=== PATIENT | male | born 2000 | race African-American/Black ===

== ENCOUNTER 2024-05-22 16:40 | Inpatient (IN) | payer OTHER, SELFPAY ==
[2024-05-22 16:58] VITALS: BP 135/86; PULSE 79; RESP 16; TEMP 36.4; O2SAT 99
[2024-05-22 17:07] VITALS: BMI 27.6
--- NOTE | 2024-05-22 19:01 | PC.ADMIT ---
Patient is a 24 y/o male admitted to at 1653 from [facility] ED following being transferred from [facility] ED. Patient did not sign a conditional voluntary at time of admission and is admitted under a 12b at this time. Patient made aware of section 12b status. Patient has a history of anxiety and ADHD. Patient also a history of suicidal attempts via strangulation/hanging, per crisis report, as well as self harm behavior including cutting. Patient was brought to [facility] following a suicide attempt at home. Patient reportedly attempted to strangle himself via rope and was found by his mother hanging from a ceiling fan. Furthermore, per crisis eval and mother?s report, patient had been making repeated recent attempts at hanging via the ceiling fans in the home, resulting in multiple broken fans over the last several months. Patient has also been exhibiting agoraphobic and isolative behavior in the home. Per mother?s report, for whom patient signed a JASPER, the patient has not showered in over 6 months and avoids talking to his family with whom he lives. Patient also claims that the recent suicidal attempts were due to a break-up with a girlfriend, but per mother, the patient has never had a intimate relationship. Patient was reportedly restrained in [facility] ED on 05/21/24 following a period of agitation. Upon admission to , patient was subdued, calm, cooperative, quiet and guarded. He is alert and oriented x 4. Pt only provided limited information during assessment and denied most psych symptoms, including current SI/HI/AH/VH. He claimed that the suicidal attempt was superficial and due to a break-up a month ago. ?I wasn?t really planning to do anything but my mom caught me and now here I am.? Pt denied history of trauma. Tox screen negative. NKA. Patient is not currently receiving outpatient services or on any home medications. Per patient?s mother, patient has refused all care to this point. Pt has a reported tendency to fast and then binge eat. No medical issues known or reported. Skin check performed. Pt has bruising on neck from suicidal attempt. Pt also has superficial cuts and scars to wrists bilaterally from cutting. Patient?s family remains very concerned for patient safety at home and believe he is at imminent risk for self harm and suicide. Family is hopeful that patient will agree to treatment and medication. Patient does not acknowledge the need to be admitted at this time and expressed desire for discharge at time of admission. Pt placed on 5 minute checks ULB for safety.
--- NOTE | 2024-05-22 19:07 | HO.PM.IMCN ---
History of Present Illness Data of Consult Service Date: 05/22/24 Primary Care Provider: Unknown Physician HPI Reason for consult: Admission H&P Pt is a 24-year-old male with out any known significant PMH not on home medications who is admitted to psychiatry unit for increasing depression with reported suicide attempt by hanging. Patient apparently was found by his mother who called 911. Workup including imaging of neck, cervical spine, and head negative for any acute injury. Medical consult for admission H&P. ?Patient seen and evaluated on the unit where he is noted to be guarded, quiet, and with poor eye contact. Patient is not very forthcoming with information, but answers questions appropriately and simply without any detail. Patient denies any acute medical complaints at this time. No shortness a breath or difficulty breathing. Denies chest pain/pressure or palpitations. No fever, chills, nausea, vomiting, abdominal pain.. Denies neck pain or difficulty swallowing. Vital signs stable and WNL. Review of Systems Review of Systems: Patient has no acute medical complaints at this time [facility] Social History Household Members: Family Household Members Other:: Naheed Coyle : Mother Housing: Apartment Do you presently have visiting nurse or other home services: No Patient Tobacco Use Status: Never used Tobacco Smoked in Last 30 Days: No e-Cigarette/Vaping Use: Never Used Patient Interested in Nicotine Replacement: No Patient Given Instructions on How to Stop Smoking: No Second Hand Smoke Exposure: No Use of substances other than those prescribed or required for medical reasons: No Currently Displaying Signs/Symptoms of Drug Intoxication Withdrawal: No Any prior treatment program specific to substance use: No Have you been hit, kicked, punched, or otherwise hurt by someone within the past year? If so, by whom?: No (Pt denied history of trauma) Do you feel safe in your current relationship?: No Current Relationship Is there a partner from a previous relationship who is making you feel unsafe now?: No Are you made to feel afraid or neglected: No Spiritual Healthcare Practices: NA Islam Healthcare Practices: NA Cultural Healthcare Practices: NA Advance Directives: No Advance Directives Information Provided: No Do you have a plan to hurt others: No Plan Recently lost weight without trying: No Eating poorly because of decreased appetite: No Nutrition Risks: No Nutritional Risk Poor oral hygiene: No Meds Allergies Allergy/AdvReac Type Severity Reaction Status Date / Time No Known Allergies Allergy Verified 05/22/24 17:01 Active Medications: Current Medications Acetaminophen (Acetaminophen 325 Mg Tablet) 650 mg PO Q6H PRN PRN Reason: Headache/Pain Mild Scale (1-3) Al Hydroxide/Mg Hydroxide (Magnesium Hydrox/Alum Hydrox 30 Ml Oral.Susp) 30 ml PO Q6H PRN PRN Reason: Heartburn/Nausea Hydroxyzine HCl (Hydroxyzine Hcl 25 Mg Tablet) 25 mg PO Q6H PRN PRN Reason: Anxiety Lorazepam (Lorazepam 1 Mg Tablet) 1 mg PO Q4H PRN PRN Reason: agitation Magnesium Hydroxide (Milk Of Magnesia 30 Ml Oral.Susp) 30 ml PO DAILY PRN PRN Reason: Constipation Nicotine (Nicotine 21 Mg Patch.Td24) 21 mg TRANSDERMA DAILY PRN PRN Reason: nicotine cravings Nicotine Polacrilex (Nicotine Polacrilex 2 Mg Gum) 4 mg BUCCAL Q2H PRN PRN Reason: Nicotine Cravings Olanzapine (Olanzapine 5 Mg Tablet) 5 mg PO Q4H PRN PRN Reason: agitation, aggression Trazodone HCl (Trazodone Hcl 50 Mg Tablet) 50 mg PO BEDTIME MRX1 PRN PRN Reason: Insomnia Home Medications ?Medication ?Instructions ?Recorded ?Confirmed ?Last Taken ?Type No Known Home Meds 05/22/24 05/22/24 Unknown History Physical Exam Vital Signs and Narrative: Vital Signs: Last Vital Signs Temp 97.5 F 05/22/24 16:58 Pulse 79 05/22/24 16:58 Resp 16 05/22/24 16:58 BP 135/86 05/22/24 16:58 Pulse Ox 99 05/22/24 16:58 O2 Del Method Room Air 05/22/24 16:58 BMI result Body Mass Index 27.6 General: AOx3, no acute distress Resp: CTA bilaterally CVS: S1, S2, RRR GI: +BS, NT, no distention Skin: Warm, dry Neuro: Cranial nerves II-XII grossly intact bilaterally. Motor grossly intact bilaterally Extremities: No edema. Well-healed superficial lacerations on right forearm. Psych: Flat affect, poor eye contact, answers questions appropriately, but not forthcoming with details Assessment and Plan (1) Medical clearance for psychiatric admission: Status: Acute Plan Pt is a 24-year-old male with out any known significant PMH not on home medications who is admitted to [facility] psychiatry unit for increasing depression with reported suicide attempt by hanging. Patient apparently was found by his mother who called 911. Workup including imaging of neck, cervical spine, and head negative for any acute injury. Medical consult for admission H&P. ? Mood disorder Plan as per Psychiatry Patient otherwise has no known PMH, chronic medical conditions, or acute medical complaints at this time. Will sign off. Thank you for allowing us to participate in the care of this patient. Please re-consult if any acute issue or need arises.
[2024-05-22 20:11] VITALS: BP 139/81; PULSE 80; RESP 18; TEMP 36.9; O2SAT 100
--- NOTE | 2024-05-22 21:58 | PC.NURSE ---
Pt sitting alone, motionless in sensory room with the door open. This RN spoke with pt regarding if he needed anything, to eat, drink, any somatic complaints including anxiety and depression, pt nodded his head no. Pt would not speak but would not or give a thumbs up to communicate. I informed pt that I would be here all night if he needed anything and advised that the kitchen can be accessed at any time during the night or day should he need anything t eat or drink.
[2024-05-23 08:30] LABS: Estimated Average Glucose 97 mg/dL; Hemoglobin A1C 116.5411 umol/L; Total Hemoglobin (HGBA1C) 3767.3589 umol/L
[2024-05-23 08:45] LABS: Cholesterol 198 mg/dL (<200); HDL Cholesterol 43 mg/dL (>40); LDL Cholesterol Calculated 141 mg/dL (<100); Magnesium 2.2 mg/dL (1.6-2.6); Triglycerides 70 mg/dL (<150)
--- NOTE | 2024-05-23 08:55 | HO.PSYADMNOT ---
HPI Date of Service: 05/23/24 Chief Complaint: Unspec anxiety d/o,atten-deficit/hyperactivity d/o Sources of Information: patient interviewed, chart reviewed and crisis/core team assessment reviewed HPI Subjective Notes: Quijano Warning and Section 12B Narrative: 24 yo male lives in [place] with his family. Unemployed. This is patient's first psychiatric admission. He has a reported history of ADHD in childhood. He was guarded and minimized symptoms in the interview. Patient was brought to [facility] initially on 05/21. His mom caught him as he was attempting suicide by hanging and she called 911. He was then transferred to [facility] yesterday and admitted. While at [facility] he had CTA neck which was normal. Bloodwork and UTOX were unremarkable. Patient reports this is his first time trying to kill himself. He says he had a break up a month ago and I didn't have closure. Says he was in the relationship for a few years. He saw an [employer] post of his ex and he felt it was subliminally directed at him. He had thoughts about how he struggles with his weight, worthlessness about being unemployed and a burden on his family. Says he realizes now it was a regrettable decision that he tried to hang himself and says he just wants to go home and work on stuff himself. He says he is not interested in taking medications. He has cuts on his forearms which he says he inflicted on himself but it was a while ago . Cuts look 1-2 weeks old and are superficial.He denies psychosis and minimizes/denies his mother's reports and disagrees about need to be in hospital or needing medications.He says his main issue is weight. Says he lost over 100 lbs over the year and half. Per crisis report from [facility] who called his mother, this wasn't the first time he tried hanging himself and reportedly broke 4 ceiling fans in the house. He has been depressed, isolating, not eating for prolonged periods of time, poor self care, breaking house mirrors so he doesn't see himself in them, and emailing friends and relatives asking for a gun. He reportedly posted photos of himself with a noose around his neck and on the roof of the family's house. Patient denies other symptoms of psychosis. He is guarded, has poor eye contact, is restless but calm and respectful. Past Psychiatric History: ADHD No inpatient treatment. Medical Evaluation Reviewed: Yes PMFSH Family History: Patient denied. Mother reported in the crisis report positive family history of mental illness/bipolar in the uncle Social History: Lives in [place] with his family. Grew up in [place]. HS graduate. Went to [employer]. Worked at [employer] until a year and a half ago. Substance History: Denied. UTOX negative. Trauma History: Unknown Diagnostics Vital Signs (24Hr): Vital Signs - 24 hr 05/22/24 16:58 05/22/24 20:11 Temperature 97.5 F 98.5 F Pulse Rate 79 80 Respiratory Rate 16 18 Blood Pressure 135/86 139/81 Pulse Oximetry 99 100 Oxygen Delivery Method Room Air Room Air BMI result Body Mass Index 27.6 Labs Labs: Laboratory Results - last 48 hr 05/23/24 08:01 Estimat Average Glucose 97 Hemoglobin A1c % 5.0 Magnesium 2.2 Triglycerides 70 Cholesterol 198 LDL Cholesterol, Calc 141 H HDL Cholesterol 43 Meds/Allergies Meds Home Medications ?Medication ?Instructions ?Recorded ?Confirmed ?Type No Known Home Meds 05/22/24 05/22/24 History Allergies Allergies Allergy/AdvReac Type Severity Reaction Status Date / Time No Known Allergies Allergy Verified 05/22/24 17:01 Mental Status Exam Mental Status Exam Narrative: General appearance: Unkempt, hospital garb. poor hygiene.? Eye contact: poor. Musculoskeletal: Normal muscle strength/tone, Normal gait and station, No abnormal involuntary movements like tremors, EPS or dyskinesia. Some restlessness and psychomotor agitation. Normal posture.??? Manner/behavior: superficially cooperative and guarded. Evasive and not forthcoming. Speech:? Fluent, soft, decreased verbal interaction and short answers. Language: No receptive or expressive language impairment? Mood: It's fine. Affect: blunted range, congruent to mood and without lability? Thought process/associations: Linear with no flight of ideas or loose associations.?? Thought content:?No delusions or paranoia.??? Hallucinations: No auditory, visual or other hallucinations. Denied. Appears preoccupied. Suicidality/self-destructive behavior: Denies. Says he is regretful? ? Homicidally/violence: none.? Reliability: poor.? ? Judgment: poor.? ? Insight: poor Cognition: Alert and oriented to time, place and person. Attention, concentration and fund of knowledge are normal.? Impulse control and emotional regulation: poor. Intelligence estimate: average.? Patient Appearance: Disheveled, Unkempt and Malodorous Assessment & Plan Assessment & Plan (1) Depressive disorder, atypical: Status: Acute Code(s): F32.89 - Other specified depressive episodes (2) Adjustment disorder with depressed mood: Status: Acute Code(s): F43.21 - Adjustment disorder with depressed mood Plan 24 yo male transferred from [facility] ED after a suicide attempt by hanging. He has been increasingly isolated, poor self care, stopped working. He has eating disorder symptoms and NSSI. Symptoms worsened in the setting of a break up. Rule out other mood disorder Plan: - Admit to inpatient psychiatry - Section 12, quijano warning. - Collateral information from family and providers. - Milieu treatment and group therapy. - Medications: Refuses - Social work evaluation. - Disposition planning. patient leloped int he after noon deom the unit and was brought back by Police. Patient educated on: medication risk/benefits and therapeutic strategies Reason for continued inpatient stay Substantial Risk for: harm to self, inability to function and rapid decompensation Statement Statement: I have reviewed the history and physical and performed a pertinent examination on my patient. No changes have occurred unless specified. If the History and Physical was not performed prior to admission, the Hospitalist's service will be consulted for completing the admission physical. Time Spent With Patient Time: Total time managing care of this patient today ____ minutes.
[2024-05-23 09:00] LABS: Free T4 (Free Thyroxine) 1.13 ng/dL (0.71-1.85); Thyroid Stimulating Hormone 0.39 uIU/mL (0.32-4.0)
[2024-05-23 09:13] LABS: Vitamin B12 837 pg/mL (200-900)
[2024-05-23 10:40] VITALS: BP 124/85; PULSE 92; RESP 16; TEMP 36.4; O2SAT 99
--- NOTE | 2024-05-23 16:37 | PM.EVENT ---
Event Note Date of Service: 05/23/24 Event Note: called to evaluate patient after 10 minute elopement, patient apparently was hiding in bushes. denies any injuries or taking any drugs or medications. patient alert, oriented, no obvious trauma, no acute distress. would check utox. Time Spent With Patient Time: Total time managing care of this patient today ____ minutes.
--- NOTE | 2024-05-23 16:54 | PC.NURSE ---
Addendum entered by Luis Medrano RN 05/23/24 18:03: Urine TOX screen entered per provider. As of 1803, patient remains non-compliant with collection. Original Note: At approximately 1500, patient approached this RN, as well Matti Murrell [facility], and requested to be brought out to fresh air break, where four other patients were currently on the patio. RN asked patient if he felt he was safe to go on fresh air break. At that time, patient contracted for safety and denied any SI/HI or elopement intent. Furthermore, prior to this incident, patient had not exhibited exit seeking behavior on the unit. He was also not on a fresh air break restriction. Staff then proceeded to escort patient off the unit to the fresh air break patio. Per report from Matti Murrell, Daniel Valdes, and Raman Dumont [facility]?s, who were each present for incident, patient proceeded to patio, then immediately requested to be brought back to the unit. At that time, during escort back to unit, patient ran from staff and proceeded down the stairs, through the hospital and outside through the main entrance. Security Estuardo, reportedly observed patient through the camera exiting the building and running down the street adjacent to the main entrance to the hospital heading north. Security and elopement code was also called at this time. Matti Murrell followed patient outside the hospital, as well as house nursing steam station supervisor, Berta Gomez, who also witnessed the patient eloping from the main entrance. TW also proceeded outside to assist at that time. rFanki IKDD was then contacted immediately by [facility] security. Furthermore, [place] [facility] security reportedly followed the patient in a car and kept eyes on the patient. Following a short althea, [facility] was able to intervene with the patient and bring him into custody, reportedly without physical restraint. Patient was then brought back to the unit. Skin check immediately performed on patient. Patient was wearing own clothing under his hospital johnnies, as well as shoes, which were previously checked by staff at admission. Patient was changed out of said clothing and back into hospital attire. Patient did not have any obvious signs of injury and denied pain or fall during the incident. Upon returning to the unit at approximately 1525, the patient was calm and cooperative. Staff spoke to the patient about the requirement for safety and legal status of his admission. Patient showed understanding. On-call provider was also contacted and informed of the incident. Patient was then placed on 1:1 at this time due to elopement risk and safety. Patient also placed on LENA restriction. Medical consult placed and hospitalist informed.
[2024-05-23 18:26] VITALS: BP 133/73; PULSE 84; RESP 16; TEMP 36.4; O2SAT 99
[2024-05-24 07:56] VITALS: BP 140/83; PULSE 95; RESP 16; TEMP 36.8; O2SAT 99
--- NOTE | 2024-05-24 11:24 | PC.NURSE ---
Pt calm and cooperative at this time. No exit seeking behavior on this date. Following discussion with provider, patient taken off 1:1 and placed on 5ULB.
--- NOTE | 2024-05-24 11:38 | P.PNPSI_ITS ---
Subjective Subjective Date of Service: 05/24/24 Reason For Visit: Unspec anxiety d/o,atten-deficit/hyperactivity d/o Interim History: Patient eloped from fresh air break yesterday and brought back by D/hospital security. Says he got anxious about being here. Says he feels better. Remains difficult to engage and minimizes his suicide attempt. Says he feels regretful about the attempted hanging. Says he needs to go home and focus on his eating and focus on getting back to work. Says he talked with his father and the conversation went well. Isolated. Spends time alone in group room or sensory room. He remains not interested in medications. Review of Systems Review of Systems Patient has no acute medical complaints at this time Mental Status Exam Mental Status Exam Narrative: General appearance: Unkempt, hospital garb. poor hygiene.? Eye contact: poor. Musculoskeletal: Normal muscle strength/tone, Normal gait and station, No abnormal involuntary movements like tremors, EPS or dyskinesia. Some restlessness and psychomotor agitation. Normal posture.??? Manner/behavior: superficially cooperative and guarded. Evasive and not forthcoming. Speech:? Fluent, soft, decreased verbal interaction and short answers. Language: No receptive or expressive language impairment? Mood: It's fine. Affect: blunted range, congruent to mood and without lability? Thought process/associations: Linear with no flight of ideas or loose associations.?? Thought content:?No delusions or paranoia.??? Hallucinations: No auditory, visual or other hallucinations. Denied. Appears preoccupied. Suicidality/self-destructive behavior: Denies. Says he is regretful? ? Homicidally/violence: none.? Reliability: poor.? ? Judgment: poor.? ? Insight: poor Cognition: Alert and oriented to time, place and person. Attention, concentration and fund of knowledge are normal.? Impulse control and emotional regulation: poor. Intelligence estimate: average.? Patient Appearance: Disheveled, Unkempt and Malodorous Diagnostics Vital Signs (24Hr): Vital Signs - 24 hr 05/23/24 18:26 05/24/24 07:56 Temperature 97.6 F 98.3 F Pulse Rate 84 95 Respiratory Rate 16 16 Blood Pressure 133/73 140/83 H Pulse Oximetry 99 99 Oxygen Delivery Method Room Air Room Air BMI result Body Mass Index 27.6 Labs Labs: Laboratory Results - last 48 hr 05/23/24 08:01 Estimat Average Glucose 97 Hemoglobin A1c % 5.0 Magnesium 2.2 Triglycerides 70 Cholesterol 198 LDL Cholesterol, Calc 141 H HDL Cholesterol 43 Vitamin B12 837 Folate 12.0 TSH 0.39 Free T4 1.13 Medications Medications Current Medications Acetaminophen (Acetaminophen 325 Mg Tablet) 650 mg PO Q6H PRN PRN Reason: Headache/Pain Mild Scale (1-3) Al Hydroxide/Mg Hydroxide (Magnesium Hydrox/Alum Hydrox 30 Ml Oral.Susp) 30 ml PO Q6H PRN PRN Reason: Heartburn/Nausea Hydroxyzine HCl (Hydroxyzine Hcl 25 Mg Tablet) 25 mg PO Q6H PRN PRN Reason: Anxiety Lorazepam (Lorazepam 1 Mg Tablet) 1 mg PO Q4H PRN PRN Reason: agitation Magnesium Hydroxide (Milk Of Magnesia 30 Ml Oral.Susp) 30 ml PO DAILY PRN PRN Reason: Constipation Nicotine (Nicotine 21 Mg Patch.Td24) 21 mg TRANSDERMA DAILY PRN PRN Reason: nicotine cravings Nicotine Polacrilex (Nicotine Polacrilex 2 Mg Gum) 4 mg BUCCAL Q2H PRN PRN Reason: Nicotine Cravings Olanzapine (Olanzapine 5 Mg Tablet) 5 mg PO Q4H PRN PRN Reason: agitation, aggression Trazodone HCl (Trazodone Hcl 50 Mg Tablet) 50 mg PO BEDTIME MRX1 PRN PRN Reason: Insomnia Allergies Allergies Allergy/AdvReac Type Severity Reaction Status Date / Time No Known Allergies Allergy Verified 05/22/24 17:01 Assessment & Plan Assessment & Plan (1) Depressive disorder, atypical: Status: Acute Code(s): F32.89 - Other specified depressive episodes (2) Adjustment disorder with depressed mood: Status: Acute Code(s): F43.21 - Adjustment disorder with depressed mood Plan 24 yo male transferred from [facility] ED after a suicide attempt by hanging. He has been increasingly isolated, poor self care, stopped working. He has eating disorder symptoms and NSSI. Symptoms worsened in the setting of a break up. Rule out other mood disorder Plan: - Admit to inpatient psychiatry - Section 12, rosado warning. - Collateral information from family and providers. - Milieu treatment and group therapy. - Medications: Refuses - Social work evaluation. - Disposition planning. patient eloped in the after noon from the unit and was brought back by Police. 05/24: Continue current management and treatment plan. Encourage engagement in groups and milieu. Reason for continued inpatient stay Substantial Risk for: harm to self, inability to function and rapid decompensation Time Spent With Patient Time: Total time managing care of this patient today ____ minutes.
[2024-05-25 07:40] VITALS: BP 100/64; PULSE 86; RESP 14; TEMP 36.7; O2SAT 99
--- NOTE | 2024-05-25 11:18 | P.PNPSI_ITS ---
Subjective Subjective Date of Service: 05/25/24 Reason For Visit: Unspec anxiety d/o,atten-deficit/hyperactivity d/o Interim History: Patient seen. Patient reports he had a bad experience with medications growing up which is making him wary. He recalls trials with stimulants in childhood and high school. Can't recall specific side effects other than feeling not well and maybe getting more balderas with them. He remains withdrawn and isolated. Says he is worried about his elopement yesterday will prolong the hospital stay. He looks internally preoccupied, he has had a paper bag with him whenever this parts data writer meets with him. He says at first it had his essentials and now he carries paperwork with him. (Paperbag looks empty). Restless. Poor eye contact. Soft spoken. Odd. He denies AVH but appears preoccupied. Discussed Quijano warning with him again. Continues to minimize his suicide attempt. His mom was visiting today and says he's thinking about what he has to do ot get out and says he is willing to pursue treatment on DC. He denies he tried to hang himself multiple times as mentioned in the crisis report. Isolated. Spends time alone in group room or sensory room. Patient denies kee. Further collateral would be helpful re prior treatment and response. Review of Systems Review of Systems Patient has no acute medical complaints at this time Mental Status Exam Mental Status Exam Narrative: General appearance: Unkempt, hospital garb. poor hygiene.? Eye contact: poor. Musculoskeletal: Normal muscle strength/tone, Normal gait and station, No abnormal involuntary movements like tremors, EPS or dyskinesia. Some restlessness and psychomotor agitation. stooped posture.??? Manner/behavior: superficially cooperative and guarded. Evasive and not forthcoming. Odd. Speech:? Fluent, soft, decreased verbal interaction and short answers. Language: No receptive or expressive language impairment? Mood: It's fine. Affect: blunted range, congruent to mood and without lability? Thought process/associations: Linear with no flight of ideas or loose associations.?? Thought content:?No delusions or paranoia.??? Hallucinations: No auditory, visual or other hallucinations. Denied. Appears preoccupied. Suicidality/self-destructive behavior: Denies. Says he is regretful? ? Homicidally/violence: none.? Reliability: poor.? ? Judgment: poor.? ? Insight: poor Cognition: Alert and oriented to time, place and person. Attention, concentration and fund of knowledge are normal.? Impulse control and emotional regulation: poor. Intelligence estimate: average.? Patient Appearance: Disheveled, Unkempt and Malodorous Diagnostics Vital Signs (24Hr): Vital Signs - 24 hr 05/25/24 07:40 Temperature 98.1 F Pulse Rate 86 Respiratory Rate 14 Blood Pressure 100/64 Pulse Oximetry 99 Oxygen Delivery Method Room Air BMI result Body Mass Index 27.6 Medications Medications Current Medications Acetaminophen (Acetaminophen 325 Mg Tablet) 650 mg PO Q6H PRN PRN Reason: Headache/Pain Mild Scale (1-3) Al Hydroxide/Mg Hydroxide (Magnesium Hydrox/Alum Hydrox 30 Ml Oral.Susp) 30 ml PO Q6H PRN PRN Reason: Heartburn/Nausea Hydroxyzine HCl (Hydroxyzine Hcl 25 Mg Tablet) 25 mg PO Q6H PRN PRN Reason: Anxiety Lorazepam (Lorazepam 1 Mg Tablet) 1 mg PO Q4H PRN PRN Reason: agitation Magnesium Hydroxide (Milk Of Magnesia 30 Ml Oral.Susp) 30 ml PO DAILY PRN PRN Reason: Constipation Nicotine (Nicotine 21 Mg Patch.Td24) 21 mg TRANSDERMA DAILY PRN PRN Reason: nicotine cravings Nicotine Polacrilex (Nicotine Polacrilex 2 Mg Gum) 4 mg BUCCAL Q2H PRN PRN Reason: Nicotine Cravings Olanzapine (Olanzapine 5 Mg Tablet) 5 mg PO Q4H PRN PRN Reason: agitation, aggression Trazodone HCl (Trazodone Hcl 50 Mg Tablet) 50 mg PO BEDTIME MRX1 PRN PRN Reason: Insomnia Allergies Allergies Allergy/AdvReac Type Severity Reaction Status Date / Time No Known Allergies Allergy Verified 05/22/24 17:01 Assessment & Plan Assessment & Plan (1) Depressive disorder, atypical: Status: Acute Code(s): F32.89 - Other specified depressive episodes (2) Adjustment disorder with depressed mood: Status: Acute Code(s): F43.21 - Adjustment disorder with depressed mood Plan 24 yo male transferred from [facility] ED after a suicide attempt by hanging. He has been increasingly isolated, poor self care, stopped working. He has eating disorder symptoms and NSSI. Symptoms worsened in the setting of a break up. Rule out other mood disorder Plan: - Admit to inpatient psychiatry - Section 12, quijano warning. - Collateral information from family and providers. - Milieu treatment and group therapy. - Medications: Refuses - Social work evaluation. - Disposition planning. patient eloped in the after noon from the unit and was brought back by Police. 05/24: Continue current management and treatment plan. Encourage engagement in groups and milieu. 05/25: Start Abilify 5 mg. Patient to consider. Encourage group and milieu engagement. Fasting labs in AM. Collaterals would be helpful. Reason for continued inpatient stay Substantial Risk for: harm to self, inability to function and rapid decompensation Time Spent With Patient Time: Total time managing care of this patient today ____ minutes.
[2024-05-25 20:00] VITALS: BP 111/71; PULSE 84; RESP 18; TEMP 36.9; O2SAT 99
[2024-05-26 20:15] VITALS: BP 124/76; PULSE 80; RESP 18; TEMP 36.6; O2SAT 100
--- NOTE | 2024-05-26 22:18 | HO.PSYCHPN ---
Subjective Subjective Date of Service: 05/26/24 Reason For Visit: Unspec anxiety d/o,atten-deficit/hyperactivity d/o Subjective Notes: Quijano Warning Interim History: reports h/o zoloft and lexapro, which made him i wasn't as into it as i used to be. also h/o focalin and concerta. focalin was OK, concerta wasn't good. discuss legal details, quijano warning. MD frankly discusses suspected Dx and encourages pt to take abilify. per staff, 12b up 05/28. blunted, withdrawn, guarded. wants a D/C date/ no elopement attempts. psychotic. Mental Status Exam Mental Status Exam Narrative: adequately dressed and groomed. cooperative. speech soft, sparse. decr amount. thoughts superficially linear and logical. affect constricted, hypo-intense, non-labile. mood not assessed. no SI/HI/AVH expressed. Diagnostics Vital Signs (24Hr): Vital Signs - 24 hr 05/26/24 20:15 Temperature 98 F Pulse Rate 80 Respiratory Rate 18 Blood Pressure 124/76 Pulse Oximetry 100 Oxygen Delivery Method Room Air BMI result Body Mass Index 27.6 Medications Medications Current Medications Acetaminophen (Acetaminophen 325 Mg Tablet) 650 mg PO Q6H PRN PRN Reason: Headache/Pain Mild Scale (1-3) Al Hydroxide/Mg Hydroxide (Magnesium Hydrox/Alum Hydrox 30 Ml Oral.Susp) 30 ml PO Q6H PRN PRN Reason: Heartburn/Nausea Aripiprazole (Aripiprazole 5 Mg Tablet) 5 mg PO DAILY PRN PRN Reason: pt preference - when mother visiting Hydroxyzine HCl (Hydroxyzine Hcl 25 Mg Tablet) 25 mg PO Q6H PRN PRN Reason: Anxiety Lorazepam (Lorazepam 1 Mg Tablet) 1 mg PO Q4H PRN PRN Reason: agitation Magnesium Hydroxide (Milk Of Magnesia 30 Ml Oral.Susp) 30 ml PO DAILY PRN PRN Reason: Constipation Nicotine (Nicotine 21 Mg Patch.Td24) 21 mg TRANSDERMA DAILY PRN PRN Reason: nicotine cravings Nicotine Polacrilex (Nicotine Polacrilex 2 Mg Gum) 4 mg BUCCAL Q2H PRN PRN Reason: Nicotine Cravings Olanzapine (Olanzapine 5 Mg Tablet) 5 mg PO Q4H PRN PRN Reason: agitation, aggression Trazodone HCl (Trazodone Hcl 50 Mg Tablet) 50 mg PO BEDTIME MRX1 PRN PRN Reason: Insomnia Allergies Allergies Allergy/AdvReac Type Severity Reaction Status Date / Time No Known Allergies Allergy Verified 05/22/24 17:01 Assessment & Plan Assessment & Plan (1) Depressive disorder, atypical: Status: Acute Code(s): F32.89 - Other specified depressive episodes (2) Adjustment disorder with depressed mood: Status: Acute Code(s): F43.21 - Adjustment disorder with depressed mood Plan 24 yo male transferred from [facility] ED after a suicide attempt by hanging. He has been increasingly isolated, poor self care, stopped working. He has eating disorder symptoms and NSSI. Symptoms worsened in the setting of a break up. Rule out other mood disorder Plan: - Admit to inpatient psychiatry - Section 12, quijano warning. - Collateral information from family and providers. - Milieu treatment and group therapy. - Medications: Refuses - Social work evaluation. - Disposition planning. patient eloped in the after noon from the unit and was brought back by Police. 05/24: Continue current management and treatment plan. Encourage engagement in groups and milieu. 05/25: Start Abilify 5 mg. Patient to consider. Encourage group and milieu engagement. Fasting labs in AM. Collaterals would be helpful. 05/26: encouraged to take abilify. quijano warning, legal discussion. Reason for continued inpatient stay Substantial Risk for: harm to self Time Spent With Patient Time: Total time managing care of this patient today __35__ minutes.
[2024-05-27 08:00] VITALS: BP 122/73; PULSE 82; RESP 18; TEMP 36.7; O2SAT 100
[2024-05-27] MEDS: ARIPiprazole 5 MG TABLET PO (09:05)
--- NOTE | 2024-05-27 16:43 | HO.PSYCHPN ---
Subjective Subjective Date of Service: 05/27/24 Reason For Visit: Unspec anxiety d/o,atten-deficit/hyperactivity d/o Interim History: calm, superficially cooperative. essentially provides monosyllabic answers and as little or vague information as possible. i don't know. it's hard to explain. took abilify this morning for the first time, asked to have it scheduled. per staff, 12b up tomorrow. flat, withdrawn, guarded. refused abilify yesterday, refusing meals. slept about 3-4 hours. Mental Status Exam Mental Status Exam Narrative: adequately dressed and groomed. superficially cooperative. speech soft, sparse. decr amount. incr STAR. thoughts superficially linear and logical. affect constricted, hypo-intense, non-labile. mood not assessed. no SI/HI/AVH expressed. Diagnostics Vital Signs (24Hr): Vital Signs - 24 hr 05/26/24 20:15 05/27/24 08:00 Temperature 98 F 98.1 F Pulse Rate 80 82 Respiratory Rate 18 18 Blood Pressure 124/76 122/73 Pulse Oximetry 100 100 Oxygen Delivery Method Room Air Room Air BMI result Body Mass Index 27.6 Medications Medications Current Medications Acetaminophen (Acetaminophen 325 Mg Tablet) 650 mg PO Q6H PRN PRN Reason: Headache/Pain Mild Scale (1-3) Al Hydroxide/Mg Hydroxide (Magnesium Hydrox/Alum Hydrox 30 Ml Oral.Susp) 30 ml PO Q6H PRN PRN Reason: Heartburn/Nausea Aripiprazole (Aripiprazole 5 Mg Tablet) 5 mg PO DAILY PRN PRN Reason: pt preference - when mother visiting Aripiprazole (Aripiprazole 5 Mg Tablet) 5 mg PO DAILY [facility] Last Admin: 05/27/24 09:05 Dose: 5 mg Hydroxyzine HCl (Hydroxyzine Hcl 25 Mg Tablet) 25 mg PO Q6H PRN PRN Reason: Anxiety Lorazepam (Lorazepam 1 Mg Tablet) 1 mg PO Q4H PRN PRN Reason: agitation Magnesium Hydroxide (Milk Of Magnesia 30 Ml Oral.Susp) 30 ml PO DAILY PRN PRN Reason: Constipation Nicotine (Nicotine 21 Mg Patch.Td24) 21 mg TRANSDERMA DAILY PRN PRN Reason: nicotine cravings Nicotine Polacrilex (Nicotine Polacrilex 2 Mg Gum) 4 mg BUCCAL Q2H PRN PRN Reason: Nicotine Cravings Olanzapine (Olanzapine 5 Mg Tablet) 5 mg PO Q4H PRN PRN Reason: agitation, aggression Trazodone HCl (Trazodone Hcl 50 Mg Tablet) 50 mg PO BEDTIME MRX1 PRN PRN Reason: Insomnia Allergies Allergies Allergy/AdvReac Type Severity Reaction Status Date / Time No Known Allergies Allergy Verified 05/22/24 17:01 Assessment & Plan Assessment & Plan (1) Depressive disorder, atypical: Status: Acute Code(s): F32.89 - Other specified depressive episodes (2) Adjustment disorder with depressed mood: Status: Acute Code(s): F43.21 - Adjustment disorder with depressed mood Plan 24 yo male transferred from [facility] ED after a suicide attempt by hanging. He has been increasingly isolated, poor self care, stopped working. He has eating disorder symptoms and NSSI. Symptoms worsened in the setting of a break up. Rule out other mood disorder Plan: - Admit to inpatient psychiatry - Section 12, rosado warning. - Collateral information from family and providers. - Milieu treatment and group therapy. - Medications: Refuses - Social work evaluation. - Disposition planning. patient eloped in the after noon from the unit and was brought back by Police. 05/24: Continue current management and treatment plan. Encourage engagement in groups and milieu. 05/25: Start Abilify 5 mg. Patient to consider. Encourage group and milieu engagement. Fasting labs in AM. Collaterals would be helpful. 05/26: encouraged to take abilify. rosado warning, legal discussion. 05/27: took abilify 5 mg this morning for first time. 12b up tomorrow. continue current mgmt. Reason for continued inpatient stay Substantial Risk for: harm to self and inability to function Time Spent With Patient Time: Total time managing care of this patient today __25__ minutes.
[2024-05-28 07:00] VITALS: BMI 27.6
[2024-05-28] MEDS: ARIPiprazole 5 MG TABLET PO (08:29)
[2024-05-28 09:20] VITALS: BP 124/75; PULSE 70; RESP 16; TEMP 36.9; O2SAT 100
--- NOTE | 2024-05-28 16:29 | HO.PSYCHPN ---
Subjective Subjective Date of Service: 05/28/24 Reason For Visit: Unspec anxiety d/o,atten-deficit/hyperactivity d/o Interim History: calm, cooperative. slowed responses. informed of filing for commitment. little reaction. reports he feels improved on the abilify, but remains extremely vague and unable to express in what way. slept OK. feeling better, and more into things. per staff, refusing PRNs. appears depressed. Mental Status Exam Mental Status Exam Narrative: adequately dressed and groomed. superficially cooperative. speech soft, sparse. decr amount. incr STAR. thoughts superficially linear and logical. affect constricted, hypo-intense, non-labile. mood better. no SI/HI/AVH expressed. Diagnostics Vital Signs (24Hr): Vital Signs - 24 hr 05/28/24 09:20 Temperature 98.4 F Pulse Rate 70 Respiratory Rate 16 Blood Pressure 124/75 Pulse Oximetry 100 Oxygen Delivery Method Room Air BMI result Body Mass Index 27.6 Medications Medications Current Medications Acetaminophen (Acetaminophen 325 Mg Tablet) 650 mg PO Q6H PRN PRN Reason: Headache/Pain Mild Scale (1-3) Al Hydroxide/Mg Hydroxide (Magnesium Hydrox/Alum Hydrox 30 Ml Oral.Susp) 30 ml PO Q6H PRN PRN Reason: Heartburn/Nausea Aripiprazole (Aripiprazole 5 Mg Tablet) 5 mg PO DAILY PRN PRN Reason: pt preference - when mother visiting Aripiprazole (Aripiprazole 5 Mg Tablet) 5 mg PO DAILY [facility] Last Admin: 05/28/24 08:29 Dose: 5 mg Hydroxyzine HCl (Hydroxyzine Hcl 25 Mg Tablet) 25 mg PO Q6H PRN PRN Reason: Anxiety Lorazepam (Lorazepam 1 Mg Tablet) 1 mg PO Q4H PRN PRN Reason: agitation Magnesium Hydroxide (Milk Of Magnesia 30 Ml Oral.Susp) 30 ml PO DAILY PRN PRN Reason: Constipation Nicotine (Nicotine 21 Mg Patch.Td24) 21 mg TRANSDERMA DAILY PRN PRN Reason: nicotine cravings Nicotine Polacrilex (Nicotine Polacrilex 2 Mg Gum) 4 mg BUCCAL Q2H PRN PRN Reason: Nicotine Cravings Olanzapine (Olanzapine 5 Mg Tablet) 5 mg PO Q4H PRN PRN Reason: agitation, aggression Trazodone HCl (Trazodone Hcl 50 Mg Tablet) 50 mg PO BEDTIME MRX1 PRN PRN Reason: Insomnia Allergies Allergies Allergy/AdvReac Type Severity Reaction Status Date / Time No Known Allergies Allergy Verified 05/22/24 17:01 Assessment & Plan Assessment & Plan (1) Depressive disorder, atypical: Status: Acute Code(s): F32.89 - Other specified depressive episodes (2) Adjustment disorder with depressed mood: Status: Acute Code(s): F43.21 - Adjustment disorder with depressed mood Plan 24 yo male transferred from [facility] ED after a suicide attempt by hanging. He has been increasingly isolated, poor self care, stopped working. He has eating disorder symptoms and NSSI. Symptoms worsened in the setting of a break up. Rule out other mood disorder Plan: - Admit to inpatient psychiatry - Section 12, rosado warning. - Collateral information from family and providers. - Milieu treatment and group therapy. - Medications: Refuses - Social work evaluation. - Disposition planning. patient eloped in the after noon from the unit and was brought back by Police. 05/24: Continue current management and treatment plan. Encourage engagement in groups and milieu. 05/25: Start Abilify 5 mg. Patient to consider. Encourage group and milieu engagement. Fasting labs in AM. Collaterals would be helpful. 05/26: encouraged to take abilify. rosado warning, legal discussion. 05/27: took abilify 5 mg this morning for first time. 12b up tomorrow. continue current mgmt. 05/28: took abilify again today. feeling better and more into things. filed for commitment. Reason for continued inpatient stay Substantial Risk for: harm to self and inability to function Time Spent With Patient Time: Total time managing care of this patient today __35__ minutes.
[2024-05-29] MEDS: ARIPiprazole 5 MG TABLET PO (09:31)
--- NOTE | 2024-05-29 14:22 | P.PNPSI_ITS ---
Subjective Subjective Date of Service: 05/29/24 Reason For Visit: Unspec anxiety d/o,atten-deficit/hyperactivity d/o Interim History: calm, cooperative. sparse, soft speech. poor eye contact, not forthcoming with information. agrees to increase abilify to 10 mg as of saturday. asks to be able to go on LENA, agrees to trial with security present (eloped when last on LENA). per staff, isolative. slept 8 hours. Mental Status Exam Mental Status Exam Narrative: adequately dressed and groomed. poor eye contact. superficially cooperative. speech soft, sparse. decr amount. incr STAR. thoughts superficially linear and logical. affect constricted, hypo-intense, non-labile. mood better. no SI/HI/AVH expressed. Diagnostics Vital Signs (24Hr): BMI result Body Mass Index 27.6 Medications Medications Current Medications Acetaminophen (Acetaminophen 325 Mg Tablet) 650 mg PO Q6H PRN PRN Reason: Headache/Pain Mild Scale (1-3) Al Hydroxide/Mg Hydroxide (Magnesium Hydrox/Alum Hydrox 30 Ml Oral.Susp) 30 ml PO Q6H PRN PRN Reason: Heartburn/Nausea Aripiprazole (Aripiprazole 5 Mg Tablet) 5 mg PO DAILY PRN PRN Reason: pt preference - when mother visiting Aripiprazole (Aripiprazole 5 Mg Tablet) 5 mg PO DAILY [facility] Stop: 05/31/24 09:01 Last Admin: 05/29/24 09:31 Dose: 5 mg Aripiprazole (Aripiprazole 10 Mg Tablet) 10 mg PO DAILY [facility] Hydroxyzine HCl (Hydroxyzine Hcl 25 Mg Tablet) 25 mg PO Q6H PRN PRN Reason: Anxiety Lorazepam (Lorazepam 1 Mg Tablet) 1 mg PO Q4H PRN PRN Reason: agitation Magnesium Hydroxide (Milk Of Magnesia 30 Ml Oral.Susp) 30 ml PO DAILY PRN PRN Reason: Constipation Nicotine (Nicotine 21 Mg Patch.Td24) 21 mg TRANSDERMA DAILY PRN PRN Reason: nicotine cravings Nicotine Polacrilex (Nicotine Polacrilex 2 Mg Gum) 4 mg BUCCAL Q2H PRN PRN Reason: Nicotine Cravings Olanzapine (Olanzapine 5 Mg Tablet) 5 mg PO Q4H PRN PRN Reason: agitation, aggression Trazodone HCl (Trazodone Hcl 50 Mg Tablet) 50 mg PO BEDTIME MRX1 PRN PRN Reason: Insomnia Allergies Allergies Allergy/AdvReac Type Severity Reaction Status Date / Time No Known Allergies Allergy Verified 05/22/24 17:01 Assessment & Plan Assessment & Plan (1) Depressive disorder, atypical: Status: Acute Code(s): F32.89 - Other specified depressive episodes (2) Adjustment disorder with depressed mood: Status: Acute Code(s): F43.21 - Adjustment disorder with depressed mood Plan 24 yo male transferred from [facility] ED after a suicide attempt by hanging. He has been increasingly isolated, poor self care, stopped working. He has eating disorder symptoms and NSSI. Symptoms worsened in the setting of a break up. Rule out other mood disorder Plan: - Admit to inpatient psychiatry - Section 12, rosado warning. - Collateral information from family and providers. - Milieu treatment and group therapy. - Medications: Refuses - Social work evaluation. - Disposition planning. patient eloped in the after noon from the unit and was brought back by Police. 05/24: Continue current management and treatment plan. Encourage engagement in groups and milieu. 05/25: Start Abilify 5 mg. Patient to consider. Encourage group and milieu engagement. Fasting labs in AM. Collaterals would be helpful. 05/26: encouraged to take abilify. rosado warning, legal discussion. 05/27: took abilify 5 mg this morning for first time. 12b up tomorrow. continue current mgmt. 05/28: took abilify again today. feeling better and more into things. filed for commitment. 05/29: took abilify 5 again today. willing to increase to 10 as of saturday (ordered). asking for LENA again, will allow with security present. Reason for continued inpatient stay Substantial Risk for: harm to self and inability to function Time Spent With Patient Time: Total time managing care of this patient today __25__ minutes.
--- NOTE | 2024-05-30 08:07 | HO.PSYCHPN ---
Subjective Subjective Date of Service: 05/30/24 Reason For Visit: Unspec anxiety d/o,atten-deficit/hyperactivity d/o Subjective Notes: Section 7 Interim History: calm, cooperative. sparse, soft speech. in group room. Headphones. Asking about discharge. States he feels better but unable to specify details or differences. Side effects from medications: No Attending Groups: No Review of Systems Acute medical concerns: No Review of Systems Review of Systems Patient has no acute medical complaints at this time Mental Status Exam Mental Status Exam Narrative: adequately dressed and groomed. poor eye contact. superficially cooperative. speech soft, sparse. decr amount. Asking about discharge. thoughts superficially linear and logical. affect constricted, hypo-intense, non-labile. mood better. no SI/HI/AVH expressed. Patient Appearance: Disheveled, Unkempt and Malodorous Diagnostics Vital Signs (24Hr): BMI result Body Mass Index 27.6 Medications Medications Current Medications Acetaminophen (Acetaminophen 325 Mg Tablet) 650 mg PO Q6H PRN PRN Reason: Headache/Pain Mild Scale (1-3) Al Hydroxide/Mg Hydroxide (Magnesium Hydrox/Alum Hydrox 30 Ml Oral.Susp) 30 ml PO Q6H PRN PRN Reason: Heartburn/Nausea Aripiprazole (Aripiprazole 5 Mg Tablet) 5 mg PO DAILY PRN PRN Reason: pt preference - when mother visiting Aripiprazole (Aripiprazole 5 Mg Tablet) 5 mg PO DAILY [facility] Stop: 05/31/24 09:01 Last Admin: 05/29/24 09:31 Dose: 5 mg Aripiprazole (Aripiprazole 10 Mg Tablet) 10 mg PO DAILY [facility] Hydroxyzine HCl (Hydroxyzine Hcl 25 Mg Tablet) 25 mg PO Q6H PRN PRN Reason: Anxiety Lorazepam (Lorazepam 1 Mg Tablet) 1 mg PO Q4H PRN PRN Reason: agitation Magnesium Hydroxide (Milk Of Magnesia 30 Ml Oral.Susp) 30 ml PO DAILY PRN PRN Reason: Constipation Nicotine (Nicotine 21 Mg Patch.Td24) 21 mg TRANSDERMA DAILY PRN PRN Reason: nicotine cravings Nicotine Polacrilex (Nicotine Polacrilex 2 Mg Gum) 4 mg BUCCAL Q2H PRN PRN Reason: Nicotine Cravings Olanzapine (Olanzapine 5 Mg Tablet) 5 mg PO Q4H PRN PRN Reason: agitation, aggression Trazodone HCl (Trazodone Hcl 50 Mg Tablet) 50 mg PO BEDTIME MRX1 PRN PRN Reason: Insomnia Allergies Allergies Allergy/AdvReac Type Severity Reaction Status Date / Time No Known Allergies Allergy Verified 05/22/24 17:01 Assessment & Plan Assessment & Plan (1) Depressive disorder, atypical: Status: Acute Code(s): F32.89 - Other specified depressive episodes (2) Adjustment disorder with depressed mood: Status: Acute Code(s): F43.21 - Adjustment disorder with depressed mood Plan 24 yo male transferred from [facility] ED after a suicide attempt by hanging. He has been increasingly isolated, poor self care, stopped working. He has eating disorder symptoms and NSSI. Symptoms worsened in the setting of a break up. Rule out other mood disorder Plan: - Admit to inpatient psychiatry - Section 12, rosado warning. - Collateral information from family and providers. - Milieu treatment and group therapy. - Medications: Refuses - Social work evaluation. - Disposition planning. patient eloped in the after noon from the unit and was brought back by Police. 05/24: Continue current management and treatment plan. Encourage engagement in groups and milieu. 05/25: Start Abilify 5 mg. Patient to consider. Encourage group and milieu engagement. Fasting labs in AM. Collaterals would be helpful. 05/26: encouraged to take abilify. rosado warning, legal discussion. 05/27: took abilify 5 mg this morning for first time. 12b up tomorrow. continue current mgmt. 05/28: took abilify again today. feeling better and more into things. filed for commitment. 05/29: took abilify 5 again today. willing to increase to 10 as of saturday (ordered). asking for LENA again, will allow with security present. Reason for continued inpatient stay Substantial Risk for: rapid decompensation Time Spent With Patient Time: Total time managing care of this patient today ____ minutes.
[2024-05-30 09:50] VITALS: BP 127/83; PULSE 84; RESP 18; TEMP 36.9; O2SAT 98
[2024-05-30] MEDS: ARIPiprazole 5 MG TABLET PO (09:57)
[2024-05-30 21:05] VITALS: RESP 16
[2024-05-31 08:00] VITALS: BP 115/85; PULSE 85; RESP 18; TEMP 36.4; O2SAT 98
--- NOTE | 2024-05-31 08:09 | P.PNPSI_ITS ---
Subjective Subjective Date of Service: 05/31/24 Reason For Visit: Unspec anxiety d/o,atten-deficit/hyperactivity d/o Medical Problems Affecting Mental Status: No Interim History: in sensory room. Guarded. Listening to music on headphones. Limited engagement in interview. Denied having any concerns and asking about discharge Side effects from medications: No Attending Groups: No Review of Systems Acute medical concerns: No Review of Systems Review of Systems Patient has no acute medical complaints at this time Mental Status Exam Mental Status Exam Narrative: adequately dressed and groomed. poor eye contact. superficially cooperative. speech soft, sparse. decr amount. Asking about discharge. thoughts superficially linear and logical. affect constricted, hypo-intense, non-labile. mood better. no SI/HI/AVH expressed. is internally preoccupied Diagnostics Vital Signs (24Hr): Vital Signs - 24 hr 05/30/24 09:50 05/30/24 21:05 Temperature 98.4 F Pulse Rate 84 Respiratory Rate 18 16 Blood Pressure 127/83 Pulse Oximetry 98 Oxygen Delivery Method Room Air BMI result Body Mass Index 27.6 Medications Medications Current Medications Acetaminophen (Acetaminophen 325 Mg Tablet) 650 mg PO Q6H PRN PRN Reason: Headache/Pain Mild Scale (1-3) Al Hydroxide/Mg Hydroxide (Magnesium Hydrox/Alum Hydrox 30 Ml Oral.Susp) 30 ml PO Q6H PRN PRN Reason: Heartburn/Nausea Aripiprazole (Aripiprazole 5 Mg Tablet) 5 mg PO DAILY PRN PRN Reason: pt preference - when mother visiting Aripiprazole (Aripiprazole 5 Mg Tablet) 5 mg PO DAILY [facility] Stop: 05/31/24 09:01 Last Admin: 05/30/24 09:57 Dose: 5 mg Aripiprazole (Aripiprazole 10 Mg Tablet) 10 mg PO DAILY [facility] Hydroxyzine HCl (Hydroxyzine Hcl 25 Mg Tablet) 25 mg PO Q6H PRN PRN Reason: Anxiety Lorazepam (Lorazepam 1 Mg Tablet) 1 mg PO Q4H PRN PRN Reason: agitation Magnesium Hydroxide (Milk Of Magnesia 30 Ml Oral.Susp) 30 ml PO DAILY PRN PRN Reason: Constipation Nicotine (Nicotine 21 Mg Patch.Td24) 21 mg TRANSDERMA DAILY PRN PRN Reason: nicotine cravings Nicotine Polacrilex (Nicotine Polacrilex 2 Mg Gum) 4 mg BUCCAL Q2H PRN PRN Reason: Nicotine Cravings Olanzapine (Olanzapine 5 Mg Tablet) 5 mg PO Q4H PRN PRN Reason: agitation, aggression Trazodone HCl (Trazodone Hcl 50 Mg Tablet) 50 mg PO BEDTIME MRX1 PRN PRN Reason: Insomnia Allergies Allergies Allergy/AdvReac Type Severity Reaction Status Date / Time No Known Allergies Allergy Verified 05/22/24 17:01 Assessment & Plan Assessment & Plan (1) Depressive disorder, atypical: Status: Acute Code(s): F32.89 - Other specified depressive episodes (2) Adjustment disorder with depressed mood: Status: Acute Code(s): F43.21 - Adjustment disorder with depressed mood Plan 24 yo male transferred from [facility] ED after a suicide attempt by hanging. He has been increasingly isolated, poor self care, stopped working. He has eating disorder symptoms and NSSI. Symptoms worsened in the setting of a break up. Rule out other mood disorder Plan: - Admit to inpatient psychiatry - Section 12, rosado warning. - Collateral information from family and providers. - Milieu treatment and group therapy. - Medications: Refuses - Social work evaluation. - Disposition planning. patient eloped in the after noon from the unit and was brought back by Police. 05/24: Continue current management and treatment plan. Encourage engagement in groups and milieu. 05/25: Start Abilify 5 mg. Patient to consider. Encourage group and milieu engagement. Fasting labs in AM. Collaterals would be helpful. 05/26: encouraged to take abilify. rosado warning, legal discussion. 05/27: took abilify 5 mg this morning for first time. 12b up tomorrow. continue current mgmt. 05/28: took abilify again today. feeling better and more into things. filed for commitment. 05/29: took abilify 5 again today. willing to increase to 10 as of saturday (ordered). asking for LENA again, will allow with security present. 05/31/2024: No changes Reason for continued inpatient stay Substantial Risk for: inability to function Time Spent With Patient Time: Total time managing care of this patient today ____ minutes.
[2024-05-31] MEDS: ARIPiprazole 5 MG TABLET PO (09:20)
[2024-05-31 19:56] VITALS: RESP 16
[2024-06-01 08:00] VITALS: BP 120/81; PULSE 87; RESP 14; TEMP 36.6; O2SAT 100
[2024-06-01] MEDS: ARIPiprazole 10 MG TABLET PO (09:49)
--- NOTE | 2024-06-01 15:36 | P.PNPSI_ITS ---
Subjective Subjective Date of Service: 06/01/24 Reason For Visit: Unspec anxiety d/o,atten-deficit/hyperactivity d/o Interim History: terse, difficult to engage. asking questions about hearing date, legal process. milquetoast responses. per staff, court 12th. mostly in sensory room. takes meds after breakfast. refusing VS, slept in his own room last night, which is new. had been paranoid about being put in a single, seeming to believe he was going to be trapped in there by staff. Mental Status Exam Mental Status Exam Narrative: adequately dressed and groomed. poor eye contact. superficially cooperative. speech soft, sparse. decr amount. incr STAR. thoughts superficially linear and logical. affect constricted, hypo-intense, non-labile. mood better. no SI/HI/AVH expressed. Diagnostics Vital Signs (24Hr): Vital Signs - 24 hr 05/31/24 19:56 06/01/24 08:00 Temperature 97.8 F Pulse Rate 87 Respiratory Rate 16 14 Blood Pressure 120/81 Pulse Oximetry 100 Oxygen Delivery Method Room Air BMI result Body Mass Index 27.6 Medications Medications Current Medications Acetaminophen (Acetaminophen 325 Mg Tablet) 650 mg PO Q6H PRN PRN Reason: Headache/Pain Mild Scale (1-3) Al Hydroxide/Mg Hydroxide (Magnesium Hydrox/Alum Hydrox 30 Ml Oral.Susp) 30 ml PO Q6H PRN PRN Reason: Heartburn/Nausea Aripiprazole (Aripiprazole 5 Mg Tablet) 5 mg PO DAILY PRN PRN Reason: pt preference - when mother visiting Aripiprazole (Aripiprazole 10 Mg Tablet) 10 mg PO DAILY [facility] Last Admin: 06/01/24 09:49 Dose: 10 mg Hydroxyzine HCl (Hydroxyzine Hcl 25 Mg Tablet) 25 mg PO Q6H PRN PRN Reason: Anxiety Lorazepam (Lorazepam 1 Mg Tablet) 1 mg PO Q4H PRN PRN Reason: agitation Magnesium Hydroxide (Milk Of Magnesia 30 Ml Oral.Susp) 30 ml PO DAILY PRN PRN Reason: Constipation Nicotine (Nicotine 21 Mg Patch.Td24) 21 mg TRANSDERMA DAILY PRN PRN Reason: nicotine cravings Nicotine Polacrilex (Nicotine Polacrilex 2 Mg Gum) 4 mg BUCCAL Q2H PRN PRN Reason: Nicotine Cravings Olanzapine (Olanzapine 5 Mg Tablet) 5 mg PO Q4H PRN PRN Reason: agitation, aggression Trazodone HCl (Trazodone Hcl 50 Mg Tablet) 50 mg PO BEDTIME MRX1 PRN PRN Reason: Insomnia Allergies Allergies Allergy/AdvReac Type Severity Reaction Status Date / Time No Known Allergies Allergy Verified 05/22/24 17:01 Assessment & Plan Assessment & Plan (1) Depressive disorder, atypical: Status: Acute Code(s): F32.89 - Other specified depressive episodes (2) Adjustment disorder with depressed mood: Status: Acute Code(s): F43.21 - Adjustment disorder with depressed mood Plan 24 yo male transferred from [facility] ED after a suicide attempt by hanging. He has been increasingly isolated, poor self care, stopped working. He has eating disorder symptoms and NSSI. Symptoms worsened in the setting of a break up. Rule out other mood disorder Plan: - Admit to inpatient psychiatry - Section 12, rosado warning. - Collateral information from family and providers. - Milieu treatment and group therapy. - Medications: Refuses - Social work evaluation. - Disposition planning. patient eloped in the after noon from the unit and was brought back by Police. 05/24: Continue current management and treatment plan. Encourage engagement in groups and milieu. 05/25: Start Abilify 5 mg. Patient to consider. Encourage group and milieu engagement. Fasting labs in AM. Collaterals would be helpful. 05/26: encouraged to take abilify. rosado warning, legal discussion. 05/27: took abilify 5 mg this morning for first time. 12b up tomorrow. continue current mgmt. 05/28: took abilify again today. feeling better and more into things. filed for commitment. 05/29: took abilify 5 again today. willing to increase to 10 as of saturday (ordered). asking for LENA again, will allow with security present. 05/31/2024: No changes 06/01: abilify dosing increased to 10 mg as of this morning. initially too paranoid to sleep in single room, slept there last night for first time. court . Reason for continued inpatient stay Substantial Risk for: harm to self, inability to function and rapid decompensation Time Spent With Patient Time: Total time managing care of this patient today __25__ minutes.
[2024-06-01 20:30] VITALS: RESP 16
[2024-06-02] MEDS: ARIPiprazole 10 MG TABLET PO (09:31)
--- NOTE | 2024-06-02 15:22 | HO.PSYCHPN ---
Subjective Subjective Date of Service: 06/02/24 Reason For Visit: Unspec anxiety d/o,atten-deficit/hyperactivity d/o Interim History: no change in presentation. reports feeling fine. no elaboration, clearly not comfortable in interview. doesn't sit, stands by door throughout. presses for termination. per staff, isolative, pleasant. Mental Status Exam Mental Status Exam Narrative: adequately dressed and groomed. poor eye contact. superficially cooperative. speech soft, sparse. decr amount. incr STAR. thoughts superficially linear and logical. affect constricted, hypo-intense, non-labile. mood better. no SI/HI/AVH expressed. Diagnostics Vital Signs (24Hr): Vital Signs - 24 hr 06/01/24 20:30 Respiratory Rate 16 BMI result Body Mass Index 27.6 Medications Medications Current Medications Acetaminophen (Acetaminophen 325 Mg Tablet) 650 mg PO Q6H PRN PRN Reason: Headache/Pain Mild Scale (1-3) Al Hydroxide/Mg Hydroxide (Magnesium Hydrox/Alum Hydrox 30 Ml Oral.Susp) 30 ml PO Q6H PRN PRN Reason: Heartburn/Nausea Aripiprazole (Aripiprazole 5 Mg Tablet) 5 mg PO DAILY PRN PRN Reason: pt preference - when mother visiting Aripiprazole (Aripiprazole 10 Mg Tablet) 10 mg PO DAILY [facility] Last Admin: 06/02/24 09:31 Dose: 10 mg Hydroxyzine HCl (Hydroxyzine Hcl 25 Mg Tablet) 25 mg PO Q6H PRN PRN Reason: Anxiety Lorazepam (Lorazepam 1 Mg Tablet) 1 mg PO Q4H PRN PRN Reason: agitation Magnesium Hydroxide (Milk Of Magnesia 30 Ml Oral.Susp) 30 ml PO DAILY PRN PRN Reason: Constipation Nicotine (Nicotine 21 Mg Patch.Td24) 21 mg TRANSDERMA DAILY PRN PRN Reason: nicotine cravings Nicotine Polacrilex (Nicotine Polacrilex 2 Mg Gum) 4 mg BUCCAL Q2H PRN PRN Reason: Nicotine Cravings Olanzapine (Olanzapine 5 Mg Tablet) 5 mg PO Q4H PRN PRN Reason: agitation, aggression Trazodone HCl (Trazodone Hcl 50 Mg Tablet) 50 mg PO BEDTIME MRX1 PRN PRN Reason: Insomnia Allergies Allergies Allergy/AdvReac Type Severity Reaction Status Date / Time No Known Allergies Allergy Verified 05/22/24 17:01 Assessment & Plan Assessment & Plan (1) Depressive disorder, atypical: Status: Acute Code(s): F32.89 - Other specified depressive episodes (2) Adjustment disorder with depressed mood: Status: Acute Code(s): F43.21 - Adjustment disorder with depressed mood Plan 24 yo male transferred from [facility] ED after a suicide attempt by hanging. He has been increasingly isolated, poor self care, stopped working. He has eating disorder symptoms and NSSI. Symptoms worsened in the setting of a break up. Rule out other mood disorder Plan: - Admit to inpatient psychiatry - Section 12, rosado warning. - Collateral information from family and providers. - Milieu treatment and group therapy. - Medications: Refuses - Social work evaluation. - Disposition planning. patient eloped in the after noon from the unit and was brought back by Police. 05/24: Continue current management and treatment plan. Encourage engagement in groups and milieu. 05/25: Start Abilify 5 mg. Patient to consider. Encourage group and milieu engagement. Fasting labs in AM. Collaterals would be helpful. 05/26: encouraged to take abilify. rosado warning, legal discussion. 05/27: took abilify 5 mg this morning for first time. 12b up tomorrow. continue current mgmt. 05/28: took abilify again today. feeling better and more into things. filed for commitment. 05/29: took abilify 5 again today. willing to increase to 10 as of saturday (ordered). asking for LENA again, will allow with security present. 05/31/2024: No changes 06/01: abilify dosing increased to 10 mg as of this morning. initially too paranoid to sleep in single room, slept there last night for first time. court . 06/02: no change in presentation. declines increase in abilify dosing. stands by door throughout. Reason for continued inpatient stay Substantial Risk for: harm to self, inability to function and rapid decompensation Time Spent With Patient Time: Total time managing care of this patient today __25__ minutes.
[2024-06-02 20:00] VITALS: RESP 16
[2024-06-03] MEDS: ARIPiprazole 10 MG TABLET PO (09:28)
--- NOTE | 2024-06-03 11:23 | P.PNPSI_ITS ---
Subjective Subjective Date of Service: 06/03/24 Reason For Visit: Unspec anxiety d/o,atten-deficit/hyperactivity d/o Subjective Notes: Section 7 Interim History: Pt taking medications. 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 He reports doing well, when asked to elaborate after long pause, pt states overall, ah, just a feeling. He appears internally preoccupied, thought blocking and not fully forthcoming with extend of delusional content. He denies SI/HI. Review of Systems Review of Systems Patient has no acute medical complaints at this time Mental Status Exam Mental Status Exam Narrative: adequately dressed and groomed. poor eye contact. superficially cooperative. speech soft, sparse. decr amount. incr STAR. thoughts superficially linear and logical. affect constricted, hypo-intense, non-labile. mood better. no SI/HI/AVH expressed. Patient Appearance: Disheveled, Unkempt and Malodorous Diagnostics Vital Signs (24Hr): Vital Signs - 24 hr 06/02/24 20:00 Respiratory Rate 16 BMI result Body Mass Index 27.6 Medications Medications Current Medications Acetaminophen (Acetaminophen 325 Mg Tablet) 650 mg PO Q6H PRN PRN Reason: Headache/Pain Mild Scale (1-3) Al Hydroxide/Mg Hydroxide (Magnesium Hydrox/Alum Hydrox 30 Ml Oral.Susp) 30 ml PO Q6H PRN PRN Reason: Heartburn/Nausea Aripiprazole (Aripiprazole 5 Mg Tablet) 5 mg PO DAILY PRN PRN Reason: pt preference - when mother visiting Aripiprazole (Aripiprazole 10 Mg Tablet) 10 mg PO DAILY [facility] Last Admin: 06/03/24 09:28 Dose: 10 mg Hydroxyzine HCl (Hydroxyzine Hcl 25 Mg Tablet) 25 mg PO Q6H PRN PRN Reason: Anxiety Lorazepam (Lorazepam 1 Mg Tablet) 1 mg PO Q4H PRN PRN Reason: agitation Magnesium Hydroxide (Milk Of Magnesia 30 Ml Oral.Susp) 30 ml PO DAILY PRN PRN Reason: Constipation Nicotine (Nicotine 21 Mg Patch.Td24) 21 mg TRANSDERMA DAILY PRN PRN Reason: nicotine cravings Nicotine Polacrilex (Nicotine Polacrilex 2 Mg Gum) 4 mg BUCCAL Q2H PRN PRN Reason: Nicotine Cravings Olanzapine (Olanzapine 5 Mg Tablet) 5 mg PO Q4H PRN PRN Reason: agitation, aggression Trazodone HCl (Trazodone Hcl 50 Mg Tablet) 50 mg PO BEDTIME MRX1 PRN PRN Reason: Insomnia Allergies Allergies Allergy/AdvReac Type Severity Reaction Status Date / Time No Known Allergies Allergy Verified 05/22/24 17:01 Assessment & Plan Assessment & Plan (1) Depressive disorder, atypical: Status: Acute Code(s): F32.89 - Other specified depressive episodes (2) Adjustment disorder with depressed mood: Status: Acute Code(s): F43.21 - Adjustment disorder with depressed mood Plan 24 yo male transferred from [facility] ED after a suicide attempt by hanging. He has been increasingly isolated, poor self care, stopped working. He has eating disorder symptoms and NSSI. Symptoms worsened in the setting of a break up. Rule out other mood disorder Plan: - Admit to inpatient psychiatry - Section 12, rosado warning. - Collateral information from family and providers. - Milieu treatment and group therapy. - Medications: Refuses - Social work evaluation. - Disposition planning. patient eloped in the after noon from the unit and was brought back by Police. 05/24: Continue current management and treatment plan. Encourage engagement in groups and milieu. 05/25: Start Abilify 5 mg. Patient to consider. Encourage group and milieu engagement. Fasting labs in AM. Collaterals would be helpful. 05/26: encouraged to take abilify. rosado warning, legal discussion. 05/27: took abilify 5 mg this morning for first time. 12b up tomorrow. continue current mgmt. 05/28: took abilify again today. feeling better and more into things. filed for commitment. 05/29: took abilify 5 again today. willing to increase to 10 as of saturday (ordered). asking for LENA again, will allow with security present. 05/31/2024: No changes 06/01: abilify dosing increased to 10 mg as of this morning. initially too paranoid to sleep in single room, slept there last night for first time. court . 06/02: no change in presentation. declines increase in abilify dosing. stands by door throughout. 06/03 continue tx. Reason for continued inpatient stay Substantial Risk for: inability to function Time Spent With Patient Time: Total time managing care of this patient today ____ minutes.
[2024-06-03 20:00] VITALS: RESP 16
[2024-06-04] MEDS: ARIPiprazole 10 MG TABLET PO (10:04)
--- NOTE | 2024-06-04 15:04 | HO.PSYCHPN ---
Subjective Subjective Date of Service: 06/04/24 Reason For Visit: Unspec anxiety d/o,atten-deficit/hyperactivity d/o Interim History: pt presents as prior. headphones in attendance as always. states he would prefer to leave [facility] after MD broaches 2 week continuance in the case. MD advises pt to contact his immigration attorney to discuss. reports he continues to feel improved on abilify, agreeable to increase the dose to 15 mg daily. per staff, taking meds. almost refused meds yesterday morning, however. met with cso. some self-dialoguing noted by staff. slept about 8 hours. Mental Status Exam Mental Status Exam Narrative: disheveled. headphones on head. poor eye contact. superficially cooperative. speech soft, sparse. decr amount. incr STAR. thoughts superficially linear and logical. affect constricted, hypo-intense, non-labile. mood better. no SI/HI/AVH expressed. Diagnostics Vital Signs (24Hr): Vital Signs - 24 hr 06/03/24 20:00 Respiratory Rate 16 BMI result Body Mass Index 27.6 Medications Medications Current Medications Acetaminophen (Acetaminophen 325 Mg Tablet) 650 mg PO Q6H PRN PRN Reason: Headache/Pain Mild Scale (1-3) Al Hydroxide/Mg Hydroxide (Magnesium Hydrox/Alum Hydrox 30 Ml Oral.Susp) 30 ml PO Q6H PRN PRN Reason: Heartburn/Nausea Aripiprazole (Aripiprazole 5 Mg Tablet) 5 mg PO DAILY PRN PRN Reason: pt preference - when mother visiting Aripiprazole (Aripiprazole 15 Mg Tablet) 15 mg PO DAILY JULIAN Hydroxyzine HCl (Hydroxyzine Hcl 25 Mg Tablet) 25 mg PO Q6H PRN PRN Reason: Anxiety Lorazepam (Lorazepam 1 Mg Tablet) 1 mg PO Q4H PRN PRN Reason: agitation Magnesium Hydroxide (Milk Of Magnesia 30 Ml Oral.Susp) 30 ml PO DAILY PRN PRN Reason: Constipation Nicotine (Nicotine 21 Mg Patch.Td24) 21 mg TRANSDERMA DAILY PRN PRN Reason: nicotine cravings Nicotine Polacrilex (Nicotine Polacrilex 2 Mg Gum) 4 mg BUCCAL Q2H PRN PRN Reason: Nicotine Cravings Olanzapine (Olanzapine 5 Mg Tablet) 5 mg PO Q4H PRN PRN Reason: agitation, aggression Trazodone HCl (Trazodone Hcl 50 Mg Tablet) 50 mg PO BEDTIME MRX1 PRN PRN Reason: Insomnia Allergies Allergies Allergy/AdvReac Type Severity Reaction Status Date / Time No Known Allergies Allergy Verified 05/22/24 17:01 Assessment & Plan Assessment & Plan (1) Depressive disorder, atypical: Status: Acute Code(s): F32.89 - Other specified depressive episodes (2) Adjustment disorder with depressed mood: Status: Acute Code(s): F43.21 - Adjustment disorder with depressed mood Plan 24 yo male transferred from [facility] ED after a suicide attempt by hanging. He has been increasingly isolated, poor self care, stopped working. He has eating disorder symptoms and NSSI. Symptoms worsened in the setting of a break up. Rule out other mood disorder Plan: - Admit to inpatient psychiatry - Section 12, rosado warning. - Collateral information from family and providers. - Milieu treatment and group therapy. - Medications: Refuses - Social work evaluation. - Disposition planning. patient eloped in the after noon from the unit and was brought back by Police. 05/24: Continue current management and treatment plan. Encourage engagement in groups and milieu. 05/25: Start Abilify 5 mg. Patient to consider. Encourage group and milieu engagement. Fasting labs in AM. Collaterals would be helpful. 05/26: encouraged to take abilify. rosado warning, legal discussion. 05/27: took abilify 5 mg this morning for first time. 12b up tomorrow. continue current mgmt. 05/28: took abilify again today. feeling better and more into things. filed for commitment. 05/29: took abilify 5 again today. willing to increase to 10 as of saturday (ordered). asking for LENA again, will allow with security present. 05/31/2024: No changes 06/01: abilify dosing increased to 10 mg as of this morning. initially too paranoid to sleep in single room, slept there last night for first time. court . 06/02: no change in presentation. declines increase in abilify dosing. stands by door throughout. 06/03 continue tx. 06/04: no change in presentation. agrees to increase abilify to 15 mg daily. hearing continued for 2 weeks. Reason for continued inpatient stay Substantial Risk for: harm to self and inability to function Time Spent With Patient Time: Total time managing care of this patient today __25__ minutes.
[2024-06-04 20:00] VITALS: RESP 16
[2024-06-05 08:00] VITALS: RESP 16
[2024-06-05] MEDS: ARIPiprazole 15 MG TABLET PO (09:42)
--- NOTE | 2024-06-05 14:26 | P.PNPSI_ITS ---
Subjective Subjective Date of Service: 06/05/24 Reason For Visit: Unspec anxiety d/o,atten-deficit/hyperactivity d/o Interim History: does not sit for interview, monosyllabic responses. observed talking to himself in the milieu. per staff, others have been observing pt talking to himself. taking meds. headphones on. +RIS. slept about 8 hours. Mental Status Exam Mental Status Exam Narrative: disheveled. headphones on head. poor eye contact. superficially cooperative. speech soft, sparse. decr amount. incr STAR. thoughts superficially linear and logical. affect constricted, hypo-intense, non-labile. mood unchanged. no SI/HI/AVH expressed. Diagnostics Vital Signs (24Hr): Vital Signs - 24 hr 06/04/24 20:00 06/05/24 08:00 Respiratory Rate 16 16 BMI result Body Mass Index 27.6 Medications Medications Current Medications Acetaminophen (Acetaminophen 325 Mg Tablet) 650 mg PO Q6H PRN PRN Reason: Headache/Pain Mild Scale (1-3) Al Hydroxide/Mg Hydroxide (Magnesium Hydrox/Alum Hydrox 30 Ml Oral.Susp) 30 ml PO Q6H PRN PRN Reason: Heartburn/Nausea Aripiprazole (Aripiprazole 5 Mg Tablet) 5 mg PO DAILY PRN PRN Reason: pt preference - when mother visiting Aripiprazole (Aripiprazole 15 Mg Tablet) 15 mg PO DAILY [facility] Last Admin: 06/05/24 09:42 Dose: 15 mg Hydroxyzine HCl (Hydroxyzine Hcl 25 Mg Tablet) 25 mg PO Q6H PRN PRN Reason: Anxiety Lorazepam (Lorazepam 1 Mg Tablet) 1 mg PO Q4H PRN PRN Reason: agitation Magnesium Hydroxide (Milk Of Magnesia 30 Ml Oral.Susp) 30 ml PO DAILY PRN PRN Reason: Constipation Nicotine (Nicotine 21 Mg Patch.Td24) 21 mg TRANSDERMA DAILY PRN PRN Reason: nicotine cravings Nicotine Polacrilex (Nicotine Polacrilex 2 Mg Gum) 4 mg BUCCAL Q2H PRN PRN Reason: Nicotine Cravings Olanzapine (Olanzapine 5 Mg Tablet) 5 mg PO Q4H PRN PRN Reason: agitation, aggression Trazodone HCl (Trazodone Hcl 50 Mg Tablet) 50 mg PO BEDTIME MRX1 PRN PRN Reason: Insomnia Allergies Allergies Allergy/AdvReac Type Severity Reaction Status Date / Time No Known Allergies Allergy Verified 05/22/24 17:01 Assessment & Plan Assessment & Plan (1) Depressive disorder, atypical: Status: Acute Code(s): F32.89 - Other specified depressive episodes (2) Adjustment disorder with depressed mood: Status: Acute Code(s): F43.21 - Adjustment disorder with depressed mood Plan 24 yo male transferred from [facility] ED after a suicide attempt by hanging. He has been increasingly isolated, poor self care, stopped working. He has eating disorder symptoms and NSSI. Symptoms worsened in the setting of a break up. Rule out other mood disorder Plan: - Admit to inpatient psychiatry - Section 12, rosado warning. - Collateral information from family and providers. - Milieu treatment and group therapy. - Medications: Refuses - Social work evaluation. - Disposition planning. patient eloped in the after noon from the unit and was brought back by Police. 05/24: Continue current management and treatment plan. Encourage engagement in groups and milieu. 05/25: Start Abilify 5 mg. Patient to consider. Encourage group and milieu engagement. Fasting labs in AM. Collaterals would be helpful. 05/26: encouraged to take abilify. rosado warning, legal discussion. 05/27: took abilify 5 mg this morning for first time. 12b up tomorrow. continue current mgmt. 05/28: took abilify again today. feeling better and more into things. filed for commitment. 05/29: took abilify 5 again today. willing to increase to 10 as of saturday (ordered). asking for LENA again, will allow with security present. 05/31/2024: No changes 06/01: abilify dosing increased to 10 mg as of this morning. initially too paranoid to sleep in single room, slept there last night for first time. court . 06/02: no change in presentation. declines increase in abilify dosing. stands by door throughout. 06/03 continue tx. 06/04: no change in presentation. agrees to increase abilify to 15 mg daily. hearing continued for 2 weeks. 06/05: no change. self-dialoguing. took abilify 15 today. appears with more irritable edge today. unclear if cheeking meds. order CO for 30 minutes post- medication. Reason for continued inpatient stay Substantial Risk for: harm to self and inability to function Time Spent With Patient Time: Total time managing care of this patient today __25__ minutes.
[2024-06-05 20:05] VITALS: BP 124/101; PULSE 73; RESP 16; TEMP 36.5; O2SAT 100
--- NOTE | 2024-06-06 09:52 | HO.PSYCHPN ---
Subjective Subjective Date of Service: 06/06/24 Reason For Visit: Unspec anxiety d/o,atten-deficit/hyperactivity d/o Subjective Notes: Section 7 Interim History: Pt slept most of the night. RN reported pt flushed antipsychotic. When asked about it, he denies it but is very guarded even if asked he has concerns about this medication. He denies SI/HI. pacing, internally preoccupied, not fully forthcoming with extend of delusional content. Review of Systems Review of Systems Patient has no acute medical complaints at this time Mental Status Exam Mental Status Exam Narrative: disheveled. headphones on head. poor eye contact. superficially cooperative. speech soft, sparse. decr amount. incr STAR. thoughts superficially linear and logical. affect constricted, hypo-intense, non-labile. mood unchanged. no SI/HI/AVH expressed. Patient Appearance: Disheveled, Unkempt and Malodorous Diagnostics Vital Signs (24Hr): Vital Signs - 24 hr 06/05/24 20:05 Temperature 97.7 F Pulse Rate 73 Respiratory Rate 16 Blood Pressure 124/101 H Pulse Oximetry 100 Oxygen Delivery Method Room Air BMI result Body Mass Index 27.6 Medications Medications Current Medications Acetaminophen (Acetaminophen 325 Mg Tablet) 650 mg PO Q6H PRN PRN Reason: Headache/Pain Mild Scale (1-3) Al Hydroxide/Mg Hydroxide (Magnesium Hydrox/Alum Hydrox 30 Ml Oral.Susp) 30 ml PO Q6H PRN PRN Reason: Heartburn/Nausea Aripiprazole (Aripiprazole 5 Mg Tablet) 5 mg PO DAILY PRN PRN Reason: pt preference - when mother visiting Aripiprazole (Aripiprazole 15 Mg Tablet) 15 mg PO DAILY [facility] Last Admin: 06/05/24 09:42 Dose: 15 mg Hydroxyzine HCl (Hydroxyzine Hcl 25 Mg Tablet) 25 mg PO Q6H PRN PRN Reason: Anxiety Lorazepam (Lorazepam 1 Mg Tablet) 1 mg PO Q4H PRN PRN Reason: agitation Magnesium Hydroxide (Milk Of Magnesia 30 Ml Oral.Susp) 30 ml PO DAILY PRN PRN Reason: Constipation Nicotine (Nicotine 21 Mg Patch.Td24) 21 mg TRANSDERMA DAILY PRN PRN Reason: nicotine cravings Nicotine Polacrilex (Nicotine Polacrilex 2 Mg Gum) 4 mg BUCCAL Q2H PRN PRN Reason: Nicotine Cravings Olanzapine (Olanzapine 5 Mg Tablet) 5 mg PO Q4H PRN PRN Reason: agitation, aggression Trazodone HCl (Trazodone Hcl 50 Mg Tablet) 50 mg PO BEDTIME MRX1 PRN PRN Reason: Insomnia Allergies Allergies Allergy/AdvReac Type Severity Reaction Status Date / Time No Known Allergies Allergy Verified 05/22/24 17:01 Assessment & Plan Assessment & Plan (1) Depressive disorder, atypical: Status: Acute Code(s): F32.89 - Other specified depressive episodes (2) Adjustment disorder with depressed mood: Status: Acute Code(s): F43.21 - Adjustment disorder with depressed mood Plan 24 yo male transferred from [facility] ED after a suicide attempt by hanging. He has been increasingly isolated, poor self care, stopped working. He has eating disorder symptoms and NSSI. Symptoms worsened in the setting of a break up. Rule out other mood disorder Plan: - Admit to inpatient psychiatry - Section 12, rosado warning. - Collateral information from family and providers. - Milieu treatment and group therapy. - Medications: Refuses - Social work evaluation. - Disposition planning. patient eloped in the after noon from the unit and was brought back by Police. 05/24: Continue current management and treatment plan. Encourage engagement in groups and milieu. 05/25: Start Abilify 5 mg. Patient to consider. Encourage group and milieu engagement. Fasting labs in AM. Collaterals would be helpful. 05/26: encouraged to take abilify. rosado warning, legal discussion. 05/27: took abilify 5 mg this morning for first time. 12b up tomorrow. continue current mgmt. 05/28: took abilify again today. feeling better and more into things. filed for commitment. 05/29: took abilify 5 again today. willing to increase to 10 as of saturday (ordered). asking for LENA again, will allow with security present. 05/31/2024: No changes 06/01: abilify dosing increased to 10 mg as of this morning. initially too paranoid to sleep in single room, slept there last night for first time. court . 06/02: no change in presentation. declines increase in abilify dosing. stands by door throughout. 06/03 continue tx. 06/04: no change in presentation. agrees to increase abilify to 15 mg daily. hearing continued for 2 weeks. 06/05: no change. self-dialoguing. took abilify 15 today. appears with more irritable edge today. unclear if cheeking meds. order CO for 30 minutes post-medication.. 06/06 pt went to bathroom, flush without evidence of urinating, seems like he is not taking antipsychotic. Reason for continued inpatient stay Substantial Risk for: inability to function Time Spent With Patient Time: Total time managing care of this patient today ____ minutes.
[2024-06-06] MEDS: ARIPiprazole 15 MG TABLET PO (10:10)
--- NOTE | 2024-06-06 10:13 | PC.NURSE ---
Pt refused to allow RN to watch him in the bathroom following medication administration. RN stood outside the bathroom following medication administration, No sound of urination was heard. toilet was flushed.
[2024-06-06 20:26] VITALS: RESP 16
[2024-06-07] MEDS: ARIPiprazole 15 MG TABLET PO (09:52)
--- NOTE | 2024-06-07 11:43 | HO.PSYCHPN ---
Subjective Subjective Date of Service: 06/07/24 Reason For Visit: Unspec anxiety d/o,atten-deficit/hyperactivity d/o Interim History: Pt slept most of the night. RN reported pt flushed antipsychotic. When asked about it, he denies it but is very guarded even if asked he has concerns about this medication. He denies SI/HI. pacing, internally preoccupied, not fully forthcoming with extend of delusional content. Review of Systems Review of Systems Patient has no acute medical complaints at this time Mental Status Exam Mental Status Exam Narrative: disheveled. headphones on head. poor eye contact. superficially cooperative. speech soft, sparse. decr amount. incr STAR. thoughts superficially linear and logical. affect constricted, hypo-intense, non-labile. mood unchanged. no SI/HI/AVH expressed. Patient Appearance: Disheveled, Unkempt and Malodorous Diagnostics Vital Signs (24Hr): Vital Signs - 24 hr 06/06/24 20:26 Respiratory Rate 16 BMI result Body Mass Index 27.6 Medications Medications Current Medications Acetaminophen (Acetaminophen 325 Mg Tablet) 650 mg PO Q6H PRN PRN Reason: Headache/Pain Mild Scale (1-3) Al Hydroxide/Mg Hydroxide (Magnesium Hydrox/Alum Hydrox 30 Ml Oral.Susp) 30 ml PO Q6H PRN PRN Reason: Heartburn/Nausea Aripiprazole (Aripiprazole 5 Mg Tablet) 5 mg PO DAILY PRN PRN Reason: pt preference - when mother visiting Aripiprazole (Aripiprazole 15 Mg Tablet) 15 mg PO DAILY [facility] Last Admin: 06/07/24 09:52 Dose: 15 mg Hydroxyzine HCl (Hydroxyzine Hcl 25 Mg Tablet) 25 mg PO Q6H PRN PRN Reason: Anxiety Lorazepam (Lorazepam 1 Mg Tablet) 1 mg PO Q4H PRN PRN Reason: agitation Magnesium Hydroxide (Milk Of Magnesia 30 Ml Oral.Susp) 30 ml PO DAILY PRN PRN Reason: Constipation Nicotine (Nicotine 21 Mg Patch.Td24) 21 mg TRANSDERMA DAILY PRN PRN Reason: nicotine cravings Nicotine Polacrilex (Nicotine Polacrilex 2 Mg Gum) 4 mg BUCCAL Q2H PRN PRN Reason: Nicotine Cravings Olanzapine (Olanzapine 5 Mg Tablet) 5 mg PO Q4H PRN PRN Reason: agitation, aggression Trazodone HCl (Trazodone Hcl 50 Mg Tablet) 50 mg PO BEDTIME MRX1 PRN PRN Reason: Insomnia Allergies Allergies Allergy/AdvReac Type Severity Reaction Status Date / Time No Known Allergies Allergy Verified 05/22/24 17:01 Assessment & Plan Assessment & Plan (1) Depressive disorder, atypical: Status: Acute Code(s): F32.89 - Other specified depressive episodes (2) Adjustment disorder with depressed mood: Status: Acute Code(s): F43.21 - Adjustment disorder with depressed mood Plan 24 yo male transferred from [facility] ED after a suicide attempt by hanging. He has been increasingly isolated, poor self care, stopped working. He has eating disorder symptoms and NSSI. Symptoms worsened in the setting of a break up. Rule out other mood disorder Plan: - Admit to inpatient psychiatry - Section 12, rosado warning. - Collateral information from family and providers. - Milieu treatment and group therapy. - Medications: Refuses - Social work evaluation. - Disposition planning. patient eloped in the after noon from the unit and was brought back by Police. 05/24: Continue current management and treatment plan. Encourage engagement in groups and milieu. 05/25: Start Abilify 5 mg. Patient to consider. Encourage group and milieu engagement. Fasting labs in AM. Collaterals would be helpful. 05/26: encouraged to take abilify. rosado warning, legal discussion. 05/27: took abilify 5 mg this morning for first time. 12b up tomorrow. continue current mgmt. 05/28: took abilify again today. feeling better and more into things. filed for commitment. 05/29: took abilify 5 again today. willing to increase to 10 as of saturday (ordered). asking for LENA again, will allow with security present. 05/31/2024: No changes 06/01: abilify dosing increased to 10 mg as of this morning. initially too paranoid to sleep in single room, slept there last night for first time. court . 06/02: no change in presentation. declines increase in abilify dosing. stands by door throughout. 06/03 continue tx. 06/04: no change in presentation. agrees to increase abilify to 15 mg daily. hearing continued for 2 weeks. 9/13: no change. self-dialoguing. took abilify 15 today. appears with more irritable edge today. unclear if cheeking meds. order CO for 30 minutes post-medication.. 06/06 pt went to bathroom, flushed without evidence of urinating, seems like he is not taking antipsychotic. 06/07 continue tx. Reason for continued inpatient stay Substantial Risk for: inability to function Time Spent With Patient Time: Total time managing care of this patient today ____ minutes.
[2024-06-07 20:00] VITALS: RESP 16
[2024-06-08 07:38] VITALS: BP 143/90; PULSE 70; RESP 18; TEMP 36.4; O2SAT 100
[2024-06-08] MEDS: ARIPiprazole 15 MG TABLET PO (09:08)
--- NOTE | 2024-06-08 13:45 | P.PNPSI_ITS ---
Subjective Subjective Date of Service: 06/08/24 Reason For Visit: Unspec anxiety d/o,atten-deficit/hyperactivity d/o Interim History: no change in presentation. headphones on. isolative. denies issues with eating, sleeping, toileting. per staff, constricted, isolative. taking meds. flat, withdrawn. denied SI. slept 7 hours. saturday was thought to have flushed meds. saturday was compliant with 30 minutes observation post-medication. Mental Status Exam Mental Status Exam Narrative: disheveled. headphones on head. poor eye contact. superficially cooperative. speech soft, sparse. decr amount. incr STAR. thoughts superficially linear and logical. affect constricted, hypo-intense, non-labile. mood good. no SI/HI/AVH expressed. Diagnostics Vital Signs (24Hr): Vital Signs - 24 hr 06/07/24 20:00 06/08/24 07:38 Temperature 97.6 F Pulse Rate 70 Respiratory Rate 16 18 Blood Pressure 143/90 H Pulse Oximetry 100 Oxygen Delivery Method Room Air BMI result Body Mass Index 27.6 Medications Medications Current Medications Acetaminophen (Acetaminophen 325 Mg Tablet) 650 mg PO Q6H PRN PRN Reason: Headache/Pain Mild Scale (1-3) Al Hydroxide/Mg Hydroxide (Magnesium Hydrox/Alum Hydrox 30 Ml Oral.Susp) 30 ml PO Q6H PRN PRN Reason: Heartburn/Nausea Aripiprazole (Aripiprazole 5 Mg Tablet) 5 mg PO DAILY PRN PRN Reason: pt preference - when mother visiting Aripiprazole (Aripiprazole 15 Mg Tablet) 15 mg PO DAILY [facility] Last Admin: 06/08/24 09:08 Dose: 15 mg Hydroxyzine HCl (Hydroxyzine Hcl 25 Mg Tablet) 25 mg PO Q6H PRN PRN Reason: Anxiety Lorazepam (Lorazepam 1 Mg Tablet) 1 mg PO Q4H PRN PRN Reason: agitation Magnesium Hydroxide (Milk Of Magnesia 30 Ml Oral.Susp) 30 ml PO DAILY PRN PRN Reason: Constipation Nicotine (Nicotine 21 Mg Patch.Td24) 21 mg TRANSDERMA DAILY PRN PRN Reason: nicotine cravings Nicotine Polacrilex (Nicotine Polacrilex 2 Mg Gum) 4 mg BUCCAL Q2H PRN PRN Reason: Nicotine Cravings Olanzapine (Olanzapine 5 Mg Tablet) 5 mg PO Q4H PRN PRN Reason: agitation, aggression Trazodone HCl (Trazodone Hcl 50 Mg Tablet) 50 mg PO BEDTIME MRX1 PRN PRN Reason: Insomnia Allergies Allergies Allergy/AdvReac Type Severity Reaction Status Date / Time No Known Allergies Allergy Verified 05/22/24 17:01 Assessment & Plan Assessment & Plan (1) Depressive disorder, atypical: Status: Acute Code(s): F32.89 - Other specified depressive episodes (2) Adjustment disorder with depressed mood: Status: Acute Code(s): F43.21 - Adjustment disorder with depressed mood Plan 24 yo male transferred from [facility] ED after a suicide attempt by hanging. He has been increasingly isolated, poor self care, stopped working. He has eating disorder symptoms and NSSI. Symptoms worsened in the setting of a break up. Rule out other mood disorder Plan: - Admit to inpatient psychiatry - Section 12, rosado warning. - Collateral information from family and providers. - Milieu treatment and group therapy. - Medications: Refuses - Social work evaluation. - Disposition planning. patient eloped in the after noon from the unit and was brought back by Police. 05/24: Continue current management and treatment plan. Encourage engagement in groups and milieu. 05/25: Start Abilify 5 mg. Patient to consider. Encourage group and milieu engagement. Fasting labs in AM. Collaterals would be helpful. 05/26: encouraged to take abilify. rosado warning, legal discussion. 05/27: took abilify 5 mg this morning for first time. 12b up tomorrow. continue current mgmt. 05/28: took abilify again today. feeling better and more into things. filed for commitment. 05/29: took abilify 5 again today. willing to increase to 10 as of saturday (ordered). asking for LENA again, will allow with security present. 05/31/2024: No changes 06/01: abilify dosing increased to 10 mg as of this morning. initially too paranoid to sleep in single room, slept there last night for first time. court . 06/02: no change in presentation. declines increase in abilify dosing. stands by door throughout. 06/03 continue tx. 06/04: no change in presentation. agrees to increase abilify to 15 mg daily. hearing continued for 2 weeks. 06/05: no change. self-dialoguing. took abilify 15 today. appears with more irritable edge today. unclear if cheeking meds. order CO for 30 minutes post- medication.. 06/06 pt went to bathroom, flushed without evidence of urinating, seems like he is not taking antipsychotic. 06/07 continue tx. 06/08: no substantial change in presentation. saturday (and likely all the days before) pt appeared to have flushed his medication. pt was compliant with 30- min post-medication observation period on saturday. continue current mgmt. increase abilify to 20 mg in several days. Reason for continued inpatient stay Substantial Risk for: harm to self and inability to function Time Spent With Patient Time: Total time managing care of this patient today _25___ minutes.
[2024-06-08 20:00] VITALS: RESP 14
[2024-06-09] MEDS: ARIPiprazole 15 MG TABLET PO (08:56)
--- NOTE | 2024-06-09 14:15 | HO.PSYCHPN ---
Subjective Subjective Date of Service: 06/09/24 Reason For Visit: Unspec anxiety d/o,atten-deficit/hyperactivity d/o Interim History: no change in presentation. cooperative, but stands with his back to MD, no eye contact. polite. asking to come off of post-medication 30 min CO. agreeable to increase abilify as of today. per staff, taking meds. withdrawn. isolative. denies SI. playing board games by himself. briefly attended a group yesterday. declined abilify dose increase today when given; states he will increase dose tomorrow. Mental Status Exam Mental Status Exam Narrative: disheveled. headphones on head. poor eye contact. superficially cooperative. speech soft, sparse. decr amount. incr STAR. thoughts superficially linear and logical. affect constricted, hypo-intense, non-labile. mood good. no SI/HI/AVH expressed. Diagnostics Vital Signs (24Hr): Vital Signs - 24 hr 06/08/24 20:00 Respiratory Rate 14 BMI result Body Mass Index 27.6 Medications Medications Current Medications Acetaminophen (Acetaminophen 325 Mg Tablet) 650 mg PO Q6H PRN PRN Reason: Headache/Pain Mild Scale (1-3) Al Hydroxide/Mg Hydroxide (Magnesium Hydrox/Alum Hydrox 30 Ml Oral.Susp) 30 ml PO Q6H PRN PRN Reason: Heartburn/Nausea Aripiprazole (Aripiprazole 5 Mg Tablet) 5 mg PO DAILY PRN PRN Reason: pt preference - when mother visiting Aripiprazole (Aripiprazole 20 Mg Tablet) 20 mg PO DAILY JULIAN Hydroxyzine HCl (Hydroxyzine Hcl 25 Mg Tablet) 25 mg PO Q6H PRN PRN Reason: Anxiety Lorazepam (Lorazepam 1 Mg Tablet) 1 mg PO Q4H PRN PRN Reason: agitation Magnesium Hydroxide (Milk Of Magnesia 30 Ml Oral.Susp) 30 ml PO DAILY PRN PRN Reason: Constipation Nicotine (Nicotine 21 Mg Patch.Td24) 21 mg TRANSDERMA DAILY PRN PRN Reason: nicotine cravings Nicotine Polacrilex (Nicotine Polacrilex 2 Mg Gum) 4 mg BUCCAL Q2H PRN PRN Reason: Nicotine Cravings Olanzapine (Olanzapine 5 Mg Tablet) 5 mg PO Q4H PRN PRN Reason: agitation, aggression Trazodone HCl (Trazodone Hcl 50 Mg Tablet) 50 mg PO BEDTIME MRX1 PRN PRN Reason: Insomnia Allergies Allergies Allergy/AdvReac Type Severity Reaction Status Date / Time No Known Allergies Allergy Verified 05/22/24 17:01 Assessment & Plan Assessment & Plan (1) Depressive disorder, atypical: Status: Acute Code(s): F32.89 - Other specified depressive episodes (2) Adjustment disorder with depressed mood: Status: Acute Code(s): F43.21 - Adjustment disorder with depressed mood Plan 24 yo male transferred from [facility] ED after a suicide attempt by hanging. He has been increasingly isolated, poor self care, stopped working. He has eating disorder symptoms and NSSI. Symptoms worsened in the setting of a break up. Rule out other mood disorder Plan: - Admit to inpatient psychiatry - Section 12, rosado warning. - Collateral information from family and providers. - Milieu treatment and group therapy. - Medications: Refuses - Social work evaluation. - Disposition planning. patient eloped in the after noon from the unit and was brought back by Police. 05/24: Continue current management and treatment plan. Encourage engagement in groups and milieu. 05/25: Start Abilify 5 mg. Patient to consider. Encourage group and milieu engagement. Fasting labs in AM. Collaterals would be helpful. 05/26: encouraged to take abilify. rosado warning, legal discussion. 05/27: took abilify 5 mg this morning for first time. 12b up tomorrow. continue current mgmt. 05/28: took abilify again today. feeling better and more into things. filed for commitment. 05/29: took abilify 5 again today. willing to increase to 10 as of saturday (ordered). asking for LENA again, will allow with security present. 05/31/2024: No changes 06/01: abilify dosing increased to 10 mg as of this morning. initially too paranoid to sleep in single room, slept there last night for first time. court . 06/02: no change in presentation. declines increase in abilify dosing. stands by door throughout. 06/03 continue tx. 06/04: no change in presentation. agrees to increase abilify to 15 mg daily. hearing continued for 2 weeks. 06/05: no change. self-dialoguing. took abilify 15 today. appears with more irritable edge today. unclear if cheeking meds. order CO for 30 minutes post-medication.. 06/06 pt went to bathroom, flushed without evidence of urinating, seems like he is not taking antipsychotic. 06/07 continue tx. 06/08: no substantial change in presentation. saturday (and likely all the days before) pt appeared to have flushed his medication. pt was compliant with 30-min post-medication observation period on saturday. continue current mgmt. increase abilify to 20 mg in several days. 06/09: no change in presentation. will increase abilify to 20 mg as of tomorrow. if no change in presentation in next couple of days will switch to zyprexa zydis. Reason for continued inpatient stay Substantial Risk for: harm to self and inability to function Time Spent With Patient Time: Total time managing care of this patient today __25__ minutes.
[2024-06-09 20:00] VITALS: RESP 16
[2024-06-10] MEDS: ARIPiprazole 20 MG TABLET PO (09:16)
--- NOTE | 2024-06-10 14:51 | HO.PSYCHPN ---
Subjective Subjective Date of Service: 06/10/24 Reason For Visit: Unspec anxiety d/o,atten-deficit/hyperactivity d/o Interim History: no change in presentation. on being asked if abilify is helpful, states, i can't quite put my finger on it, but it seems to be doing something. he is not sure if it is a good something or just a different something. says it is not bad, though. informed if no changes seen in next couple of days, may need to try a different medication. per staff, accepted morning 15 mg abilify only. declined subsequent 5 mg. denies SI. isolative. slept 7 hours. Mental Status Exam Mental Status Exam Narrative: disheveled. headphones on head. poor eye contact. superficially cooperative. speech soft, sparse. decr amount. incr STAR. thoughts superficially linear and logical. affect constricted, hypo-intense, non-labile. mood good. no SI/HI/AVH expressed. Diagnostics Vital Signs (24Hr): Vital Signs - 24 hr 06/09/24 20:00 Respiratory Rate 16 BMI result Body Mass Index 27.6 Medications Medications Current Medications Acetaminophen (Acetaminophen 325 Mg Tablet) 650 mg PO Q6H PRN PRN Reason: Headache/Pain Mild Scale (1-3) Al Hydroxide/Mg Hydroxide (Magnesium Hydrox/Alum Hydrox 30 Ml Oral.Susp) 30 ml PO Q6H PRN PRN Reason: Heartburn/Nausea Aripiprazole (Aripiprazole 5 Mg Tablet) 5 mg PO DAILY PRN PRN Reason: pt preference - when mother visiting Aripiprazole (Aripiprazole 20 Mg Tablet) 20 mg PO DAILY JULIAN Last Admin: 06/10/24 09:16 Dose: 20 mg Hydroxyzine HCl (Hydroxyzine Hcl 25 Mg Tablet) 25 mg PO Q6H PRN PRN Reason: Anxiety Lorazepam (Lorazepam 1 Mg Tablet) 1 mg PO Q4H PRN PRN Reason: agitation Magnesium Hydroxide (Milk Of Magnesia 30 Ml Oral.Susp) 30 ml PO DAILY PRN PRN Reason: Constipation Nicotine (Nicotine 21 Mg Patch.Td24) 21 mg TRANSDERMA DAILY PRN PRN Reason: nicotine cravings Nicotine Polacrilex (Nicotine Polacrilex 2 Mg Gum) 4 mg BUCCAL Q2H PRN PRN Reason: Nicotine Cravings Olanzapine (Olanzapine 5 Mg Tablet) 5 mg PO Q4H PRN PRN Reason: agitation, aggression Trazodone HCl (Trazodone Hcl 50 Mg Tablet) 50 mg PO BEDTIME MRX1 PRN PRN Reason: Insomnia Allergies Allergies Allergy/AdvReac Type Severity Reaction Status Date / Time No Known Allergies Allergy Verified 05/22/24 17:01 Assessment & Plan Assessment & Plan (1) Depressive disorder, atypical: Status: Acute Code(s): F32.89 - Other specified depressive episodes (2) Adjustment disorder with depressed mood: Status: Acute Code(s): F43.21 - Adjustment disorder with depressed mood Plan 24 yo male transferred from [facility] ED after a suicide attempt by hanging. He has been increasingly isolated, poor self care, stopped working. He has eating disorder symptoms and NSSI. Symptoms worsened in the setting of a break up. Rule out other mood disorder Plan: - Admit to inpatient psychiatry - Section 12, rosado warning. - Collateral information from family and providers. - Milieu treatment and group therapy. - Medications: Refuses - Social work evaluation. - Disposition planning. patient eloped in the after noon from the unit and was brought back by Police. 05/24: Continue current management and treatment plan. Encourage engagement in groups and milieu. 05/25: Start Abilify 5 mg. Patient to consider. Encourage group and milieu engagement. Fasting labs in AM. Collaterals would be helpful. 05/26: encouraged to take abilify. rosado warning, legal discussion. 05/27: took abilify 5 mg this morning for first time. 12b up tomorrow. continue current mgmt. 05/28: took abilify again today. feeling better and more into things. filed for commitment. 05/29: took abilify 5 again today. willing to increase to 10 as of saturday (ordered). asking for LENA again, will allow with security present. 05/31/2024: No changes 06/01: abilify dosing increased to 10 mg as of this morning. initially too paranoid to sleep in single room, slept there last night for first time. court . 06/02: no change in presentation. declines increase in abilify dosing. stands by door throughout. 06/03 continue tx. 06/04: no change in presentation. agrees to increase abilify to 15 mg daily. hearing continued for 2 weeks. 06/05: no change. self-dialoguing. took abilify 15 today. appears with more irritable edge today. unclear if cheeking meds. order CO for 30 minutes post-medication.. 06/06 pt went to bathroom, flushed without evidence of urinating, seems like he is not taking antipsychotic. 06/07 continue tx. 06/08: no substantial change in presentation. saturday (and likely all the days before) pt appeared to have flushed his medication. pt was compliant with 30-min post-medication observation period on saturday. continue current mgmt. increase abilify to 20 mg in several days. 06/09: no change in presentation. will increase abilify to 20 mg as of tomorrow. if no change in presentation in next couple of days will switch to zyprexa zydis. 06/10: no change. T/C zydis. increased abilify to 20 today. Reason for continued inpatient stay Substantial Risk for: harm to self and inability to function Time Spent With Patient Time: Total time managing care of this patient today __25__ minutes.
[2024-06-10 20:16] VITALS: RESP 16
[2024-06-11 07:00] VITALS: BMI 28.4
[2024-06-11 08:00] VITALS: RESP 16
[2024-06-11] MEDS: ARIPiprazole 20 MG TABLET PO (09:57)
--- NOTE | 2024-06-11 13:34 | P.PNPSI_ITS ---
Subjective Subjective Date of Service: 06/11/24 Reason For Visit: Unspec anxiety d/o,atten-deficit/hyperactivity d/o Interim History: no change in presentation. doesn't want to stop abilify, but can't describe how it's been helpful. feels dose is too high now, however, says 10 was the sweet spot, asks to go back down to 10 mg. states it is time for a change, says zyprexa will be started at bedtime, hopes pt will agree to give it a try. per staff, constricted, guarded. no dep/anx. asking for 30 min period of CO after medications to be dropped. slept about 6 hours. Mental Status Exam Mental Status Exam Narrative: disheveled. headphones on head. poor eye contact. superficially cooperative. speech soft, sparse. decr amount. incr STAR. thoughts superficially linear and logical. affect constricted, hypo-intense, non-labile. mood good. no SI/HI/AVH expressed. Diagnostics Vital Signs (24Hr): Vital Signs - 24 hr 06/10/24 20:16 06/11/24 08:00 Respiratory Rate 16 16 BMI result Body Mass Index 27.6 Medications Medications Current Medications Acetaminophen (Acetaminophen 325 Mg Tablet) 650 mg PO Q6H PRN PRN Reason: Headache/Pain Mild Scale (1-3) Al Hydroxide/Mg Hydroxide (Magnesium Hydrox/Alum Hydrox 30 Ml Oral.Susp) 30 ml PO Q6H PRN PRN Reason: Heartburn/Nausea Hydroxyzine HCl (Hydroxyzine Hcl 25 Mg Tablet) 25 mg PO Q6H PRN PRN Reason: Anxiety Lorazepam (Lorazepam 1 Mg Tablet) 1 mg PO Q4H PRN PRN Reason: agitation Magnesium Hydroxide (Milk Of Magnesia 30 Ml Oral.Susp) 30 ml PO DAILY PRN PRN Reason: Constipation Nicotine (Nicotine 21 Mg Patch.Td24) 21 mg TRANSDERMA DAILY PRN PRN Reason: nicotine cravings Nicotine Polacrilex (Nicotine Polacrilex 2 Mg Gum) 4 mg BUCCAL Q2H PRN PRN Reason: Nicotine Cravings Olanzapine (Olanzapine 5 Mg Tablet) 5 mg PO Q4H PRN PRN Reason: agitation, aggression Olanzapine (Olanzapine Odt 10 Mg Tab.Rapdis) 10 mg TRANSLINGU BEDTIME JULIAN Trazodone HCl (Trazodone Hcl 50 Mg Tablet) 50 mg PO BEDTIME MRX1 PRN PRN Reason: Insomnia Allergies Allergies Allergy/AdvReac Type Severity Reaction Status Date / Time No Known Allergies Allergy Verified 05/22/24 17:01 Assessment & Plan Assessment & Plan (1) Depressive disorder, atypical: Status: Acute Code(s): F32.89 - Other specified depressive episodes (2) Adjustment disorder with depressed mood: Status: Acute Code(s): F43.21 - Adjustment disorder with depressed mood Plan 24 yo male transferred from [facility] ED after a suicide attempt by hanging. He has been increasingly isolated, poor self care, stopped working. He has eating disorder symptoms and NSSI. Symptoms worsened in the setting of a break up. Rule out other mood disorder Plan: - Admit to inpatient psychiatry - Section 12, rosado warning. - Collateral information from family and providers. - Milieu treatment and group therapy. - Medications: Refuses - Social work evaluation. - Disposition planning. patient eloped in the after noon from the unit and was brought back by Police. 05/24: Continue current management and treatment plan. Encourage engagement in groups and milieu. 05/25: Start Abilify 5 mg. Patient to consider. Encourage group and milieu engagement. Fasting labs in AM. Collaterals would be helpful. 05/26: encouraged to take abilify. rosado warning, legal discussion. 05/27: took abilify 5 mg this morning for first time. 12b up tomorrow. continue current mgmt. 05/28: took abilify again today. feeling better and more into things. filed for commitment. 05/29: took abilify 5 again today. willing to increase to 10 as of saturday (ordered). asking for LENA again, will allow with security present. 05/31/2024: No changes 06/01: abilify dosing increased to 10 mg as of this morning. initially too paranoid to sleep in single room, slept there last night for first time. court . 06/02: no change in presentation. declines increase in abilify dosing. stands by door throughout. 06/03 continue tx. 06/04: no change in presentation. agrees to increase abilify to 15 mg daily. hearing continued for 2 weeks. 06/05: no change. self-dialoguing. took abilify 15 today. appears with more irritable edge today. unclear if cheeking meds. order CO for 30 minutes post- medication.. 06/06 pt went to bathroom, flushed without evidence of urinating, seems like he is not taking antipsychotic. 06/07 continue tx. 06/08: no substantial change in presentation. saturday (and likely all the days before) pt appeared to have flushed his medication. pt was compliant with 30- min post-medication observation period on saturday. continue current mgmt. increase abilify to 20 mg in several days. 06/09: no change in presentation. will increase abilify to 20 mg as of tomorrow. if no change in presentation in next couple of days will switch to zyprexa zydis. 06/10: no change. T/C zydis. increased abilify to 20 today. 06/11: no change. DC abilify, start zyprexa. pt does not want to make this change, but it is made nevertheless. Reason for continued inpatient stay Substantial Risk for: harm to self and inability to function Time Spent With Patient Time: Total time managing care of this patient today __25__ minutes.
[2024-06-11 20:00] VITALS: RESP 16
[2024-06-11] MEDS: OLANZapine ODT 10 MG TAB.RAPDIS TRANSLINGU (21:23)
--- NOTE | 2024-06-12 13:07 | HO.PSYCHPN ---
Subjective Subjective Date of Service: 06/12/24 Reason For Visit: Unspec anxiety d/o,atten-deficit/hyperactivity d/o Interim History: headphones pumping out static. it's hard to say how med change feels, but it feels different. per staff, isolative. headphones. asking for 30 min obs period after meds to be DCed. taking meds. slept well. Mental Status Exam Mental Status Exam Narrative: disheveled. headphones on head. poor eye contact. superficially cooperative. speech soft, sparse. decr amount. incr STAR. thoughts superficially linear and logical, but vague and evasive. affect constricted, hypo-intense, non-labile. mood good. no SI/HI/AVH expressed. Diagnostics Vital Signs (24Hr): Vital Signs - 24 hr 06/11/24 20:00 Respiratory Rate 16 BMI result Body Mass Index 28.4 Medications Medications Current Medications Acetaminophen (Acetaminophen 325 Mg Tablet) 650 mg PO Q6H PRN PRN Reason: Headache/Pain Mild Scale (1-3) Al Hydroxide/Mg Hydroxide (Magnesium Hydrox/Alum Hydrox 30 Ml Oral.Susp) 30 ml PO Q6H PRN PRN Reason: Heartburn/Nausea Hydroxyzine HCl (Hydroxyzine Hcl 25 Mg Tablet) 25 mg PO Q6H PRN PRN Reason: Anxiety Lorazepam (Lorazepam 1 Mg Tablet) 1 mg PO Q4H PRN PRN Reason: agitation Magnesium Hydroxide (Milk Of Magnesia 30 Ml Oral.Susp) 30 ml PO DAILY PRN PRN Reason: Constipation Nicotine (Nicotine 21 Mg Patch.Td24) 21 mg TRANSDERMA DAILY PRN PRN Reason: nicotine cravings Nicotine Polacrilex (Nicotine Polacrilex 2 Mg Gum) 4 mg BUCCAL Q2H PRN PRN Reason: Nicotine Cravings Olanzapine (Olanzapine 5 Mg Tablet) 5 mg PO Q4H PRN PRN Reason: agitation, aggression Olanzapine (Olanzapine Odt 10 Mg Tab.Rapdis) 10 mg TRANSLINGU BEDTIME JULIAN Last Admin: 06/11/24 21:23 Dose: 10 mg Trazodone HCl (Trazodone Hcl 50 Mg Tablet) 50 mg PO BEDTIME MRX1 PRN PRN Reason: Insomnia Allergies Allergies Allergy/AdvReac Type Severity Reaction Status Date / Time No Known Allergies Allergy Verified 05/22/24 17:01 Assessment & Plan Assessment & Plan (1) Depressive disorder, atypical: Status: Acute Code(s): F32.89 - Other specified depressive episodes (2) Adjustment disorder with depressed mood: Status: Acute Code(s): F43.21 - Adjustment disorder with depressed mood Plan 24 yo male transferred from [facility] ED after a suicide attempt by hanging. He has been increasingly isolated, poor self care, stopped working. He has eating disorder symptoms and NSSI. Symptoms worsened in the setting of a break up. Rule out other mood disorder Plan: - Admit to inpatient psychiatry - Section 12, rosado warning. - Collateral information from family and providers. - Milieu treatment and group therapy. - Medications: Refuses - Social work evaluation. - Disposition planning. patient eloped in the after noon from the unit and was brought back by Police. 05/24: Continue current management and treatment plan. Encourage engagement in groups and milieu. 05/25: Start Abilify 5 mg. Patient to consider. Encourage group and milieu engagement. Fasting labs in AM. Collaterals would be helpful. 05/26: encouraged to take abilify. rosado warning, legal discussion. 05/27: took abilify 5 mg this morning for first time. 12b up tomorrow. continue current mgmt. 05/28: took abilify again today. feeling better and more into things. filed for commitment. 05/29: took abilify 5 again today. willing to increase to 10 as of saturday (ordered). asking for LENA again, will allow with security present. 05/31/2024: No changes 06/01: abilify dosing increased to 10 mg as of this morning. initially too paranoid to sleep in single room, slept there last night for first time. court . 06/02: no change in presentation. declines increase in abilify dosing. stands by door throughout. 06/03 continue tx. 06/04: no change in presentation. agrees to increase abilify to 15 mg daily. hearing continued for 2 weeks. 06/05: no change. self-dialoguing. took abilify 15 today. appears with more irritable edge today. unclear if cheeking meds. order CO for 30 minutes post-medication.. 06/06 pt went to bathroom, flushed without evidence of urinating, seems like he is not taking antipsychotic. 06/07 continue tx. 06/08: no substantial change in presentation. saturday (and likely all the days before) pt appeared to have flushed his medication. pt was compliant with 30-min post-medication observation period on saturday. continue current mgmt. increase abilify to 20 mg in several days. 06/09: no change in presentation. will increase abilify to 20 mg as of tomorrow. if no change in presentation in next couple of days will switch to zyprexa zydis. 06/10: no change. T/C zydis. increased abilify to 20 today. 06/11: no change. DC abilify, start zyprexa. pt does not want to make this change, but it is made nevertheless. 06/12: no change in presentation. headphones playing loud static. vague, evasive answers. continue zydis 10 QHS. Reason for continued inpatient stay Substantial Risk for: harm to self and inability to function Time Spent With Patient Time: Total time managing care of this patient today __25__ minutes.
[2024-06-12 19:56] VITALS: RESP 16
[2024-06-12] MEDS: OLANZapine ODT 10 MG TAB.RAPDIS TRANSLINGU (21:38)
--- NOTE | 2024-06-13 08:54 | P.PNPSI_ITS ---
Subjective Subjective Date of Service: 06/13/24 Reason For Visit: Unspec anxiety d/o,atten-deficit/hyperactivity d/o Interim History: Patient was seen and discussed in rounds today. Records and plans were reviewed. He continues to be isolative, wearing had phone, most of the time. No groups attended. Continues to be guarded and is asking why he is being kept here. He does have a court hearing scheduled on 06/18. No changes were made today. Eating and sleeping adequately. Review of Systems Review of Systems Yes all other systems are reviewed and are negative Mental Status Exam Mental Status Exam Narrative: In today's visit he is alert, pleasant and minimally interactive. Normal speech. No eye contact. Affect is appropriate and constricted. Appears guarded. No overt delusions. No AVH/SI. Cognitively is grossly intact. Judgment is marginal. Diagnostics Vital Signs (24Hr): Vital Signs - 24 hr 06/12/24 19:56 Respiratory Rate 16 BMI result Body Mass Index 28.4 Medications Medications Current Medications Acetaminophen (Acetaminophen 325 Mg Tablet) 650 mg PO Q6H PRN PRN Reason: Headache/Pain Mild Scale (1-3) Al Hydroxide/Mg Hydroxide (Magnesium Hydrox/Alum Hydrox 30 Ml Oral.Susp) 30 ml PO Q6H PRN PRN Reason: Heartburn/Nausea Hydroxyzine HCl (Hydroxyzine Hcl 25 Mg Tablet) 25 mg PO Q6H PRN PRN Reason: Anxiety Lorazepam (Lorazepam 1 Mg Tablet) 1 mg PO Q4H PRN PRN Reason: agitation Magnesium Hydroxide (Milk Of Magnesia 30 Ml Oral.Susp) 30 ml PO DAILY PRN PRN Reason: Constipation Nicotine (Nicotine 21 Mg Patch.Td24) 21 mg TRANSDERMA DAILY PRN PRN Reason: nicotine cravings Nicotine Polacrilex (Nicotine Polacrilex 2 Mg Gum) 4 mg BUCCAL Q2H PRN PRN Reason: Nicotine Cravings Olanzapine (Olanzapine 5 Mg Tablet) 5 mg PO Q4H PRN PRN Reason: agitation, aggression Olanzapine (Olanzapine Odt 10 Mg Tab.Rapdis) 10 mg TRANSLINGU BEDTIME JULIAN Last Admin: 06/12/24 21:38 Dose: 10 mg Trazodone HCl (Trazodone Hcl 50 Mg Tablet) 50 mg PO BEDTIME MRX1 PRN PRN Reason: Insomnia Allergies Allergies Allergy/AdvReac Type Severity Reaction Status Date / Time No Known Allergies Allergy Verified 05/22/24 17:01 Assessment & Plan Assessment & Plan (1) Depressive disorder, atypical: Status: Acute Code(s): F32.89 - Other specified depressive episodes (2) Adjustment disorder with depressed mood: Status: Acute Code(s): F43.21 - Adjustment disorder with depressed mood Plan 24 yo male transferred from [facility] ED after a suicide attempt by hanging. He has been increasingly isolated, poor self care, stopped working. He has eating disorder symptoms and NSSI. Symptoms worsened in the setting of a break up. Rule out other mood disorder Plan: - Admit to inpatient psychiatry - Section 12, rosado warning. - Collateral information from family and providers. - Milieu treatment and group therapy. - Medications: Refuses - Social work evaluation. - Disposition planning. patient eloped in the after noon from the unit and was brought back by Police. 05/24: Continue current management and treatment plan. Encourage engagement in groups and milieu. 05/25: Start Abilify 5 mg. Patient to consider. Encourage group and milieu engagement. Fasting labs in AM. Collaterals would be helpful. 05/26: encouraged to take abilify. rosado warning, legal discussion. 05/27: took abilify 5 mg this morning for first time. 12b up tomorrow. continue current mgmt. 05/28: took abilify again today. feeling better and more into things. filed for commitment. 05/29: took abilify 5 again today. willing to increase to 10 as of saturday (ordered). asking for LENA again, will allow with security present. 05/31/2024: No changes 06/01: abilify dosing increased to 10 mg as of this morning. initially too paranoid to sleep in single room, slept there last night for first time. court . 06/02: no change in presentation. declines increase in abilify dosing. stands by door throughout. 06/03 continue tx. 06/04: no change in presentation. agrees to increase abilify to 15 mg daily. hearing continued for 2 weeks. 06/05: no change. self-dialoguing. took abilify 15 today. appears with more irritable edge today. unclear if cheeking meds. order CO for 30 minutes post- medication.. 06/06 pt went to bathroom, flushed without evidence of urinating, seems like he is not taking antipsychotic. 06/07 continue tx. 06/08: no substantial change in presentation. saturday (and likely all the days before) pt appeared to have flushed his medication. pt was compliant with 30- min post-medication observation period on saturday. continue current mgmt. increase abilify to 20 mg in several days. 06/09: no change in presentation. will increase abilify to 20 mg as of tomorrow. if no change in presentation in next couple of days will switch to zyprexa zydis. 06/10: no change. T/C zydis. increased abilify to 20 today. 06/11: no change. DC abilify, start zyprexa. pt does not want to make this change, but it is made nevertheless. 06/12: no change in presentation. headphones playing loud static. vague, evasive answers. continue zydis 10 QHS. 06/13: Continue current regimen and plans Reason for continued inpatient stay Substantial Risk for: med/psych decompensation Time Spent With Patient Time: Total time managing care of this patient today ____ minutes.
[2024-06-13 20:00] VITALS: RESP 16
--- NOTE | 2024-06-14 09:38 | HO.PSYCHPN ---
Subjective Subjective Date of Service: 06/14/24 Reason For Visit: Unspec anxiety d/o,atten-deficit/hyperactivity d/o Subjective Notes: Section 7 Interim History: Patient was seen and discussed in rounds today. Records and plans were reviewed. He is isolative and mostly in his room with headphones. He is guarded and has a flat affect. Eating and sleeping adequately. Court is scheduled for 06/18. No changes were made today Review of Systems Review of Systems Yes all other systems are reviewed and are negative Mental Status Exam Mental Status Exam Narrative: In today's visit he is alert, pleasant and minimally interactive. Normal speech. No eye contact. Affect is appropriate and constricted. Appears guarded. No overt delusions. No AVH/SI. Cognitively is grossly intact. Judgment is marginal. Diagnostics Vital Signs (24Hr): Vital Signs - 24 hr 06/13/24 20:00 Respiratory Rate 16 BMI result Body Mass Index 28.4 Medications Medications Current Medications Acetaminophen (Acetaminophen 325 Mg Tablet) 650 mg PO Q6H PRN PRN Reason: Headache/Pain Mild Scale (1-3) Al Hydroxide/Mg Hydroxide (Magnesium Hydrox/Alum Hydrox 30 Ml Oral.Susp) 30 ml PO Q6H PRN PRN Reason: Heartburn/Nausea Hydroxyzine HCl (Hydroxyzine Hcl 25 Mg Tablet) 25 mg PO Q6H PRN PRN Reason: Anxiety Lorazepam (Lorazepam 1 Mg Tablet) 1 mg PO Q4H PRN PRN Reason: agitation Magnesium Hydroxide (Milk Of Magnesia 30 Ml Oral.Susp) 30 ml PO DAILY PRN PRN Reason: Constipation Nicotine (Nicotine 21 Mg Patch.Td24) 21 mg TRANSDERMA DAILY PRN PRN Reason: nicotine cravings Nicotine Polacrilex (Nicotine Polacrilex 2 Mg Gum) 4 mg BUCCAL Q2H PRN PRN Reason: Nicotine Cravings Olanzapine (Olanzapine 5 Mg Tablet) 5 mg PO Q4H PRN PRN Reason: agitation, aggression Olanzapine (Olanzapine Odt 10 Mg Tab.Rapdis) 10 mg TRANSLINGU BEDTIME JULIAN Last Admin: 06/13/24 22:29 Dose: Not Given Trazodone HCl (Trazodone Hcl 50 Mg Tablet) 50 mg PO BEDTIME MRX1 PRN PRN Reason: Insomnia Allergies Allergies Allergy/AdvReac Type Severity Reaction Status Date / Time No Known Allergies Allergy Verified 05/22/24 17:01 Assessment & Plan Assessment & Plan (1) Depressive disorder, atypical: Status: Acute Code(s): F32.89 - Other specified depressive episodes (2) Adjustment disorder with depressed mood: Status: Acute Code(s): F43.21 - Adjustment disorder with depressed mood Plan 24 yo male transferred from [facility] ED after a suicide attempt by hanging. He has been increasingly isolated, poor self care, stopped working. He has eating disorder symptoms and NSSI. Symptoms worsened in the setting of a break up. Rule out other mood disorder Plan: - Admit to inpatient psychiatry - Section 12, rosado warning. - Collateral information from family and providers. - Milieu treatment and group therapy. - Medications: Refuses - Social work evaluation. - Disposition planning. patient eloped in the after noon from the unit and was brought back by Police. 05/24: Continue current management and treatment plan. Encourage engagement in groups and milieu. 05/25: Start Abilify 5 mg. Patient to consider. Encourage group and milieu engagement. Fasting labs in AM. Collaterals would be helpful. 05/26: encouraged to take abilify. rosado warning, legal discussion. 05/27: took abilify 5 mg this morning for first time. 12b up tomorrow. continue current mgmt. 05/28: took abilify again today. feeling better and more into things. filed for commitment. 05/29: took abilify 5 again today. willing to increase to 10 as of saturday (ordered). asking for LENA again, will allow with security present. 05/31/2024: No changes 06/01: abilify dosing increased to 10 mg as of this morning. initially too paranoid to sleep in single room, slept there last night for first time. court . 06/02: no change in presentation. declines increase in abilify dosing. stands by door throughout. 06/03 continue tx. 06/04: no change in presentation. agrees to increase abilify to 15 mg daily. hearing continued for 2 weeks. 06/05: no change. self-dialoguing. took abilify 15 today. appears with more irritable edge today. unclear if cheeking meds. order CO for 30 minutes post-medication.. 06/06 pt went to bathroom, flushed without evidence of urinating, seems like he is not taking antipsychotic. 06/07 continue tx. 06/08: no substantial change in presentation. saturday (and likely all the days before) pt appeared to have flushed his medication. pt was compliant with 30-min post-medication observation period on saturday. continue current mgmt. increase abilify to 20 mg in several days. 06/09: no change in presentation. will increase abilify to 20 mg as of tomorrow. if no change in presentation in next couple of days will switch to zyprexa zydis. 06/10: no change. T/C zydis. increased abilify to 20 today. 06/11: no change. DC abilify, start zyprexa. pt does not want to make this change, but it is made nevertheless. 06/12: no change in presentation. headphones playing loud static. vague, evasive answers. continue zydis 10 QHS. 06/13: Continue current regimen and plans 06/14: Continue current regimen and plans Reason for continued inpatient stay Substantial Risk for: med/psych decompensation Time Spent With Patient Time: Total time managing care of this patient today ____ minutes.
[2024-06-14 20:24] VITALS: RESP 16
[2024-06-14] MEDS: OLANZapine ODT 10 MG TAB.RAPDIS TRANSLINGU (21:42)
--- NOTE | 2024-06-15 13:27 | P.PNPSI_ITS ---
Subjective Subjective Date of Service: 06/15/24 Reason For Visit: Unspec anxiety d/o,atten-deficit/hyperactivity d/o Interim History: sat for interview for first time. headphones on head but not producing any noise for the first time. says he prefers abilify, can't say why but it agreed with him better. encouraged him to continue zyprexa trial. per staff, did skip one dose of zyprexa over the weekend. withdrawn, guarded. denies Sx. terse. refused, then accepted zyprexa last NOC. poor sleep, restless. Mental Status Exam Mental Status Exam Narrative: adequately dressed and groomed. headphones on head. poor eye contact. superficially cooperative. speech soft, sparse. decr amount. incr STAR. thoughts superficially linear and logical, but vague and evasive. affect c onstricted, hypo-intense, non-labile. mood good. no SI/HI/AVH expressed. Diagnostics Vital Signs (24Hr): Vital Signs - 24 hr 06/14/24 20:24 Respiratory Rate 16 BMI result Body Mass Index 28.4 Medications Medications Current Medications Acetaminophen (Acetaminophen 325 Mg Tablet) 650 mg PO Q6H PRN PRN Reason: Headache/Pain Mild Scale (1-3) Al Hydroxide/Mg Hydroxide (Magnesium Hydrox/Alum Hydrox 30 Ml Oral.Susp) 30 ml PO Q6H PRN PRN Reason: Heartburn/Nausea Hydroxyzine HCl (Hydroxyzine Hcl 25 Mg Tablet) 25 mg PO Q6H PRN PRN Reason: Anxiety Lorazepam (Lorazepam 1 Mg Tablet) 1 mg PO Q4H PRN PRN Reason: agitation Magnesium Hydroxide (Milk Of Magnesia 30 Ml Oral.Susp) 30 ml PO DAILY PRN PRN Reason: Constipation Nicotine (Nicotine 21 Mg Patch.Td24) 21 mg TRANSDERMA DAILY PRN PRN Reason: nicotine cravings Nicotine Polacrilex (Nicotine Polacrilex 2 Mg Gum) 4 mg BUCCAL Q2H PRN PRN Reason: Nicotine Cravings Olanzapine (Olanzapine 5 Mg Tablet) 5 mg PO Q4H PRN PRN Reason: agitation, aggression Olanzapine (Olanzapine Odt 10 Mg Tab.Rapdis) 10 mg TRANSLINGU BEDTIME JULIAN Last Admin: 06/14/24 21:42 Dose: 10 mg Trazodone HCl (Trazodone Hcl 50 Mg Tablet) 50 mg PO BEDTIME MRX1 PRN PRN Reason: Insomnia Allergies Allergies Allergy/AdvReac Type Severity Reaction Status Date / Time No Known Allergies Allergy Verified 05/22/24 17:01 Assessment & Plan Assessment & Plan (1) Depressive disorder, atypical: Status: Acute Code(s): F32.89 - Other specified depressive episodes (2) Adjustment disorder with depressed mood: Status: Acute Code(s): F43.21 - Adjustment disorder with depressed mood Plan 24 yo male transferred from [facility] ED after a suicide attempt by hanging. He has been increasingly isolated, poor self care, stopped working. He has eating disorder symptoms and NSSI. Symptoms worsened in the setting of a break up. Rule out other mood disorder Plan: - Admit to inpatient psychiatry - Section 12, rosado warning. - Collateral information from family and providers. - Milieu treatment and group therapy. - Medications: Refuses - Social work evaluation. - Disposition planning. patient eloped in the after noon from the unit and was brought back by Police. 05/24: Continue current management and treatment plan. Encourage engagement in groups and milieu. 05/25: Start Abilify 5 mg. Patient to consider. Encourage group and milieu engagement. Fasting labs in AM. Collaterals would be helpful. 05/26: encouraged to take abilify. rosaod warning, legal discussion. 05/27: took abilify 5 mg this morning for first time. 12b up tomorrow. continue current mgmt. 05/28: took abilify again today. feeling better and more into things. filed for commitment. 05/29: took abilify 5 again today. willing to increase to 10 as of saturday (ordered). asking for LENA again, will allow with security present. 05/31/2024: No changes 06/01: abilify dosing increased to 10 mg as of this morning. initially too paranoid to sleep in single room, slept there last night for first time. court . 06/02: no change in presentation. declines increase in abilify dosing. stands by door throughout. 06/03 continue tx. 06/04: no change in presentation. agrees to increase abilify to 15 mg daily. hearing continued for 2 weeks. 06/05: no change. self-dialoguing. took abilify 15 today. appears with more irritable edge today. unclear if cheeking meds. order CO for 30 minutes post- medication.. 06/06 pt went to bathroom, flushed without evidence of urinating, seems like he is not taking antipsychotic. 06/07 continue tx. 06/08: no substantial change in presentation. saturday (and likely all the days before) pt appeared to have flushed his medication. pt was compliant with 30- min post-medication observation period on saturday. continue current mgmt. increase abilify to 20 mg in several days. 06/09: no change in presentation. will increase abilify to 20 mg as of tomorrow. if no change in presentation in next couple of days will switch to zyprexa zydis. 06/10: no change. T/C zydis. increased abilify to 20 today. 06/11: no change. DC abilify, start zyprexa. pt does not want to make this change, but it is made nevertheless. 06/12: no change in presentation. headphones playing loud static. vague, evasive answers. continue zydis 10 QHS. 06/13: Continue current regimen and plans 06/14: Continue current regimen and plans 06/15: appears ambivalent re taking zyprexa, has refused once and refused and then accepted once. sits for interview for the first time today, headphones are present but not turned on for the first time. pt states he prefers abilify to zyprexa but cannot say why. pt was encouraged to continue zyprexa trial. Reason for continued inpatient stay Substantial Risk for: harm to self and inability to function Time Spent With Patient Time: Total time managing care of this patient today __25__ minutes.
[2024-06-15] MEDS: OLANZapine ODT 10 MG TAB.RAPDIS TRANSLINGU (20:32)
[2024-06-16] MEDS: Mineral Oil/Petrolatum,White 106 GM Tube 1 APPL TOPICAL ×2 (09:45→21:16)
--- NOTE | 2024-06-16 13:00 | HO.PSYCHPN ---
Subjective Subjective Date of Service: 06/16/24 Reason For Visit: Unspec anxiety d/o,atten-deficit/hyperactivity d/o Interim History: no change in presentation. denies any side effects or problems with the medication. per staff, denies anx/dep/SI/HI. isolative, withdrawn. vague. difficult to engage. slept 8 hours. took zyprexa last night. Mental Status Exam Mental Status Exam Narrative: adequately dressed and groomed. headphones on head. poor eye contact. superficially cooperative. speech soft, sparse. decr amount. incr STAR. thoughts superficially linear and logical, but vague and evasive. affect constricted, hypo-intense, non-labile. mood good. no SI/HI/AVH expressed. Diagnostics Vital Signs (24Hr): BMI result Body Mass Index 28.4 Medications Medications Current Medications Acetaminophen (Acetaminophen 325 Mg Tablet) 650 mg PO Q6H PRN PRN Reason: Headache/Pain Mild Scale (1-3) Al Hydroxide/Mg Hydroxide (Magnesium Hydrox/Alum Hydrox 30 Ml Oral.Susp) 30 ml PO Q6H PRN PRN Reason: Heartburn/Nausea Hydroxyzine HCl (Hydroxyzine Hcl 25 Mg Tablet) 25 mg PO Q6H PRN PRN Reason: Anxiety Lorazepam (Lorazepam 1 Mg Tablet) 1 mg PO Q4H PRN PRN Reason: agitation Magnesium Hydroxide (Milk Of Magnesia 30 Ml Oral.Susp) 30 ml PO DAILY PRN PRN Reason: Constipation Multi-Ingred Cream/Lotion/Oil/Oint (Mineral Oil/Petrolatum,White 106 Gm Tube) 1 appl TOPICAL BID JULIAN; Protocol Last Admin: 06/16/24 09:45 Dose: 1 appl Nicotine (Nicotine 21 Mg Patch.Td24) 21 mg TRANSDERMA DAILY PRN PRN Reason: nicotine cravings Nicotine Polacrilex (Nicotine Polacrilex 2 Mg Gum) 4 mg BUCCAL Q2H PRN PRN Reason: Nicotine Cravings Olanzapine (Olanzapine 5 Mg Tablet) 5 mg PO Q4H PRN PRN Reason: agitation, aggression Olanzapine (Olanzapine Odt 10 Mg Tab.Rapdis) 10 mg TRANSLINGU BEDTIME JULIAN Last Admin: 06/15/24 20:32 Dose: 10 mg Trazodone HCl (Trazodone Hcl 50 Mg Tablet) 50 mg PO BEDTIME MRX1 PRN PRN Reason: Insomnia Allergies Allergies Allergy/AdvReac Type Severity Reaction Status Date / Time No Known Allergies Allergy Verified 05/22/24 17:01 Assessment & Plan Assessment & Plan (1) Depressive disorder, atypical: Status: Acute Code(s): F32.89 - Other specified depressive episodes (2) Adjustment disorder with depressed mood: Status: Acute Code(s): F43.21 - Adjustment disorder with depressed mood Plan 24 yo male transferred from [facility] ED after a suicide attempt by hanging. He has been increasingly isolated, poor self care, stopped working. He has eating disorder symptoms and NSSI. Symptoms worsened in the setting of a break up. Rule out other mood disorder Plan: - Admit to inpatient psychiatry - Section 12, rosado warning. - Collateral information from family and providers. - Milieu treatment and group therapy. - Medications: Refuses - Social work evaluation. - Disposition planning. patient eloped in the after noon from the unit and was brought back by Police. 05/24: Continue current management and treatment plan. Encourage engagement in groups and milieu. 05/25: Start Abilify 5 mg. Patient to consider. Encourage group and milieu engagement. Fasting labs in AM. Collaterals would be helpful. 05/26: encouraged to take abilify. rosado warning, legal discussion. 05/27: took abilify 5 mg this morning for first time. 12b up tomorrow. continue current mgmt. 05/28: took abilify again today. feeling better and more into things. filed for commitment. 05/29: took abilify 5 again today. willing to increase to 10 as of saturday (ordered). asking for LENA again, will allow with security present. 05/31/2024: No changes 06/01: abilify dosing increased to 10 mg as of this morning. initially too paranoid to sleep in single room, slept there last night for first time. court . 06/02: no change in presentation. declines increase in abilify dosing. stands by door throughout. 06/03 continue tx. 06/04: no change in presentation. agrees to increase abilify to 15 mg daily. hearing continued for 2 weeks. 06/05: no change. self-dialoguing. took abilify 15 today. appears with more irritable edge today. unclear if cheeking meds. order CO for 30 minutes post-medication.. 06/06 pt went to bathroom, flushed without evidence of urinating, seems like he is not taking antipsychotic. 06/07 continue tx. 06/08: no substantial change in presentation. saturday (and likely all the days before) pt appeared to have flushed his medication. pt was compliant with 30-min post-medication observation period on saturday. continue current mgmt. increase abilify to 20 mg in several days. 06/09: no change in presentation. will increase abilify to 20 mg as of tomorrow. if no change in presentation in next couple of days will switch to zyprexa zydis. 06/10: no change. T/C zydis. increased abilify to 20 today. 06/11: no change. DC abilify, start zyprexa. pt does not want to make this change, but it is made nevertheless. 06/12: no change in presentation. headphones playing loud static. vague, evasive answers. continue zydis 10 QHS. 06/13: Continue current regimen and plans 06/14: Continue current regimen and plans 06/15: appears ambivalent re taking zyprexa, has refused once and refused and then accepted once. sits for interview for the first time today, headphones are present but not turned on for the first time. pt states he prefers abilify to zyprexa but cannot say why. pt was encouraged to continue zyprexa trial. 06/16: same as yesterday except headphones perhaps on low volume. took zyprexa last night. continue current mgmt. court . Reason for continued inpatient stay Substantial Risk for: harm to self and inability to function Time Spent With Patient Time: Total time managing care of this patient today __25__ minutes.
[2024-06-17 07:35] VITALS: BP 125/79; PULSE 63; TEMP 36.5; O2SAT 100
--- NOTE | 2024-06-17 14:05 | HO.PSYCHPN ---
Subjective Subjective Date of Service: 06/17/24 Reason For Visit: Unspec anxiety d/o,atten-deficit/hyperactivity d/o Interim History: no change in presentation. states he declined zyprexa because he had a stomach ache after he took it most recently. says he will take it tonight. later in day asks to speak with MD again and asks about signing in, attending [facility], and getting his guitar from home. later asks to speak with MD again and asks to verify he will meet with MD tomorrow morning prior to the hearing. per staff, isolative, guarded. refused zyprexa eves. denies psych Sx. slept all NOC. Mental Status Exam Mental Status Exam Narrative: adequately dressed and groomed. headphones on head. poor eye contact. superficially cooperative. speech soft, sparse. decr amount. incr STAR. thoughts superficially linear and logical, but vague and evasive. affect constricted, hypo-intense, non-labile. mood good. no SI/HI/AVH expressed. Diagnostics Vital Signs (24Hr): Vital Signs - 24 hr 06/17/24 07:35 Temperature 97.7 F Pulse Rate 63 Blood Pressure 125/79 Pulse Oximetry 100 Oxygen Delivery Method Room Air BMI result Body Mass Index 28.4 Medications Medications Current Medications Acetaminophen (Acetaminophen 325 Mg Tablet) 650 mg PO Q6H PRN PRN Reason: Headache/Pain Mild Scale (1-3) Al Hydroxide/Mg Hydroxide (Magnesium Hydrox/Alum Hydrox 30 Ml Oral.Susp) 30 ml PO Q6H PRN PRN Reason: Heartburn/Nausea Hydroxyzine HCl (Hydroxyzine Hcl 25 Mg Tablet) 25 mg PO Q6H PRN PRN Reason: Anxiety Lorazepam (Lorazepam 1 Mg Tablet) 1 mg PO Q4H PRN PRN Reason: agitation Magnesium Hydroxide (Milk Of Magnesia 30 Ml Oral.Susp) 30 ml PO DAILY PRN PRN Reason: Constipation Multi-Ingred Cream/Lotion/Oil/Oint (Mineral Oil/Petrolatum,White 106 Gm Tube) 1 appl TOPICAL BID [facility]; Protocol Last Admin: 06/17/24 08:38 Dose: Not Given Nicotine (Nicotine 21 Mg Patch.Td24) 21 mg TRANSDERMA DAILY PRN PRN Reason: nicotine cravings Nicotine Polacrilex (Nicotine Polacrilex 2 Mg Gum) 4 mg BUCCAL Q2H PRN PRN Reason: Nicotine Cravings Olanzapine (Olanzapine 5 Mg Tablet) 5 mg PO Q4H PRN PRN Reason: agitation, aggression Olanzapine (Olanzapine Odt 10 Mg Tab.Rapdis) 10 mg TRANSLINGU BEDTIME JULIAN Last Admin: 06/16/24 21:19 Dose: Not Given Trazodone HCl (Trazodone Hcl 50 Mg Tablet) 50 mg PO BEDTIME MRX1 PRN PRN Reason: Insomnia Allergies Allergies Allergy/AdvReac Type Severity Reaction Status Date / Time No Known Allergies Allergy Verified 05/22/24 17:01 Assessment & Plan Assessment & Plan (1) Depressive disorder, atypical: Status: Acute Code(s): F32.89 - Other specified depressive episodes (2) Adjustment disorder with depressed mood: Status: Acute Code(s): F43.21 - Adjustment disorder with depressed mood Plan 24 yo male transferred from [facility] ED after a suicide attempt by hanging. He has been increasingly isolated, poor self care, stopped working. He has eating disorder symptoms and NSSI. Symptoms worsened in the setting of a break up. Rule out other mood disorder Plan: - Admit to inpatient psychiatry - Section 12, rosado warning. - Collateral information from family and providers. - Milieu treatment and group therapy. - Medications: Refuses - Social work evaluation. - Disposition planning. patient eloped in the after noon from the unit and was brought back by Police. 05/24: Continue current management and treatment plan. Encourage engagement in groups and milieu. 05/25: Start Abilify 5 mg. Patient to consider. Encourage group and milieu engagement. Fasting labs in AM. Collaterals would be helpful. 05/26: encouraged to take abilify. rosado warning, legal discussion. 05/27: took abilify 5 mg this morning for first time. 12b up tomorrow. continue current mgmt. 05/28: took abilify again today. feeling better and more into things. filed for commitment. 05/29: took abilify 5 again today. willing to increase to 10 as of saturday (ordered). asking for LENA again, will allow with security present. 05/31/2024: No changes 06/01: abilify dosing increased to 10 mg as of this morning. initially too paranoid to sleep in single room, slept there last night for first time. court . 06/02: no change in presentation. declines increase in abilify dosing. stands by door throughout. 06/03 continue tx. 06/04: no change in presentation. agrees to increase abilify to 15 mg daily. hearing continued for 2 weeks. 06/05: no change. self-dialoguing. took abilify 15 today. appears with more irritable edge today. unclear if cheeking meds. order CO for 30 minutes post-medication.. 06/06 pt went to bathroom, flushed without evidence of urinating, seems like he is not taking antipsychotic. 06/07 continue tx. 06/08: no substantial change in presentation. saturday (and likely all the days before) pt appeared to have flushed his medication. pt was compliant with 30-min post-medication observation period on saturday. continue current mgmt. increase abilify to 20 mg in several days. 06/09: no change in presentation. will increase abilify to 20 mg as of tomorrow. if no change in presentation in next couple of days will switch to zyprexa zydis. 06/10: no change. T/C zydis. increased abilify to 20 today. 06/11: no change. DC abilify, start zyprexa. pt does not want to make this change, but it is made nevertheless. 06/12: no change in presentation. headphones playing loud static. vague, evasive answers. continue zydis 10 QHS. 06/13: Continue current regimen and plans 06/14: Continue current regimen and plans 06/15: appears ambivalent re taking zyprexa, has refused once and refused and then accepted once. sits for interview for the first time today, headphones are present but not turned on for the first time. pt states he prefers abilify to zyprexa but cannot say why. pt was encouraged to continue zyprexa trial. 06/16: same as yesterday except headphones perhaps on low volume. took zyprexa last night. continue current mgmt. court . 06/17: more visible on unit today, seeking out x2 re court tomorrow. asking about signing in, PHP, guitar. refused zyprexa last NOC. continue current mgmt. denies he has mental illness, denies depressed mood. Reason for continued inpatient stay Substantial Risk for: harm to self and inability to function Time Spent With Patient Time: Total time managing care of this patient today __35__ minutes.
[2024-06-18 07:00] VITALS: BMI 28.9
--- NOTE | 2024-06-18 13:10 | HO.PSYCHPN ---
Subjective Subjective Date of Service: 06/18/24 Reason For Visit: Unspec anxiety d/o,atten-deficit/hyperactivity d/o Interim History: a bit better able to interact, more productive of speech. asks if MD knows hearing has been continued until next week. states he has not taken medications bcse he is being observed for 30 min after taking medications. later says he is not taking medication because he had an upset stomach after having taken the medication once. MD explains reasoning for wanting to continue with zyprexa - more dependable than abilify, available in rapid dissolving formulation. same for 30 min obs - to prevent cheeking or self-induced vomiting to prevent ingestion of medication. MD offers to remove CO requirement if pt remains in milieu for 30 min after medication. pt states he will consider it. per staff, refused meds last night. denies Sx. guarded, avoidant. slept about 6 hours. Mental Status Exam Mental Status Exam Narrative: adequately dressed and groomed. headphones on head. poor eye contact. superficially cooperative. speech soft, sparse. decr amount. incr STAR. thoughts superficially linear and logical, but vague and evasive. affect constricted, hypo-intense, non-labile. mood good. no SI/HI/AVH expressed. Diagnostics Vital Signs (24Hr): BMI result Body Mass Index 28.9 Medications Medications Current Medications Acetaminophen (Acetaminophen 325 Mg Tablet) 650 mg PO Q6H PRN PRN Reason: Headache/Pain Mild Scale (1-3) Al Hydroxide/Mg Hydroxide (Magnesium Hydrox/Alum Hydrox 30 Ml Oral.Susp) 30 ml PO Q6H PRN PRN Reason: Heartburn/Nausea Hydroxyzine HCl (Hydroxyzine Hcl 25 Mg Tablet) 25 mg PO Q6H PRN PRN Reason: Anxiety Lorazepam (Lorazepam 1 Mg Tablet) 1 mg PO Q4H PRN PRN Reason: agitation Magnesium Hydroxide (Milk Of Magnesia 30 Ml Oral.Susp) 30 ml PO DAILY PRN PRN Reason: Constipation Multi-Ingred Cream/Lotion/Oil/Oint (Mineral Oil/Petrolatum,White 106 Gm Tube) 1 appl TOPICAL BID [facility]; Protocol Last Admin: 06/18/24 09:41 Dose: Not Given Nicotine (Nicotine 21 Mg Patch.Td24) 21 mg TRANSDERMA DAILY PRN PRN Reason: nicotine cravings Nicotine Polacrilex (Nicotine Polacrilex 2 Mg Gum) 4 mg BUCCAL Q2H PRN PRN Reason: Nicotine Cravings Olanzapine (Olanzapine 5 Mg Tablet) 5 mg PO Q4H PRN PRN Reason: agitation, aggression Olanzapine (Olanzapine Odt 10 Mg Tab.Rapdis) 10 mg TRANSLINGU BEDTIME JULIAN Last Admin: 06/17/24 21:11 Dose: Not Given Trazodone HCl (Trazodone Hcl 50 Mg Tablet) 50 mg PO BEDTIME MRX1 PRN PRN Reason: Insomnia Allergies Allergies Allergy/AdvReac Type Severity Reaction Status Date / Time No Known Allergies Allergy Verified 05/22/24 17:01 Assessment & Plan Assessment & Plan (1) Depressive disorder, atypical: Status: Acute Code(s): F32.89 - Other specified depressive episodes (2) Adjustment disorder with depressed mood: Status: Acute Code(s): F43.21 - Adjustment disorder with depressed mood Plan 24 yo male transferred from [facility] ED after a suicide attempt by hanging. He has been increasingly isolated, poor self care, stopped working. He has eating disorder symptoms and NSSI. Symptoms worsened in the setting of a break up. Rule out other mood disorder Plan: - Admit to inpatient psychiatry - Section 12, rosado warning. - Collateral information from family and providers. - Milieu treatment and group therapy. - Medications: Refuses - Social work evaluation. - Disposition planning. patient eloped in the after noon from the unit and was brought back by Police. 05/24: Continue current management and treatment plan. Encourage engagement in groups and milieu. 05/25: Start Abilify 5 mg. Patient to consider. Encourage group and milieu engagement. Fasting labs in AM. Collaterals would be helpful. 05/26: encouraged to take abilify. rosado warning, legal discussion. 05/27: took abilify 5 mg this morning for first time. 12b up tomorrow. continue current mgmt. 05/28: took abilify again today. feeling better and more into things. filed for commitment. 05/29: took abilify 5 again today. willing to increase to 10 as of saturday (ordered). asking for LENA again, will allow with security present. 05/31/2024: No changes 06/01: abilify dosing increased to 10 mg as of this morning. initially too paranoid to sleep in single room, slept there last night for first time. court . 06/02: no change in presentation. declines increase in abilify dosing. stands by door throughout. 06/03 continue tx. 06/04: no change in presentation. agrees to increase abilify to 15 mg daily. hearing continued for 2 weeks. 06/05: no change. self-dialoguing. took abilify 15 today. appears with more irritable edge today. unclear if cheeking meds. order CO for 30 minutes post-medication.. 06/06 pt went to bathroom, flushed without evidence of urinating, seems like he is not taking antipsychotic. 06/07 continue tx. 06/08: no substantial change in presentation. saturday (and likely all the days before) pt appeared to have flushed his medication. pt was compliant with 30-min post-medication observation period on saturday. continue current mgmt. increase abilify to 20 mg in several days. 06/09: no change in presentation. will increase abilify to 20 mg as of tomorrow. if no change in presentation in next couple of days will switch to zyprexa zydis. 06/10: no change. T/C zydis. increased abilify to 20 today. 06/11: no change. DC abilify, start zyprexa. pt does not want to make this change, but it is made nevertheless. 06/12: no change in presentation. headphones playing loud static. vague, evasive answers. continue zydis 10 QHS. 06/13: Continue current regimen and plans 06/14: Continue current regimen and plans 06/15: appears ambivalent re taking zyprexa, has refused once and refused and then accepted once. sits for interview for the first time today, headphones are present but not turned on for the first time. pt states he prefers abilify to zyprexa but cannot say why. pt was encouraged to continue zyprexa trial. 06/16: same as yesterday except headphones perhaps on low volume. took zyprexa last night. continue current mgmt. court . 06/17: more visible on unit today, seeking out x2 re court tomorrow. asking about signing in, DANELLE, je. refused zyprexa last NOC. continue current mgmt. denies he has mental illness, denies depressed mood. 06/18: refusing medication. hearing continued for 1 week for NABOR. pt reports won't take medication variably due to being on CO for 30 minutes after medication and because once after taking the medication he had an upset stomach. Reason for continued inpatient stay Substantial Risk for: harm to self Time Spent With Patient Time: Total time managing care of this patient today _45___ minutes.
[2024-06-18 20:00] VITALS: RESP 16
[2024-06-19 08:22] VITALS: RESP 18
--- NOTE | 2024-06-19 16:02 | P.PNPSI_ITS ---
Subjective Subjective Date of Service: 06/19/24 Reason For Visit: Unspec anxiety d/o,atten-deficit/hyperactivity d/o Interim History: denies problems. states he did not take meds last night because he was asleep. per staff, refusing meds. slept 8 hours. Mental Status Exam Mental Status Exam Narrative: adequately dressed and groomed. headphones on head. poor eye contact. superficially cooperative. speech soft, sparse. decr amount. incr STAR. thoughts superficially linear and logical, but vague and evasive. affect constricted, hypo-intense, non-labile. mood good. no SI/HI/AVH expressed. Diagnostics Vital Signs (24Hr): Vital Signs - 24 hr 06/18/24 20:00 06/19/24 08:22 Respiratory Rate 16 18 BMI result Body Mass Index 28.9 Medications Medications Current Medications Acetaminophen (Acetaminophen 325 Mg Tablet) 650 mg PO Q6H PRN PRN Reason: Headache/Pain Mild Scale (1-3) Al Hydroxide/Mg Hydroxide (Magnesium Hydrox/Alum Hydrox 30 Ml Oral.Susp) 30 ml PO Q6H PRN PRN Reason: Heartburn/Nausea Hydroxyzine HCl (Hydroxyzine Hcl 25 Mg Tablet) 25 mg PO Q6H PRN PRN Reason: Anxiety Lorazepam (Lorazepam 1 Mg Tablet) 1 mg PO Q4H PRN PRN Reason: agitation Magnesium Hydroxide (Milk Of Magnesia 30 Ml Oral.Susp) 30 ml PO DAILY PRN PRN Reason: Constipation Multi-Ingred Cream/Lotion/Oil/Oint (Mineral Oil/Petrolatum,White 106 Gm Tube) 1 appl TOPICAL BID JULIAN; Protocol Last Admin: 06/19/24 07:49 Dose: Not Given Nicotine (Nicotine 21 Mg Patch.Td24) 21 mg TRANSDERMA DAILY PRN PRN Reason: nicotine cravings Nicotine Polacrilex (Nicotine Polacrilex 2 Mg Gum) 4 mg BUCCAL Q2H PRN PRN Reason: Nicotine Cravings Olanzapine (Olanzapine 5 Mg Tablet) 5 mg PO Q4H PRN PRN Reason: agitation, aggression Olanzapine (Olanzapine Odt 10 Mg Tab.Rapdis) 10 mg TRANSLINGU BEDTIME JULIAN Last Admin: 06/18/24 20:08 Dose: Not Given Trazodone HCl (Trazodone Hcl 50 Mg Tablet) 50 mg PO BEDTIME MRX1 PRN PRN Reason: Insomnia Allergies Allergies Allergy/AdvReac Type Severity Reaction Status Date / Time No Known Allergies Allergy Verified 05/22/24 17:01 Assessment & Plan Assessment & Plan (1) Depressive disorder, atypical: Status: Acute Code(s): F32.89 - Other specified depressive episodes (2) Adjustment disorder with depressed mood: Status: Acute Code(s): F43.21 - Adjustment disorder with depressed mood Plan 24 yo male transferred from [facility] ED after a suicide attempt by hanging. He has been increasingly isolated, poor self care, stopped working. He has eating disorder symptoms and NSSI. Symptoms worsened in the setting of a break up. Rule out other mood disorder Plan: - Admit to inpatient psychiatry - Section 12, rosado warning. - Collateral information from family and providers. - Milieu treatment and group therapy. - Medications: Refuses - Social work evaluation. - Disposition planning. patient eloped in the after noon from the unit and was brought back by Police. 05/24: Continue current management and treatment plan. Encourage engagement in groups and milieu. 05/25: Start Abilify 5 mg. Patient to consider. Encourage group and milieu engagement. Fasting labs in AM. Collaterals would be helpful. 05/26: encouraged to take abilify. rosado warning, legal discussion. 05/27: took abilify 5 mg this morning for first time. 12b up tomorrow. continue current mgmt. 05/28: took abilify again today. feeling better and more into things. filed for commitment. 05/29: took abilify 5 again today. willing to increase to 10 as of saturday (ordered). asking for LENA again, will allow with security present. 05/31/2024: No changes 06/01: abilify dosing increased to 10 mg as of this morning. initially too paranoid to sleep in single room, slept there last night for first time. court . 06/02: no change in presentation. declines increase in abilify dosing. stands by door throughout. 06/03 continue tx. 06/04: no change in presentation. agrees to increase abilify to 15 mg daily. hearing continued for 2 weeks. 06/05: no change. self-dialoguing. took abilify 15 today. appears with more irritable edge today. unclear if cheeking meds. order CO for 30 minutes post- medication.. 06/06 pt went to bathroom, flushed without evidence of urinating, seems like he is not taking antipsychotic. 06/07 continue tx. 06/08: no substantial change in presentation. saturday (and likely all the days before) pt appeared to have flushed his medication. pt was compliant with 30- min post-medication observation period on saturday. continue current mgmt. increase abilify to 20 mg in several days. 06/09: no change in presentation. will increase abilify to 20 mg as of tomorrow. if no change in presentation in next couple of days will switch to zyprexa zydis. 06/10: no change. T/C zydis. increased abilify to 20 today. 06/11: no change. DC abilify, start zyprexa. pt does not want to make this change, but it is made nevertheless. 06/12: no change in presentation. headphones playing loud static. vague, evasive answers. continue zydis 10 QHS. 06/13: Continue current regimen and plans 06/14: Continue current regimen and plans 06/15: appears ambivalent re taking zyprexa, has refused once and refused and then accepted once. sits for interview for the first time today, headphones are present but not turned on for the first time. pt states he prefers abilify to zyprexa but cannot say why. pt was encouraged to continue zyprexa trial. 06/16: same as yesterday except headphones perhaps on low volume. took zyprexa last night. continue current mgmt. court . 06/17: more visible on unit today, seeking out x2 re court tomorrow. asking about signing in, DANELLE, je. refused zyprexa last NOC. continue current mgmt. denies he has mental illness, denies depressed mood. 06/18: refusing medication. hearing continued for 1 week for NABOR. pt reports won't take medication variably due to being on CO for 30 minutes after medication and because once after taking the medication he had an upset stomach. 06/19: did not take meds last night. no notable events or behaviors. continue current mgmt. hearing continued until next saturday. Reason for continued inpatient stay Substantial Risk for: harm to self and inability to function Time Spent With Patient Time: Total time managing care of this patient today __25__ minutes.
[2024-06-19] MEDS: OLANZapine ODT 10 MG TAB.RAPDIS TRANSLINGU (21:14)
[2024-06-19 21:25] VITALS: RESP 16
--- NOTE | 2024-06-20 10:08 | HO.PSYCHPN ---
Subjective Subjective Date of Service: 06/20/24 Reason For Visit: Unspec anxiety d/o,atten-deficit/hyperactivity d/o Subjective Notes: Section 7 Interim History: Reviewed with Dr. Gardner. Keeping to self. In room most of shift. Observed reading and listening to music. Patient reports feeling okay ; would not engage in conversation with T/W. Per nursing, patient slept 7 hours last night. Attending Groups: No Review of Systems Review of Systems Yes all other systems are reviewed and are negative Mental Status Exam Mental Status Exam Narrative: adequately dressed and groomed. headphones on head. Reading book. poor eye contact. superficially cooperative. speech soft, sparse. decr amount. affect constricted, mood okay. no SI/HI/AVH expressed. Diagnostics Vital Signs (24Hr): Vital Signs - 24 hr 06/19/24 21:25 Respiratory Rate 16 BMI result Body Mass Index 28.9 Medications Medications Current Medications Acetaminophen (Acetaminophen 325 Mg Tablet) 650 mg PO Q6H PRN PRN Reason: Headache/Pain Mild Scale (1-3) Al Hydroxide/Mg Hydroxide (Magnesium Hydrox/Alum Hydrox 30 Ml Oral.Susp) 30 ml PO Q6H PRN PRN Reason: Heartburn/Nausea Hydroxyzine HCl (Hydroxyzine Hcl 25 Mg Tablet) 25 mg PO Q6H PRN PRN Reason: Anxiety Lorazepam (Lorazepam 1 Mg Tablet) 1 mg PO Q4H PRN PRN Reason: agitation Magnesium Hydroxide (Milk Of Magnesia 30 Ml Oral.Susp) 30 ml PO DAILY PRN PRN Reason: Constipation Multi-Ingred Cream/Lotion/Oil/Oint (Mineral Oil/Petrolatum,White 106 Gm Tube) 1 appl TOPICAL BID JULIAN; Protocol Last Admin: 06/20/24 09:56 Dose: Not Given Nicotine (Nicotine 21 Mg Patch.Td24) 21 mg TRANSDERMA DAILY PRN PRN Reason: nicotine cravings Nicotine Polacrilex (Nicotine Polacrilex 2 Mg Gum) 4 mg BUCCAL Q2H PRN PRN Reason: Nicotine Cravings Olanzapine (Olanzapine 5 Mg Tablet) 5 mg PO Q4H PRN PRN Reason: agitation, aggression Olanzapine (Olanzapine Odt 10 Mg Tab.Rapdis) 10 mg TRANSLINGU BEDTIME JULIAN Last Admin: 06/19/24 21:14 Dose: 10 mg Trazodone HCl (Trazodone Hcl 50 Mg Tablet) 50 mg PO BEDTIME MRX1 PRN PRN Reason: Insomnia Allergies Allergies Allergy/AdvReac Type Severity Reaction Status Date / Time No Known Allergies Allergy Verified 05/22/24 17:01 Assessment & Plan Assessment & Plan (1) Depressive disorder, atypical: Status: Acute Code(s): F32.89 - Other specified depressive episodes (2) Adjustment disorder with depressed mood: Status: Acute Code(s): F43.21 - Adjustment disorder with depressed mood Plan 24 yo male transferred from [facility] ED after a suicide attempt by hanging. He has been increasingly isolated, poor self care, stopped working. He has eating disorder symptoms and NSSI. Symptoms worsened in the setting of a break up. Rule out other mood disorder Plan: - Admit to inpatient psychiatry - Section 12, rosado warning. - Collateral information from family and providers. - Milieu treatment and group therapy. - Medications: Refuses - Social work evaluation. - Disposition planning. patient eloped in the after noon from the unit and was brought back by Police. 05/24: Continue current management and treatment plan. Encourage engagement in groups and milieu. 05/25: Start Abilify 5 mg. Patient to consider. Encourage group and milieu engagement. Fasting labs in AM. Collaterals would be helpful. 05/26: encouraged to take abilify. rosado warning, legal discussion. 05/27: took abilify 5 mg this morning for first time. 12b up tomorrow. continue current mgmt. 05/28: took abilify again today. feeling better and more into things. filed for commitment. 05/29: took abilify 5 again today. willing to increase to 10 as of saturday (ordered). asking for LENA again, will allow with security present. 05/31/2024: No changes 06/01: abilify dosing increased to 10 mg as of this morning. initially too paranoid to sleep in single room, slept there last night for first time. court . 06/02: no change in presentation. declines increase in abilify dosing. stands by door throughout. 06/03 continue tx. 06/04: no change in presentation. agrees to increase abilify to 15 mg daily. hearing continued for 2 weeks. 06/05: no change. self-dialoguing. took abilify 15 today. appears with more irritable edge today. unclear if cheeking meds. order CO for 30 minutes post-medication.. 06/06 pt went to bathroom, flushed without evidence of urinating, seems like he is not taking antipsychotic. 06/07 continue tx. 06/08: no substantial change in presentation. saturday (and likely all the days before) pt appeared to have flushed his medication. pt was compliant with 30-min post-medication observation period on saturday. continue current mgmt. increase abilify to 20 mg in several days. 06/09: no change in presentation. will increase abilify to 20 mg as of tomorrow. if no change in presentation in next couple of days will switch to zyprexa zydis. 06/10: no change. T/C zydis. increased abilify to 20 today. 06/11: no change. DC abilify, start zyprexa. pt does not want to make this change, but it is made nevertheless. 06/12: no change in presentation. headphones playing loud static. vague, evasive answers. continue zydis 10 QHS. 06/13: Continue current regimen and plans 06/14: Continue current regimen and plans 06/15: appears ambivalent re taking zyprexa, has refused once and refused and then accepted once. sits for interview for the first time today, headphones are present but not turned on for the first time. pt states he prefers abilify to zyprexa but cannot say why. pt was encouraged to continue zyprexa trial. 06/16: same as yesterday except headphones perhaps on low volume. took zyprexa last night. continue current mgmt. court . 06/17: more visible on unit today, seeking out MD ojeda re court tomorrow. asking about signing in, je MCCLENDON. refused zyprexa last NOC. continue current mgmt. denies he has mental illness, denies depressed mood. 06/18: refusing medication. hearing continued for 1 week for NABOR. pt reports won't take medication variably due to being on CO for 30 minutes after medication and because once after taking the medication he had an upset stomach. 06/19: did not take meds last night. no notable events or behaviors. continue current mgmt. hearing continued until next saturday. 06/20: Continue current treatment plan. Patient educated on: medication risk/benefits Reason for continued inpatient stay Substantial Risk for: med/psych decompensation Time Spent With Patient Time: Total time managing care of this patient today _20___ minutes.
[2024-06-20] MEDS: OLANZapine ODT 10 MG TAB.RAPDIS TRANSLINGU (21:44)
[2024-06-20 21:45] VITALS: RESP 16
--- NOTE | 2024-06-21 08:59 | P.PNPSI_ITS ---
Subjective Subjective Date of Service: 06/21/24 Reason For Visit: Unspec anxiety d/o,atten-deficit/hyperactivity d/o Subjective Notes: Section 7 Interim History: Reviewed with Dr. Gardner. Keeping to self. In room most of shift. Observed reading and listening to music. Patient reports feeling okay and just chilling . Per nursing, refused vital signs. not attending groups. Medication Compliance: Yes Side effects from medications: No Attending Groups: No Review of Systems Review of Systems Patient has no acute medical complaints at this time Mental Status Exam Mental Status Exam Narrative: adequately dressed and groomed. headphones on head. Reading book. poor eye contact. superficially cooperative. speech soft, sparse. decr amount. affect constricted, mood okay. no SI/HI/AVH expressed. Diagnostics Vital Signs (24Hr): Vital Signs - 24 hr 06/20/24 21:45 Respiratory Rate 16 BMI result Body Mass Index 28.9 Medications Medications Current Medications Acetaminophen (Acetaminophen 325 Mg Tablet) 650 mg PO Q6H PRN PRN Reason: Headache/Pain Mild Scale (1-3) Al Hydroxide/Mg Hydroxide (Magnesium Hydrox/Alum Hydrox 30 Ml Oral.Susp) 30 ml PO Q6H PRN PRN Reason: Heartburn/Nausea Hydroxyzine HCl (Hydroxyzine Hcl 25 Mg Tablet) 25 mg PO Q6H PRN PRN Reason: Anxiety Lorazepam (Lorazepam 1 Mg Tablet) 1 mg PO Q4H PRN PRN Reason: agitation Magnesium Hydroxide (Milk Of Magnesia 30 Ml Oral.Susp) 30 ml PO DAILY PRN PRN Reason: Constipation Multi-Ingred Cream/Lotion/Oil/Oint (Mineral Oil/Petrolatum,White 106 Gm Tube) 1 appl TOPICAL BID JULIAN; Protocol Last Admin: 06/20/24 21:41 Dose: Not Given Nicotine (Nicotine 21 Mg Patch.Td24) 21 mg TRANSDERMA DAILY PRN PRN Reason: nicotine cravings Nicotine Polacrilex (Nicotine Polacrilex 2 Mg Gum) 4 mg BUCCAL Q2H PRN PRN Reason: Nicotine Cravings Olanzapine (Olanzapine 5 Mg Tablet) 5 mg PO Q4H PRN PRN Reason: agitation, aggression Olanzapine (Olanzapine Odt 10 Mg Tab.Rapdis) 10 mg TRANSLINGU BEDTIME JULIAN Last Admin: 06/20/24 21:44 Dose: 10 mg Trazodone HCl (Trazodone Hcl 50 Mg Tablet) 50 mg PO BEDTIME MRX1 PRN PRN Reason: Insomnia Allergies Allergies Allergy/AdvReac Type Severity Reaction Status Date / Time No Known Allergies Allergy Verified 05/22/24 17:01 Assessment & Plan Assessment & Plan (1) Depressive disorder, atypical: Status: Acute Code(s): F32.89 - Other specified depressive episodes (2) Adjustment disorder with depressed mood: Status: Acute Code(s): F43.21 - Adjustment disorder with depressed mood Plan 24 yo male transferred from [facility] ED after a suicide attempt by hanging. He has been increasingly isolated, poor self care, stopped working. He has eating disorder symptoms and NSSI. Symptoms worsened in the setting of a break up. Rule out other mood disorder Plan: - Admit to inpatient psychiatry - Section 12, rosado warning. - Collateral information from family and providers. - Milieu treatment and group therapy. - Medications: Refuses - Social work evaluation. - Disposition planning. patient eloped in the after noon from the unit and was brought back by Police. 05/24: Continue current management and treatment plan. Encourage engagement in groups and milieu. 05/25: Start Abilify 5 mg. Patient to consider. Encourage group and milieu engagement. Fasting labs in AM. Collaterals would be helpful. 05/26: encouraged to take abilify. rosado warning, legal discussion. 05/27: took abilify 5 mg this morning for first time. 12b up tomorrow. continue current mgmt. 05/28: took abilify again today. feeling better and more into things. filed for commitment. 05/29: took abilify 5 again today. willing to increase to 10 as of saturday (ordered). asking for LENA again, will allow with security present. 05/31/2024: No changes 06/01: abilify dosing increased to 10 mg as of this morning. initially too paranoid to sleep in single room, slept there last night for first time. court . 06/02: no change in presentation. declines increase in abilify dosing. stands by door throughout. 06/03 continue tx. 06/04: no change in presentation. agrees to increase abilify to 15 mg daily. hearing continued for 2 weeks. 06/05: no change. self-dialoguing. took abilify 15 today. appears with more irritable edge today. unclear if cheeking meds. order CO for 30 minutes post- medication.. 06/06 pt went to bathroom, flushed without evidence of urinating, seems like he is not taking antipsychotic. 06/07 continue tx. 06/08: no substantial change in presentation. saturday (and likely all the days before) pt appeared to have flushed his medication. pt was compliant with 30- min post-medication observation period on saturday. continue current mgmt. increase abilify to 20 mg in several days. 06/09: no change in presentation. will increase abilify to 20 mg as of tomorro w. if no change in presentation in next couple of days will switch to zyprexa zydis. 06/10: no change. T/C zydis. increased abilify to 20 today. 06/11: no change. DC abilify, start zyprexa. pt does not want to make this change, but it is made nevertheless. 06/12: no change in presentation. headphones playing loud static. vague, evasive answers. continue zydis 10 QHS. 06/13: Continue current regimen and plans 06/14: Continue current regimen and plans 06/15: appears ambivalent re taking zyprexa, has refused once and refused and then accepted once. sits for interview for the first time today, headphones are present but not turned on for the first time. pt states he prefers abilify to zyprexa but cannot say why. pt was encouraged to continue zyprexa trial. 06/16: same as yesterday except headphones perhaps on low volume. took zyprexa last night. continue current mgmt. court . 06/17: more visible on unit today, seeking out x2 re court tomorrow. asking about signing in, DANELLE, je. refused zyprexa last NOC. continue current mgmt. denies he has mental illness, denies depressed mood. 06/18: refusing medication. hearing continued for 1 week for NABOR. pt reports won't take medication variably due to being on CO for 30 minutes after medication and because once after taking the medication he had an upset stomach. 06/19: did not take meds last night. no notable events or behaviors. continue current mgmt. hearing continued until next saturday. 06/20: Continue current treatment plan. 06/21: Continue current treatment plan. Patient educated on: therapeutic strategies Reason for continued inpatient stay Substantial Risk for: med/psych decompensation Time Spent With Patient Time: Total time managing care of this patient today _20___ minutes.
--- NOTE | 2024-06-22 15:32 | P.PNPSI_ITS ---
Subjective Subjective Date of Service: 06/22/24 Reason For Visit: Unspec anxiety d/o,atten-deficit/hyperactivity d/o Interim History: stomach ache saturday after meds but not saturday. no stomachache last night (but didn't take meds last nigh). then says he has stomach ache daily. advised to make use of TUMs. asked to be able to use radio, which was declined. per staff, took zydis saturday and saturday, but not last night. Mental Status Exam Mental Status Exam Narrative: adequately dressed and groomed. headphones on head. Reading book. poor eye contact. superficially cooperative. speech soft, sparse. decr amount. affect constricted, mood okay. no SI/HI/AVH expressed. Diagnostics Vital Signs (24Hr): BMI result Body Mass Index 28.9 Medications Medications Current Medications Acetaminophen (Acetaminophen 325 Mg Tablet) 650 mg PO Q6H PRN PRN Reason: Headache/Pain Mild Scale (1-3) Al Hydroxide/Mg Hydroxide (Magnesium Hydrox/Alum Hydrox 30 Ml Oral.Susp) 30 ml PO Q6H PRN PRN Reason: Heartburn/Nausea Hydroxyzine HCl (Hydroxyzine Hcl 25 Mg Tablet) 25 mg PO Q6H PRN PRN Reason: Anxiety Lorazepam (Lorazepam 1 Mg Tablet) 1 mg PO Q4H PRN PRN Reason: agitation Magnesium Hydroxide (Milk Of Magnesia 30 Ml Oral.Susp) 30 ml PO DAILY PRN PRN Reason: Constipation Multi-Ingred Cream/Lotion/Oil/Oint (Mineral Oil/Petrolatum,White 106 Gm Tube) 1 appl TOPICAL BID JULIAN; Protocol Last Admin: 06/22/24 08:48 Dose: Not Given Nicotine (Nicotine 21 Mg Patch.Td24) 21 mg TRANSDERMA DAILY PRN PRN Reason: nicotine cravings Nicotine Polacrilex (Nicotine Polacrilex 2 Mg Gum) 4 mg BUCCAL Q2H PRN PRN Reason: Nicotine Cravings Olanzapine (Olanzapine 5 Mg Tablet) 5 mg PO Q4H PRN PRN Reason: agitation, aggression Olanzapine (Olanzapine Odt 10 Mg Tab.Rapdis) 10 mg TRANSLINGU BEDTIME JULIAN Last Admin: 06/21/24 21:31 Dose: Not Given Trazodone HCl (Trazodone Hcl 50 Mg Tablet) 50 mg PO BEDTIME MRX1 PRN PRN Reason: Insomnia Allergies Allergies Allergy/AdvReac Type Severity Reaction Status Date / Time No Known Allergies Allergy Verified 05/22/24 17:01 Assessment & Plan Assessment & Plan (1) Depressive disorder, atypical: Status: Acute Code(s): F32.89 - Other specified depressive episodes (2) Adjustment disorder with depressed mood: Status: Acute Code(s): F43.21 - Adjustment disorder with depressed mood Plan 24 yo male transferred from [facility] ED after a suicide attempt by hanging. He has been increasingly isolated, poor self care, stopped working. He has eating disorder symptoms and NSSI. Symptoms worsened in the setting of a break up. Rule out other mood disorder Plan: - Admit to inpatient psychiatry - Section 12, rosado warning. - Collateral information from family and providers. - Milieu treatment and group therapy. - Medications: Refuses - Social work evaluation. - Disposition planning. patient eloped in the after noon from the unit and was brought back by Police. 05/24: Continue current management and treatment plan. Encourage engagement in groups and milieu. 05/25: Start Abilify 5 mg. Patient to consider. Encourage group and milieu engagement. Fasting labs in AM. Collaterals would be helpful. 05/26: encouraged to take abilify. rosado warning, legal discussion. 05/27: took abilify 5 mg this morning for first time. 12b up tomorrow. continue current mgmt. 05/28: took abilify again today. feeling better and more into things. filed for commitment. 05/29: took abilify 5 again today. willing to increase to 10 as of saturday (ordered). asking for LENA again, will allow with security present. 05/31/2024: No changes 06/01: abilify dosing increased to 10 mg as of this morning. initially too paranoid to sleep in single room, slept there last night for first time. court . 06/02: no change in presentation. declines increase in abilify dosing. stands by door throughout. 06/03 continue tx. 06/04: no change in presentation. agrees to increase abilify to 15 mg daily. hearing continued for 2 weeks. 06/05: no change. self-dialoguing. took abilify 15 today. appears with more irritable edge today. unclear if cheeking meds. order CO for 30 minutes post- medication.. 06/06 pt went to bathroom, flushed without evidence of urinating, seems like he is not taking antipsychotic. 06/07 continue tx. 06/08: no substantial change in presentation. saturday (and likely all the days before) pt appeared to have flushed his medication. pt was compliant with 30- min post-medication observation period on saturday. continue current mgmt. increase abilify to 20 mg in several days. 06/09: no change in presentation. will increase abilify to 20 mg as of tomorrow. if no change in presentation in next couple of days will switch to zyprexa zydis. 06/10: no change. T/C zydis. increased abilify to 20 today. 06/11: no change. DC abilify, start zyprexa. pt does not want to make this change, but it is made nevertheless. 06/12: no change in presentation. headphones playing loud static. vague, evasive answers. continue zydis 10 QHS. 06/13: Continue current regimen and plans 06/14: Continue current regimen and plans 06/15: appears ambivalent re taking zyprexa, has refused once and refused and then accepted once. sits for interview for the first time today, headphones are present but not turned on for the first time. pt states he prefers abilify to zyprexa but cannot say why. pt was encouraged to continue zyprexa trial. 06/16: same as yesterday except headphones perhaps on low volume. took zyprexa last night. continue current mgmt. court . 06/17: more visible on unit today, seeking out x2 re court tomorrow. asking about signing in, DANELLE, je. refused zyprexa last NOC. continue current mgmt. denies he has mental illness, denies depressed mood. 06/18: refusing medication. hearing continued for 1 week for NABOR. pt reports won't take medication variably due to being on CO for 30 minutes after medication and because once after taking the medication he had an upset stomach. 06/19: did not take meds last night. no notable events or behaviors. continue current mgmt. hearing continued until next saturday. 06/20: Continue current treatment plan. 06/21: Continue current treatment plan. 06/22: took meds sat and sat, did not take meds last night. continue current mgmt. advised to use TUMs for stomach pain. Reason for continued inpatient stay Substantial Risk for: harm to self Time Spent With Patient Time: Total time managing care of this patient today __25__ minutes.
[2024-06-22] MEDS: OLANZapine ODT 10 MG TAB.RAPDIS TRANSLINGU (21:25)
[2024-06-22 21:27] VITALS: RESP 16
--- NOTE | 2024-06-23 13:41 | P.PNPSI_ITS ---
Subjective Subjective Date of Service: 06/23/24 Reason For Visit: Unspec anxiety d/o,atten-deficit/hyperactivity d/o Interim History: found in sensory room, which is new for him the past couple of days. denies any side effects from medications. asks if there is anything MD needs of him, presumably to demonstrate his wellness. MD encourages pt to attend groups. asks about getting headphones, c/o new peers using headphones too much. referred to discuss with nursing staff. per staff, isolative, guarded. mostly at his desk reading. took meds last night. headphones on. slept well. Mental Status Exam Mental Status Exam Narrative: adequately dressed and groomed. Reading book. poor eye contact. superficially cooperative. speech soft, sparse. decr amount. affect constrict ed, mood pretty okay. no SI/HI/AVH expressed. Diagnostics Vital Signs (24Hr): Vital Signs - 24 hr 06/22/24 21:27 Respiratory Rate 16 BMI result Body Mass Index 28.9 Medications Medications Current Medications Acetaminophen (Acetaminophen 325 Mg Tablet) 650 mg PO Q6H PRN PRN Reason: Headache/Pain Mild Scale (1-3) Al Hydroxide/Mg Hydroxide (Magnesium Hydrox/Alum Hydrox 30 Ml Oral.Susp) 30 ml PO Q6H PRN PRN Reason: Heartburn/Nausea Hydroxyzine HCl (Hydroxyzine Hcl 25 Mg Tablet) 25 mg PO Q6H PRN PRN Reason: Anxiety Lorazepam (Lorazepam 1 Mg Tablet) 1 mg PO Q4H PRN PRN Reason: agitation Magnesium Hydroxide (Milk Of Magnesia 30 Ml Oral.Susp) 30 ml PO DAILY PRN PRN Reason: Constipation Multi-Ingred Cream/Lotion/Oil/Oint (Mineral Oil/Petrolatum,White 106 Gm Tube) 1 appl TOPICAL BID JULIAN; Protocol Last Admin: 06/23/24 09:04 Dose: Not Given Nicotine (Nicotine 21 Mg Patch.Td24) 21 mg TRANSDERMA DAILY PRN PRN Reason: nicotine cravings Nicotine Polacrilex (Nicotine Polacrilex 2 Mg Gum) 4 mg BUCCAL Q2H PRN PRN Reason: Nicotine Cravings Olanzapine (Olanzapine 5 Mg Tablet) 5 mg PO Q4H PRN PRN Reason: agitation, aggression Olanzapine (Olanzapine Odt 10 Mg Tab.Rapdis) 10 mg TRANSLINGU BEDTIME JULIAN Last Admin: 06/22/24 21:25 Dose: 10 mg Trazodone HCl (Trazodone Hcl 50 Mg Tablet) 50 mg PO BEDTIME MRX1 PRN PRN Reason: Insomnia Allergies Allergies Allergy/AdvReac Type Severity Reaction Status Date / Time No Known Allergies Allergy Verified 05/22/24 17:01 Assessment & Plan Assessment & Plan (1) Depressive disorder, atypical: Status: Acute Code(s): F32.89 - Other specified depressive episodes (2) Adjustment disorder with depressed mood: Status: Acute Code(s): F43.21 - Adjustment disorder with depressed mood Plan 24 yo male transferred from [facility] ED after a suicide attempt by hanging. He has been increasingly isolated, poor self care, stopped working. He has eating disorder symptoms and NSSI. Symptoms worsened in the setting of a break up. Rule out other mood disorder Plan: - Admit to inpatient psychiatry - Section 12, rosado warning. - Collateral information from family and providers. - Milieu treatment and group therapy. - Medications: Refuses - Social work evaluation. - Disposition planning. patient eloped in the after noon from the unit and was brought back by Police. 05/24: Continue current management and treatment plan. Encourage engagement in groups and milieu. 05/25: Start Abilify 5 mg. Patient to consider. Encourage group and milieu engagement. Fasting labs in AM. Collaterals would be helpful. 05/26: encouraged to take abilify. rosado warning, legal discussion. 05/27: took abilify 5 mg this morning for first time. 12b up tomorrow. continue current mgmt. 05/28: took abilify again today. feeling better and more into things. filed for commitment. 05/29: took abilify 5 again today. willing to increase to 10 as of saturday (ordered). asking for LENA again, will allow with security present. 05/31/2024: No changes 06/01: abilify dosing increased to 10 mg as of this morning. initially too paranoid to sleep in single room, slept there last night for first time. court . 06/02: no change in presentation. declines increase in abilify dosing. stands by door throughout. 06/03 continue tx. 06/04: no change in presentation. agrees to increase abilify to 15 mg daily. hearing continued for 2 weeks. 06/05: no change. self-dialoguing. took abilify 15 today. appears with more irritable edge today. unclear if cheeking meds. order CO for 30 minutes post- medication.. 06/06 pt went to bathroom, flushed without evidence of urinating, seems like he is not taking antipsychotic. 06/07 continue tx. 06/08: no substantial change in presentation. saturday (and likely all the days before) pt appeared to have flushed his medication. pt was compliant with 30- min post-medication observation period on saturday. continue current mgmt. increase abilify to 20 mg in several days. 06/09: no change in presentation. will increase abilify to 20 mg as of tomorrow. if no change in presentation in next couple of days will switch to zyprexa zydis. 06/10: no change. T/C zydis. increased abilify to 20 today. 06/11: no change. DC abilify, start zyprexa. pt does not want to make this change, but it is made nevertheless. 06/12: no change in presentation. headphones playing loud static. vague, evasive answers. continue zydis 10 QHS. 06/13: Continue current regimen and plans 06/14: Continue current regimen and plans 06/15: appears ambivalent re taking zyprexa, has refused once and refused and then accepted once. sits for interview for the first time today, headphones are present but not turned on for the first time. pt states he prefers abilify to zyprexa but cannot say why. pt was encouraged to continue zyprexa trial. 06/16: same as yesterday except headphones perhaps on low volume. took zyprexa last night. continue current mgmt. court . 06/17: more visible on unit today, seeking out MD ojeda re court tomorrow. asking about signing in, [facility], je. refused zyprexa last NOC. continue current mgmt. denies he has mental illness, denies depressed mood. 06/18: refusing medication. hearing continued for 1 week for NABOR. pt reports won't take medication variably due to being on CO for 30 minutes after medication and because once after taking the medication he had an upset stomach. 06/19: did not take meds last night. no notable events or behaviors. continue current mgmt. hearing continued until next saturday. 06/20: Continue current treatment plan. 06/21: Continue current treatment plan. 06/22: took meds sat and sat, did not take meds last night. continue current mgmt. advised to use TUMs for stomach pain. 06/23: took meds last night, denies side effects. spending more time outside of his room, largely in sensory room. Reason for continued inpatient stay Substantial Risk for: harm to self Time Spent With Patient Time: Total time managing care of this patient today __25__ minutes.
[2024-06-23] MEDS: OLANZapine ODT 10 MG TAB.RAPDIS TRANSLINGU (20:16)
--- NOTE | 2024-06-24 12:53 | P.PNPSI_ITS ---
Subjective Subjective Date of Service: 06/24/24 Reason For Visit: Unspec anxiety d/o,atten-deficit/hyperactivity d/o Interim History: no change in presentation. per staff, denies anx/dep, not social, slept 8 hours. took meds last night. Mental Status Exam Mental Status Exam Narrative: adequately dressed and groomed. stands for interview. poor eye contact. superficially cooperative. speech soft, sparse. decr amount. affect constricted, mood cool. no SI/HI/AVH expressed. Diagnostics Vital Signs (24Hr): BMI result Body Mass Index 28.9 Medications Medications Current Medications Acetaminophen (Acetaminophen 325 Mg Tablet) 650 mg PO Q6H PRN PRN Reason: Headache/Pain Mild Scale (1-3) Al Hydroxide/Mg Hydroxide (Magnesium Hydrox/Alum Hydrox 30 Ml Oral.Susp) 30 ml PO Q6H PRN PRN Reason: Heartburn/Nausea Hydroxyzine HCl (Hydroxyzine Hcl 25 Mg Tablet) 25 mg PO Q6H PRN PRN Reason: Anxiety Lorazepam (Lorazepam 1 Mg Tablet) 1 mg PO Q4H PRN PRN Reason: agitation Magnesium Hydroxide (Milk Of Magnesia 30 Ml Oral.Susp) 30 ml PO DAILY PRN PRN Reason: Constipation Multi-Ingred Cream/Lotion/Oil/Oint (Mineral Oil/Petrolatum,White 106 Gm Tube) 1 appl TOPICAL BID PRN; Protocol PRN Reason: dry skin Nicotine (Nicotine 21 Mg Patch.Td24) 21 mg TRANSDERMA DAILY PRN PRN Reason: nicotine cravings Nicotine Polacrilex (Nicotine Polacrilex 2 Mg Gum) 4 mg BUCCAL Q2H PRN PRN Reason: Nicotine Cravings Olanzapine (Olanzapine 5 Mg Tablet) 5 mg PO Q4H PRN PRN Reason: agitation, aggression Olanzapine (Olanzapine Odt 10 Mg Tab.Rapdis) 10 mg TRANSLINGU BEDTIME JULIAN Last Admin: 06/23/24 20:16 Dose: 10 mg Trazodone HCl (Trazodone Hcl 50 Mg Tablet) 50 mg PO BEDTIME MRX1 PRN PRN Reason: Insomnia Allergies Allergies Allergy/AdvReac Type Severity Reaction Status Date / Time No Known Allergies Allergy Verified 05/22/24 17:01 Assessment & Plan Assessment & Plan (1) Depressive disorder, atypical: Status: Acute Code(s): F32.89 - Other specified depressive episodes (2) Adjustment disorder with depressed mood: Status: Acute Code(s): F43.21 - Adjustment disorder with depressed mood Plan 24 yo male transferred from [facility] ED after a suicide attempt by hanging. He has been increasingly isolated, poor self care, stopped working. He has eating disorder symptoms and NSSI. Symptoms worsened in the setting of a break up. Rule out other mood disorder Plan: - Admit to inpatient psychiatry - Section 12, rosado warning. - Collateral information from family and providers. - Milieu treatment and group therapy. - Medications: Refuses - Social work evaluation. - Disposition planning. patient eloped in the after noon from the unit and was brought back by Police. 05/24: Continue current management and treatment plan. Encourage engagement in groups and milieu. 05/25: Start Abilify 5 mg. Patient to consider. Encourage group and milieu engagement. Fasting labs in AM. Collaterals would be helpful. 05/26: encouraged to take abilify. rosado warning, legal discussion. 05/27: took abilify 5 mg this morning for first time. 12b up tomorrow. continue current mgmt. 05/28: took abilify again today. feeling better and more into things. filed for commitment. 05/29: took abilify 5 again today. willing to increase to 10 as of saturday (ordered). asking for LENA again, will allow with security present. 05/31/2024: No changes 06/01: abilify dosing increased to 10 mg as of this morning. initially too paranoid to sleep in single room, slept there last night for first time. court . 06/02: no change in presentation. declines increase in abilify dosing. stands by door throughout. 06/03 continue tx. 06/04: no change in presentation. agrees to increase abilify to 15 mg daily. hearing continued for 2 weeks. 06/05: no change. self-dialoguing. took abilify 15 today. appears with more irritable edge today. unclear if cheeking meds. order CO for 30 minutes post- medication.. 06/06 pt went to bathroom, flushed without evidence of urinating, seems like he is not taking antipsychotic. 06/07 continue tx. 06/08: no substantial change in presentation. saturday (and likely all the days before) pt appeared to have flushed his medication. pt was compliant with 30- min post-medication observation period on saturday. continue current mgmt. increase abilify to 20 mg in several days. 06/09: no change in presentation. will increase abilify to 20 mg as of tomorrow. if no change in presentation in next couple of days will switch to zyprexa zydis. 06/10: no change. T/C zydis. increased abilify to 20 today. 06/11: no change. DC abilify, start zyprexa. pt does not want to make this change, but it is made nevertheless. 06/12: no change in presentation. headphones playing loud static. vague, evasive answers. continue zydis 10 QHS. 06/13: Continue current regimen and plans 06/14: Continue current regimen and plans 06/15: appears ambivalent re taking zyprexa, has refused once and refused and then accepted once. sits for interview for the first time today, headphones are present but not turned on for the first time. pt states he prefers abilify to zyprexa but cannot say why. pt was encouraged to continue zyprexa trial. 06/16: same as yesterday except headphones perhaps on low volume. took zyprexa last night. continue current mgmt. court . 06/17: more visible on unit today, seeking out MD ojeda re court tomorrow. asking about signing in, [facility], je. refused zyprexa last NOC. continue current mgmt. denies he has mental illness, denies depressed mood. 06/18: refusing medication. hearing continued for 1 week for NABOR. pt reports won't take medication variably due to being on CO for 30 minutes after medication and because once after taking the medication he had an upset stomach. 06/19: did not take meds last night. no notable events or behaviors. continue current mgmt. hearing continued until next saturday. 06/20: Continue current treatment plan. 06/21: Continue current treatment plan. 06/22: took meds fri and sat, did not take meds last night. continue current mgmt. advised to use TUMs for stomach pain. 06/23: took meds last night, denies side effects. spending more time outside of his room, largely in sensory room. 06/24: in room today. took meds last night. no change in presentation. Reason for continued inpatient stay Substantial Risk for: harm to self Time Spent With Patient Time: Total time managing care of this patient today __25__ minutes.
[2024-06-24 22:04] VITALS: RESP 16
[2024-06-25 08:00] VITALS: RESP 18
--- NOTE | 2024-06-25 13:20 | P.PNPSI_ITS ---
Subjective Subjective Date of Service: 06/25/24 Reason For Visit: Unspec anxiety d/o,atten-deficit/hyperactivity d/o Interim History: no change in presentation. believes the only mental illness he has is ADHD. lack of cogent reason why he did not take zyprexa last NOC. aware of hearing tomorrow. per staff, flat, withdrawn, guarded. refused zydis. sleeping while sitting up on his bed. slept about 5.5 hours. Mental Status Exam Mental Status Exam Narrative: adequately dressed and groomed. seated at his desk for interview. poor eye contact. superficially cooperative. speech soft, sparse. decr amount. affect constricted, mood not assessed. no SI/HI/AVH expressed. Diagnostics Vital Signs (24Hr): Vital Signs - 24 hr 06/24/24 22:04 06/25/24 08:00 Respiratory Rate 16 18 BMI result Body Mass Index 28.9 Medications Medications Current Medications Acetaminophen (Acetaminophen 325 Mg Tablet) 650 mg PO Q6H PRN PRN Reason: Headache/Pain Mild Scale (1-3) Al Hydroxide/Mg Hydroxide (Magnesium Hydrox/Alum Hydrox 30 Ml Oral.Susp) 30 ml PO Q6H PRN PRN Reason: Heartburn/Nausea Hydroxyzine HCl (Hydroxyzine Hcl 25 Mg Tablet) 25 mg PO Q6H PRN PRN Reason: Anxiety Lorazepam (Lorazepam 1 Mg Tablet) 1 mg PO Q4H PRN PRN Reason: agitation Magnesium Hydroxide (Milk Of Magnesia 30 Ml Oral.Susp) 30 ml PO DAILY PRN PRN Reason: Constipation Multi-Ingred Cream/Lotion/Oil/Oint (Mineral Oil/Petrolatum,White 106 Gm Tube) 1 appl TOPICAL BID PRN; Protocol PRN Reason: dry skin Nicotine (Nicotine 21 Mg Patch.Td24) 21 mg TRANSDERMA DAILY PRN PRN Reason: nicotine cravings Nicotine Polacrilex (Nicotine Polacrilex 2 Mg Gum) 4 mg BUCCAL Q2H PRN PRN Reason: Nicotine Cravings Olanzapine (Olanzapine 5 Mg Tablet) 5 mg PO Q4H PRN PRN Reason: agitation, aggression Olanzapine (Olanzapine Odt 10 Mg Tab.Rapdis) 10 mg TRANSLINGU BEDTIME JULIAN Last Admin: 06/24/24 23:35 Dose: Not Given Trazodone HCl (Trazodone Hcl 50 Mg Tablet) 50 mg PO BEDTIME MRX1 PRN PRN Reason: Insomnia Allergies Allergies Allergy/AdvReac Type Severity Reaction Status Date / Time No Known Allergies Allergy Verified 05/22/24 17:01 Assessment & Plan Assessment & Plan (1) Depressive disorder, atypical: Status: Acute Code(s): F32.89 - Other specified depressive episodes (2) Adjustment disorder with depressed mood: Status: Acute Code(s): F43.21 - Adjustment disorder with depressed mood Plan 24 yo male transferred from [facility] ED after a suicide attempt by hanging. He has been increasingly isolated, poor self care, stopped working. He has eating disorder symptoms and NSSI. Symptoms worsened in the setting of a break up. Rule out other mood disorder Plan: - Admit to inpatient psychiatry - Section 12, rosado warning. - Collateral information from family and providers. - Milieu treatment and group therapy. - Medications: Refuses - Social work evaluation. - Disposition planning. patient eloped in the after noon from the unit and was brought back by Police. 05/24: Continue current management and treatment plan. Encourage engagement in groups and milieu. 05/25: Start Abilify 5 mg. Patient to consider. Encourage group and milieu engagement. Fasting labs in AM. Collaterals would be helpful. 05/26: encouraged to take abilify. rosado warning, legal discussion. 05/27: took abilify 5 mg this morning for first time. 12b up tomorrow. continue current mgmt. 05/28: took abilify again today. feeling better and more into things. filed for commitment. 05/29: took abilify 5 again today. willing to increase to 10 as of saturday (ordered). asking for LENA again, will allow with security present. 05/31/2024: No changes 06/01: abilify dosing increased to 10 mg as of this morning. initially too paranoid to sleep in single room, slept there last night for first time. court . 06/02: no change in presentation. declines increase in abilify dosing. stands by door throughout. 06/03 continue tx. 06/04: no change in presentation. agrees to increase abilify to 15 mg daily. hearing continued for 2 weeks. 06/05: no change. self-dialoguing. took abilify 15 today. appears with more irritable edge today. unclear if cheeking meds. order CO for 30 minutes post- medication.. 06/06 pt went to bathroom, flushed without evidence of urinating, seems like he is not taking antipsychotic. 06/07 continue tx. 06/08: no substantial change in presentation. saturday (and likely all the days before) pt appeared to have flushed his medication. pt was compliant with 30- min post-medication observation period on saturday. continue current mgmt. increase abilify to 20 mg in several days. 06/09: no change in presentation. will increase abilify to 20 mg as of tomorrow. if no change in presentation in next couple of days will switch to zyprexa zydis. 06/10: no change. T/C zydis. increased abilify to 20 today. 06/11: no change. DC abilify, start zyprexa. pt does not want to make this change, but it is made nevertheless. 06/12: no change in presentation. headphones playing loud static. vague, evasive answers. continue zydis 10 QHS. 06/13: Continue current regimen and plans 06/14: Continue current regimen and plans 06/15: appears ambivalent re taking zyprexa, has refused once and refused and then accepted once. sits for interview for the first time today, headphones are present but not turned on for the first time. pt states he prefers abilify to zyprexa but cannot say why. pt was encouraged to continue zyprexa trial. 06/16: same as yesterday except headphones perhaps on low volume. took zyprexa last night. continue current mgmt. court . 06/17: more visible on unit today, seeking out x2 re court tomorrow. asking about signing in, je [place]. refused zyprexa last NOC. continue current mgmt. denies he has mental illness, denies depressed mood. 06/18: refusing medication. hearing continued for 1 week for NABOR. pt reports won't take medication variably due to being on CO for 30 minutes after medication and because once after taking the medication he had an upset stomach. 06/19: did not take meds last night. no notable events or behaviors. continue current mgmt. hearing continued until next saturday. 06/20: Continue current treatment plan. 06/21: Continue current treatment plan. 06/22: took meds sat and sat, did not take meds last night. continue current mgmt. advised to use TUMs for stomach pain. 06/23: took meds last night, denies side effects. spending more time outside of his room, largely in sensory room. 06/24: in room today. took meds last night. no change in presentation. 06/25: interviewed in his room. refused meds last night. no change in presentation. reports the only mental illness he has is ADHD. Reason for continued inpatient stay Substantial Risk for: harm to self and inability to function Time Spent With Patient Time: Total time managing care of this patient today __25__ minutes.
[2024-06-25 20:17] VITALS: RESP 16
--- NOTE | 2024-06-26 15:51 | P.PNPSI_ITS ---
Subjective Subjective Date of Service: 06/26/24 Reason For Visit: Unspec anxiety d/o,atten-deficit/hyperactivity d/o Interim History: no change in presentation. reports he is good. states he did not take zyprexa last night bcse nurse came while he was in the bathroom and said she would come back with the medication but then never did so he just went to sleep. per staff, refused zydis last night. avoidant. no change in presentation. Mental Status Exam Mental Status Exam Narrative: adequately dressed and groomed. seated at his desk for interview. poor eye contact. superficially cooperative. speech soft, sparse. decr amount. affect constricted, mood not assessed. no SI/HI/AVH expressed. Diagnostics Vital Signs (24Hr): Vital Signs - 24 hr 06/25/24 20:17 Respiratory Rate 16 BMI result Body Mass Index 28.9 Medications Medications Current Medications Acetaminophen (Acetaminophen 325 Mg Tablet) 650 mg PO Q6H PRN PRN Reason: Headache/Pain Mild Scale (1-3) Al Hydroxide/Mg Hydroxide (Magnesium Hydrox/Alum Hydrox 30 Ml Oral.Susp) 30 ml PO Q6H PRN PRN Reason: Heartburn/Nausea Aripiprazole (Aripiprazole 5 Mg Tablet) 5 mg PO BEDTIME JULIAN Stop: 06/28/24 20:59 Hydroxyzine HCl (Hydroxyzine Hcl 25 Mg Tablet) 25 mg PO Q6H PRN PRN Reason: Anxiety Lorazepam (Lorazepam 1 Mg Tablet) 1 mg PO Q4H PRN PRN Reason: agitation Magnesium Hydroxide (Milk Of Magnesia 30 Ml Oral.Susp) 30 ml PO DAILY PRN PRN Reason: Constipation Multi-Ingred Cream/Lotion/Oil/Oint (Mineral Oil/Petrolatum,White 106 Gm Tube) 1 appl TOPICAL BID PRN; Protocol PRN Reason: dry skin Nicotine (Nicotine 21 Mg Patch.Td24) 21 mg TRANSDERMA DAILY PRN PRN Reason: nicotine cravings Nicotine Polacrilex (Nicotine Polacrilex 2 Mg Gum) 4 mg BUCCAL Q2H PRN PRN Reason: Nicotine Cravings Olanzapine (Olanzapine 5 Mg Tablet) 5 mg PO Q4H PRN PRN Reason: agitation, aggression Trazodone HCl (Trazodone Hcl 50 Mg Tablet) 50 mg PO BEDTIME MRX1 PRN PRN Reason: Insomnia Allergies Allergies Allergy/AdvReac Type Severity Reaction Status Date / Time No Known Allergies Allergy Verified 05/22/24 17:01 Assessment & Plan Assessment & Plan (1) Depressive disorder, atypical: Status: Acute Code(s): F32.89 - Other specified depressive episodes (2) Adjustment disorder with depressed mood: Status: Acute Code(s): F43.21 - Adjustment disorder with depressed mood Plan 24 yo male transferred from [facility] ED after a suicide attempt by hanging. He has been increasingly isolated, poor self care, stopped working. He has eating disorder symptoms and NSSI. Symptoms worsened in the setting of a break up. Rule out other mood disorder Plan: - Admit to inpatient psychiatry - Section 12, rosado warning. - Collateral information from family and providers. - Milieu treatment and group therapy. - Medications: Refuses - Social work evaluation. - Disposition planning. patient eloped in the after noon from the unit and was brought back by Police. 05/24: Continue current management and treatment plan. Encourage engagement in groups and milieu. 05/25: Start Abilify 5 mg. Patient to consider. Encourage group and milieu engagement. Fasting labs in AM. Collaterals would be helpful. 05/26: encouraged to take abilify. rosado warning, legal discussion. 05/27: took abilify 5 mg this morning for first time. 12b up tomorrow. continue current mgmt. 05/28: took abilify again today. feeling better and more into things. filed for commitment. 05/29: took abilify 5 again today. willing to increase to 10 as of saturday (ordered). asking for LENA again, will allow with security present. 05/31/2024: No changes 06/01: abilify dosing increased to 10 mg as of this morning. initially too paranoid to sleep in single room, slept there last night for first time. court . 06/02: no change in presentation. declines increase in abilify dosing. stands by door throughout. 06/03 continue tx. 06/04: no change in presentation. agrees to increase abilify to 15 mg daily. hearing continued for 2 weeks. 06/05: no change. self-dialoguing. took abilify 15 today. appears with more irritable edge today. unclear if cheeking meds. order CO for 30 minutes post- medication.. 06/06 pt went to bathroom, flushed without evidence of urinating, seems like he is not taking antipsychotic. 06/07 continue tx. 06/08: no substantial change in presentation. saturday (and likely all the days before) pt appeared to have flushed his medication. pt was compliant with 30- min post-medication observation period on saturday. continue current mgmt. increase abilify to 20 mg in several days. 06/09: no change in presentation. will increase abilify to 20 mg as of tomorrow. if no change in presentation in next couple of days will switch to zyprexa zydis. 06/10: no change. T/C zydis. increased abilify to 20 today. 06/11: no change. DC abilify, start zyprexa. pt does not want to make this change, but it is made nevertheless. 06/12: no change in presentation. headphones playing loud static. vague, evasive answers. continue zydis 10 QHS. 06/13: Continue current regimen and plans 06/14: Continue current regimen and plans 06/15: appears ambivalent re taking zyprexa, has refused once and refused and then accepted once. sits for interview for the first time today, headphones are present but not turned on for the first time. pt states he prefers abilify to zyprexa but cannot say why. pt was encouraged to continue zyprexa trial. 06/16: same as yesterday except headphones perhaps on low volume. took zyprexa last night. continue current mgmt. court . 06/17: more visible on unit today, seeking out x2 re court tomorrow. asking about signing in, PHP, guitar. refused zyprexa last NOC. continue current mgmt. denies he has mental illness, denies depressed mood. 06/18: refusing medication. hearing continued for 1 week for NABOR. pt reports won't take medication variably due to being on CO for 30 minutes after medication and because once after taking the medication he had an upset stomach. 06/19: did not take meds last night. no notable events or behaviors. continue current mgmt. hearing continued until next saturday. 06/20: Continue current treatment plan. 06/21: Continue current treatment plan. 06/22: took meds fri and sat, did not take meds last night. continue current mgmt. advised to use TUMs for stomach pain. 06/23: took meds last night, denies side effects. spending more time outside of his room, largely in sensory room. 06/24: in room today. took meds last night. no change in presentation. 06/25: interviewed in his room. refused meds last night. no change in presentation. reports the only mental illness he has is ADHD. 06/26: hearing held, pt committed and ordered medications. return to [facility]. orders entered for w/e. Reason for continued inpatient stay Substantial Risk for: harm to self Time Spent With Patient Time: Total time managing care of this patient today __140__ minutes.
[2024-06-26 20:00] VITALS: RESP 16
[2024-06-26] MEDS: ARIPiprazole 5 MG TABLET PO (21:01)
--- NOTE | 2024-06-27 08:13 | HO.PSYCHPN ---
Subjective Subjective Date of Service: 06/27/24 Reason For Visit: Unspec anxiety d/o,atten-deficit/hyperactivity d/o Subjective Notes: Section 8 Healthcare Proxy: No Medical Problems Affecting Mental Status: No Interim History: 24 yo wants to talk to dr about not going up to 20mg says it didn't suit him but can't say really what didn't work about it at 20mg - outside making him feel stuffy nursing reports pt slept 8 hrs, but isolates in room, comes out for snacks multiple books open- didn't want to discuss Medication Compliance: Yes Side effects from medications: No Attending Groups: No Review of Systems Acute medical concerns: No Medical Review of Systems: unchanged Mental Status Exam Mental Status Exam Narrative: юлия stuck in his nose- on one side Patient Appearance: Disheveled Patient Orientation: Person and Place Level of Consciousness: Awake Patient Behavior: Guarded, Cooperative (minimally ), Passive and Avoidant Mood Description: Withdrawn Affect Description: Blunted Patient Cognition Impaired: No Ability to Follow Directions: Fair Speech Pattern: Clear and Impoverished Delusions: Paranoid Ideation (?) Thought Process: Goal Oriented Thought Content: positive for Poverty of Content Abnormal Motor Activity Signs and Symptoms: Restlessness Judgement: Poor Diagnostics Vital Signs (24Hr): Vital Signs - 24 hr 06/26/24 20:00 Respiratory Rate 16 BMI result Body Mass Index 28.9 Medications Medications Current Medications Acetaminophen (Acetaminophen 325 Mg Tablet) 650 mg PO Q6H PRN PRN Reason: Headache/Pain Mild Scale (1-3) Al Hydroxide/Mg Hydroxide (Magnesium Hydrox/Alum Hydrox 30 Ml Oral.Susp) 30 ml PO Q6H PRN PRN Reason: Heartburn/Nausea Aripiprazole (Aripiprazole 5 Mg Tablet) 5 mg PO BEDTIME JULIAN Stop: 06/28/24 20:59 Last Admin: 06/26/24 21:01 Dose: 5 mg Aripiprazole (Aripiprazole 10 Mg Tablet) 10 mg PO BEDTIME JULIAN Hydroxyzine HCl (Hydroxyzine Hcl 25 Mg Tablet) 25 mg PO Q6H PRN PRN Reason: Anxiety Lorazepam (Lorazepam 1 Mg Tablet) 1 mg PO Q4H PRN PRN Reason: agitation Magnesium Hydroxide (Milk Of Magnesia 30 Ml Oral.Susp) 30 ml PO DAILY PRN PRN Reason: Constipation Multi-Ingred Cream/Lotion/Oil/Oint (Mineral Oil/Petrolatum,White 106 Gm Tube) 1 appl TOPICAL BID PRN; Protocol PRN Reason: dry skin Nicotine (Nicotine 21 Mg Patch.Td24) 21 mg TRANSDERMA DAILY PRN PRN Reason: nicotine cravings Nicotine Polacrilex (Nicotine Polacrilex 2 Mg Gum) 4 mg BUCCAL Q2H PRN PRN Reason: Nicotine Cravings Olanzapine (Olanzapine 5 Mg Tablet) 5 mg PO Q4H PRN PRN Reason: agitation, aggression Trazodone HCl (Trazodone Hcl 50 Mg Tablet) 50 mg PO BEDTIME MRX1 PRN PRN Reason: Insomnia Allergies Allergies Allergy/AdvReac Type Severity Reaction Status Date / Time No Known Allergies Allergy Verified 05/22/24 17:01 Assessment & Plan Assessment & Plan (1) Depressive disorder, atypical: Status: Acute Code(s): F32.89 - Other specified depressive episodes (2) Adjustment disorder with depressed mood: Status: Acute Code(s): F43.21 - Adjustment disorder with depressed mood Plan 24 yo male transferred from [facility] ED after a suicide attempt by hanging. He has been increasingly isolated, poor self care, stopped working. He has eating disorder symptoms and NSSI. Symptoms worsened in the setting of a break up. Rule out other mood disorder Plan: - Admit to inpatient psychiatry - Section 12, rosado warning. - Collateral information from family and providers. - Milieu treatment and group therapy. - Medications: Refuses - Social work evaluation. - Disposition planning. patient eloped in the after noon from the unit and was brought back by Police. 05/24: Continue current management and treatment plan. Encourage engagement in groups and milieu. 05/25: Start Abilify 5 mg. Patient to consider. Encourage group and milieu engagement. Fasting labs in AM. Collaterals would be helpful. 05/26: encouraged to take abilify. rosado warning, legal discussion. 05/27: took abilify 5 mg this morning for first time. 12b up tomorrow. continue current mgmt. 05/28: took abilify again today. feeling better and more into things. filed for commitment. 05/29: took abilify 5 again today. willing to increase to 10 as of saturday (ordered). asking for LENA again, will allow with security present. 05/31/2024: No changes 06/01: abilify dosing increased to 10 mg as of this morning. initially too paranoid to sleep in single room, slept there last night for first time. court . 06/02: no change in presentation. declines increase in abilify dosing. stands by door throughout. 06/03 continue tx. 06/04: no change in presentation. agrees to increase abilify to 15 mg daily. hearing continued for 2 weeks. 06/05: no change. self-dialoguing. took abilify 15 today. appears with more irritable edge today. unclear if cheeking meds. order CO for 30 minutes post-medication.. 06/06 pt went to bathroom, flushed without evidence of urinating, seems like he is not taking antipsychotic. 06/07 continue tx. 06/08: no substantial change in presentation. saturday (and likely all the days before) pt appeared to have flushed his medication. pt was compliant with 30-min post-medication observation period on saturday. continue current mgmt. increase abilify to 20 mg in several days. 06/09: no change in presentation. will increase abilify to 20 mg as of tomorrow. if no change in presentation in next couple of days will switch to zyprexa zydis. 06/10: no change. T/C zydis. increased abilify to 20 today. 06/11: no change. DC abilify, start zyprexa. pt does not want to make this change, but it is made nevertheless. 06/12: no change in presentation. headphones playing loud static. vague, evasive answers. continue zydis 10 QHS. 06/13: Continue current regimen and plans 06/14: Continue current regimen and plans 06/15: appears ambivalent re taking zyprexa, has refused once and refused and then accepted once. sits for interview for the first time today, headphones are present but not turned on for the first time. pt states he prefers abilify to zyprexa but cannot say why. pt was encouraged to continue zyprexa trial. 06/16: same as yesterday except headphones perhaps on low volume. took zyprexa last night. continue current mgmt. court . 06/17: more visible on unit today, seeking out MD ojeda re court tomorrow. asking about signing in, je MCCLENDON. refused zyprexa last NOC. continue current mgmt. denies he has mental illness, denies depressed mood. 06/18: refusing medication. hearing continued for 1 week for NABOR. pt reports won't take medication variably due to being on CO for 30 minutes after medication and because once after taking the medication he had an upset stomach. 06/19: did not take meds last night. no notable events or behaviors. continue current mgmt. hearing continued until next saturday. 06/20: Continue current treatment plan. 06/21: Continue current treatment plan. 06/22: took meds sat and sat, did not take meds last night. continue current mgmt. advised to use TUMs for stomach pain. 06/23: took meds last night, denies side effects. spending more time outside of his room, largely in sensory room. 06/24: in room today. took meds last night. no change in presentation. 06/25: interviewed in his room. refused meds last night. no change in presentation. reports the only mental illness he has is ADHD. 06/26: hearing held, pt committed and ordered medications. return to [facility] trial. orders entered for w/e. 06/27 -CTP not sure he will agree to inc dose after weekend- nor do we have IM order should he refuse PO Patient educated on: medication risk/benefits Informed Consent: further education needed Reason for continued inpatient stay Substantial Risk for: rapid decompensation Time Spent With Patient Time: Total time managing care of this patient today ____ minutes.
[2024-06-27 20:00] VITALS: RESP 16
[2024-06-27] MEDS: ARIPiprazole 5 MG TABLET PO (21:09)
--- NOTE | 2024-06-28 11:00 | P.PNPSI_ITS ---
Subjective Subjective Date of Service: 06/28/24 Reason For Visit: Unspec anxiety d/o,atten-deficit/hyperactivity d/o Subjective Notes: Section 8 Healthcare Proxy: No Guardianship: No Medical Problems Affecting Mental Status: No Interim History: 24 yo who remains isolated to room and reading- tolerating 10mg abilify but no clear effect- odd things on montiel in room- paper folded in circular shape- keeps back to staff/this provider- Denies all sys - Provider specifically asked about stuffiness which he says he gets on higher doses of ablify- 20mg and up - not having curently - Slept 8 hours- no eye contact , irritable toward staff when court brought up Medication Compliance: Yes Side effects from medications: No Attending Groups: No Review of Systems Acute medical concerns: No Medical Review of Systems: unchanged Mental Status Exam Mental Status Exam Patient Appearance: Appropriate Patient Orientation: Person, Place, Time and Situation Level of Consciousness: Awake and Alert Patient Behavior: Guarded, Resistive to Care, Avoidant and Isolative Mood Description: Apathetic Affect Description: Blunted Patient Cognition Impaired: No Ability to Follow Directions: Fair Speech Pattern: Clear Thought Content: positive for Poverty of Content (or withholding thoughts? from staff) Judgement: Poor Diagnostics Vital Signs (24Hr): Vital Signs - 24 hr 06/27/24 20:00 Respiratory Rate 16 BMI result Body Mass Index 28.9 Medications Medications Current Medications Acetaminophen (Acetaminophen 325 Mg Tablet) 650 mg PO Q6H PRN PRN Reason: Headache/Pain Mild Scale (1-3) Al Hydroxide/Mg Hydroxide (Magnesium Hydrox/Alum Hydrox 30 Ml Oral.Susp) 30 ml PO Q6H PRN PRN Reason: Heartburn/Nausea Aripiprazole (Aripiprazole 5 Mg Tablet) 5 mg PO BEDTIME JULIAN Stop: 06/28/24 20:59 Last Admin: 06/27/24 21:09 Dose: 5 mg Aripiprazole (Aripiprazole 10 Mg Tablet) 10 mg PO BEDTIME JULIAN Hydroxyzine HCl (Hydroxyzine Hcl 25 Mg Tablet) 25 mg PO Q6H PRN PRN Reason: Anxiety Lorazepam (Lorazepam 1 Mg Tablet) 1 mg PO Q4H PRN PRN Reason: agitation Magnesium Hydroxide (Milk Of Magnesia 30 Ml Oral.Susp) 30 ml PO DAILY PRN PRN Reason: Constipation Multi-Ingred Cream/Lotion/Oil/Oint (Mineral Oil/Petrolatum,White 106 Gm Tube) 1 appl TOPICAL BID PRN; Protocol PRN Reason: dry skin Nicotine (Nicotine 21 Mg Patch.Td24) 21 mg TRANSDERMA DAILY PRN PRN Reason: nicotine cravings Nicotine Polacrilex (Nicotine Polacrilex 2 Mg Gum) 4 mg BUCCAL Q2H PRN PRN Reason: Nicotine Cravings Olanzapine (Olanzapine 5 Mg Tablet) 5 mg PO Q4H PRN PRN Reason: agitation, aggression Olanzapine (Olanzapine 10 Mg Vial) 5 mg IM DAILY PRN PRN Reason: refusal of Abilify po Trazodone HCl (Trazodone Hcl 50 Mg Tablet) 50 mg PO BEDTIME MRX1 PRN PRN Reason: Insomnia Allergies Allergies Allergy/AdvReac Type Severity Reaction Status Date / Time No Known Allergies Allergy Verified 05/22/24 17:01 Assessment & Plan Assessment & Plan (1) Depressive disorder, atypical: Status: Acute Code(s): F32.89 - Other specified depressive episodes (2) Adjustment disorder with depressed mood: Status: Acute Code(s): F43.21 - Adjustment disorder with depressed mood Plan 24 yo male transferred from [facility] ED after a suicide attempt by hanging. He has been increasingly isolated, poor self care, stopped working. He has eating disorder symptoms and NSSI. Symptoms worsened in the setting of a break up. Rule out other mood disorder Plan: - Admit to inpatient psychiatry - Section 12, rosado warning. - Collateral information from family and providers. - Milieu treatment and group therapy. - Medications: Refuses - Social work evaluation. - Disposition planning. patient eloped in the after noon from the unit and was brought back by Police. 05/24: Continue current management and treatment plan. Encourage engagement in groups and milieu. 05/25: Start Abilify 5 mg. Patient to consider. Encourage group and milieu engagement. Fasting labs in AM. Collaterals would be helpful. 05/26: encouraged to take abilify. rosado warning, legal discussion. 05/27: took abilify 5 mg this morning for first time. 12b up tomorrow. continue current mgmt. 05/28: took abilify again today. feeling better and more into things. filed for commitment. 05/29: took abilify 5 again today. willing to increase to 10 as of saturday (ordered). asking for LENA again, will allow with security present. 05/31/2024: No changes 06/01: abilify dosing increased to 10 mg as of this morning. initially too paranoid to sleep in single room, slept there last night for first time. court . 06/02: no change in presentation. declines increase in abilify dosing. stands by door throughout. 06/03 continue tx. 06/04: no change in presentation. agrees to increase abilify to 15 mg daily. hearing continued for 2 weeks. 06/05: no change. self-dialoguing. took abilify 15 today. appears with more irritable edge today. unclear if cheeking meds. order CO for 30 minutes post- medication.. 06/06 pt went to bathroom, flushed without evidence of urinating, seems like he is not taking antipsychotic. 06/07 continue tx. 06/08: no substantial change in presentation. saturday (and likely all the days before) pt appeared to have flushed his medication. pt was compliant with 30- min post-medication observation period on saturday. continue current mgmt. increase abilify to 20 mg in several days. 06/09: no change in presentation. will increase abilify to 20 mg as of tomorrow. if no change in presentation in next couple of days will switch to zyprexa zydis. 06/10: no change. T/C zydis. increased abilify to 20 today. 06/11: no change. DC abilify, start zyprexa. pt does not want to make this change, but it is made nevertheless. 06/12: no change in presentation. headphones playing loud static. vague, evasive answers. continue zydis 10 QHS. 06/13: Continue current regimen and plans 06/14: Continue current regimen and plans 06/15: appears ambivalent re taking zyprexa, has refused once and refused and then accepted once. sits for interview for the first time today, headphones are present but not turned on for the first time. pt states he prefers abilify to zyprexa but cannot say why. pt was encouraged to continue zyprexa trial. 06/16: same as yesterday except headphones perhaps on low volume. took zyprexa last night. continue current mgmt. court . 06/17: more visible on unit today, seeking out x2 re court tomorrow. asking about signing in, DANELLE, je. refused zyprexa last NOC. continue current mgmt. denies he has mental illness, denies depressed mood. 06/18: refusing medication. hearing continued for 1 week for NABOR. pt reports won't take medication variably due to being on CO for 30 minutes after medication and because once after taking the medication he had an upset stomach. 06/19: did not take meds last night. no notable events or behaviors. continue current mgmt. hearing continued until next saturday. 06/20: Continue current treatment plan. 06/21: Continue current treatment plan. 06/22: took meds sat and sat, did not take meds last night. continue current mgmt. advised to use TUMs for stomach pain. 06/23: took meds last night, denies side effects. spending more time outside of his room, largely in sensory room. 06/24: in room today. took meds last night. no change in presentation. 06/25: interviewed in his room. refused meds last night. no change in presentation. reports the only mental illness he has is ADHD. 06/26: hearing held, pt committed and ordered medications. return to abiliy trial. orders entered for w/e. 06/27 -CTP not sure he will agree to inc dose after weekend- nor do we have IM order should he refuse PO 06/28 CTP Reason for continued inpatient stay Substantial Risk for: inability to function and rapid decompensation Time Spent With Patient Time: Total time managing care of this patient today ____ minutes.
[2024-06-28 20:02] VITALS: RESP 16
[2024-06-28] MEDS: ARIPiprazole 10 MG TABLET PO (21:34)
--- NOTE | 2024-06-29 13:47 | HO.PSYCHPN ---
Subjective Subjective Date of Service: 06/29/24 Reason For Visit: Unspec anxiety d/o,atten-deficit/hyperactivity d/o Interim History: sat with MD today. better related, more spontaneous. says kaleblify 15 was good for him, but 20 made him feel weird. unable to say why, in what way. per staff, blunted, guarded. poor eye contact. mood good. taking meds. slept 6 hours. Mental Status Exam Mental Status Exam Narrative: adequately dressed and groomed. came to interview room and sat for interview. poor eye contact. superficially cooperative. speech soft, sparse. decr amount. affect constricted, mood not assessed. no SI/HI/AVH expressed. Diagnostics Vital Signs (24Hr): Vital Signs - 24 hr 06/28/24 20:02 Respiratory Rate 16 BMI result Body Mass Index 28.9 Medications Medications Current Medications Acetaminophen (Acetaminophen 325 Mg Tablet) 650 mg PO Q6H PRN PRN Reason: Headache/Pain Mild Scale (1-3) Al Hydroxide/Mg Hydroxide (Magnesium Hydrox/Alum Hydrox 30 Ml Oral.Susp) 30 ml PO Q6H PRN PRN Reason: Heartburn/Nausea Aripiprazole (Aripiprazole 15 Mg Tablet) 15 mg PO BEDTIME JULIAN Hydroxyzine HCl (Hydroxyzine Hcl 25 Mg Tablet) 25 mg PO Q6H PRN PRN Reason: Anxiety Lorazepam (Lorazepam 1 Mg Tablet) 1 mg PO Q4H PRN PRN Reason: agitation Magnesium Hydroxide (Milk Of Magnesia 30 Ml Oral.Susp) 30 ml PO DAILY PRN PRN Reason: Constipation Multi-Ingred Cream/Lotion/Oil/Oint (Mineral Oil/Petrolatum,White 106 Gm Tube) 1 appl TOPICAL BID PRN; Protocol PRN Reason: dry skin Nicotine (Nicotine 21 Mg Patch.Td24) 21 mg TRANSDERMA DAILY PRN PRN Reason: nicotine cravings Nicotine Polacrilex (Nicotine Polacrilex 2 Mg Gum) 4 mg BUCCAL Q2H PRN PRN Reason: Nicotine Cravings Olanzapine (Olanzapine 5 Mg Tablet) 5 mg PO Q4H PRN PRN Reason: agitation, aggression Olanzapine (Olanzapine 10 Mg Vial) 5 mg IM DAILY PRN PRN Reason: refusal of Abilify po Sodium Chloride (Sodium Chloride 0.65 % Nasal 44 Ml Sprbtl) 1 spray NOSTRIL-B Q1H PRN PRN Reason: nasal congestion Trazodone HCl (Trazodone Hcl 50 Mg Tablet) 50 mg PO BEDTIME MRX1 PRN PRN Reason: Insomnia Allergies Allergies Allergy/AdvReac Type Severity Reaction Status Date / Time No Known Allergies Allergy Verified 05/22/24 17:01 Assessment & Plan Assessment & Plan (1) Depressive disorder, atypical: Status: Acute Code(s): F32.89 - Other specified depressive episodes (2) Adjustment disorder with depressed mood: Status: Acute Code(s): F43.21 - Adjustment disorder with depressed mood Plan 24 yo male transferred from [facility] ED after a suicide attempt by hanging. He has been increasingly isolated, poor self care, stopped working. He has eating disorder symptoms and NSSI. Symptoms worsened in the setting of a break up. Rule out other mood disorder Plan: - Admit to inpatient psychiatry - Section 12, rosado warning. - Collateral information from family and providers. - Milieu treatment and group therapy. - Medications: Refuses - Social work evaluation. - Disposition planning. patient eloped in the after noon from the unit and was brought back by Police. 05/24: Continue current management and treatment plan. Encourage engagement in groups and milieu. 05/25: Start Abilify 5 mg. Patient to consider. Encourage group and milieu engagement. Fasting labs in AM. Collaterals would be helpful. 05/26: encouraged to take abilify. rosado warning, legal discussion. 05/27: took abilify 5 mg this morning for first time. 12b up tomorrow. continue current mgmt. 05/28: took abilify again today. feeling better and more into things. filed for commitment. 05/29: took abilify 5 again today. willing to increase to 10 as of saturday (ordered). asking for LENA again, will allow with security present. 05/31/2024: No changes 06/01: abilify dosing increased to 10 mg as of this morning. initially too paranoid to sleep in single room, slept there last night for first time. court . 06/02: no change in presentation. declines increase in abilify dosing. stands by door throughout. 06/03 continue tx. 06/04: no change in presentation. agrees to increase abilify to 15 mg daily. hearing continued for 2 weeks. 06/05: no change. self-dialoguing. took abilify 15 today. appears with more irritable edge today. unclear if cheeking meds. order CO for 30 minutes post-medication.. 06/06 pt went to bathroom, flushed without evidence of urinating, seems like he is not taking antipsychotic. 06/07 continue tx. 06/08: no substantial change in presentation. saturday (and likely all the days before) pt appeared to have flushed his medication. pt was compliant with 30-min post-medication observation period on saturday. continue current mgmt. increase abilify to 20 mg in several days. 06/09: no change in presentation. will increase abilify to 20 mg as of tomorrow. if no change in presentation in next couple of days will switch to zyprexa zydis. 06/10: no change. T/C zydis. increased abilify to 20 today. 06/11: no change. DC abilify, start zyprexa. pt does not want to make this change, but it is made nevertheless. 06/12: no change in presentation. headphones playing loud static. vague, evasive answers. continue zydis 10 QHS. 06/13: Continue current regimen and plans 06/14: Continue current regimen and plans 06/15: appears ambivalent re taking zyprexa, has refused once and refused and then accepted once. sits for interview for the first time today, headphones are present but not turned on for the first time. pt states he prefers abilify to zyprexa but cannot say why. pt was encouraged to continue zyprexa trial. 06/16: same as yesterday except headphones perhaps on low volume. took zyprexa last night. continue current mgmt. court . 06/17: more visible on unit today, seeking out x2 re court tomorrow. asking about signing in, DANELLE, je. refused zyprexa last NOC. continue current mgmt. denies he has mental illness, denies depressed mood. 06/18: refusing medication. hearing continued for 1 week for NABOR. pt reports won't take medication variably due to being on CO for 30 minutes after medication and because once after taking the medication he had an upset stomach. 06/19: did not take meds last night. no notable events or behaviors. continue current mgmt. hearing continued until next saturday. 06/20: Continue current treatment plan. 06/21: Continue current treatment plan. 06/22: took meds sat and sat, did not take meds last night. continue current mgmt. advised to use TUMs for stomach pain. 06/23: took meds last night, denies side effects. spending more time outside of his room, largely in sensory room. 06/24: in room today. took meds last night. no change in presentation. 06/25: interviewed in his room. refused meds last night. no change in presentation. reports the only mental illness he has is ADHD. 06/26: hearing held, pt committed and ordered medications. return to abilify trial. orders entered for w/e. 06/27 -CTP not sure he will agree to inc dose after weekend- nor do we have IM order should he refuse PO 06/28 CTP 06/29: appears more relaxed, better related today. sat with MD in interview room rather than standing. encouraged to attend groups. agreeable to increase abilify to 15 mg, says 20 mg makes him feel uncomfortable. increase to 15 mg tonight. Reason for continued inpatient stay Substantial Risk for: harm to self, inability to function and rapid decompensation Time Spent With Patient Time: Total time managing care of this patient today __25__ minutes.
[2024-06-29 20:09] VITALS: RESP 16
[2024-06-29] MEDS: ARIPiprazole 15 MG TABLET PO (21:20)
[2024-06-30 08:00] VITALS: RESP 18
--- NOTE | 2024-06-30 15:58 | HO.PSYCHPN ---
Subjective Subjective Date of Service: 06/30/24 Reason For Visit: Unspec anxiety d/o,atten-deficit/hyperactivity d/o Interim History: angered at being informed he will be given CARLSON soon. advised to comply with PO medication for now to be sure he is able to tolerate CARLSON. per staff, denies anx/dep. attended 1 group. headphones on. poor eye contact. surreptitiously spat out abilify last night into pitcher, noted by staff only because they inspected the pitcher some minutes after med administration and saw pill. Mental Status Exam Mental Status Exam Narrative: adequately dressed and groomed. came to interview room and sat for interview. poor eye contact. superficially cooperative. speech soft, sparse. decr amount. affect constricted, mood not assessed. no SI/HI/AVH expressed. Diagnostics Vital Signs (24Hr): Vital Signs - 24 hr 06/29/24 20:09 06/30/24 08:00 Respiratory Rate 16 18 BMI result Body Mass Index 28.9 Medications Medications Current Medications Acetaminophen (Acetaminophen 325 Mg Tablet) 650 mg PO Q6H PRN PRN Reason: Headache/Pain Mild Scale (1-3) Al Hydroxide/Mg Hydroxide (Magnesium Hydrox/Alum Hydrox 30 Ml Oral.Susp) 30 ml PO Q6H PRN PRN Reason: Heartburn/Nausea Aripiprazole (Aripiprazole 15 Mg Tablet) 15 mg PO BEDTIME JULIAN Last Admin: 06/29/24 21:20 Dose: 15 mg Hydroxyzine HCl (Hydroxyzine Hcl 25 Mg Tablet) 25 mg PO Q6H PRN PRN Reason: Anxiety Lorazepam (Lorazepam 1 Mg Tablet) 1 mg PO Q4H PRN PRN Reason: agitation Magnesium Hydroxide (Milk Of Magnesia 30 Ml Oral.Susp) 30 ml PO DAILY PRN PRN Reason: Constipation Multi-Ingred Cream/Lotion/Oil/Oint (Mineral Oil/Petrolatum,White 106 Gm Tube) 1 appl TOPICAL BID PRN; Protocol PRN Reason: dry skin Nicotine (Nicotine 21 Mg Patch.Td24) 21 mg TRANSDERMA DAILY PRN PRN Reason: nicotine cravings Nicotine Polacrilex (Nicotine Polacrilex 2 Mg Gum) 4 mg BUCCAL Q2H PRN PRN Reason: Nicotine Cravings Olanzapine (Olanzapine 5 Mg Tablet) 5 mg PO Q4H PRN PRN Reason: agitation, aggression Olanzapine (Olanzapine 10 Mg Vial) 5 mg IM DAILY PRN PRN Reason: refusal of Abilify po Sodium Chloride (Sodium Chloride 0.65 % Nasal 44 Ml Sprbtl) 1 spray NOSTRIL-B Q1H PRN PRN Reason: nasal congestion Trazodone HCl (Trazodone Hcl 50 Mg Tablet) 50 mg PO BEDTIME MRX1 PRN PRN Reason: Insomnia Allergies Allergies Allergy/AdvReac Type Severity Reaction Status Date / Time No Known Allergies Allergy Verified 05/22/24 17:01 Assessment & Plan Assessment & Plan (1) Depressive disorder, atypical: Status: Acute Code(s): F32.89 - Other specified depressive episodes (2) Adjustment disorder with depressed mood: Status: Acute Code(s): F43.21 - Adjustment disorder with depressed mood Plan 24 yo male transferred from [facility] ED after a suicide attempt by hanging. He has been increasingly isolated, poor self care, stopped working. He has eating disorder symptoms and NSSI. Symptoms worsened in the setting of a break up. Rule out other mood disorder Plan: - Admit to inpatient psychiatry - Section 12, rosado warning. - Collateral information from family and providers. - Milieu treatment and group therapy. - Medications: Refuses - Social work evaluation. - Disposition planning. patient eloped in the after noon from the unit and was brought back by Police. 05/24: Continue current management and treatment plan. Encourage engagement in groups and milieu. 05/25: Start Abilify 5 mg. Patient to consider. Encourage group and milieu engagement. Fasting labs in AM. Collaterals would be helpful. 05/26: encouraged to take abilify. rosado warning, legal discussion. 05/27: took abilify 5 mg this morning for first time. 12b up tomorrow. continue current mgmt. 05/28: took abilify again today. feeling better and more into things. filed for commitment. 05/29: took abilify 5 again today. willing to increase to 10 as of saturday (ordered). asking for LENA again, will allow with security present. 05/31/2024: No changes 06/01: abilify dosing increased to 10 mg as of this morning. initially too paranoid to sleep in single room, slept there last night for first time. court . 06/02: no change in presentation. declines increase in abilify dosing. stands by door throughout. 06/03 continue tx. 06/04: no change in presentation. agrees to increase abilify to 15 mg daily. hearing continued for 2 weeks. 06/05: no change. self-dialoguing. took abilify 15 today. appears with more irritable edge today. unclear if cheeking meds. order CO for 30 minutes post-medication.. 06/06 pt went to bathroom, flushed without evidence of urinating, seems like he is not taking antipsychotic. 06/07 continue tx. 06/08: no substantial change in presentation. saturday (and likely all the days before) pt appeared to have flushed his medication. pt was compliant with 30-min post-medication observation period on saturday. continue current mgmt. increase abilify to 20 mg in several days. 06/09: no change in presentation. will increase abilify to 20 mg as of tomorrow. if no change in presentation in next couple of days will switch to zyprexa zydis. 06/10: no change. T/C zydis. increased abilify to 20 today. 06/11: no change. DC abilify, start zyprexa. pt does not want to make this change, but it is made nevertheless. 06/12: no change in presentation. headphones playing loud static. vague, evasive answers. continue zydis 10 QHS. 06/13: Continue current regimen and plans 06/14: Continue current regimen and plans 06/15: appears ambivalent re taking zyprexa, has refused once and refused and then accepted once. sits for interview for the first time today, headphones are present but not turned on for the first time. pt states he prefers abilify to zyprexa but cannot say why. pt was encouraged to continue zyprexa trial. 06/16: same as yesterday except headphones perhaps on low volume. took zyprexa last night. continue current mgmt. court . 06/17: more visible on unit today, seeking out MD ojeda re court tomorrow. asking about signing in, PHP, je. refused zyprexa last NOC. continue current mgmt. denies he has mental illness, denies depressed mood. 06/18: refusing medication. hearing continued for 1 week for NABOR. pt reports won't take medication variably due to being on CO for 30 minutes after medication and because once after taking the medication he had an upset stomach. 06/19: did not take meds last night. no notable events or behaviors. continue current mgmt. hearing continued until next saturday. 06/20: Continue current treatment plan. 06/21: Continue current treatment plan. 06/22: took meds sat and sat, did not take meds last night. continue current mgmt. advised to use TUMs for stomach pain. 06/23: took meds last night, denies side effects. spending more time outside of his room, largely in sensory room. 06/24: in room today. took meds last night. no change in presentation. 06/25: interviewed in his room. refused meds last night. no change in presentation. reports the only mental illness he has is ADHD. 06/26: hearing held, pt committed and ordered medications. return to abilify trial. orders entered for w/e. 06/27 -CTP not sure he will agree to inc dose after weekend- nor do we have IM order should he refuse PO 06/28 CTP 06/29: appears more relaxed, better related today. sat with MD in interview room rather than standing. encouraged to attend groups. agreeable to increase abilify to 15 mg, says 20 mg makes him feel uncomfortable. increase to 15 mg tonight. 06/30: spat out medication surreptitiously last night. informed he will be given abilify IM soon and was encouraged to comply with PO dosing in the meantime to be confident he will not have ADR. stable presentation. Reason for continued inpatient stay Substantial Risk for: harm to self Time Spent With Patient Time: Total time managing care of this patient today __25__ minutes.
[2024-06-30] MEDS: ARIPiprazole 15 MG TABLET PO (20:59)
--- NOTE | 2024-07-01 14:08 | P.PNPSI_ITS ---
Subjective Subjective Date of Service: 07/01/24 Reason For Visit: Unspec anxiety d/o,atten-deficit/hyperactivity d/o Interim History: sitting for interview. no change in presentation otherwise. more overtly irritable. informed of increase in abilify to 20 mg daily. per staff, no cerda e in presentation. refusing VS. taking meds. Mental Status Exam Mental Status Exam Narrative: adequately dressed and groomed. came to interview room and sat for interview. poor eye contact. superficially cooperative. speech soft, sparse. decr amount. affect constricted, mood not assessed. no SI/HI/AVH expressed. Diagnostics Vital Signs (24Hr): BMI result Body Mass Index 28.9 Medications Medications Current Medications Acetaminophen (Acetaminophen 325 Mg Tablet) 650 mg PO Q6H PRN PRN Reason: Headache/Pain Mild Scale (1-3) Al Hydroxide/Mg Hydroxide (Magnesium Hydrox/Alum Hydrox 30 Ml Oral.Susp) 30 ml PO Q6H PRN PRN Reason: Heartburn/Nausea Aripiprazole (Aripiprazole 20 Mg Tablet) 20 mg PO BEDTIME JULIAN Hydroxyzine HCl (Hydroxyzine Hcl 25 Mg Tablet) 25 mg PO Q6H PRN PRN Reason: Anxiety Lorazepam (Lorazepam 1 Mg Tablet) 1 mg PO Q4H PRN PRN Reason: agitation Magnesium Hydroxide (Milk Of Magnesia 30 Ml Oral.Susp) 30 ml PO DAILY PRN PRN Reason: Constipation Multi-Ingred Cream/Lotion/Oil/Oint (Mineral Oil/Petrolatum,White 106 Gm Tube) 1 appl TOPICAL BID PRN; Protocol PRN Reason: dry skin Nicotine (Nicotine 21 Mg Patch.Td24) 21 mg TRANSDERMA DAILY PRN PRN Reason: nicotine cravings Nicotine Polacrilex (Nicotine Polacrilex 2 Mg Gum) 4 mg BUCCAL Q2H PRN PRN Reason: Nicotine Cravings Olanzapine (Olanzapine 5 Mg Tablet) 5 mg PO Q4H PRN PRN Reason: agitation, aggression Olanzapine (Olanzapine 10 Mg Vial) 5 mg IM DAILY PRN PRN Reason: refusal of Abilify po Sodium Chloride (Sodium Chloride 0.65 % Nasal 44 Ml Sprbtl) 1 spray NOSTRIL-B Q1H PRN PRN Reason: nasal congestion Trazodone HCl (Trazodone Hcl 50 Mg Tablet) 50 mg PO BEDTIME MRX1 PRN PRN Reason: Insomnia Allergies Allergies Allergy/AdvReac Type Severity Reaction Status Date / Time No Known Allergies Allergy Verified 05/22/24 17:01 Assessment & Plan Assessment & Plan (1) Depressive disorder, atypical: Status: Acute Code(s): F32.89 - Other specified depressive episodes (2) Adjustment disorder with depressed mood: Status: Acute Code(s): F43.21 - Adjustment disorder with depressed mood Plan 24 yo male transferred from [facility] ED after a suicide attempt by hanging. He has been increasingly isolated, poor self care, stopped working. He has eating disorder symptoms and NSSI. Symptoms worsened in the setting of a break up. Rule out other mood disorder Plan: - Admit to inpatient psychiatry - Section 12, rosado warning. - Collateral information from family and providers. - Milieu treatment and group therapy. - Medications: Refuses - Social work evaluation. - Disposition planning. patient eloped in the after noon from the unit and was brought back by Police. 05/24: Continue current management and treatment plan. Encourage engagement in groups and milieu. 05/25: Start Abilify 5 mg. Patient to consider. Encourage group and milieu engagement. Fasting labs in AM. Collaterals would be helpful. 05/26: encouraged to take abilify. rosado warning, legal discussion. 05/27: took abilify 5 mg this morning for first time. 12b up tomorrow. continue current mgmt. 05/28: took abilify again today. feeling better and more into things. filed for commitment. 05/29: took abilify 5 again today. willing to increase to 10 as of saturday (ordered). asking for LENA again, will allow with security present. 05/31/2024: No changes 06/01: abilify dosing increased to 10 mg as of this morning. initially too paranoid to sleep in single room, slept there last night for first time. court . 06/02: no change in presentation. declines increase in abilify dosing. stands by door throughout. 06/03 continue tx. 06/04: no change in presentation. agrees to increase abilify to 15 mg daily. hearing continued for 2 weeks. 06/05: no change. self-dialoguing. took abilify 15 today. appears with more irritable edge today. unclear if cheeking meds. order CO for 30 minutes post-medication.. 06/06 pt went to bathroom, flushed without evidence of urinating, seems like he is not taking antipsychotic. 06/07 continue tx. 06/08: no substantial change in presentation. saturday (and likely all the days before) pt appeared to have flushed his medication. pt was compliant with 30- min post-medication observation period on saturday. continue current mgmt. increase abilify to 20 mg in several days. 06/09: no change in presentation. will increase abilify to 20 mg as of tomorrow. if no change in presentation in next couple of days will switch to zyprexa zydis. 06/10: no change. T/C zydis. increased abilify to 20 today. 06/11: no change. DC abilify, start zyprexa. pt does not want to make this change, but it is made nevertheless. 06/12: no change in presentation. headphones playing loud static. vague, evasive answers. continue zydis 10 QHS. 06/13: Continue current regimen and plans 06/14: Continue current regimen and plans 06/15: appears ambivalent re taking zyprexa, has refused once and refused and then accepted once. sits for interview for the first time today, headphones are present but not turned on for the first time. pt states he prefers abilify to zyprexa but cannot say why. pt was encouraged to continue zyprexa trial. 06/16: same as yesterday except headphones perhaps on low volume. took zyprexa last night. continue current mgmt. court . 06/17: more visible on unit today, seeking out x2 re court tomorrow. asking about signing in, DANELLE, je. refused zyprexa last NOC. continue current mgmt. denies he has mental illness, denies depressed mood. 06/18: refusing medication. hearing continued for 1 week for NABOR. pt reports won't take medication variably due to being on CO for 30 minutes after medication and because once after taking the medication he had an upset stomach. 06/19: did not take meds last night. no notable events or behaviors. continue current mgmt. hearing continued until next saturday. 06/20: Continue current treatment plan. 06/21: Continue current treatment plan. 06/22: took meds sat and sat, did not take meds last night. continue current mgmt. advised to use TUMs for stomach pain. 06/23: took meds last night, denies side effects. spending more time outside of his room, largely in sensory room. 06/24: in room today. took meds last night. no change in presentation. 06/25: interviewed in his room. refused meds last night. no change in presentation. reports the only mental illness he has is ADHD. 06/26: hearing held, pt committed and ordered medications. return to abilify trial. orders entered for w/e. 06/27 -CTP not sure he will agree to inc dose after weekend- nor do we have IM order should he refuse PO 06/28 CTP 06/29: appears more relaxed, better related today. sat with MD in interview room rather than standing. encouraged to attend groups. agreeable to increase abilify to 15 mg, says 20 mg makes him feel uncomfortable. increase to 15 mg tonight. 06/30: spat out medication surreptitiously last night. informed he will be given abilify IM soon and was encouraged to comply with PO dosing in the meantime to be confident he will not have ADR. stable presentation. 07/01: no change in presentation. increase abilify to 20 mg QHS. Reason for continued inpatient stay Substantial Risk for: harm to self Time Spent With Patient Time: Total time managing care of this patient today __25__ minutes.
[2024-07-01] MEDS: ARIPiprazole 20 MG TABLET PO (21:16)
[2024-07-02 07:00] VITALS: BMI 30.5
[2024-07-02] MEDS: Carbamide Peroxide 6.5% Otic 15 ML DRPBTL 5 DROP EAR-BOTH (09:15)
--- NOTE | 2024-07-02 14:25 | P.PNPSI_ITS ---
Subjective Subjective Date of Service: 07/02/24 Reason For Visit: Unspec anxiety d/o,atten-deficit/hyperactivity d/o Interim History: no change in presentation. informed of plan to give IM abilify saturday. per staff, isolative, withdrawn. slept about 6 hours. med compliant. Mental Status Exam Mental Status Exam Narrative: adequately dressed and groomed. came to interview room and sat for interview. poor eye contact. superficially cooperative. speech soft, sparse. decr amount. affect constricted, mood not assessed. no SI/HI/AVH expressed. Diagnostics Vital Signs (24Hr): BMI result Body Mass Index 30.5 Medications Medications Current Medications Acetaminophen (Acetaminophen 325 Mg Tablet) 650 mg PO Q6H PRN PRN Reason: Headache/Pain Mild Scale (1-3) Al Hydroxide/Mg Hydroxide (Magnesium Hydrox/Alum Hydrox 30 Ml Oral.Susp) 30 ml PO Q6H PRN PRN Reason: Heartburn/Nausea Aripiprazole (Aripiprazole 20 Mg Tablet) 20 mg PO BEDTIME [facility], [facility] Last Admin: 07/01/24 21:16 Dose: 20 mg Carbamide Peroxide (Carbamide Peroxide 6.5% Otic 15 Ml Drpbtl) 5 drop EAR-BOTH BID [facility], [facility]1983 Stop: 07/05/24 19:23 Last Admin: 07/02/24 09:15 Dose: 5 drop Hydroxyzine HCl (Hydroxyzine Hcl 25 Mg Tablet) 25 mg PO Q6H PRN PRN Reason: Anxiety Lorazepam (Lorazepam 1 Mg Tablet) 1 mg PO Q4H PRN PRN Reason: agitation Magnesium Hydroxide (Milk Of Magnesia 30 Ml Oral.Susp) 30 ml PO DAILY PRN PRN Reason: Constipation Multi-Ingred Cream/Lotion/Oil/Oint (Mineral Oil/Petrolatum,White 106 Gm Tube) 1 appl TOPICAL BID PRN; Protocol PRN Reason: dry skin Nicotine (Nicotine 21 Mg Patch.Td24) 21 mg TRANSDERMA DAILY PRN PRN Reason: nicotine cravings Nicotine Polacrilex (Nicotine Polacrilex 2 Mg Gum) 4 mg BUCCAL Q2H PRN PRN Reason: Nicotine Cravings Olanzapine (Olanzapine 5 Mg Tablet) 5 mg PO Q4H PRN PRN Reason: agitation, aggression Olanzapine (Olanzapine 10 Mg Vial) 5 mg IM DAILY PRN PRN Reason: refusal of Abilify po Sodium Chloride (Sodium Chloride 0.65 % Nasal 44 Ml Sprbtl) 1 spray NOSTRIL-B Q1H PRN PRN Reason: nasal congestion Trazodone HCl (Trazodone Hcl 50 Mg Tablet) 50 mg PO BEDTIME MRX1 PRN PRN Reason: Insomnia Allergies Allergies Allergy/AdvReac Type Severity Reaction Status Date / Time No Known Allergies Allergy Verified 05/22/24 17:01 Assessment & Plan Assessment & Plan (1) Depressive disorder, atypical: Status: Acute Code(s): F32.89 - Other specified depressive episodes (2) Adjustment disorder with depressed mood: Status: Acute Code(s): F43.21 - Adjustment disorder with depressed mood Plan 24 yo male transferred from [facility] ED after a suicide attempt by hanging. He has been increasingly isolated, poor self care, stopped working. He has eating disorder symptoms and NSSI. Symptoms worsened in the setting of a break up. Rule out other mood disorder Plan: - Admit to inpatient psychiatry - Section 12, rosado warning. - Collateral information from family and providers. - Milieu treatment and group therapy. - Medications: Refuses - Social work evaluation. - Disposition planning. patient eloped in the after noon from the unit and was brought back by Police. 05/24: Continue current management and treatment plan. Encourage engagement in groups and milieu. 05/25: Start Abilify 5 mg. Patient to consider. Encourage group and milieu engagement. Fasting labs in AM. Collaterals would be helpful. 05/26: encouraged to take abilify. rosado warning, legal discussion. 05/27: took abilify 5 mg this morning for first time. 12b up tomorrow. continue current mgmt. 05/28: took abilify again today. feeling better and more into things. filed for commitment. 05/29: took abilify 5 again today. willing to increase to 10 as of saturday (ordered). asking for LENA again, will allow with security present. 05/31/2024: No changes 06/01: abilify dosing increased to 10 mg as of this morning. initially too paranoid to sleep in single room, slept there last night for first time. court . 06/02: no change in presentation. declines increase in abilify dosing. stands by door throughout. 06/03 continue tx. 06/04: no change in presentation. agrees to increase abilify to 15 mg daily. hearing continued for 2 weeks. 06/05: no change. self-dialoguing. took abilify 15 today. appears with more irritable edge today. unclear if cheeking meds. order CO for 30 minutes post- medication.. 06/06 pt went to bathroom, flushed without evidence of urinating, seems like he is not taking antipsychotic. 06/07 continue tx. 06/08: no substantial change in presentation. saturday (and likely all the days before) pt appeared to have flushed his medication. pt was compliant with 30- min post-medication observation period on saturday. continue current mgmt. increase abilify to 20 mg in several days. 06/09: no change in presentation. will increase abilify to 20 mg as of tomorrow. if no change in presentation in next couple of days will switch to zyprexa zydis. 06/10: no change. T/C zydis. increased abilify to 20 today. 06/11: no change. DC abilify, start zyprexa. pt does not want to make this change, but it is made nevertheless. 06/12: no change in presentation. headphones playing loud static. vague, evasive answers. continue zydis 10 QHS. 06/13: Continue current regimen and plans 06/14: Continue current regimen and plans 06/15: appears ambivalent re taking zyprexa, has refused once and refused and then accepted once. sits for interview for the first time today, headphones are present but not turned on for the first time. pt states he prefers abilify to zyprexa but cannot say why. pt was encouraged to continue zyprexa trial. 06/16: same as yesterday except headphones perhaps on low volume. took zyprexa last night. continue current mgmt. court . 06/17: more visible on unit today, seeking out x2 re court tomorrow. asking about signing in, PHP, narcisor. refused zyprexa last NOC. continue current mgmt. denies he has mental illness, denies depressed mood. 06/18: refusing medication. hearing continued for 1 week for NABOR. pt reports won't take medication variably due to being on CO for 30 minutes after medication and because once after taking the medication he had an upset stomach. 06/19: did not take meds last night. no notable events or behaviors. continue current mgmt. hearing continued until next saturday. 06/20: Continue current treatment plan. 06/21: Continue current treatment plan. 06/22: took meds sat and sat, did not take meds last night. continue current mgmt. advised to use TUMs for stomach pain. 06/23: took meds last night, denies side effects. spending more time outside of his room, largely in sensory room. 06/24: in room today. took meds last night. no change in presentation. 06/25: interviewed in his room. refused meds last night. no change in presen tation. reports the only mental illness he has is ADHD. 06/26: hearing held, pt committed and ordered medications. return to abilify trial. orders entered for w/e. 06/27 -CTP not sure he will agree to inc dose after weekend- nor do we have IM order should he refuse PO 06/28 CTP 06/29: appears more relaxed, better related today. sat with MD in interview room rather than standing. encouraged to attend groups. agreeable to increase abilify to 15 mg, says 20 mg makes him feel uncomfortable. increase to 15 mg tonight. 06/30: spat out medication surreptitiously last night. informed he will be given abilify IM soon and was encouraged to comply with PO dosing in the meantime to be confident he will not have ADR. stable presentation. 07/01: no change in presentation. increase abilify to 20 mg QHS. 07/02: no change. continue current mgmt. CARLSON abilify saturday. Reason for continued inpatient stay Substantial Risk for: harm to self Time Spent With Patient Time: Total time managing care of this patient today __25__ minutes.
[2024-07-02] MEDS: OLANZapine 10 MG VIAL 5 MG IM (21:33)
[2024-07-03 07:49] VITALS: BP 142/91; PULSE 76; RESP 14; TEMP 36.8; O2SAT 100
--- NOTE | 2024-07-03 15:23 | P.PNPSI_ITS ---
Subjective Subjective Date of Service: 07/03/24 Reason For Visit: Unspec anxiety d/o,atten-deficit/hyperactivity d/o Interim History: no change in presentation. reviewed medications, plan to continue PO abilify for another week and then give CARLSON. per staff, refused PO Meds last night, a sked for and received IM instead. Mental Status Exam Mental Status Exam Narrative: adequately dressed and groomed. came to interview room and sat for interview. poor eye contact. superficially cooperative. speech soft, sparse. decr amount. affect constricted, mood not assessed. no SI/HI/AVH expressed. Diagnostics Vital Signs (24Hr): Vital Signs - 24 hr 07/03/24 07:49 Temperature 98.2 F Pulse Rate 76 Respiratory Rate 14 Blood Pressure 142/91 H Pulse Oximetry 100 Oxygen Delivery Method Room Air BMI result Body Mass Index 30.5 Medications Medications Current Medications Acetaminophen (Acetaminophen 325 Mg Tablet) 650 mg PO Q6H PRN PRN Reason: Headache/Pain Mild Scale (1-3) Al Hydroxide/Mg Hydroxide (Magnesium Hydrox/Alum Hydrox 30 Ml Oral.Susp) 30 ml PO Q6H PRN PRN Reason: Heartburn/Nausea Aripiprazole (Aripiprazole 20 Mg Tablet) 20 mg PO BEDTIME [facility] Last Admin: 07/02/24 21:34 Dose: Not Given Carbamide Peroxide (Carbamide Peroxide 6.5% Otic 15 Ml Drpbtl) 5 drop EAR-BOTH BID [facility] Stop: 07/05/24 19:23 Last Admin: 07/03/24 08:48 Dose: Not Given Hydroxyzine HCl (Hydroxyzine Hcl 25 Mg Tablet) 25 mg PO Q6H PRN PRN Reason: Anxiety Lorazepam (Lorazepam 1 Mg Tablet) 1 mg PO Q4H PRN PRN Reason: agitation Magnesium Hydroxide (Milk Of Magnesia 30 Ml Oral.Susp) 30 ml PO DAILY PRN PRN Reason: Constipation Multi-Ingred Cream/Lotion/Oil/Oint (Mineral Oil/Petrolatum,White 106 Gm Tube) 1 appl TOPICAL BID PRN; Protocol PRN Reason: dry skin Nicotine (Nicotine 21 Mg Patch.Td24) 21 mg TRANSDERMA DAILY PRN PRN Reason: nicotine cravings Nicotine Polacrilex (Nicotine Polacrilex 2 Mg Gum) 4 mg BUCCAL Q2H PRN PRN Reason: Nicotine Cravings Olanzapine (Olanzapine 5 Mg Tablet) 5 mg PO Q4H PRN PRN Reason: agitation, aggression Olanzapine (Olanzapine 10 Mg Vial) 5 mg IM DAILY PRN PRN Reason: refusal of Abilify po Last Admin: 07/02/24 21:33 Dose: 5 mg Sodium Chloride (Sodium Chloride 0.65 % Nasal 44 Ml Sprbtl) 1 spray NOSTRIL-B Q1H PRN PRN Reason: nasal congestion Trazodone HCl (Trazodone Hcl 50 Mg Tablet) 50 mg PO BEDTIME MRX1 PRN PRN Reason: Insomnia Allergies Allergies Allergy/AdvReac Type Severity Reaction Status Date / Time No Known Allergies Allergy Verified 05/22/24 17:01 Assessment & Plan Assessment & Plan (1) Depressive disorder, atypical: Status: Acute Code(s): F32.89 - Other specified depressive episodes (2) Adjustment disorder with depressed mood: Status: Acute Code(s): F43.21 - Adjustment disorder with depressed mood Plan 24 yo male transferred from [facility] ED after a suicide attempt by hanging. He has been increasingly isolated, poor self care, stopped working. He has eating disorder symptoms and NSSI. Symptoms worsened in the setting of a break up. Rule out other mood disorder Plan: - Admit to inpatient psychiatry - Section 12, rosado warning. - Collateral information from family and providers. - Milieu treatment and group therapy. - Medications: Refuses - Social work evaluation. - Disposition planning. patient eloped in the after noon from the unit and was brought back by Police. 05/24: Continue current management and treatment plan. Encourage engagement in groups and milieu. 05/25: Start Abilify 5 mg. Patient to consider. Encourage group and milieu engagement. Fasting labs in AM. Collaterals would be helpful. 05/26: encouraged to take abilify. rosado warning, legal discussion. 05/27: took abilify 5 mg this morning for first time. 12b up tomorrow. continue current mgmt. 05/28: took abilify again today. feeling better and more into things. filed for commitment. 05/29: took abilify 5 again today. willing to increase to 10 as of saturday (ordered). asking for LENA again, will allow with security present. 05/31/2024: No changes 06/01: abilify dosing increased to 10 mg as of this morning. initially too paranoid to sleep in single room, slept there last night for first time. court . 06/02: no change in presentation. declines increase in abilify dosing. stands by door throughout. 06/03 continue tx. 06/04: no change in presentation. agrees to increase abilify to 15 mg daily. hearing continued for 2 weeks. 06/05: no change. self-dialoguing. took abilify 15 today. appears with more irritable edge today. unclear if cheeking meds. order CO for 30 minutes post- medication.. 06/06 pt went to bathroom, flushed without evidence of urinating, seems like he is not taking antipsychotic. 06/07 continue tx. 06/08: no substantial change in presentation. saturday (and likely all the days before) pt appeared to have flushed his medication. pt was compliant with 30- min post-medication observation period on saturday. continue current mgmt. increase abilify to 20 mg in several days. 06/09: no change in presentation. will increase abilify to 20 mg as of tomorrow. if no change in presentation in next couple of days will switch to zyprexa zydis. 06/10: no change. T/C zydis. increased abilify to 20 today. 06/11: no change. DC abilify, start zyprexa. pt does not want to make this change, but it is made nevertheless. 06/12: no change in presentation. headphones playing loud static. vague, evasive answers. continue zydis 10 QHS. 06/13: Continue current regimen and plans 06/14: Continue current regimen and plans 06/15: appears ambivalent re taking zyprexa, has refused once and refused and then accepted once. sits for interview for the first time today, headphones are present but not turned on for the first time. pt states he prefers abilify to zyprexa but cannot say why. pt was encouraged to continue zyprexa trial. 06/16: same as yesterday except headphones perhaps on low volume. took zyprexa last night. continue current mgmt. court . 06/17: more visible on unit today, seeking out x2 re court tomorrow. asking about signing in, DANELLE, je. refused zyprexa last NOC. continue current mgmt. denies he has mental illness, denies depressed mood. 06/18: refusing medication. hearing continued for 1 week for NABOR. pt reports won't take medication variably due to being on CO for 30 minutes after medication and because once after taking the medication he had an upset stomach. 06/19: did not take meds last night. no notable events or behaviors. continue current mgmt. hearing continued until next saturday. 06/20: Continue current treatment plan. 06/21: Continue current treatment plan. 06/22: took meds sat and sat, did not take meds last night. continue current mgmt. advised to use TUMs for stomach pain. 06/23: took meds last night, denies side effects. spending more time outside of his room, largely in sensory room. 06/24: in room today. took meds last night. no change in presentation. 06/25: interviewed in his room. refused meds last night. no change in presentation. reports the only mental illness he has is ADHD. 06/26: hearing held, pt committed and ordered medications. return to abilify trial. orders entered for w/e. 06/27 -CTP not sure he will agree to inc dose after weekend- nor do we have IM order should he refuse PO 06/28 CTP 06/29: appears more relaxed, better related today. sat with MD in interview room rather than standing. encouraged to attend groups. agreeable to increase abilify to 15 mg, says 20 mg makes him feel uncomfortable. increase to 15 mg tonight. 06/30: spat out medication surreptitiously last night. informed he will be given abilify IM soon and was encouraged to comply with PO dosing in the meantime to be confident he will not have ADR. stable presentation. 07/01: no change in presentation. increase abilify to 20 mg QHS. 07/02: no change. continue current mgmt. CARLSON abilify saturday. 07/03: refused PO abilify last NOC mistakenly thinking he would get abilify CARLSON instead. he got zyprexa. misunderstanding worked out today, pt to continue PO abilify another week before getting CARLSON. continue current mgmt. Reason for continued inpatient stay Substantial Risk for: harm to self and inability to function Time Spent With Patient Time: Total time managing care of this patient today __35__ minutes.
[2024-07-03 20:28] VITALS: RESP 16
[2024-07-03] MEDS: ARIPiprazole 20 MG TABLET PO (22:08)
[2024-07-04 08:00] VITALS: RESP 16
--- NOTE | 2024-07-04 19:26 | P.PNPSI_ITS ---
Subjective Subjective Date of Service: 07/04/24 Reason For Visit: Unspec anxiety d/o,atten-deficit/hyperactivity d/o Interim History: caught cheeking medication again. informed will switch to invega. per staff slept 7 hours. Mental Status Exam Mental Status Exam Narrative: adequately dressed and groomed. sat for interview. poor eye contact. superficially cooperative. speech soft, sparse. decr amount. affect constricted, mood not assessed. no SI/HI/AVH expressed. Diagnostics Vital Signs (24Hr): Vital Signs - 24 hr 07/03/24 20:28 07/04/24 08:00 Respiratory Rate 16 16 BMI result Body Mass Index 30.5 Medications Medications Current Medications Acetaminophen (Acetaminophen 325 Mg Tablet) 650 mg PO Q6H PRN PRN Reason: Headache/Pain Mild Scale (1-3) Al Hydroxide/Mg Hydroxide (Magnesium Hydrox/Alum Hydrox 30 Ml Oral.Susp) 30 ml PO Q6H PRN PRN Reason: Heartburn/Nausea Carbamide Peroxide (Carbamide Peroxide 6.5% Otic 15 Ml Drpbtl) 5 drop EAR-BOTH BID JULIAN Stop: 07/05/24 19:23 Last Admin: 07/04/24 08:35 Dose: Not Given Hydroxyzine HCl (Hydroxyzine Hcl 25 Mg Tablet) 25 mg PO Q6H PRN PRN Reason: Anxiety Lorazepam (Lorazepam 1 Mg Tablet) 1 mg PO Q4H PRN PRN Reason: agitation Magnesium Hydroxide (Milk Of Magnesia 30 Ml Oral.Susp) 30 ml PO DAILY PRN PRN Reason: Constipation Multi-Ingred Cream/Lotion/Oil/Oint (Mineral Oil/Petrolatum,White 106 Gm Tube) 1 appl TOPICAL BID PRN; Protocol PRN Reason: dry skin Nicotine (Nicotine 21 Mg Patch.Td24) 21 mg TRANSDERMA DAILY PRN PRN Reason: nicotine cravings Nicotine Polacrilex (Nicotine Polacrilex 2 Mg Gum) 4 mg BUCCAL Q2H PRN PRN Reason: Nicotine Cravings Olanzapine (Olanzapine 5 Mg Tablet) 5 mg PO Q4H PRN PRN Reason: agitation, aggression Olanzapine (Olanzapine 10 Mg Vial) 5 mg IM DAILY PRN PRN Reason: refusal of Abilify po Last Admin: 07/02/24 21:33 Dose: 5 mg Paliperidone (Paliperidone Er 6 Mg Tab.Er.24) 6 mg PO BEDTIME JULIAN Sodium Chloride (Sodium Chloride 0.65 % Nasal 44 Ml Sprbtl) 1 spray NOSTRIL-B Q1H PRN PRN Reason: nasal congestion Trazodone HCl (Trazodone Hcl 50 Mg Tablet) 50 mg PO BEDTIME MRX1 PRN PRN Reason: Insomnia Allergies Allergies Allergy/AdvReac Type Severity Reaction Status Date / Time No Known Allergies Allergy Verified 05/22/24 17:01 Assessment & Plan Assessment & Plan (1) Depressive disorder, atypical: Status: Acute Code(s): F32.89 - Other specified depressive episodes (2) Adjustment disorder with depressed mood: Status: Acute Code(s): F43.21 - Adjustment disorder with depressed mood Plan 24 yo male transferred from [facility] ED after a suicide attempt by hanging. He has been increasingly isolated, poor self care, stopped working. He has eating disorder symptoms and NSSI. Symptoms worsened in the setting of a break up. Rule out other mood disorder Plan: - Admit to inpatient psychiatry - Section 12, rosado warning. - Collateral information from family and providers. - Milieu treatment and group therapy. - Medications: Refuses - Social work evaluation. - Disposition planning. patient eloped in the after noon from the unit and was brought back by Police. 05/24: Continue current management and treatment plan. Encourage engagement in groups and milieu. 05/25: Start Abilify 5 mg. Patient to consider. Encourage group and milieu engagement. Fasting labs in AM. Collaterals would be helpful. 05/26: encouraged to take abilify. rosado warning, legal discussion. 05/27: took abilify 5 mg this morning for first time. 12b up tomorrow. continue current mgmt. 05/28: took abilify again today. feeling better and more into things. filed for commitment. 05/29: took abilify 5 again today. willing to increase to 10 as of saturday (ordered). asking for LENA again, will allow with security present. 05/31/2024: No changes 06/01: abilify dosing increased to 10 mg as of this morning. initially too paranoid to sleep in single room, slept there last night for first time. court . 06/02: no change in presentation. declines increase in abilify dosing. stands by door throughout. 06/03 continue tx. 06/04: no change in presentation. agrees to increase abilify to 15 mg daily. hearing continued for 2 weeks. 06/05: no change. self-dialoguing. took abilify 15 today. appears with more irritable edge today. unclear if cheeking meds. order CO for 30 minutes post- medication.. 06/06 pt went to bathroom, flushed without evidence of urinating, seems like he is not taking antipsychotic. 06/07 continue tx. 06/08: no substantial change in presentation. saturday (and likely all the days before) pt appeared to have flushed his medication. pt was compliant with 30- min post-medication observation period on saturday. continue current mgmt. increase abilify to 20 mg in several days. 06/09: no change in presentation. will increase abilify to 20 mg as of tomorrow. if no change in presentation in next couple of days will switch to zyprexa zydis. 06/10: no change. T/C zydis. increased abilify to 20 today. 06/11: no change. DC abilify, start zyprexa. pt does not want to make this change, but it is made nevertheless. 06/12: no change in presentation. headphones playing loud static. vague, evasive answers. continue zydis 10 QHS. 06/13: Continue current regimen and plans 06/14: Continue current regimen and plans 06/15: appears ambivalent re taking zyprexa, has refused once and refused and then accepted once. sits for interview for the first time today, headphones are present but not turned on for the first time. pt states he prefers abilify to zyprexa but cannot say why. pt was encouraged to continue zyprexa trial. 06/16: same as yesterday except headphones perhaps on low volume. took zyprexa last night. continue current mgmt. court . 06/17: more visible on unit today, seeking out MD ojeda re court tomorrow. asking about signing in, PHP, narcisor. refused zyprexa last NOC. continue current mgmt. denies he has mental illness, denies depressed mood. 06/18: refusing medication. hearing continued for 1 week for NABOR. pt reports won't take medication variably due to being on CO for 30 minutes after medication and because once after taking the medication he had an upset stomach. 06/19: did not take meds last night. no notable events or behaviors. continue current mgmt. hearing continued until next saturday. 06/20: Continue current treatment plan. 06/21: Continue current treatment plan. 06/22: took meds sat and sat, did not take meds last night. continue current mgmt. advised to use TUMs for stomach pain. 06/23: took meds last night, denies side effects. spending more time outside of his room, largely in sensory room. 06/24: in room today. took meds last night. no change in presentation. 06/25: interviewed in his room. refused meds last night. no change in presentation. reports the only mental illness he has is ADHD. 06/26: hearing held, pt committed and ordered medications. return to abilify trial. orders entered for w/e. 06/27 -CTP not sure he will agree to inc dose after weekend- nor do we have IM order should he refuse PO 06/28 CTP 06/29: appears more relaxed, better related today. sat with MD in interview room rather than standing. encouraged to attend groups. agreeable to increase abilify to 15 mg, says 20 mg makes him feel uncomfortable. increase to 15 mg tonight. 06/30: spat out medication surreptitiously last night. informed he will be given abilify IM soon and was encouraged to comply with PO dosing in the meantime to be confident he will not have ADR. stable presentation. 07/01: no change in presentation. increase abilify to 20 mg QHS. 07/02: no change. continue current mgmt. CARLSON abilify saturday. 07/03: refused PO abilify last NOC mistakenly thinking he would get abilify CARLSON instead. he got zyprexa. misunderstanding worked out today, pt to continue PO abilify another week before getting CARLSON. continue current mgmt. 07/04: DC abilify as pt continues to cheek it. switch to invega, as guidelines indicate only a test dose to be given orally prior to CARLSON, as opposed to 2 weeks PO as for abilify CARLSON. Reason for continued inpatient stay Substantial Risk for: harm to self Time Spent With Patient Time: Total time managing care of this patient today __25__ minutes.
[2024-07-04 20:55] VITALS: RESP 16
[2024-07-04] MEDS: OLANZapine 10 MG VIAL 5 MG IM (23:09)
[2024-07-05 08:00] VITALS: RESP 16
--- NOTE | 2024-07-05 17:17 | HO.PSYCHPN ---
Subjective Subjective Date of Service: 07/05/24 Reason For Visit: Unspec anxiety d/o,atten-deficit/hyperactivity d/o Interim History: no change in presentation. vague, evasive, illogical explanation for why he refused invega last night. encouraged to take medication. per staff, refused invega last night. got zyprexa IM. slept 7 hours. Mental Status Exam Mental Status Exam Narrative: adequately dressed and groomed. sat for interview. poor eye contact. superficially cooperative. speech soft, sparse. decr amount. affect constricted, mood not assessed. no SI/HI/AVH expressed. Diagnostics Vital Signs (24Hr): Vital Signs - 24 hr 07/04/24 20:55 07/05/24 08:00 Respiratory Rate 16 16 BMI result Body Mass Index 30.5 Medications Medications Current Medications Acetaminophen (Acetaminophen 325 Mg Tablet) 650 mg PO Q6H PRN PRN Reason: Headache/Pain Mild Scale (1-3) Al Hydroxide/Mg Hydroxide (Magnesium Hydrox/Alum Hydrox 30 Ml Oral.Susp) 30 ml PO Q6H PRN PRN Reason: Heartburn/Nausea Carbamide Peroxide (Carbamide Peroxide 6.5% Otic 15 Ml Drpbtl) 5 drop EAR-BOTH BID JULIAN Stop: 07/05/24 19:23 Last Admin: 07/05/24 08:33 Dose: Not Given Hydroxyzine HCl (Hydroxyzine Hcl 25 Mg Tablet) 25 mg PO Q6H PRN PRN Reason: Anxiety Lorazepam (Lorazepam 1 Mg Tablet) 1 mg PO Q4H PRN PRN Reason: agitation Magnesium Hydroxide (Milk Of Magnesia 30 Ml Oral.Susp) 30 ml PO DAILY PRN PRN Reason: Constipation Multi-Ingred Cream/Lotion/Oil/Oint (Mineral Oil/Petrolatum,White 106 Gm Tube) 1 appl TOPICAL BID PRN; Protocol PRN Reason: dry skin Nicotine (Nicotine 21 Mg Patch.Td24) 21 mg TRANSDERMA DAILY PRN PRN Reason: nicotine cravings Nicotine Polacrilex (Nicotine Polacrilex 2 Mg Gum) 4 mg BUCCAL Q2H PRN PRN Reason: Nicotine Cravings Olanzapine (Olanzapine 5 Mg Tablet) 5 mg PO Q4H PRN PRN Reason: agitation, aggression Olanzapine (Olanzapine 10 Mg Vial) 5 mg IM DAILY PRN PRN Reason: refusal of Abilify po Last Admin: 10/12/24 23:09 Dose: 5 mg Paliperidone (Paliperidone Er 6 Mg Tab.Er.24) 6 mg PO BEDTIME JULIAN Last Admin: 07/04/24 23:10 Dose: Not Given Sodium Chloride (Sodium Chloride 0.65 % Nasal 44 Ml Sprbtl) 1 spray NOSTRIL-B Q1H PRN PRN Reason: nasal congestion Trazodone HCl (Trazodone Hcl 50 Mg Tablet) 50 mg PO BEDTIME MRX1 PRN PRN Reason: Insomnia Allergies Allergies Allergy/AdvReac Type Severity Reaction Status Date / Time No Known Allergies Allergy Verified 05/22/24 17:01 Assessment & Plan Assessment & Plan (1) Depressive disorder, atypical: Status: Acute Code(s): F32.89 - Other specified depressive episodes (2) Adjustment disorder with depressed mood: Status: Acute Code(s): F43.21 - Adjustment disorder with depressed mood Plan 24 yo male transferred from [facility] ED after a suicide attempt by hanging. He has been increasingly isolated, poor self care, stopped working. He has eating disorder symptoms and NSSI. Symptoms worsened in the setting of a break up. Rule out other mood disorder Plan: - Admit to inpatient psychiatry - Section 12, rosado warning. - Collateral information from family and providers. - Milieu treatment and group therapy. - Medications: Refuses - Social work evaluation. - Disposition planning. patient eloped in the after noon from the unit and was brought back by Police. 05/24: Continue current management and treatment plan. Encourage engagement in groups and milieu. 05/25: Start Abilify 5 mg. Patient to consider. Encourage group and milieu engagement. Fasting labs in AM. Collaterals would be helpful. 05/26: encouraged to take abilify. rosado warning, legal discussion. 05/27: took abilify 5 mg this morning for first time. 12b up tomorrow. continue current mgmt. 05/28: took abilify again today. feeling better and more into things. filed for commitment. 05/29: took abilify 5 again today. willing to increase to 10 as of saturday (ordered). asking for LENA again, will allow with security present. 05/31/2024: No changes 06/01: abilify dosing increased to 10 mg as of this morning. initially too paranoid to sleep in single room, slept there last night for first time. court . 06/02: no change in presentation. declines increase in abilify dosing. stands by door throughout. 06/03 continue tx. 06/04: no change in presentation. agrees to increase abilify to 15 mg daily. hearing continued for 2 weeks. 06/05: no change. self-dialoguing. took abilify 15 today. appears with more irritable edge today. unclear if cheeking meds. order CO for 30 minutes post-medication.. 06/06 pt went to bathroom, flushed without evidence of urinating, seems like he is not taking antipsychotic. 06/07 continue tx. 06/08: no substantial change in presentation. saturday (and likely all the days before) pt appeared to have flushed his medication. pt was compliant with 30-min post-medication observation period on saturday. continue current mgmt. increase abilify to 20 mg in several days. 06/09: no change in presentation. will increase abilify to 20 mg as of tomorrow. if no change in presentation in next couple of days will switch to zyprexa zydis. 06/10: no change. T/C zydis. increased abilify to 20 today. 06/11: no change. DC abilify, start zyprexa. pt does not want to make this change, but it is made nevertheless. 06/12: no change in presentation. headphones playing loud static. vague, evasive answers. continue zydis 10 QHS. 06/13: Continue current regimen and plans 06/14: Continue current regimen and plans 06/15: appears ambivalent re taking zyprexa, has refused once and refused and then accepted once. sits for interview for the first time today, headphones are present but not turned on for the first time. pt states he prefers abilify to zyprexa but cannot say why. pt was encouraged to continue zyprexa trial. 06/16: same as yesterday except headphones perhaps on low volume. took zyprexa last night. continue current mgmt. court . 06/17: more visible on unit today, seeking out x2 re court tomorrow. asking about signing in, je MCCLENDON. refused zyprexa last NOC. continue current mgmt. denies he has mental illness, denies depressed mood. 06/18: refusing medication. hearing continued for 1 week for NABOR. pt reports won't take medication variably due to being on CO for 30 minutes after medication and because once after taking the medication he had an upset stomach. 06/19: did not take meds last night. no notable events or behaviors. continue current mgmt. hearing continued until next saturday. 06/20: Continue current treatment plan. 06/21: Continue current treatment plan. 06/22: took meds sat and sat, did not take meds last night. continue current mgmt. advised to use TUMs for stomach pain. 06/23: took meds last night, denies side effects. spending more time outside of his room, largely in sensory room. 06/24: in room today. took meds last night. no change in presentation. 06/25: interviewed in his room. refused meds last night. no change in presentation. reports the only mental illness he has is ADHD. 06/26: hearing held, pt committed and ordered medications. return to abilify trial. orders entered for w/e. 06/27 -CTP not sure he will agree to inc dose after weekend- nor do we have IM order should he refuse PO 06/28 CTP 06/29: appears more relaxed, better related today. sat with MD in interview room rather than standing. encouraged to attend groups. agreeable to increase abilify to 15 mg, says 20 mg makes him feel uncomfortable. increase to 15 mg tonight. 06/30: spat out medication surreptitiously last night. informed he will be given abilify IM soon and was encouraged to comply with PO dosing in the meantime to be confident he will not have ADR. stable presentation. 07/01: no change in presentation. increase abilify to 20 mg QHS. 07/02: no change. continue current mgmt. CARLSON abilify saturday. 07/03: refused PO abilify last NOC mistakenly thinking he would get abilify CARLSON instead. he got zyprexa. misunderstanding worked out today, pt to continue PO abilify another week before getting CARLSON. continue current mgmt. 07/04: DC abilify as pt continues to cheek it. switch to invega, as guidelines indicate only a test dose to be given orally prior to CARLSON, as opposed to 2 weeks PO as for abilify CARLSON. 07/05: refused invega last night. try again tonight. plan for invega sustenna. Reason for continued inpatient stay Substantial Risk for: harm to self Time Spent With Patient Time: Total time managing care of this patient today ____ minutes.
[2024-07-05 21:18] VITALS: RESP 16
[2024-07-05] MEDS: OLANZapine 10 MG VIAL 5 MG IM (23:17)
[2024-07-06 08:00] VITALS: RESP 18
[2024-07-06] MEDS: Paliperidone ER 6 MG TAB.ER.24 PO (10:29)
--- NOTE | 2024-07-06 17:42 | HO.PSYCHPN ---
Subjective Subjective Date of Service: 07/06/24 Reason For Visit: Unspec anxiety d/o,atten-deficit/hyperactivity d/o Interim History: didn't take invega last night bcse he was about to go to bed and didn't want to have to have someone watch him for 30 minutes. got zyprexa IM instead. agreeable to take PO invega now, days. per taff, isolative. refused invega last NOC. slept OK. took invega PO today. Mental Status Exam Mental Status Exam Narrative: adequately dressed and groomed. stood for interview. poor eye contact. superficially cooperative. speech soft, sparse. decr amount. affect constricted, mood not assessed. no SI/HI/AVH expressed. Diagnostics Vital Signs (24Hr): Vital Signs - 24 hr 07/05/24 21:18 07/06/24 08:00 Respiratory Rate 16 18 BMI result Body Mass Index 30.5 Medications Medications Current Medications Acetaminophen (Acetaminophen 325 Mg Tablet) 650 mg PO Q6H PRN PRN Reason: Headache/Pain Mild Scale (1-3) Al Hydroxide/Mg Hydroxide (Magnesium Hydrox/Alum Hydrox 30 Ml Oral.Susp) 30 ml PO Q6H PRN PRN Reason: Heartburn/Nausea Hydroxyzine HCl (Hydroxyzine Hcl 25 Mg Tablet) 25 mg PO Q6H PRN PRN Reason: Anxiety Lorazepam (Lorazepam 1 Mg Tablet) 1 mg PO Q4H PRN PRN Reason: agitation Magnesium Hydroxide (Milk Of Magnesia 30 Ml Oral.Susp) 30 ml PO DAILY PRN PRN Reason: Constipation Multi-Ingred Cream/Lotion/Oil/Oint (Mineral Oil/Petrolatum,White 106 Gm Tube) 1 appl TOPICAL BID PRN; Protocol PRN Reason: dry skin Nicotine (Nicotine 21 Mg Patch.Td24) 21 mg TRANSDERMA DAILY PRN PRN Reason: nicotine cravings Nicotine Polacrilex (Nicotine Polacrilex 2 Mg Gum) 4 mg BUCCAL Q2H PRN PRN Reason: Nicotine Cravings Olanzapine (Olanzapine 5 Mg Tablet) 5 mg PO Q4H PRN PRN Reason: agitation, aggression Olanzapine (Olanzapine 10 Mg Vial) 10 mg IM DAILY PRN PRN Reason: refusal of Abilify po Paliperidone (Paliperidone Er 6 Mg Tab.Er.24) 6 mg PO BEDTIME JULIAN Last Admin: 07/05/24 23:03 Dose: Not Given Sodium Chloride (Sodium Chloride 0.65 % Nasal 44 Ml Sprbtl) 1 spray NOSTRIL-B Q1H PRN PRN Reason: nasal congestion Trazodone HCl (Trazodone Hcl 50 Mg Tablet) 50 mg PO BEDTIME MRX1 PRN PRN Reason: Insomnia Allergies Allergies Allergy/AdvReac Type Severity Reaction Status Date / Time No Known Allergies Allergy Verified 05/22/24 17:01 Assessment & Plan Assessment & Plan (1) Depressive disorder, atypical: Status: Acute Code(s): F32.89 - Other specified depressive episodes (2) Adjustment disorder with depressed mood: Status: Acute Code(s): F43.21 - Adjustment disorder with depressed mood Plan 24 yo male transferred from [facility] ED after a suicide attempt by hanging. He has been increasingly isolated, poor self care, stopped working. He has eating disorder symptoms and NSSI. Symptoms worsened in the setting of a break up. Rule out other mood disorder Plan: - Admit to inpatient psychiatry - Section 12, rosado warning. - Collateral information from family and providers. - Milieu treatment and group therapy. - Medications: Refuses - Social work evaluation. - Disposition planning. patient eloped in the after noon from the unit and was brought back by Police. 05/24: Continue current management and treatment plan. Encourage engagement in groups and milieu. 05/25: Start Abilify 5 mg. Patient to consider. Encourage group and milieu engagement. Fasting labs in AM. Collaterals would be helpful. 05/26: encouraged to take abilify. rosado warning, legal discussion. 05/27: took abilify 5 mg this morning for first time. 12b up tomorrow. continue current mgmt. 05/28: took abilify again today. feeling better and more into things. filed for commitment. 05/29: took abilify 5 again today. willing to increase to 10 as of saturday (ordered). asking for LENA again, will allow with security present. 05/31/2024: No changes 06/01: abilify dosing increased to 10 mg as of this morning. initially too paranoid to sleep in single room, slept there last night for first time. court . 06/02: no change in presentation. declines increase in abilify dosing. stands by door throughout. 06/03 continue tx. 06/04: no change in presentation. agrees to increase abilify to 15 mg daily. hearing continued for 2 weeks. 06/05: no change. self-dialoguing. took abilify 15 today. appears with more irritable edge today. unclear if cheeking meds. order CO for 30 minutes post-medication.. 06/06 pt went to bathroom, flushed without evidence of urinating, seems like he is not taking antipsychotic. 06/07 continue tx. 06/08: no substantial change in presentation. saturday (and likely all the days before) pt appeared to have flushed his medication. pt was compliant with 30-min post-medication observation period on saturday. continue current mgmt. increase abilify to 20 mg in several days. 06/09: no change in presentation. will increase abilify to 20 mg as of tomorrow. if no change in presentation in next couple of days will switch to zyprexa zydis. 06/10: no change. T/C zydis. increased abilify to 20 today. 06/11: no change. DC abilify, start zyprexa. pt does not want to make this change, but it is made nevertheless. 06/12: no change in presentation. headphones playing loud static. vague, evasive answers. continue zydis 10 QHS. 06/13: Continue current regimen and plans 06/14: Continue current regimen and plans 06/15: appears ambivalent re taking zyprexa, has refused once and refused and then accepted once. sits for interview for the first time today, headphones are present but not turned on for the first time. pt states he prefers abilify to zyprexa but cannot say why. pt was encouraged to continue zyprexa trial. 06/16: same as yesterday except headphones perhaps on low volume. took zyprexa last night. continue current mgmt. court . 06/17: more visible on unit today, seeking out MD ojeda re court tomorrow. asking about signing in, [facility], je. refused zyprexa last NOC. continue current mgmt. denies he has mental illness, denies depressed mood. 06/18: refusing medication. hearing continued for 1 week for NABOR. pt reports won't take medication variably due to being on CO for 30 minutes after medication and because once after taking the medication he had an upset stomach. 06/19: did not take meds last night. no notable events or behaviors. continue current mgmt. hearing continued until next saturday. 06/20: Continue current treatment plan. 06/21: Continue current treatment plan. 06/22: took meds sat and sat, did not take meds last night. continue current mgmt. advised to use TUMs for stomach pain. 06/23: took meds last night, denies side effects. spending more time outside of his room, largely in sensory room. 06/24: in room today. took meds last night. no change in presentation. 06/25: interviewed in his room. refused meds last night. no change in presentation. reports the only mental illness he has is ADHD. 06/26: hearing held, pt committed and ordered medications. return to abilify trial. orders entered for w/e. 06/27 -CTP not sure he will agree to inc dose after weekend- nor do we have IM order should he refuse PO 06/28 CTP 06/29: appears more relaxed, better related today. sat with MD in interview room rather than standing. encouraged to attend groups. agreeable to increase abilify to 15 mg, says 20 mg makes him feel uncomfortable. increase to 15 mg tonight. 06/30: spat out medication surreptitiously last night. informed he will be given abilify IM soon and was encouraged to comply with PO dosing in the meantime to be confident he will not have ADR. stable presentation. 07/01: no change in presentation. increase abilify to 20 mg QHS. 07/02: no change. continue current mgmt. CARLSON abilify saturday. 07/03: refused PO abilify last NOC mistakenly thinking he would get abilify CARLSON instead. he got zyprexa. misunderstanding worked out today, pt to continue PO abilify another week before getting CARLSON. continue current mgmt. 07/04: DC abilify as pt continues to cheek it. switch to invega, as guidelines indicate only a test dose to be given orally prior to CARLSON, as opposed to 2 weeks PO as for abilify CARLSON. 07/05: refused invega last night. try again tonight. plan for invega sustenna. 07/06: refused invega again last night, but did take a one-time dose today days. planning on CARLSON invega soon. no change in presentation. Reason for continued inpatient stay Substantial Risk for: harm to self and inability to function Time Spent With Patient Time: Total time managing care of this patient today ____ minutes.
--- NOTE | 2024-07-06 21:40 | PC.NURSE ---
PO Invega was not administered at bedtime per Dr Dalal order to skip as Pt already took Invega 6mg [daily dose] this morning.
[2024-07-07 08:00] VITALS: RESP 18
[2024-07-07] MEDS: Paliperidone ER 6 MG TAB.ER.24 PO (09:38)
--- NOTE | 2024-07-07 15:13 | HO.PSYCHPN ---
Subjective Subjective Date of Service: 07/07/24 Reason For Visit: Unspec anxiety d/o,atten-deficit/hyperactivity d/o Interim History: took invega yesterday, also today PO. ready for CARLSON. per staff, took PO invega yesterday. slept 7 hours. Mental Status Exam Mental Status Exam Narrative: adequately dressed and groomed. seated at his desk for interview. poor eye contact. superficially cooperative. speech soft, sparse. decr amount. affect constricted, mood not assessed. no SI/HI/AVH expressed. Diagnostics Vital Signs (24Hr): Vital Signs - 24 hr 07/07/24 08:00 Respiratory Rate 18 BMI result Body Mass Index 30.5 Medications Medications Current Medications Acetaminophen (Acetaminophen 325 Mg Tablet) 650 mg PO Q6H PRN PRN Reason: Headache/Pain Mild Scale (1-3) Al Hydroxide/Mg Hydroxide (Magnesium Hydrox/Alum Hydrox 30 Ml Oral.Susp) 30 ml PO Q6H PRN PRN Reason: Heartburn/Nausea Hydroxyzine HCl (Hydroxyzine Hcl 25 Mg Tablet) 25 mg PO Q6H PRN PRN Reason: Anxiety Lorazepam (Lorazepam 1 Mg Tablet) 1 mg PO Q4H PRN PRN Reason: agitation Magnesium Hydroxide (Milk Of Magnesia 30 Ml Oral.Susp) 30 ml PO DAILY PRN PRN Reason: Constipation Multi-Ingred Cream/Lotion/Oil/Oint (Mineral Oil/Petrolatum,White 106 Gm Tube) 1 appl TOPICAL BID PRN; Protocol PRN Reason: dry skin Nicotine (Nicotine 21 Mg Patch.Td24) 21 mg TRANSDERMA DAILY PRN PRN Reason: nicotine cravings Nicotine Polacrilex (Nicotine Polacrilex 2 Mg Gum) 4 mg BUCCAL Q2H PRN PRN Reason: Nicotine Cravings Olanzapine (Olanzapine 5 Mg Tablet) 5 mg PO Q4H PRN PRN Reason: agitation, aggression Olanzapine (Olanzapine 10 Mg Vial) 10 mg IM DAILY PRN PRN Reason: refusal of Abilify po Sodium Chloride (Sodium Chloride 0.65 % Nasal 44 Ml Sprbtl) 1 spray NOSTRIL-B Q1H PRN PRN Reason: nasal congestion Trazodone HCl (Trazodone Hcl 50 Mg Tablet) 50 mg PO BEDTIME MRX1 PRN PRN Reason: Insomnia Allergies Allergies Allergy/AdvReac Type Severity Reaction Status Date / Time No Known Allergies Allergy Verified 05/22/24 17:01 Assessment & Plan Assessment & Plan (1) Depressive disorder, atypical: Status: Acute Code(s): F32.89 - Other specified depressive episodes (2) Adjustment disorder with depressed mood: Status: Acute Code(s): F43.21 - Adjustment disorder with depressed mood Plan 24 yo male transferred from [facility] ED after a suicide attempt by hanging. He has been increasingly isolated, poor self care, stopped working. He has eating disorder symptoms and NSSI. Symptoms worsened in the setting of a break up. Rule out other mood disorder Plan: - Admit to inpatient psychiatry - Section 12, rosado warning. - Collateral information from family and providers. - Milieu treatment and group therapy. - Medications: Refuses - Social work evaluation. - Disposition planning. patient eloped in the after noon from the unit and was brought back by Police. 05/24: Continue current management and treatment plan. Encourage engagement in groups and milieu. 05/25: Start Abilify 5 mg. Patient to consider. Encourage group and milieu engagement. Fasting labs in AM. Collaterals would be helpful. 05/26: encouraged to take abilify. rosado warning, legal discussion. 05/27: took abilify 5 mg this morning for first time. 12b up tomorrow. continue current mgmt. 05/28: took abilify again today. feeling better and more into things. filed for commitment. 05/29: took abilify 5 again today. willing to increase to 10 as of saturday (ordered). asking for LENA again, will allow with security present. 05/31/2024: No changes 06/01: abilify dosing increased to 10 mg as of this morning. initially too paranoid to sleep in single room, slept there last night for first time. court . 06/02: no change in presentation. declines increase in abilify dosing. stands by door throughout. 06/03 continue tx. 06/04: no change in presentation. agrees to increase abilify to 15 mg daily. hearing continued for 2 weeks. 06/05: no change. self-dialoguing. took abilify 15 today. appears with more irritable edge today. unclear if cheeking meds. order CO for 30 minutes post-medication.. 06/06 pt went to bathroom, flushed without evidence of urinating, seems like he is not taking antipsychotic. 06/07 continue tx. 06/08: no substantial change in presentation. saturday (and likely all the days before) pt appeared to have flushed his medication. pt was compliant with 30-min post-medication observation period on saturday. continue current mgmt. increase abilify to 20 mg in several days. 06/09: no change in presentation. will increase abilify to 20 mg as of tomorrow. if no change in presentation in next couple of days will switch to zyprexa zydis. 06/10: no change. T/C zydis. increased abilify to 20 today. 06/11: no change. DC abilify, start zyprexa. pt does not want to make this change, but it is made nevertheless. 06/12: no change in presentation. headphones playing loud static. vague, evasive answers. continue zydis 10 QHS. 06/13: Continue current regimen and plans 06/14: Continue current regimen and plans 06/15: appears ambivalent re taking zyprexa, has refused once and refused and then accepted once. sits for interview for the first time today, headphones are present but not turned on for the first time. pt states he prefers abilify to zyprexa but cannot say why. pt was encouraged to continue zyprexa trial. 06/16: same as yesterday except headphones perhaps on low volume. took zyprexa last night. continue current mgmt. court . 06/17: more visible on unit today, seeking out x2 re court tomorrow. asking about signing in, [facility], je. refused zyprexa last NOC. continue current mgmt. denies he has mental illness, denies depressed mood. 06/18: refusing medication. hearing continued for 1 week for NABOR. pt reports won't take medication variably due to being on CO for 30 minutes after medication and because once after taking the medication he had an upset stomach. 06/19: did not take meds last night. no notable events or behaviors. continue current mgmt. hearing continued until next saturday. 06/20: Continue current treatment plan. 06/21: Continue current treatment plan. 06/22: took meds fri and sat, did not take meds last night. continue current mgmt. advised to use TUMs for stomach pain. 06/23: took meds last night, denies side effects. spending more time outside of his room, largely in sensory room. 06/24: in room today. took meds last night. no change in presentation. 06/25: interviewed in his room. refused meds last night. no change in presentation. reports the only mental illness he has is ADHD. 06/26: hearing held, pt committed and ordered medications. return to abilify trial. orders entered for w/e. 06/27 -CTP not sure he will agree to inc dose after weekend- nor do we have IM order should he refuse PO 06/28 CTP 06/29: appears more relaxed, better related today. sat with MD in interview room rather than standing. encouraged to attend groups. agreeable to increase abilify to 15 mg, says 20 mg makes him feel uncomfortable. increase to 15 mg tonight. 06/30: spat out medication surreptitiously last night. informed he will be given abilify IM soon and was encouraged to comply with PO dosing in the meantime to be confident he will not have ADR. stable presentation. 07/01: no change in presentation. increase abilify to 20 mg QHS. 07/02: no change. continue current mgmt. CARLSON abilify saturday. 07/03: refused PO abilify last NOC mistakenly thinking he would get abilify CARLSON instead. he got zyprexa. misunderstanding worked out today, pt to continue PO abilify another week before getting CARLSON. continue current mgmt. 07/04: DC abilify as pt continues to cheek it. switch to invega, as guidelines indicate only a test dose to be given orally prior to CARLSON, as opposed to 2 weeks PO as for abilify CARLSON. 07/05: refused invega last night. try again tonight. plan for invega sustenna. 07/06: refused invega again last night, but did take a one-time dose today days. planning on CARLSON invega soon. no change in presentation. 07/07: no change in presentation. took 2 doses of PO invega, will give IM 234 mg tomorrow morning. Reason for continued inpatient stay Substantial Risk for: harm to self Time Spent With Patient Time: Total time managing care of this patient today __25__ minutes.
[2024-07-08] MEDS: Paliperidone Palmitate 234 MG/1.5 ML SYRINGE IM (10:37)
--- NOTE | 2024-07-08 10:56 | HO.PSYCHPN ---
Subjective Subjective Date of Service: 07/08/24 Reason For Visit: Unspec anxiety d/o,atten-deficit/hyperactivity d/o Subjective Notes: Section 8 Interim History: Reviewed with Dr. Gardner. Patient reports feeling good ; he denies any issues at this time. Pt keeping to self. coloring in room. denies SI/HI/VH/AH. Medication Compliance: Yes Side effects from medications: No Review of Systems Review of Systems Patient has no acute medical complaints at this time Mental Status Exam Mental Status Exam Narrative: adequately dressed and groomed. seated at his desk for interview. poor eye contact. superficially cooperative. speech soft, sparse. decr amount. affect constricted, mood not assessed. no SI/HI/AVH expressed. Diagnostics Vital Signs (24Hr): BMI result Body Mass Index 30.5 Medications Medications Current Medications Acetaminophen (Acetaminophen 325 Mg Tablet) 650 mg PO Q6H PRN PRN Reason: Headache/Pain Mild Scale (1-3) Al Hydroxide/Mg Hydroxide (Magnesium Hydrox/Alum Hydrox 30 Ml Oral.Susp) 30 ml PO Q6H PRN PRN Reason: Heartburn/Nausea Hydroxyzine HCl (Hydroxyzine Hcl 25 Mg Tablet) 25 mg PO Q6H PRN PRN Reason: Anxiety Lorazepam (Lorazepam 1 Mg Tablet) 1 mg PO Q4H PRN PRN Reason: agitation Magnesium Hydroxide (Milk Of Magnesia 30 Ml Oral.Susp) 30 ml PO DAILY PRN PRN Reason: Constipation Multi-Ingred Cream/Lotion/Oil/Oint (Mineral Oil/Petrolatum,White 106 Gm Tube) 1 appl TOPICAL BID PRN; Protocol PRN Reason: dry skin Nicotine (Nicotine 21 Mg Patch.Td24) 21 mg TRANSDERMA DAILY PRN PRN Reason: nicotine cravings Nicotine Polacrilex (Nicotine Polacrilex 2 Mg Gum) 4 mg BUCCAL Q2H PRN PRN Reason: Nicotine Cravings Olanzapine (Olanzapine 5 Mg Tablet) 5 mg PO Q4H PRN PRN Reason: agitation, aggression Olanzapine (Olanzapine 10 Mg Vial) 10 mg IM DAILY PRN PRN Reason: refusal of Abilify po Paliperidone Palmitate (Paliperidone Palmitate 234 Mg/1.5 Ml Syringe) 234 mg IM Q30D JULIAN Last Admin: 07/08/24 10:37 Dose: 234 mg Sodium Chloride (Sodium Chloride 0.65 % Nasal 44 Ml Sprbtl) 1 spray NOSTRIL-B Q1H PRN PRN Reason: nasal congestion Trazodone HCl (Trazodone Hcl 50 Mg Tablet) 50 mg PO BEDTIME MRX1 PRN PRN Reason: Insomnia Allergies Allergies Allergy/AdvReac Type Severity Reaction Status Date / Time No Known Allergies Allergy Verified 05/22/24 17:01 Assessment & Plan Assessment & Plan (1) Depressive disorder, atypical: Status: Acute Code(s): F32.89 - Other specified depressive episodes (2) Adjustment disorder with depressed mood: Status: Acute Code(s): F43.21 - Adjustment disorder with depressed mood Plan 24 yo male transferred from [facility] ED after a suicide attempt by hanging. He has been increasingly isolated, poor self care, stopped working. He has eating disorder symptoms and NSSI. Symptoms worsened in the setting of a break up. Rule out other mood disorder Plan: - Admit to inpatient psychiatry - Section 12, rosado warning. - Collateral information from family and providers. - Milieu treatment and group therapy. - Medications: Refuses - Social work evaluation. - Disposition planning. patient eloped in the after noon from the unit and was brought back by Police. 05/24: Continue current management and treatment plan. Encourage engagement in groups and milieu. 05/25: Start Abilify 5 mg. Patient to consider. Encourage group and milieu engagement. Fasting labs in AM. Collaterals would be helpful. 05/26: encouraged to take abilify. rosado warning, legal discussion. 05/27: took abilify 5 mg this morning for first time. 12b up tomorrow. continue current mgmt. 05/28: took abilify again today. feeling better and more into things. filed for commitment. 05/29: took abilify 5 again today. willing to increase to 10 as of saturday (ordered). asking for LENA again, will allow with security present. 05/31/2024: No changes 06/01: abilify dosing increased to 10 mg as of this morning. initially too paranoid to sleep in single room, slept there last night for first time. court . 06/02: no change in presentation. declines increase in abilify dosing. stands by door throughout. 06/03 continue tx. 06/04: no change in presentation. agrees to increase abilify to 15 mg daily. hearing continued for 2 weeks. 06/05: no change. self-dialoguing. took abilify 15 today. appears with more irritable edge today. unclear if cheeking meds. order CO for 30 minutes post-medication.. 06/06 pt went to bathroom, flushed without evidence of urinating, seems like he is not taking antipsychotic. 06/07 continue tx. 06/08: no substantial change in presentation. saturday (and likely all the days before) pt appeared to have flushed his medication. pt was compliant with 30-min post-medication observation period on saturday. continue current mgmt. increase abilify to 20 mg in several days. 06/09: no change in presentation. will increase abilify to 20 mg as of tomorrow. if no change in presentation in next couple of days will switch to zyprexa zydis. 06/10: no change. T/C zydis. increased abilify to 20 today. 06/11: no change. DC abilify, start zyprexa. pt does not want to make this change, but it is made nevertheless. 06/12: no change in presentation. headphones playing loud static. vague, evasive answers. continue zydis 10 QHS. 06/13: Continue current regimen and plans 06/14: Continue current regimen and plans 06/15: appears ambivalent re taking zyprexa, has refused once and refused and then accepted once. sits for interview for the first time today, headphones are present but not turned on for the first time. pt states he prefers abilify to zyprexa but cannot say why. pt was encouraged to continue zyprexa trial. 06/16: same as yesterday except headphones perhaps on low volume. took zyprexa last night. continue current mgmt. court . 06/17: more visible on unit today, seeking out MD ojeda re court tomorrow. asking about signing in, DANELLE, je. refused zyprexa last NOC. continue current mgmt. denies he has mental illness, denies depressed mood. 06/18: refusing medication. hearing continued for 1 week for NABOR. pt reports won't take medication variably due to being on CO for 30 minutes after medication and because once after taking the medication he had an upset stomach. 06/19: did not take meds last night. no notable events or behaviors. continue current mgmt. hearing continued until next saturday. 06/20: Continue current treatment plan. 06/21: Continue current treatment plan. 06/22: took meds sat and sat, did not take meds last night. continue current mgmt. advised to use TUMs for stomach pain. 06/23: took meds last night, denies side effects. spending more time outside of his room, largely in sensory room. 06/24: in room today. took meds last night. no change in presentation. 06/25: interviewed in his room. refused meds last night. no change in presentation. reports the only mental illness he has is ADHD. 06/26: hearing held, pt committed and ordered medications. return to abilify trial. orders entered for w/e. 06/27 -CTP not sure he will agree to inc dose after weekend- nor do we have IM order should he refuse PO 06/28 CTP 06/29: appears more relaxed, better related today. sat with MD in interview room rather than standing. encouraged to attend groups. agreeable to increase abilify to 15 mg, says 20 mg makes him feel uncomfortable. increase to 15 mg tonight. 06/30: spat out medication surreptitiously last night. informed he will be given abilify IM soon and was encouraged to comply with PO dosing in the meantime to be confident he will not have ADR. stable presentation. 07/01: no change in presentation. increase abilify to 20 mg QHS. 07/02: no change. continue current mgmt. CARLSON abilify saturday. 07/03: refused PO abilify last NOC mistakenly thinking he would get abilify CARLSON instead. he got zyprexa. misunderstanding worked out today, pt to continue PO abilify another week before getting CARLSON. continue current mgmt. 07/04: DC abilify as pt continues to cheek it. switch to invega, as guidelines indicate only a test dose to be given orally prior to CARLSON, as opposed to 2 weeks PO as for abilify CARLSON. 07/05: refused invega last night. try again tonight. plan for invega sustenna. 07/06: refused invega again last night, but did take a one-time dose today days. planning on CARLSON invega soon. no change in presentation. 07/07: no change in presentation. took 2 doses of PO invega, will give IM 234 mg tomorrow morning. 07/08: Continue current tx plan. Patient educated on: diagnosis and medication risk/benefits Reason for continued inpatient stay Substantial Risk for: med/psych decompensation Time Spent With Patient Time: Total time managing care of this patient today __20__ minutes.
[2024-07-09 08:00] VITALS: RESP 18
--- NOTE | 2024-07-09 14:54 | P.PNPSI_ITS ---
Subjective Subjective Date of Service: 07/09/24 Reason For Visit: Unspec anxiety d/o,atten-deficit/hyperactivity d/o Interim History: calm, cooperative. noted to MD he had attended 2 groups today. denies any s/e from medication. informed of plan to receive 156 mg sustenna next . per staff, isolative. received IM sustenna yesterday. no issues. pleasant. slept all NOC. Mental Status Exam Mental Status Exam Narrative: adequately dressed and groomed. sat for interview. poor eye contact. superficially cooperative. speech soft, sparse. decr amount. affect constricted, mood not assessed. no SI/HI/AVH expressed. Diagnostics Vital Signs (24Hr): Vital Signs - 24 hr 07/09/24 08:00 Respiratory Rate 18 BMI result Body Mass Index 30.5 Medications Medications Current Medications Acetaminophen (Acetaminophen 325 Mg Tablet) 650 mg PO Q6H PRN PRN Reason: Headache/Pain Mild Scale (1-3) Al Hydroxide/Mg Hydroxide (Magnesium Hydrox/Alum Hydrox 30 Ml Oral.Susp) 30 ml PO Q6H PRN PRN Reason: Heartburn/Nausea Hydroxyzine HCl (Hydroxyzine Hcl 25 Mg Tablet) 25 mg PO Q6H PRN PRN Reason: Anxiety Lorazepam (Lorazepam 1 Mg Tablet) 1 mg PO Q4H PRN PRN Reason: agitation Magnesium Hydroxide (Milk Of Magnesia 30 Ml Oral.Susp) 30 ml PO DAILY PRN PRN Reason: Constipation Multi-Ingred Cream/Lotion/Oil/Oint (Mineral Oil/Petrolatum,White 106 Gm Tube) 1 appl TOPICAL BID PRN; Protocol PRN Reason: dry skin Nicotine (Nicotine 21 Mg Patch.Td24) 21 mg TRANSDERMA DAILY PRN PRN Reason: nicotine cravings Nicotine Polacrilex (Nicotine Polacrilex 2 Mg Gum) 4 mg BUCCAL Q2H PRN PRN Reason: Nicotine Cravings Olanzapine (Olanzapine 5 Mg Tablet) 5 mg PO Q4H PRN PRN Reason: agitation, aggression Olanzapine (Olanzapine 10 Mg Vial) 10 mg IM DAILY PRN PRN Reason: refusal of Abilify po Paliperidone Palmitate (Paliperidone Palmitate 156 Mg/Ml Syringe) 156 mg IM ONCE ONE Stop: 07/15/24 09:01 Sodium Chloride (Sodium Chloride 0.65 % Nasal 44 Ml Sprbtl) 1 spray NOSTRIL-B Q1H PRN PRN Reason: nasal congestion Trazodone HCl (Trazodone Hcl 50 Mg Tablet) 50 mg PO BEDTIME MRX1 PRN PRN Reason: Insomnia Allergies Allergies Allergy/AdvReac Type Severity Reaction Status Date / Time No Known Allergies Allergy Verified 05/22/24 17:01 Assessment & Plan Assessment & Plan (1) Depressive disorder, atypical: Status: Acute Code(s): F32.89 - Other specified depressive episodes (2) Adjustment disorder with depressed mood: Status: Acute Code(s): F43.21 - Adjustment disorder with depressed mood Plan 24 yo male transferred from [facility] ED after a suicide attempt by hanging. He has been increasingly isolated, poor self care, stopped working. He has eating disorder symptoms and NSSI. Symptoms worsened in the setting of a break up. Rule out other mood disorder Plan: - Admit to inpatient psychiatry - Section 12, rosado warning. - Collateral information from family and providers. - Milieu treatment and group therapy. - Medications: Refuses - Social work evaluation. - Disposition planning. patient eloped in the after noon from the unit and was brought back by Police. 05/24: Continue current management and treatment plan. Encourage engagement in groups and milieu. 05/25: Start Abilify 5 mg. Patient to consider. Encourage group and milieu engagement. Fasting labs in AM. Collaterals would be helpful. 05/26: encouraged to take abilify. rosado warning, legal discussion. 05/27: took abilify 5 mg this morning for first time. 12b up tomorrow. continue current mgmt. 05/28: took abilify again today. feeling better and more into things. filed for commitment. 05/29: took abilify 5 again today. willing to increase to 10 as of saturday (ordered). asking for LENA again, will allow with security present. 05/31/2024: No changes 06/01: abilify dosing increased to 10 mg as of this morning. initially too paranoid to sleep in single room, slept there last night for first time. court . 06/02: no change in presentation. declines increase in abilify dosing. stands by door throughout. 06/03 continue tx. 06/04: no change in presentation. agrees to increase abilify to 15 mg daily. hearing continued for 2 weeks. 06/05: no change. self-dialoguing. took abilify 15 today. appears with more irritable edge today. unclear if cheeking meds. order CO for 30 minutes post- medication.. 06/06 pt went to bathroom, flushed without evidence of urinating, seems like he is not taking antipsychotic. 06/07 continue tx. 06/08: no substantial change in presentation. saturday (and likely all the days before) pt appeared to have flushed his medication. pt was compliant with 30- min post-medication observation period on saturday. continue current mgmt. increase abilify to 20 mg in several days. 06/09: no change in presentation. will increase abilify to 20 mg as of tomorrow. if no change in presentation in next couple of days will switch to zyprexa zydis. 06/10: no change. T/C zydis. increased abilify to 20 today. 06/11: no change. DC abilify, start zyprexa. pt does not want to make this change, but it is made nevertheless. 06/12: no change in presentation. headphones playing loud static. vague, evasive answers. continue zydis 10 QHS. 06/13: Continue current regimen and plans 06/14: Continue current regimen and plans 06/15: appears ambivalent re taking zyprexa, has refused once and refused and then accepted once. sits for interview for the first time today, headphones are present but not turned on for the first time. pt states he prefers abilify to zyprexa but cannot say why. pt was encouraged to continue zyprexa trial. 06/16: same as yesterday except headphones perhaps on low volume. took zyprexa last night. continue current mgmt. court . 06/17: more visible on unit today, seeking out MD ojeda re court tomorrow. asking about signing in, PHP, narcisor. refused zyprexa last NOC. continue current mgmt. denies he has mental illness, denies depressed mood. 06/18: refusing medication. hearing continued for 1 week for NABOR. pt reports won't take medication variably due to being on CO for 30 minutes after medication and because once after taking the medication he had an upset stomach. 06/19: did not take meds last night. no notable events or behaviors. continue current mgmt. hearing continued until next saturday. 06/20: Continue current treatment plan. 06/21: Continue current treatment plan. 06/22: took meds sat and sat, did not take meds last night. continue current mgmt. advised to use TUMs for stomach pain. 06/23: took meds last night, denies side effects. spending more time outside of his room, largely in sensory room. 06/24: in room today. took meds last night. no change in presentation. 06/25: interviewed in his room. refused meds last night. no change in pres entation. reports the only mental illness he has is ADHD. 06/26: hearing held, pt committed and ordered medications. return to abilify trial. orders entered for w/e. 06/27 -CTP not sure he will agree to inc dose after weekend- nor do we have IM order should he refuse PO 06/28 CTP 06/29: appears more relaxed, better related today. sat with MD in interview room rather than standing. encouraged to attend groups. agreeable to increase abilify to 15 mg, says 20 mg makes him feel uncomfortable. increase to 15 mg tonight. 06/30: spat out medication surreptitiously last night. informed he will be given abilify IM soon and was encouraged to comply with PO dosing in the meantime to be confident he will not have ADR. stable presentation. 07/01: no change in presentation. increase abilify to 20 mg QHS. 07/02: no change. continue current mgmt. CARLSON abilify saturday. 07/03: refused PO abilify last NOC mistakenly thinking he would get abilify CARLSON instead. he got zyprexa. misunderstanding worked out today, pt to continue PO abilify another week before getting CARLSON. continue current mgmt. 07/04: DC abilify as pt continues to cheek it. switch to invega, as guidelines indicate only a test dose to be given orally prior to CARLSON, as opposed to 2 weeks PO as for abilify CARLSON. 07/05: refused invega last night. try again tonight. plan for invega sustenna. 07/06: refused invega again last night, but did take a one-time dose today days. planning on CARLSON invega soon. no change in presentation. 07/07: no change in presentation. took 2 doses of PO invega, will give IM 234 mg tomorrow morning. 07/08: Continue current tx plan. 07/09: got invega sustenna 234 mg IM 07/08, will get invega sustenna 156 mg IM 07/15. stable presentation. Reason for continued inpatient stay Substantial Risk for: harm to self Time Spent With Patient Time: Total time managing care of this patient today __25__ minutes.
[2024-07-09 20:00] VITALS: RESP 16
[2024-07-10 07:43] VITALS: RESP 18
--- NOTE | 2024-07-10 15:00 | P.PNPSI_ITS ---
Subjective Subjective Date of Service: 07/10/24 Reason For Visit: Unspec anxiety d/o,atten-deficit/hyperactivity d/o Interim History: no change in presentation. denies s/e. reports medications make it easier to get out and do things, i guess. per staff, attended a group yesterday - p rogressive muscle relaxation. spending some time in sensory room. no changes otherwise. slept. Mental Status Exam Mental Status Exam Narrative: adequately dressed and groomed. sat for interview. poor eye contact. superficially cooperative. speech soft, sparse. decr amount. affect constricte d, mood not assessed. no SI/HI/AVH expressed. Diagnostics Vital Signs (24Hr): Vital Signs - 24 hr 07/09/24 20:00 07/10/24 07:43 Respiratory Rate 16 18 BMI result Body Mass Index 30.5 Medications Medications Current Medications Acetaminophen (Acetaminophen 325 Mg Tablet) 650 mg PO Q6H PRN PRN Reason: Headache/Pain Mild Scale (1-3) Al Hydroxide/Mg Hydroxide (Magnesium Hydrox/Alum Hydrox 30 Ml Oral.Susp) 30 ml PO Q6H PRN PRN Reason: Heartburn/Nausea Hydroxyzine HCl (Hydroxyzine Hcl 25 Mg Tablet) 25 mg PO Q6H PRN PRN Reason: Anxiety Lorazepam (Lorazepam 1 Mg Tablet) 1 mg PO Q4H PRN PRN Reason: agitation Magnesium Hydroxide (Milk Of Magnesia 30 Ml Oral.Susp) 30 ml PO DAILY PRN PRN Reason: Constipation Multi-Ingred Cream/Lotion/Oil/Oint (Mineral Oil/Petrolatum,White 106 Gm Tube) 1 appl TOPICAL BID PRN; Protocol PRN Reason: dry skin Nicotine (Nicotine 21 Mg Patch.Td24) 21 mg TRANSDERMA DAILY PRN PRN Reason: nicotine cravings Nicotine Polacrilex (Nicotine Polacrilex 2 Mg Gum) 4 mg BUCCAL Q2H PRN PRN Reason: Nicotine Cravings Olanzapine (Olanzapine 5 Mg Tablet) 5 mg PO Q4H PRN PRN Reason: agitation, aggression Paliperidone Palmitate (Paliperidone Palmitate 156 Mg/Ml Syringe) 156 mg IM ONCE ONE Stop: 07/15/24 09:01 Sodium Chloride (Sodium Chloride 0.65 % Nasal 44 Ml Sprbtl) 1 spray NOSTRIL-B Q1H PRN PRN Reason: nasal congestion Trazodone HCl (Trazodone Hcl 50 Mg Tablet) 50 mg PO BEDTIME MRX1 PRN PRN Reason: Insomnia Allergies Allergies Allergy/AdvReac Type Severity Reaction Status Date / Time No Known Allergies Allergy Verified 05/22/24 17:01 Assessment & Plan Assessment & Plan (1) Depressive disorder, atypical: Status: Acute Code(s): F32.89 - Other specified depressive episodes (2) Adjustment disorder with depressed mood: Status: Acute Code(s): F43.21 - Adjustment disorder with depressed mood Plan 24 yo male transferred from [facility] ED after a suicide attempt by hanging. He has been increasingly isolated, poor self care, stopped working. He has eating disorder symptoms and NSSI. Symptoms worsened in the setting of a break up. Rule out other mood disorder Plan: - Admit to inpatient psychiatry - Section 12, rosado warning. - Collateral information from family and providers. - Milieu treatment and group therapy. - Medications: Refuses - Social work evaluation. - Disposition planning. patient eloped in the after noon from the unit and was brought back by Police. 05/24: Continue current management and treatment plan. Encourage engagement in groups and milieu. 05/25: Start Abilify 5 mg. Patient to consider. Encourage group and milieu engagement. Fasting labs in AM. Collaterals would be helpful. 05/26: encouraged to take abilify. rosado warning, legal discussion. 05/27: took abilify 5 mg this morning for first time. 12b up tomorrow. continue current mgmt. 05/28: took abilify again today. feeling better and more into things. filed for commitment. 05/29: took abilify 5 again today. willing to increase to 10 as of saturday (ordered). asking for LENA again, will allow with security present. 05/31/2024: No changes 06/01: abilify dosing increased to 10 mg as of this morning. initially too paranoid to sleep in single room, slept there last night for first time. court . 06/02: no change in presentation. declines increase in abilify dosing. stands by door throughout. 06/03 continue tx. 06/04: no change in presentation. agrees to increase abilify to 15 mg daily. hearing continued for 2 weeks. 9/13: no change. self-dialoguing. took abilify 15 today. appears with more irritable edge today. unclear if cheeking meds. order CO for 30 minutes post- medication.. 06/06 pt went to bathroom, flushed without evidence of urinating, seems like he is not taking antipsychotic. 06/07 continue tx. 06/08: no substantial change in presentation. saturday (and likely all the days before) pt appeared to have flushed his medication. pt was compliant with 30- min post-medication observation period on saturday. continue current mgmt. increase abilify to 20 mg in several days. 06/09: no change in presentation. will increase abilify to 20 mg as of tomorrow. if no change in presentation in next couple of days will switch to zyprexa zydis. 06/10: no change. T/C zydis. increased abilify to 20 today. 06/11: no change. DC abilify, start zyprexa. pt does not want to make this change, but it is made nevertheless. 06/12: no change in presentation. headphones playing loud static. vague, evasive answers. continue zydis 10 QHS. 06/13: Continue current regimen and plans 06/14: Continue current regimen and plans 06/15: appears ambivalent re taking zyprexa, has refused once and refused and then accepted once. sits for interview for the first time today, headphones are present but not turned on for the first time. pt states he prefers abilify to zyprexa but cannot say why. pt was encouraged to continue zyprexa trial. 06/16: same as yesterday except headphones perhaps on low volume. took zyprexa last night. continue current mgmt. court . 06/17: more visible on unit today, seeking out x2 re court tomorrow. asking about signing in, DANELLE, je. refused zyprexa last NOC. continue current mgmt. denies he has mental illness, denies depressed mood. 06/18: refusing medication. hearing continued for 1 week for NABOR. pt reports won't take medication variably due to being on CO for 30 minutes after medication and because once after taking the medication he had an upset stomach. 06/19: did not take meds last night. no notable events or behaviors. continue current mgmt. hearing continued until next saturday. 06/20: Continue current treatment plan. 06/21: Continue current treatment plan. 06/22: took meds sat and sat, did not take meds last night. continue current mgmt. advised to use TUMs for stomach pain. 06/23: took meds last night, denies side effects. spending more time outside of his room, largely in sensory room. 06/24: in room today. took meds last night. no change in presentation. 06/25: interviewed in his room. refused meds last night. no change in presentation. reports the only mental illness he has is ADHD. 06/26: hearing held, pt committed and ordered medications. return to abilify trial. orders entered for w/e. 06/27 -CTP not sure he will agree to inc dose after weekend- nor do we have IM order should he refuse PO 06/28 CTP 06/29: appears more relaxed, better related today. sat with MD in interview room rather than standing. encouraged to attend groups. agreeable to increase abilify to 15 mg, says 20 mg makes him feel uncomfortable. increase to 15 mg tonight. 06/30: spat out medication surreptitiously last night. informed he will be given abilify IM soon and was encouraged to comply with PO dosing in the tx antime to be confident he will not have ADR. stable presentation. 07/01: no change in presentation. increase abilify to 20 mg QHS. 07/02: no change. continue current mgmt. CARLSON abilify saturday. 07/03: refused PO abilify last NOC mistakenly thinking he would get abilify CARLSON instead. he got zyprexa. misunderstanding worked out today, pt to continue PO abilify another week before getting CARLSON. continue current mgmt. 07/04: DC abilify as pt continues to cheek it. switch to invega, as guidelines indicate only a test dose to be given orally prior to CARLSON, as opposed to 2 weeks PO as for abilify CARLSON. 07/05: refused invega last night. try again tonight. plan for invega sustenna. 07/06: refused invega again last night, but did take a one-time dose today days. planning on CARLSON invega soon. no change in presentation. 07/07: no change in presentation. took 2 doses of PO invega, will give IM 234 mg tomorrow morning. 07/08: Continue current tx plan. 07/09: got invega sustenna 234 mg IM 07/08, will get invega sustenna 156 mg IM 07/15. stable presentation. 07/10: no s/e. feels medication makes it easier to get out and do things. continue current mgmt. Reason for continued inpatient stay Substantial Risk for: harm to self Time Spent With Patient Time: Total time managing care of this patient today ____ minutes.
[2024-07-10 20:00] VITALS: RESP 16
--- NOTE | 2024-07-11 09:20 | HO.PSYCHPN ---
Subjective Subjective Date of Service: 07/11/24 Reason For Visit: Unspec anxiety d/o,atten-deficit/hyperactivity d/o Subjective Notes: Section 7 and Section 8 Interim History: The nursing staff reported she had been depressed and flat, he is on CO after 30 minutes on medications since he was seen cheeking his medication. Slept 8 hours. On interview the patient denies new symptoms, he was difficult to engage. Hypoactive. Mental Status Exam Mental Status Exam Patient Appearance: Appropriate Patient Orientation: Person and Situation Level of Consciousness: Awake Patient Behavior: Guarded and Passive Mood Description: Calm Affect Description: Blunted Ability to Follow Directions: Fair Speech Pattern: Clear Hallucinations: None Delusions: Ideas of Reference Thought Process: Distracted and Slowed Thinking Thought Content: positive for [place] and positive for Poverty of Content Judgement: Fair Diagnostics Vital Signs (24Hr): Vital Signs - 24 hr 07/10/24 20:00 Respiratory Rate 16 BMI result Body Mass Index 30.5 Medications Medications Current Medications Acetaminophen (Acetaminophen 325 Mg Tablet) 650 mg PO Q6H PRN PRN Reason: Headache/Pain Mild Scale (1-3) Al Hydroxide/Mg Hydroxide (Magnesium Hydrox/Alum Hydrox 30 Ml Oral.Susp) 30 ml PO Q6H PRN PRN Reason: Heartburn/Nausea Hydroxyzine HCl (Hydroxyzine Hcl 25 Mg Tablet) 25 mg PO Q6H PRN PRN Reason: Anxiety Lorazepam (Lorazepam 1 Mg Tablet) 1 mg PO Q4H PRN PRN Reason: agitation Magnesium Hydroxide (Milk Of Magnesia 30 Ml Oral.Susp) 30 ml PO DAILY PRN PRN Reason: Constipation Multi-Ingred Cream/Lotion/Oil/Oint (Mineral Oil/Petrolatum,White 106 Gm Tube) 1 appl TOPICAL BID PRN; Protocol PRN Reason: dry skin Nicotine (Nicotine 21 Mg Patch.Td24) 21 mg TRANSDERMA DAILY PRN PRN Reason: nicotine cravings Nicotine Polacrilex (Nicotine Polacrilex 2 Mg Gum) 4 mg BUCCAL Q2H PRN PRN Reason: Nicotine Cravings Olanzapine (Olanzapine 5 Mg Tablet) 5 mg PO Q4H PRN PRN Reason: agitation, aggression Paliperidone Palmitate (Paliperidone Palmitate 156 Mg/Ml Syringe) 156 mg IM ONCE ONE Stop: 07/15/24 09:01 Sodium Chloride (Sodium Chloride 0.65 % Nasal 44 Ml Sprbtl) 1 spray NOSTRIL-B Q1H PRN PRN Reason: nasal congestion Trazodone HCl (Trazodone Hcl 50 Mg Tablet) 50 mg PO BEDTIME MRX1 PRN PRN Reason: Insomnia Allergies Allergies Allergy/AdvReac Type Severity Reaction Status Date / Time No Known Allergies Allergy Verified 05/22/24 17:01 Assessment & Plan Assessment & Plan (1) Depressive disorder, atypical: Status: Acute Code(s): F32.89 - Other specified depressive episodes (2) Adjustment disorder with depressed mood: Status: Acute Code(s): F43.21 - Adjustment disorder with depressed mood Plan 24 yo male transferred from [facility] ED after a suicide attempt by hanging. He has been increasingly isolated, poor self care, stopped working. He has eating disorder symptoms and NSSI. Symptoms worsened in the setting of a break up. Rule out other mood disorder Plan: - Admit to inpatient psychiatry - Section 12, rosado warning. - Collateral information from family and providers. - Milieu treatment and group therapy. - Medications: Refuses - Social work evaluation. - Disposition planning. patient eloped in the after noon from the unit and was brought back by Police. 05/24: Continue current management and treatment plan. Encourage engagement in groups and milieu. 05/25: Start Abilify 5 mg. Patient to consider. Encourage group and milieu engagement. Fasting labs in AM. Collaterals would be helpful. 05/26: encouraged to take abilify. rosado warning, legal discussion. 05/27: took abilify 5 mg this morning for first time. 12b up tomorrow. continue current mgmt. 05/28: took abilify again today. feeling better and more into things. filed for commitment. 05/29: took abilify 5 again today. willing to increase to 10 as of saturday (ordered). asking for LENA again, will allow with security present. 05/31/2024: No changes 06/01: abilify dosing increased to 10 mg as of this morning. initially too paranoid to sleep in single room, slept there last night for first time. court . 06/02: no change in presentation. declines increase in abilify dosing. stands by door throughout. 06/03 continue tx. 06/04: no change in presentation. agrees to increase abilify to 15 mg daily. hearing continued for 2 weeks. 06/05: no change. self-dialoguing. took abilify 15 today. appears with more irritable edge today. unclear if cheeking meds. order CO for 30 minutes post-medication.. 06/06 pt went to bathroom, flushed without evidence of urinating, seems like he is not taking antipsychotic. 06/07 continue tx. 06/08: no substantial change in presentation. saturday (and likely all the days before) pt appeared to have flushed his medication. pt was compliant with 30-min post-medication observation period on saturday. continue current mgmt. increase abilify to 20 mg in several days. 06/09: no change in presentation. will increase abilify to 20 mg as of tomorrow. if no change in presentation in next couple of days will switch to zyprexa zydis. 06/10: no change. T/C zydis. increased abilify to 20 today. 06/11: no change. DC abilify, start zyprexa. pt does not want to make this change, but it is made nevertheless. 06/12: no change in presentation. headphones playing loud static. vague, evasive answers. continue zydis 10 QHS. 06/13: Continue current regimen and plans 06/14: Continue current regimen and plans 06/15: appears ambivalent re taking zyprexa, has refused once and refused and then accepted once. sits for interview for the first time today, headphones are present but not turned on for the first time. pt states he prefers abilify to zyprexa but cannot say why. pt was encouraged to continue zyprexa trial. 06/16: same as yesterday except headphones perhaps on low volume. took zyprexa last night. continue current mgmt. court . 06/17: more visible on unit today, seeking out MD ojeda re court tomorrow. asking about signing in, PHP, narcisor. refused zyprexa last NOC. continue current mgmt. denies he has mental illness, denies depressed mood. 06/18: refusing medication. hearing continued for 1 week for NABOR. pt reports won't take medication variably due to being on CO for 30 minutes after medication and because once after taking the medication he had an upset stomach. 06/19: did not take meds last night. no notable events or behaviors. continue current mgmt. hearing continued until next saturday. 06/20: Continue current treatment plan. 06/21: Continue current treatment plan. 06/22: took meds sat and sat, did not take meds last night. continue current mgmt. advised to use TUMs for stomach pain. 06/23: took meds last night, denies side effects. spending more time outside of his room, largely in sensory room. 06/24: in room today. took meds last night. no change in presentation. 06/25: interviewed in his room. refused meds last night. no change in presentation. reports the only mental illness he has is ADHD. 06/26: hearing held, pt committed and ordered medications. return to abilify trial. orders entered for w/e. 06/27 -CTP not sure he will agree to inc dose after weekend- nor do we have IM order should he refuse PO 06/28 CTP 06/29: appears more relaxed, better related today. sat with MD in interview room rather than standing. encouraged to attend groups. agreeable to increase abilify to 15 mg, says 20 mg makes him feel uncomfortable. increase to 15 mg tonight. 06/30: spat out medication surreptitiously last night. informed he will be given abilify IM soon and was encouraged to comply with PO dosing in the meantime to be confident he will not have ADR. stable presentation. 07/01: no change in presentation. increase abilify to 20 mg QHS. 07/02: no change. continue current mgmt. CARLSON abilify saturday. 07/03: refused PO abilify last NOC mistakenly thinking he would get abilify CARLSON instead. he got zyprexa. misunderstanding worked out today, pt to continue PO abilify another week before getting CARLSON. continue current mgmt. 07/04: DC abilify as pt continues to cheek it. switch to invega, as guidelines indicate only a test dose to be given orally prior to CARLSON, as opposed to 2 weeks PO as for abilify CARLSON. 07/05: refused invega last night. try again tonight. plan for invega sustenna. 07/06: refused invega again last night, but did take a one-time dose today days. planning on CARLSON invega soon. no change in presentation. 07/07: no change in presentation. took 2 doses of PO invega, will give IM 234 mg tomorrow morning. 07/08: Continue current tx plan. 07/09: got invega sustenna 234 mg IM 07/08, will get invega sustenna 156 mg IM 07/15. stable presentation. 07/10: no s/e. feels medication makes it easier to get out and do things. continue current mgmt. 07/11 keep same treatment Reason for continued inpatient stay Substantial Risk for: inability to function, rapid decompensation and med/psych decompensation Time Spent With Patient Time: Total time managing care of this patient today _20___ minutes.
--- NOTE | 2024-07-12 07:57 | P.PNPSI_ITS ---
Subjective Subjective Date of Service: 07/12/24 Reason For Visit: Unspec anxiety d/o,atten-deficit/hyperactivity d/o Subjective Notes: Section 7 and Section 8 Interim History: The nursing staff reported the patient had been isolative in his room. In the afternoon he was seen watching TV slept 8 hours. On interview the patient denies new symptoms, difficult to engage. Mental Status Exam Mental Status Exam Patient Orientation: Person and Situation Patient Behavior: Guarded Mood Description: Calm Affect Description: Constricted Patient Cognition Impaired: Yes Ability to Follow Directions: Good Speech Pattern: Clear Hallucinations: None Delusions: Not Present Thought Process: Linear Thought Content: positive for Circumstantial Judgement: Fair Diagnostics Vital Signs (24Hr): BMI result Body Mass Index 30.5 Medications Medications Current Medications Acetaminophen (Acetaminophen 325 Mg Tablet) 650 mg PO Q6H PRN PRN Reason: Headache/Pain Mild Scale (1-3) Al Hydroxide/Mg Hydroxide (Magnesium Hydrox/Alum Hydrox 30 Ml Oral.Susp) 30 ml PO Q6H PRN PRN Reason: Heartburn/Nausea Hydroxyzine HCl (Hydroxyzine Hcl 25 Mg Tablet) 25 mg PO Q6H PRN PRN Reason: Anxiety Lorazepam (Lorazepam 1 Mg Tablet) 1 mg PO Q4H PRN PRN Reason: agitation Magnesium Hydroxide (Milk Of Magnesia 30 Ml Oral.Susp) 30 ml PO DAILY PRN PRN Reason: Constipation Multi-Ingred Cream/Lotion/Oil/Oint (Mineral Oil/Petrolatum,White 106 Gm Tube) 1 appl TOPICAL BID PRN; Protocol PRN Reason: dry skin Nicotine (Nicotine 21 Mg Patch.Td24) 21 mg TRANSDERMA DAILY PRN PRN Reason: nicotine cravings Nicotine Polacrilex (Nicotine Polacrilex 2 Mg Gum) 4 mg BUCCAL Q2H PRN PRN Reason: Nicotine Cravings Olanzapine (Olanzapine 5 Mg Tablet) 5 mg PO Q4H PRN PRN Reason: agitation, aggression Paliperidone Palmitate (Paliperidone Palmitate 156 Mg/Ml Syringe) 156 mg IM ONCE ONE Stop: 07/15/24 09:01 Sodium Chloride (Sodium Chloride 0.65 % Nasal 44 Ml Sprbtl) 1 spray NOSTRIL-B Q1H PRN PRN Reason: nasal congestion Trazodone HCl (Trazodone Hcl 50 Mg Tablet) 50 mg PO BEDTIME MRX1 PRN PRN Reason: Insomnia Allergies Allergies Allergy/AdvReac Type Severity Reaction Status Date / Time No Known Allergies Allergy Verified 05/22/24 17:01 Assessment & Plan Assessment & Plan (1) Depressive disorder, atypical: Status: Acute Code(s): F32.89 - Other specified depressive episodes (2) Adjustment disorder with depressed mood: Status: Acute Code(s): F43.21 - Adjustment disorder with depressed mood Plan 24 yo male [address] from [facility] ED after a suicide attempt by hanging. He has been increasingly isolated, poor self care, stopped working. He has eating disorder symptoms and NSSI. Symptoms worsened in the setting of a break up. Rule out other mood disorder Plan: - Admit to inpatient psychiatry - Section 12, rosado warning. - Collateral information from family and providers. - Milieu treatment and group therapy. - Medications: Refuses - Social work evaluation. - Disposition planning. patient eloped in the after noon from the unit and was brought back by Police. 05/24: Continue current management and treatment plan. Encourage engagement in groups and milieu. 05/25: Start Abilify 5 mg. Patient to consider. Encourage group and milieu engagement. Fasting labs in AM. Collaterals would be helpful. 05/26: encouraged to take abilify. rosado warning, legal discussion. 05/27: took abilify 5 mg this morning for first time. 12b up tomorrow. continue current mgmt. 05/28: took abilify again today. feeling better and more into things. filed for commitment. 05/29: took abilify 5 again today. willing to increase to 10 as of saturday (ordered). asking for LENA again, will allow with security present. 05/31/2024: No changes 06/01: abilify dosing increased to 10 mg as of this morning. initially too paranoid to sleep in single room, slept there last night for first time. court . 06/02: no change in presentation. declines increase in abilify dosing. stands by door throughout. 06/03 continue tx. 06/04: no change in presentation. agrees to increase abilify to 15 mg daily. hearing continued for 2 weeks. 06/05: no change. self-dialoguing. took abilify 15 today. appears with more irritable edge today. unclear if cheeking meds. order CO for 30 minutes post- medication.. 06/06 pt went to bathroom, flushed without evidence of urinating, seems like he is not taking antipsychotic. 06/07 continue tx. 06/08: no substantial change in presentation. saturday (and likely all the days before) pt appeared to have flushed his medication. pt was compliant with 30- min post-medication observation period on saturday. continue current mgmt. increase abilify to 20 mg in several days. 06/09: no change in presentation. will increase abilify to 20 mg as of tomorrow. if no change in presentation in next couple of days will switch to zyprexa zydis. 06/10: no change. T/C zydis. increased abilify to 20 today. 06/11: no change. DC abilify, start zyprexa. pt does not want to make this change, but it is made nevertheless. 06/12: no change in presentation. headphones playing loud static. vague, evasive answers. continue zydis 10 QHS. 06/13: Continue current regimen and plans 06/14: Continue current regimen and plans 06/15: appears ambivalent re taking zyprexa, has refused once and refused and then accepted once. sits for interview for the first time today, headphones are present but not turned on for the first time. pt states he prefers abilify to zyprexa but cannot say why. pt was encouraged to continue zyprexa trial. 06/16: same as yesterday except headphones perhaps on low volume. took zyprexa last night. continue current mgmt. court . 06/17: more visible on unit today, seeking out x2 re court tomorrow. asking about signing in, DANELLE, je. refused zyprexa last NOC. continue current mgmt. denies he has mental illness, denies depressed mood. 06/18: refusing medication. hearing continued for 1 week for NABOR. pt reports won't take medication variably due to being on CO for 30 minutes after medication and because once after taking the medication he had an upset stomach. 06/19: did not take meds last night. no notable events or behaviors. continue current mgmt. hearing continued until next saturday. 06/20: Continue current treatment plan. 06/21: Continue current treatment plan. 06/22: took meds sat and sat, did not take meds last night. continue current mgmt. advised to use TUMs for stomach pain. 06/23: took meds last night, denies side effects. spending more time outside of his room, largely in sensory room. 06/24: in room today. took meds last night. no change in presentation. 06/25: interviewed in his room. refused meds last night. no change in presentation. reports the only mental illness he has is ADHD. 06/26: hearing held, pt committed and ordered medications. return to abilify trial. orders entered for w/e. 06/27 -CTP not sure he will agree to inc dose after weekend- nor do we have IM order should he refuse PO 06/28 CTP 06/29: appears more relaxed, better related today. sat with MD in interview room rather than standing. encouraged to attend groups. agreeable to increase abilify to 15 mg, says 20 mg makes him feel uncomfortable. increase to 15 mg tonight. 06/30: spat out medication surreptitiously last night. informed he will be given abilify IM soon and was encouraged to comply with PO dosing in the meantime to be confident he will not have ADR. stable presentation. 07/01: no change in presentation. increase abilify to 20 mg QHS. 07/02: no change. continue current mgmt. CARLSON abilify saturday. 07/03: refused PO abilify last NOC mistakenly thinking he would get abilify CARLSON instead. he got zyprexa. misunderstanding worked out today, pt to continue PO abilify another week before getting CARLSON. continue current mgmt. 07/04: DC abilify as pt continues to cheek it. switch to invega, as guidelines indicate only a test dose to be given orally prior to CARLSON, as opposed to 2 weeks PO as for abilify CARLSON. 07/05: refused invega last night. try again tonight. plan for invega sustenna. 07/06: refused invega again last night, but did take a one-time dose today days. planning on CARLSON invega soon. no change in presentation. 07/07: no change in presentation. took 2 doses of PO invega, will give IM 234 mg tomorrow morning. 07/08: Continue current tx plan. 07/09: got invega sustenna 234 mg IM 07/08, will get invega sustenna 156 mg IM 07/15. stable presentation. 07/10: no s/e. feels medication makes it easier to get out and do things. continue current mgmt. 07/11 keep same treatment. 07/12 keep same treatment. Reason for continued inpatient stay Substantial Risk for: rapid decompensation and med/psych decompensation Time Spent With Patient Time: Total time managing care of this patient today _20___ minutes.
[2024-07-12 20:08] VITALS: RESP 16
[2024-07-13 08:00] VITALS: RESP 18
--- NOTE | 2024-07-13 15:03 | P.PNPSI_ITS ---
Subjective Subjective Date of Service: 07/13/24 Reason For Visit: Unspec anxiety d/o,atten-deficit/hyperactivity d/o Interim History: pt feels he is moving more than before. more able to do things. sleeping, eating, toileting OK. per staff, not attending groups. no changes in pres entation. refusing VS. spending most of his time in his room. slept about 6.5 hours. Mental Status Exam Mental Status Exam Narrative: adequately dressed and groomed. sat for interview. poor eye contact. superficially cooperative. speech soft, sparse. decr amount. affect constricted, mood not assessed. no SI/HI/AVH expressed. Diagnostics Vital Signs (24Hr): Vital Signs - 24 hr 07/12/24 20:08 07/13/24 08:00 Respiratory Rate 16 18 BMI result Body Mass Index 30.5 Medications Medications Current Medications Acetaminophen (Acetaminophen 325 Mg Tablet) 650 mg PO Q6H PRN PRN Reason: Headache/Pain Mild Scale (1-3) Al Hydroxide/Mg Hydroxide (Magnesium Hydrox/Alum Hydrox 30 Ml Oral.Susp) 30 ml PO Q6H PRN PRN Reason: Heartburn/Nausea Hydroxyzine HCl (Hydroxyzine Hcl 25 Mg Tablet) 25 mg PO Q6H PRN PRN Reason: Anxiety Lorazepam (Lorazepam 1 Mg Tablet) 1 mg PO Q4H PRN PRN Reason: agitation Magnesium Hydroxide (Milk Of Magnesia 30 Ml Oral.Susp) 30 ml PO DAILY PRN PRN Reason: Constipation Multi-Ingred Cream/Lotion/Oil/Oint (Mineral Oil/Petrolatum,White 106 Gm Tube) 1 appl TOPICAL BID PRN; Protocol PRN Reason: dry skin Nicotine (Nicotine 21 Mg Patch.Td24) 21 mg TRANSDERMA DAILY PRN PRN Reason: nicotine cravings Nicotine Polacrilex (Nicotine Polacrilex 2 Mg Gum) 4 mg BUCCAL Q2H PRN PRN Reason: Nicotine Cravings Olanzapine (Olanzapine 5 Mg Tablet) 5 mg PO Q4H PRN PRN Reason: agitation, aggression Paliperidone Palmitate (Paliperidone Palmitate 156 Mg/Ml Syringe) 156 mg IM ONCE ONE Stop: 07/15/24 09:01 Sodium Chloride (Sodium Chloride 0.65 % Nasal 44 Ml Sprbtl) 1 spray NOSTRIL-B Q1H PRN PRN Reason: nasal congestion Trazodone HCl (Trazodone Hcl 50 Mg Tablet) 50 mg PO BEDTIME MRX1 PRN PRN Reason: Insomnia Allergies Allergies Allergy/AdvReac Type Severity Reaction Status Date / Time No Known Allergies Allergy Verified 05/22/24 17:01 Assessment & Plan Assessment & Plan (1) Depressive disorder, atypical: Status: Acute Code(s): F32.89 - Other specified depressive episodes (2) Adjustment disorder with depressed mood: Status: Acute Code(s): F43.21 - Adjustment disorder with depressed mood Plan 24 yo male transferred from [facility] ED after a suicide attempt by hanging. He has been increasingly isolated, poor self care, stopped working. He has eating disorder symptoms and NSSI. Symptoms worsened in the setting of a break up. Rule out other mood disorder Plan: - Admit to inpatient psychiatry - Section 12, rosado warning. - Collateral information from family and providers. - Milieu treatment and group therapy. - Medications: Refuses - Social work evaluation. - Disposition planning. patient eloped in the after noon from the unit and was brought back by Police. 05/24: Continue current management and treatment plan. Encourage engagement in groups and milieu. 05/25: Start Abilify 5 mg. Patient to consider. Encourage group and milieu engagement. Fasting labs in AM. Collaterals would be helpful. 05/26: encouraged to take abilify. rosado warning, legal discussion. 05/27: took abilify 5 mg this morning for first time. 12b up tomorrow. continue current mgmt. 05/28: took abilify again today. feeling better and more into things. filed for commitment. 05/29: took abilify 5 again today. willing to increase to 10 as of saturday (ordered). asking for LENA again, will allow with security present. 05/31/2024: No changes 06/01: abilify dosing increased to 10 mg as of this morning. initially too paranoid to sleep in single room, slept there last night for first time. court . 06/02: no change in presentation. declines increase in abilify dosing. stands by door throughout. 06/03 continue tx. 06/04: no change in presentation. agrees to increase abilify to 15 mg daily. hearing continued for 2 weeks. 06/05: no change. self-dialoguing. took abilify 15 today. appears with more irritable edge today. unclear if cheeking meds. order CO for 30 minutes post- medication.. 06/06 pt went to bathroom, flushed without evidence of urinating, seems like he is not taking antipsychotic. 06/07 continue tx. 06/08: no substantial change in presentation. saturday (and likely all the days before) pt appeared to have flushed his medication. pt was compliant with 30- min post-medication observation period on saturday. continue current mgmt. increase abilify to 20 mg in several days. 06/09: no change in presentation. will increase abilify to 20 mg as of tomorrow. if no change in presentation in next couple of days will switch to zyprexa zydis. 06/10: no change. T/C zydis. increased abilify to 20 today. 06/11: no change. DC abilify, start zyprexa. pt does not want to make this change, but it is made nevertheless. 06/12: no change in presentation. headphones playing loud static. vague, evasive answers. continue zydis 10 QHS. 06/13: Continue current regimen and plans 06/14: Continue current regimen and plans 06/15: appears ambivalent re taking zyprexa, has refused once and refused and then accepted once. sits for interview for the first time today, headphones are present but not turned on for the first time. pt states he prefers abilify to zyprexa but cannot say why. pt was encouraged to continue zyprexa trial. 06/16: same as yesterday except headphones perhaps on low volume. took zyprexa last night. continue current mgmt. court . 06/17: more visible on unit today, seeking out MD ojeda re court tomorrow. asking about signing in, je MCCLENDON. refused zyprexa last NOC. continue current mgmt. denies he has mental illness, denies depressed mood. 06/18: refusing medication. hearing continued for 1 week for NABOR. pt reports won't take medication variably due to being on CO for 30 minutes after medication and because once after taking the medication he had an upset stomach. 06/19: did not take meds last night. no notable events or behaviors. continue current mgmt. hearing continued until next saturday. 06/20: Continue current treatment plan. 06/21: Continue current treatment plan. 06/22: took meds sat and sat, did not take meds last night. continue current mgmt. advised to use TUMs for stomach pain. 06/23: took meds last night, denies side effects. spending more time outside of his room, largely in sensory room. 06/24: in room today. took meds last night. no change in presentation. 06/25: interviewed in his room. refused meds last night. no change in presentation. reports the only mental illness he has is ADHD. 06/26: hearing held, pt committed and ordered medications. return to abilify trial. orders entered for w/e. 06/27 -CTP not sure he will agree to inc dose after weekend- nor do we have IM order should he refuse PO 06/28 CTP 06/29: appears more relaxed, better related today. sat with MD in interview room rather than standing. encouraged to attend groups. agreeable to increase abilify to 15 mg, says 20 mg makes him feel uncomfortable. increase to 15 mg tonight. 06/30: spat out medication surreptitiously last night. informed he will be given abilify IM soon and was encouraged to comply with PO dosing in the meantime to be confident he will not have ADR. stable presentation. 07/01: no change in presentation. increase abilify to 20 mg QHS. 07/02: no change. continue current mgmt. CARLSON abilify saturday. 07/03: refused PO abilify last NOC mistakenly thinking he would get abilify CARLSON instead. he got zyprexa. misunderstanding worked out today, pt to continue PO abilify another week before getting CARLSON. continue current mgmt. 07/04: DC abilify as pt continues to cheek it. switch to invega, as guidelines indicate only a test dose to be given orally prior to CARLSON, as opposed to 2 weeks PO as for abilify CARLSON. 07/05: refused invega last night. try again tonight. plan for invega sustenna. 07/06: refused invega again last night, but did take a one-time dose today days. planning on CARLSON invega soon. no change in presentation. 07/07: no change in presentation. took 2 doses of PO invega, will give IM 234 mg tomorrow morning. 07/08: Continue current tx plan. 07/09: got invega sustenna 234 mg IM 07/08, will get invega sustenna 156 mg IM 07/15. stable presentation. 07/10: no s/e. feels medication makes it easier to get out and do things. continue current mgmt. 07/11 keep same treatment. 07/12 keep same treatment. 07/13: feels moving more than before, more able to do things. Reason for continued inpatient stay Substantial Risk for: harm to self Time Spent With Patient Time: Total time managing care of this patient today __25__ minutes.
[2024-07-13 20:11] VITALS: RESP 16
--- NOTE | 2024-07-14 14:59 | P.PNPSI_ITS ---
Subjective Subjective Date of Service: 07/14/24 Reason For Visit: Unspec anxiety d/o,atten-deficit/hyperactivity d/o Interim History: no substantial change in presentation. reports he is not listening to white noise, but asserts rather that the station he listens to has poor legal receptionist in the interview room. slowed in producing the name of the station, vague in answering what type of music it plays. aware of CARLSON tomorrow. per staff, no change in presentation. withdrawn, guarded. + appetite. napped eves, slept all NOC. Mental Status Exam Mental Status Exam Narrative: adequately dressed and groomed. sat for interview. poor eye contact. superficially cooperative. speech soft, sparse. decr amount. affect constricted, mood fine. no SI/HI/AVH expressed. Diagnostics Vital Signs (24Hr): Vital Signs - 24 hr 07/13/24 20:11 Respiratory Rate 16 BMI result Body Mass Index 30.5 Medications Medications Current Medications Acetaminophen (Acetaminophen 325 Mg Tablet) 650 mg PO Q6H PRN PRN Reason: Headache/Pain Mild Scale (1-3) Al Hydroxide/Mg Hydroxide (Magnesium Hydrox/Alum Hydrox 30 Ml Oral.Susp) 30 ml PO Q6H PRN PRN Reason: Heartburn/Nausea Hydroxyzine HCl (Hydroxyzine Hcl 25 Mg Tablet) 25 mg PO Q6H PRN PRN Reason: Anxiety Lorazepam (Lorazepam 1 Mg Tablet) 1 mg PO Q4H PRN PRN Reason: agitation Magnesium Hydroxide (Milk Of Magnesia 30 Ml Oral.Susp) 30 ml PO DAILY PRN PRN Reason: Constipation Multi-Ingred Cream/Lotion/Oil/Oint (Mineral Oil/Petrolatum,White 106 Gm Tube) 1 appl TOPICAL BID PRN; Protocol PRN Reason: dry skin Nicotine (Nicotine 21 Mg Patch.Td24) 21 mg TRANSDERMA DAILY PRN PRN Reason: nicotine cravings Nicotine Polacrilex (Nicotine Polacrilex 2 Mg Gum) 4 mg BUCCAL Q2H PRN PRN Reason: Nicotine Cravings Olanzapine (Olanzapine 5 Mg Tablet) 5 mg PO Q4H PRN PRN Reason: agitation, aggression Paliperidone Palmitate (Paliperidone Palmitate 156 Mg/Ml Syringe) 156 mg IM ONCE ONE Stop: 07/15/24 09:01 Sodium Chloride (Sodium Chloride 0.65 % Nasal 44 Ml Sprbtl) 1 spray NOSTRIL-B Q1H PRN PRN Reason: nasal congestion Trazodone HCl (Trazodone Hcl 50 Mg Tablet) 50 mg PO BEDTIME MRX1 PRN PRN Reason: Insomnia Allergies Allergies Allergy/AdvReac Type Severity Reaction Status Date / Time No Known Allergies Allergy Verified 05/22/24 17:01 Assessment & Plan Assessment & Plan (1) Depressive disorder, atypical: Status: Acute Code(s): F32.89 - Other specified depressive episodes (2) Adjustment disorder with depressed mood: Status: Acute Code(s): F43.21 - Adjustment disorder with depressed mood Plan 24 yo male transferred from [facility] ED after a suicide attempt by hanging. He has been increasingly isolated, poor self care, stopped working. He has eating disorder symptoms and NSSI. Symptoms worsened in the setting of a break up. Rule out other mood disorder Plan: - Admit to inpatient psychiatry - Section 12, rosado warning. - Collateral information from family and providers. - Milieu treatment and group therapy. - Medications: Refuses - Social work evaluation. - Disposition planning. patient eloped in the after noon from the unit and was brought back by Police. 05/24: Continue current management and treatment plan. Encourage engagement in groups and milieu. 05/25: Start Abilify 5 mg. Patient to consider. Encourage group and milieu engagement. Fasting labs in AM. Collaterals would be helpful. 05/26: encouraged to take abilify. rosado warning, legal discussion. 05/27: took abilify 5 mg this morning for first time. 12b up tomorrow. continue current mgmt. 05/28: took abilify again today. feeling better and more into things. filed for commitment. 05/29: took abilify 5 again today. willing to increase to 10 as of saturday (ordered). asking for LENA again, will allow with security present. 05/31/2024: No changes 06/01: abilify dosing increased to 10 mg as of this morning. initially too paranoid to sleep in single room, slept there last night for first time. court . 06/02: no change in presentation. declines increase in abilify dosing. stands by door throughout. 06/03 continue tx. 06/04: no change in presentation. agrees to increase abilify to 15 mg daily. hearing continued for 2 weeks. 06/05: no change. self-dialoguing. took abilify 15 today. appears with more irritable edge today. unclear if cheeking meds. order CO for 30 minutes post-medication.. 06/06 pt went to bathroom, flushed without evidence of urinating, seems like he is not taking antipsychotic. 06/07 continue tx. 06/08: no substantial change in presentation. saturday (and likely all the days before) pt appeared to have flushed his medication. pt was compliant with 30- min post-medication observation period on saturday. continue current mgmt. increase abilify to 20 mg in several days. 06/09: no change in presentation. will increase abilify to 20 mg as of tomorrow. if no change in presentation in next couple of days will switch to zyprexa zydis. 06/10: no change. T/C zydis. increased abilify to 20 today. 06/11: no change. DC abilify, start zyprexa. pt does not want to make this change, but it is made nevertheless. 06/12: no change in presentation. headphones playing loud static. vague, evasive answers. continue zydis 10 QHS. 06/13: Continue current regimen and plans 06/14: Continue current regimen and plans 06/15: appears ambivalent re taking zyprexa, has refused once and refused and then accepted once. sits for interview for the first time today, headphones are present but not turned on for the first time. pt states he prefers abilify to zyprexa but cannot say why. pt was encouraged to continue zyprexa trial. 06/16: same as yesterday except headphones perhaps on low volume. took zyprexa last night. continue current mgmt. court . 06/17: more visible on unit today, seeking out MD ojeda re court tomorrow. asking about signing in, PHP, narcisor. refused zyprexa last NOC. continue current mgmt. denies he has mental illness, denies depressed mood. 06/18: refusing medication. hearing continued for 1 week for NABOR. pt reports won't take medication variably due to being on CO for 30 minutes after medication and because once after taking the medication he had an upset stomach. 06/19: did not take meds last night. no notable events or behaviors. continue current mgmt. hearing continued until next saturday. 06/20: Continue current treatment plan. 06/21: Continue current treatment plan. 06/22: took meds sat and sat, did not take meds last night. continue current mgmt. advised to use TUMs for stomach pain. 06/23: took meds last night, denies side effects. spending more time outside of his room, largely in sensory room. 06/24: in room today. took meds last night. no change in presentation. 06/25: interviewed in his room. refused meds last night. no change in presentation. reports the only mental illness he has is ADHD. 06/26: hearing held, pt committed and ordered medications. return to abilify trial. orders entered for w/e. 06/27 -CTP not sure he will agree to inc dose after weekend- nor do we have IM order should he refuse PO 06/28 CTP 06/29: appears more relaxed, better related today. sat with MD in interview room rather than standing. encouraged to attend groups. agreeable to increase abilify to 15 mg, says 20 mg makes him feel uncomfortable. increase to 15 mg tonight. 06/30: spat out medication surreptitiously last night. informed he will be given abilify IM soon and was encouraged to comply with PO dosing in the meantime to be confident he will not have ADR. stable presentation. 07/01: no change in presentation. increase abilify to 20 mg QHS. 07/02: no change. continue current mgmt. CARLSON abilify saturday. 07/03: refused PO abilify last NOC mistakenly thinking he would get abilify CARLSON instead. he got zyprexa. misunderstanding worked out today, pt to continue PO abilify another week before getting CARLSON. continue current mgmt. 07/04: DC abilify as pt continues to cheek it. switch to invega, as guidelines indicate only a test dose to be given orally prior to CARLSON, as opposed to 2 weeks PO as for abilify CARLSON. 07/05: refused invega last night. try again tonight. plan for invega sustenna. 07/06: refused invega again last night, but did take a one-time dose today days. planning on CARLSON invega soon. no change in presentation. 07/07: no change in presentation. took 2 doses of PO invega, will give IM 234 mg tomorrow morning. 07/08: Continue current tx plan. 07/09: got invega sustenna 234 mg IM 07/08, will get invega sustenna 156 mg IM 07/15. stable presentation. 07/10: no s/e. feels medication makes it easier to get out and do things. continue current mgmt. 07/11 keep same treatment. 07/12 keep same treatment. 07/13: feels moving more than before, more able to do things. 07/14: no change in presentation. invega sustenna 156 mg IM tomorrow. continue current mgmt. Reason for continued inpatient stay Substantial Risk for: harm to self Time Spent With Patient Time: Total time managing care of this patient today __25__ minutes.
--- NOTE | 2024-07-15 12:33 | P.PNPSI_ITS ---
Subjective Subjective Date of Service: 07/15/24 Reason For Visit: Unspec anxiety d/o,atten-deficit/hyperactivity d/o Interim History: calm. terse, evasive. no complaints. reading kissnofrog. aware of IM for today. per staff, not attending groups. constructed, withdrawn. in room. CARLSON this morning. sleeping and eating well. Mental Status Exam Mental Status Exam Narrative: adequately dressed and groomed. sat for interview. poor eye contact. superficially cooperative. speech soft, sparse. decr amount. affect constricted, mood fine. no SI/HI/AVH expressed. Diagnostics Vital Signs (24Hr): BMI result Body Mass Index 30.5 Medications Medications Current Medications Acetaminophen (Acetaminophen 325 Mg Tablet) 650 mg PO Q6H PRN PRN Reason: Headache/Pain Mild Scale (1-3) Al Hydroxide/Mg Hydroxide (Magnesium Hydrox/Alum Hydrox 30 Ml Oral.Susp) 30 ml PO Q6H PRN PRN Reason: Heartburn/Nausea Hydroxyzine HCl (Hydroxyzine Hcl 25 Mg Tablet) 25 mg PO Q6H PRN PRN Reason: Anxiety Magnesium Hydroxide (Milk Of Magnesia 30 Ml Oral.Susp) 30 ml PO DAILY PRN PRN Reason: Constipation Multi-Ingred Cream/Lotion/Oil/Oint (Mineral Oil/Petrolatum,White 106 Gm Tube) 1 appl TOPICAL BID PRN; Protocol PRN Reason: dry skin Nicotine (Nicotine 21 Mg Patch.Td24) 21 mg TRANSDERMA DAILY PRN PRN Reason: nicotine cravings Nicotine Polacrilex (Nicotine Polacrilex 2 Mg Gum) 4 mg BUCCAL Q2H PRN PRN Reason: Nicotine Cravings Olanzapine (Olanzapine 5 Mg Tablet) 5 mg PO Q4H PRN PRN Reason: agitation, aggression Sodium Chloride (Sodium Chloride 0.65 % Nasal 44 Ml Sprbtl) 1 spray NOSTRIL-B Q1H PRN PRN Reason: nasal congestion Trazodone HCl (Trazodone Hcl 50 Mg Tablet) 50 mg PO BEDTIME MRX1 PRN PRN Reason: Insomnia Allergies Allergies Allergy/AdvReac Type Severity Reaction Status Date / Time No Known Allergies Allergy Verified 05/22/24 17:01 Assessment & Plan Assessment & Plan (1) Depressive disorder, atypical: Status: Acute Code(s): F32.89 - Other specified depressive episodes (2) Adjustment disorder with depressed mood: Status: Acute Code(s): F43.21 - Adjustment disorder with depressed mood Plan 24 yo male transferred from [facility] ED after a suicide attempt by hanging. He has been increasingly isolated, poor self care, stopped working. He has eating disorder symptoms and NSSI. Symptoms worsened in the setting of a break up. Rule out other mood disorder Plan: - Admit to inpatient psychiatry - Section 12, rosado warning. - Collateral information from family and providers. - Milieu treatment and group therapy. - Medications: Refuses - Social work evaluation. - Disposition planning. patient eloped in the after noon from the unit and was brought back by Police. 05/24: Continue current management and treatment plan. Encourage engagement in groups and milieu. 05/25: Start Abilify 5 mg. Patient to consider. Encourage group and milieu engagement. Fasting labs in AM. Collaterals would be helpful. 05/26: encouraged to take abilify. rosado warning, legal discussion. 05/27: took abilify 5 mg this morning for first time. 12b up tomorrow. continue current mgmt. 05/28: took abilify again today. feeling better and more into things. filed for commitment. 05/29: took abilify 5 again today. willing to increase to 10 as of saturday (ordered). asking for LENA again, will allow with security present. 05/31/2024: No changes 06/01: abilify dosing increased to 10 mg as of this morning. initially too paranoid to sleep in single room, slept there last night for first time. court . 06/02: no change in presentation. declines increase in abilify dosing. stands by door throughout. 06/03 continue tx. 06/04: no change in presentation. agrees to increase abilify to 15 mg daily. hearing continued for 2 weeks. 06/05: no change. self-dialoguing. took abilify 15 today. appears with more irritable edge today. unclear if cheeking meds. order CO for 30 minutes post- medication.. 06/06 pt went to bathroom, flushed without evidence of urinating, seems like he is not taking antipsychotic. 06/07 continue tx. 06/08: no substantial change in presentation. saturday (and likely all the days before) pt appeared to have flushed his medication. pt was compliant with 30- min post-medication observation period on saturday. continue current mgmt. increase abilify to 20 mg in several days. 06/09: no change in presentation. will increase abilify to 20 mg as of tomorrow. if no change in presentation in next couple of days will switch to zyprexa zydis. 06/10: no change. T/C zydis. increased abilify to 20 today. 06/11: no change. DC abilify, start zyprexa. pt does not want to make this change, but it is made nevertheless. 06/12: no change in presentation. headphones playing loud static. vague, evasive answers. continue zydis 10 QHS. 06/13: Continue current regimen and plans 06/14: Continue current regimen and plans 06/15: appears ambivalent re taking zyprexa, has refused once and refused and then accepted once. sits for interview for the first time today, headphones are present but not turned on for the first time. pt states he prefers abilify to zyprexa but cannot say why. pt was encouraged to continue zyprexa trial. 06/16: same as yesterday except headphones perhaps on low volume. took zyprexa last night. continue current mgmt. court . 06/17: more visible on unit today, seeking out MD ojeda re court tomorrow. asking about signing in, [facility], guitar. refused zyprexa last NOC. continue current mgmt. denies he has mental illness, denies depressed mood. 06/18: refusing medication. hearing continued for 1 week for NABOR. pt reports won't take medication variably due to being on CO for 30 minutes after medication and because once after taking the medication he had an upset stomach. 06/19: did not take meds last night. no notable events or behaviors. continue current mgmt. hearing continued until next saturday. 06/20: Continue current treatment plan. 06/21: Continue current treatment plan. 06/22: took meds fri and sat, did not take meds last night. continue current mgmt. advised to use TUMs for stomach pain. 06/23: took meds last night, denies side effects. spending more time outside of his room, largely in sensory room. 06/24: in room today. took meds last night. no change in presentation. 06/25: interviewed in his room. refused meds last night. no change in presentation. reports the only mental illness he has is ADHD. 06/26: hearing held, pt committed and ordered medications. return to abilify trial. orders entered for w/e. 06/27 -CTP not sure he will agree to inc dose after weekend- nor do we have IM order should he refuse PO 06/28 CTP 06/29: appears more relaxed, better related today. sat with MD in interview room rather than standing. encouraged to attend groups. agreeable to increase abilify to 15 mg, says 20 mg makes him feel uncomfortable. increase to 15 mg tonight. 06/30: spat out medication surreptitiously last night. informed he will be given abilify IM soon and was encouraged to comply with PO dosing in the meantime to be confident he will not have ADR. stable presentation. 07/01: no change in presentation. increase abilify to 20 mg QHS. 07/02: no change. continue current mgmt. [facility] abilify saturday. 07/03: refused PO abilify last NOC mistakenly thinking he would get abilify CARLSON instead. he got zyprexa. misunderstanding worked out today, pt to continue PO abilify another week before getting CARLSON. continue current mgmt. 07/04: DC abilify as pt continues to cheek it. switch to invega, as guidelines indicate only a test dose to be given orally prior to CARLSON, as opposed to 2 weeks PO as for abilify [facility]LSON. 07/05: refused invega last night. try again tonight. plan for invega sustenna. 07/06: refused invega again last night, but did take a one-time dose today days. planning on CARLSON invega soon. no change in presentation. 07/07: no change in presentation. took 2 doses of PO invega, will give IM 234 mg tomorrow morning. 07/08: Continue current tx plan. 07/09: got invega sustenna 234 mg IM 07/08, will get invega sustenna 156 mg IM 07/15. stable presentation. 07/10: no s/e. feels medication makes it easier to get out and do things. continue current mgmt. 07/11 keep same treatment. 07/12 keep same treatment. 07/13: feels moving more than before, more able to do things. 07/14: no change in presentation. invega sustenna 156 mg IM tomorrow. continue current mgmt. 07/15: awaiting CARLSON today. no change in presentation. sustenna 234 mg Q30 days ordered to start 08/12. Reason for continued inpatient stay Substantial Risk for: harm to self Time Spent With Patient Time: Total time managing care of this patient today __25__ minutes.
[2024-07-15] MEDS: Paliperidone Palmitate 156 MG/ML SYRINGE IM (14:13)
[2024-07-16 07:00] VITALS: BMI 29.9
[2024-07-16 07:42] VITALS: BP 136/75; PULSE 76; RESP 18; TEMP 36.8; O2SAT 98
--- NOTE | 2024-07-16 13:48 | P.PNPSI_ITS ---
Subjective Subjective Date of Service: 07/16/24 Reason For Visit: Unspec anxiety d/o,atten-deficit/hyperactivity d/o Interim History: no change in presentation. per staff, isolative, attended 1 group. got CARLSON yesterday. pacing. slept all NOC. Mental Status Exam Mental Status Exam Narrative: adequately dressed and groomed. sat for interview. poor eye contact. superficially cooperative. speech soft, sparse. decr amount. affect constricted, mood all right. no SI/HI/AVH expressed. Diagnostics Vital Signs (24Hr): Vital Signs - 24 hr 07/16/24 07:42 Temperature 98.3 F Pulse Rate 76 Respiratory Rate 18 Blood Pressure 136/75 Pulse Oximetry 98 Oxygen Delivery Method Room Air BMI result Body Mass Index 29.9 Medications Medications Current Medications Acetaminophen (Acetaminophen 325 Mg Tablet) 650 mg PO Q6H PRN PRN Reason: Headache/Pain Mild Scale (1-3) Al Hydroxide/Mg Hydroxide (Magnesium Hydrox/Alum Hydrox 30 Ml Oral.Susp) 30 ml PO Q6H PRN PRN Reason: Heartburn/Nausea Hydroxyzine HCl (Hydroxyzine Hcl 25 Mg Tablet) 25 mg PO Q6H PRN PRN Reason: Anxiety Magnesium Hydroxide (Milk Of Magnesia 30 Ml Oral.Susp) 30 ml PO DAILY PRN PRN Reason: Constipation Multi-Ingred Cream/Lotion/Oil/Oint (Mineral Oil/Petrolatum,White 106 Gm Tube) 1 appl TOPICAL BID PRN; Protocol PRN Reason: dry skin Nicotine (Nicotine 21 Mg Patch.Td24) 21 mg TRANSDERMA DAILY PRN PRN Reason: nicotine cravings Nicotine Polacrilex (Nicotine Polacrilex 2 Mg Gum) 4 mg BUCCAL Q2H PRN PRN Reason: Nicotine Cravings Olanzapine (Olanzapine 5 Mg Tablet) 5 mg PO Q4H PRN PRN Reason: agitation, aggression Paliperidone Palmitate (Paliperidone Palmitate 234 Mg/1.5 Ml Syringe) 234 mg IM Q30D JULIAN Sodium Chloride (Sodium Chloride 0.65 % Nasal 44 Ml Sprbtl) 1 spray NOSTRIL-B Q1H PRN PRN Reason: nasal congestion Trazodone HCl (Trazodone Hcl 50 Mg Tablet) 50 mg PO BEDTIME MRX1 PRN PRN Reason: Insomnia Allergies Allergies Allergy/AdvReac Type Severity Reaction Status Date / Time No Known Allergies Allergy Verified 05/22/24 17:01 Assessment & Plan Assessment & Plan (1) Depressive disorder, atypical: Status: Acute Code(s): F32.89 - Other specified depressive episodes (2) Adjustment disorder with depressed mood: Status: Acute Code(s): F43.21 - Adjustment disorder with depressed mood Plan 24 yo male transferred from [facility] ED after a suicide attempt by hanging. He has been increasingly isolated, poor self care, stopped working. He has eating disorder symptoms and NSSI. Symptoms worsened in the setting of a break up. Rule out other mood disorder Plan: - Admit to inpatient psychiatry - Section 12, rosado warning. - Collateral information from family and providers. - Milieu treatment and group therapy. - Medications: Refuses - Social work evaluation. - Disposition planning. patient eloped in the after noon from the unit and was brought back by Police. 05/24: Continue current management and treatment plan. Encourage engagement in groups and milieu. 05/25: Start Abilify 5 mg. Patient to consider. Encourage group and milieu engagement. Fasting labs in AM. Collaterals would be helpful. 05/26: encouraged to take abilify. rosado warning, legal discussion. 05/27: took abilify 5 mg this morning for first time. 12b up tomorrow. continue current mgmt. 05/28: took abilify again today. feeling better and more into things. filed for commitment. 05/29: took abilify 5 again today. willing to increase to 10 as of saturday (ordered). asking for LENA again, will allow with security present. 05/31/2024: No changes 06/01: abilify dosing increased to 10 mg as of this morning. initially too paranoid to sleep in single room, slept there last night for first time. court . 06/02: no change in presentation. declines increase in abilify dosing. stands by door throughout. 06/03 continue tx. 06/04: no change in presentation. agrees to increase abilify to 15 mg daily. hearing continued for 2 weeks. 06/05: no change. self-dialoguing. took abilify 15 today. appears with more irritable edge today. unclear if cheeking meds. order CO for 30 minutes post- medication.. 06/06 pt went to bathroom, flushed without evidence of urinating, seems like he is not taking antipsychotic. 06/07 continue tx. 06/08: no substantial change in presentation. saturday (and likely all the days before) pt appeared to have flushed his medication. pt was compliant with 30- min post-medication observation period on saturday. continue current mgmt. increase abilify to 20 mg in several days. 06/09: no change in presentation. will increase abilify to 20 mg as of tomorrow. if no change in presentation in next couple of days will switch to zyprexa zydis. 06/10: no change. T/C zydis. increased abilify to 20 today. 06/11: no change. DC abilify, start zyprexa. pt does not want to make this change, but it is made nevertheless. 06/12: no change in presentation. headphones playing loud static. vague, evasive answers. continue zydis 10 QHS. 06/13: Continue current regimen and plans 06/14: Continue current regimen and plans 06/15: appears ambivalent re taking zyprexa, has refused once and refused and then accepted once. sits for interview for the first time today, headphones are present but not turned on for the first time. pt states he prefers abilify to zyprexa but cannot say why. pt was encouraged to continue zyprexa trial. 06/16: same as yesterday except headphones perhaps on low volume. took zyprexa last night. continue current mgmt. court . 06/17: more visible on unit today, seeking out x2 re court tomorrow. asking about signing in, [facility], guitar. refused zyprexa last NOC. continue current mgmt. denies he has mental illness, denies depressed mood. 06/18: refusing medication. hearing continued for 1 week for NABOR. pt reports won't take medication variably due to being on CO for 30 minutes after medication and because once after taking the medication he had an upset stomach. 06/19: did not take meds last night. no notable events or behaviors. continue current mgmt. hearing continued until next saturday. 06/20: Continue current treatment plan. 06/21: Continue current treatment plan. 06/22: took meds fri and sat, did not take meds last night. continue current mgmt. advised to use TUMs for stomach pain. 06/23: took meds last night, denies side effects. spending more time outside of his room, largely in sensory room. 06/24: in room today. took meds last night. no change in presentation. 06/25: interviewed in his room. refused meds last night. no change in presentation. reports the only mental illness he has is ADHD. 06/26: hearing held, pt committed and ordered medications. return to abilify trial. orders entered for w/e. 06/27 -CTP not sure he will agree to inc dose after weekend- nor do we have IM order should he refuse PO 06/28 CTP 06/29: appears more relaxed, better related today. sat with MD in interview room rather than standing. encouraged to attend groups. agreeable to increase abilify to 15 mg, says 20 mg makes him feel uncomfortable. increase to 15 mg tonight. 06/30: spat out medication surreptitiously last night. informed he will be given abilify IM soon and was encouraged to comply with PO dosing in the meantime to be confident he will not have ADR. stable presentation. 07/01: no change in presentation. increase abilify to 20 mg QHS. 07/02: no change. continue current mgmt. CARLSON abilify saturday. 07/03: refused PO abilify last NOC mistakenly thinking he would get abilify CARLSON instead. he got zyprexa. misunderstanding worked out today, pt to continue PO abilify another week before getting CARLSON. continue current mgmt. 07/04: DC abilify as pt continues to cheek it. switch to invega, as guidelines indicate only a test dose to be given orally prior to CARLSON, as opposed to 2 weeks PO as for abilify CARLSON. 07/05: refused invega last night. try again tonight. plan for invega sustenna. 07/06: refused invega again last night, but did take a one-time dose today days. planning on CARLSON invega soon. no change in presentation. 07/07: no change in presentation. took 2 doses of PO invega, will give IM 234 mg tomorrow morning. 07/08: Continue current tx plan. 07/09: got invega sustenna 234 mg IM 07/08, will get invega sustenna 156 mg IM 07/15. stable presentation. 07/10: no s/e. feels medication makes it easier to get out and do things. continue current mgmt. 07/11 keep same treatment. 07/12 keep same treatment. 07/13: feels moving more than before, more able to do things. 07/14: no change in presentation. invega sustenna 156 mg IM tomorrow. continue current mgmt. 07/15: awaiting CARLSON today. no change in presentation. sustenna 234 mg Q30 days ordered to start 08/12. 1024: got CARLSON sustenna 156 mg yesterday. no change in presentation today. discuss depressive Sx with pt and broach possibility of antidepressant medication. Reason for continued inpatient stay Substantial Risk for: harm to self Time Spent With Patient Time: Total time managing care of this patient today _25___ minutes.
[2024-07-17 08:00] VITALS: RESP 18
--- NOTE | 2024-07-17 12:20 | P.PNPSI_ITS ---
Subjective Subjective Date of Service: 07/17/24 Reason For Visit: Unspec anxiety d/o,atten-deficit/hyperactivity d/o Interim History: no change in presentation. longer conversation held around why discharge has not happened as soon as had initially been hoped for - essentially, due to lack of apparent improvement in presentation. pt informed he would be here at least until his next CARLSON. broached depression with pt and offered anti-depressant medication. pt said he would consider it. per staff, attended 1 group. slept 7 hours. Mental Status Exam Mental Status Exam Narrative: adequately dressed and groomed. sat for interview. poor eye contact. superficially cooperative. speech soft, sparse. decr amount. affect constricted, mood euthymic. no SI/HI/AVH expressed. Diagnostics Vital Signs (24Hr): Vital Signs - 24 hr 07/17/24 08:00 Respiratory Rate 18 BMI result Body Mass Index 29.9 Medications Medications Current Medications Acetaminophen (Acetaminophen 325 Mg Tablet) 650 mg PO Q6H PRN PRN Reason: Headache/Pain Mild Scale (1-3) Al Hydroxide/Mg Hydroxide (Magnesium Hydrox/Alum Hydrox 30 Ml Oral.Susp) 30 ml PO Q6H PRN PRN Reason: Heartburn/Nausea Hydroxyzine HCl (Hydroxyzine Hcl 25 Mg Tablet) 25 mg PO Q6H PRN PRN Reason: Anxiety Magnesium Hydroxide (Milk Of Magnesia 30 Ml Oral.Susp) 30 ml PO DAILY PRN PRN Reason: Constipation Multi-Ingred Cream/Lotion/Oil/Oint (Mineral Oil/Petrolatum,White 106 Gm Tube) 1 appl TOPICAL BID PRN; Protocol PRN Reason: dry skin Nicotine (Nicotine 21 Mg Patch.Td24) 21 mg TRANSDERMA DAILY PRN PRN Reason: nicotine cravings Nicotine Polacrilex (Nicotine Polacrilex 2 Mg Gum) 4 mg BUCCAL Q2H PRN PRN Reason: Nicotine Cravings Olanzapine (Olanzapine 5 Mg Tablet) 5 mg PO Q4H PRN PRN Reason: agitation, aggression Paliperidone Palmitate (Paliperidone Palmitate 234 Mg/1.5 Ml Syringe) 234 mg IM Q30D JULIAN Sodium Chloride (Sodium Chloride 0.65 % Nasal 44 Ml Sprbtl) 1 spray NOSTRIL-B Q1H PRN PRN Reason: nasal congestion Trazodone HCl (Trazodone Hcl 50 Mg Tablet) 50 mg PO BEDTIME MRX1 PRN PRN Reason: Insomnia Allergies Allergies Allergy/AdvReac Type Severity Reaction Status Date / Time No Known Allergies Allergy Verified 05/22/24 17:01 Assessment & Plan Assessment & Plan (1) Depressive disorder, atypical: Status: Acute Code(s): F32.89 - Other specified depressive episodes (2) Adjustment disorder with depressed mood: Status: Acute Code(s): F43.21 - Adjustment disorder with depressed mood Plan 24 yo male transferred from [facility] ED after a suicide attempt by hanging. He has been increasingly isolated, poor self care, stopped working. He has eating disorder symptoms and NSSI. Symptoms worsened in the setting of a break up. Rule out other mood disorder Plan: - Admit to inpatient psychiatry - Section 12, rosado warning. - Collateral information from family and providers. - Milieu treatment and group therapy. - Medications: Refuses - Social work evaluation. - Disposition planning. patient eloped in the after noon from the unit and was brought back by Police. 05/24: Continue current management and treatment plan. Encourage engagement in groups and milieu. 05/25: Start Abilify 5 mg. Patient to consider. Encourage group and milieu engagement. Fasting labs in AM. Collaterals would be helpful. 05/26: encouraged to take abilify. rosado warning, legal discussion. 05/27: took abilify 5 mg this morning for first time. 12b up tomorrow. continue current mgmt. 05/28: took abilify again today. feeling better and more into things. filed for commitment. 05/29: took abilify 5 again today. willing to increase to 10 as of saturday (ordered). asking for LENA again, will allow with security present. 05/31/2024: No changes 06/01: abilify dosing increased to 10 mg as of this morning. initially too paranoid to sleep in single room, slept there last night for first time. court . 06/02: no change in presentation. declines increase in abilify dosing. stands by door throughout. 06/03 continue tx. 06/04: no change in presentation. agrees to increase abilify to 15 mg daily. hearing continued for 2 weeks. 06/05: no change. self-dialoguing. took abilify 15 today. appears with more irritable edge today. unclear if cheeking meds. order CO for 30 minutes post- medication.. 06/06 pt went to bathroom, flushed without evidence of urinating, seems like he is not taking antipsychotic. 06/07 continue tx. 06/08: no substantial change in presentation. saturday (and likely all the days before) pt appeared to have flushed his medication. pt was compliant with 30-mi n post-medication observation period on saturday. continue current mgmt. increase abilify to 20 mg in several days. 06/09: no change in presentation. will increase abilify to 20 mg as of tomorrow. if no change in presentation in next couple of days will switch to zyprexa zydis. 06/10: no change. T/C zydis. increased abilify to 20 today. 06/11: no change. DC abilify, start zyprexa. pt does not want to make this change, but it is made nevertheless. 06/12: no change in presentation. headphones playing loud static. vague, evasive answers. continue zydis 10 QHS. 06/13: Continue current regimen and plans 06/14: Continue current regimen and plans 06/15: appears ambivalent re taking zyprexa, has refused once and refused and then accepted once. sits for interview for the first time today, headphones are present but not turned on for the first time. pt states he prefers abilify to zyprexa but cannot say why. pt was encouraged to continue zyprexa trial. 06/16: same as yesterday except headphones perhaps on low volume. took zyprexa last night. continue current mgmt. court . 06/17: more visible on unit today, seeking out x2 re court tomorrow. asking about signing in, je MCCLENDON. refused zyprexa last NOC. continue current mgmt. denies he has mental illness, denies depressed mood. 06/18: refusing medication. hearing continued for 1 week for NABOR. pt reports won't take medication variably due to being on CO for 30 minutes after medication and because once after taking the medication he had an upset stomach. 06/19: did not take meds last night. no notable events or behaviors. continue current mgmt. hearing continued until next saturday. 06/20: Continue current treatment plan. 06/21: Continue current treatment plan. 06/22: took meds sat and sat, did not take meds last night. continue current mgmt. advised to use TUMs for stomach pain. 06/23: took meds last night, denies side effects. spending more time outside of his room, largely in sensory room. 06/24: in room today. took meds last night. no change in presentation. 06/25: interviewed in his room. refused meds last night. no change in presentation. reports the only mental illness he has is ADHD. 06/26: hearing held, pt committed and ordered medications. return to abilify trial. orders entered for w/e. 06/27 -CTP not sure he will agree to inc dose after weekend- nor do we have IM o rder should he refuse PO 06/28 CTP 06/29: appears more relaxed, better related today. sat with MD in interview room rather than standing. encouraged to attend groups. agreeable to increase abilify to 15 mg, says 20 mg makes him feel uncomfortable. increase to 15 mg tonight. 06/30: spat out medication surreptitiously last night. informed he will be given abilify IM soon and was encouraged to comply with PO dosing in the meantime to be confident he will not have ADR. stable presentation. 07/01: no change in presentation. increase abilify to 20 mg QHS. 07/02: no change. continue current mgmt. CARLSON abilify saturday. 07/03: refused PO abilify last NOC mistakenly thinking he would get abilify CARLSON instead. he got zyprexa. misunderstanding worked out today, pt to continue PO abilify another week before getting CARLSON. continue current mgmt. 07/04: DC abilify as pt continues to cheek it. switch to invega, as guidelines indicate only a test dose to be given orally prior to CARLSON, as opposed to 2 weeks PO as for abilify CARLSON. 07/05: refused invega last night. try again tonight. plan for invega sustenna. 07/06: refused invega again last night, but did take a one-time dose today d ays. planning on CARLSON invega soon. no change in presentation. 07/07: no change in presentation. took 2 doses of PO invega, will give IM 234 mg tomorrow morning. 07/08: Continue current tx plan. 07/09: got invega sustenna 234 mg IM 07/08, will get invega sustenna 156 mg IM 07/15. stable presentation. 07/10: no s/e. feels medication makes it easier to get out and do things. continue current mgmt. 07/11 keep same treatment. 07/12 keep same treatment. 07/13: feels moving more than before, more able to do things. 07/14: no change in presentation. invega sustenna 156 mg IM tomorrow. continue current mgmt. 07/15: awaiting CARLSON today. no change in presentation. sustenna 234 mg Q30 days ordered to start 08/12. 1024: got CARLSON sustenna 156 mg yesterday. no change in presentation today. discuss depressive Sx with pt and broach possibility of antidepressant medication. 07/17: depression and depression mgmt discussed. pt will consider. otherwise no change in presentation, continue current mgmt. Reason for continued inpatient stay Substantial Risk for: harm to self Time Spent With Patient Time: Total time managing care of this patient today __25__ minutes.
[2024-07-18 07:53] VITALS: RESP 16
--- NOTE | 2024-07-18 16:20 | P.PNPSI_ITS ---
Subjective Subjective Date of Service: 07/18/24 Reason For Visit: Unspec anxiety d/o,atten-deficit/hyperactivity d/o Subjective Notes: Section 8 Interim History: Pt slept through the night. Pt reports he is pretty good. He denies SI/HI. poor eye contact. poverty of thought, room with books and trash around him. no behavioral concerns. Medication Compliance: Yes Review of Systems Review of Systems Patient has no acute medical complaints at this time Yes all other systems are reviewed and are negative Mental Status Exam Mental Status Exam Narrative: adequately dressed and groomed. sat for interview. poor eye contact. superficially cooperative. speech soft, sparse. decr amount. affect constricted, mood euthymic. no SI/HI/AVH expressed. Diagnostics Vital Signs (24Hr): Vital Signs - 24 hr 07/18/24 07:53 Respiratory Rate 16 BMI result Body Mass Index 29.9 Medications Medications Current Medications Acetaminophen (Acetaminophen 325 Mg Tablet) 650 mg PO Q6H PRN PRN Reason: Headache/Pain Mild Scale (1-3) Al Hydroxide/Mg Hydroxide (Magnesium Hydrox/Alum Hydrox 30 Ml Oral.Susp) 30 ml PO Q6H PRN PRN Reason: Heartburn/Nausea Hydroxyzine HCl (Hydroxyzine Hcl 25 Mg Tablet) 25 mg PO Q6H PRN PRN Reason: Anxiety Magnesium Hydroxide (Milk Of Magnesia 30 Ml Oral.Susp) 30 ml PO DAILY PRN PRN Reason: Constipation Multi-Ingred Cream/Lotion/Oil/Oint (Mineral Oil/Petrolatum,White 106 Gm Tube) 1 appl TOPICAL BID PRN; Protocol PRN Reason: dry skin Nicotine (Nicotine 21 Mg Patch.Td24) 21 mg TRANSDERMA DAILY PRN PRN Reason: nicotine cravings Nicotine Polacrilex (Nicotine Polacrilex 2 Mg Gum) 4 mg BUCCAL Q2H PRN PRN Reason: Nicotine Cravings Olanzapine (Olanzapine 5 Mg Tablet) 5 mg PO Q4H PRN PRN Reason: agitation, aggression Paliperidone Palmitate (Paliperidone Palmitate 234 Mg/1.5 Ml Syringe) 234 mg IM Q30D JULIAN Sodium Chloride (Sodium Chloride 0.65 % Nasal 44 Ml Sprbtl) 1 spray NOSTRIL-B Q1H PRN PRN Reason: nasal congestion Trazodone HCl (Trazodone Hcl 50 Mg Tablet) 50 mg PO BEDTIME MRX1 PRN PRN Reason: Insomnia Allergies Allergies Allergy/AdvReac Type Severity Reaction Status Date / Time No Known Allergies Allergy Verified 05/22/24 17:01 Assessment & Plan Assessment & Plan (1) Depressive disorder, atypical: Status: Acute Code(s): F32.89 - Other specified depressive episodes Assessment and Plan: r/o schizophrenia (2) Adjustment disorder with depressed mood: Status: Acute Code(s): F43.21 - Adjustment disorder with depressed mood Plan 24 yo male transferred from [facility] ED after a suicide attempt by hanging. He has been increasingly isolated, poor self care, stopped working. He has eating disorder symptoms and NSSI. Symptoms worsened in the setting of a break up. Rule out other mood disorder Plan: - Admit to inpatient psychiatry - Section 12, rosado warning. - Collateral information from family and providers. - Milieu treatment and group therapy. - Medications: Refuses - Social work evaluation. - Disposition planning. patient eloped in the after noon from the unit and was brought back by Police. 05/24: Continue current management and treatment plan. Encourage engagement in groups and milieu. 05/25: Start Abilify 5 mg. Patient to consider. Encourage group and milieu engagement. Fasting labs in AM. Collaterals would be helpful. 05/26: encouraged to take abilify. rosado warning, legal discussion. 05/27: took abilify 5 mg this morning for first time. 12b up tomorrow. continue current mgmt. 05/28: took abilify again today. feeling better and more into things. filed for commitment. 05/29: took abilify 5 again today. willing to increase to 10 as of saturday (ordered). asking for LENA again, will allow with security present. 05/31/2024: No changes 06/01: abilify dosing increased to 10 mg as of this morning. initially too paranoid to sleep in single room, slept there last night for first time. court . 06/02: no change in presentation. declines increase in abilify dosing. stands by door throughout. 06/03 continue tx. 06/04: no change in presentation. agrees to increase abilify to 15 mg daily. hearing continued for 2 weeks. 06/05: no change. self-dialoguing. took abilify 15 today. appears with more irritable edge today. unclear if cheeking meds. order CO for 30 minutes post- medication.. 06/06 pt went to bathroom, flushed without evidence of urinating, seems like he is not taking antipsychotic. 06/07 continue tx. 06/08: no substantial change in presentation. saturday (and likely all the days before) pt appeared to have flushed his medication. pt was compliant with 30- min post-medication observation period on saturday. continue current mgmt. increase abilify to 20 mg in several days. 06/09: no change in presentation. will increase abilify to 20 mg as of tomorrow. if no change in presentation in next couple of days will switch to zyprexa zydis. 06/10: no change. T/C zydis. increased abilify to 20 today. 06/11: no change. DC abilify, start zyprexa. pt does not want to make this change, but it is made nevertheless. 06/12: no change in presentation. headphones playing loud static. vague, evasive answers. continue zydis 10 QHS. 06/13: Continue current regimen and plans 06/14: Continue current regimen and plans 06/15: appears ambivalent re taking zyprexa, has refused once and refused and then accepted once. sits for interview for the first time today, headphones are present but not turned on for the first time. pt states he prefers abilify to zyprexa but cannot say why. pt was encouraged to continue zyprexa trial. 06/16: same as yesterday except headphones perhaps on low volume. took zyprexa last night. continue current mgmt. court . 06/17: more visible on unit today, seeking out x2 re court tomorrow. asking about signing in, je MCCLENDON. refused zyprexa last NOC. continue current mgmt. denies he has mental illness, denies depressed mood. 06/18: refusing medication. hearing continued for 1 week for NABRO. pt reports won't take medication variably due to being on CO for 30 minutes after medication and because once after taking the medication he had an upset stomach. 06/19: did not take meds last night. no notable events or behaviors. continue current mgmt. hearing continued until next saturday. 06/20: Continue current treatment plan. 06/21: Continue current treatment plan. 06/22: took meds sat and sat, did not take meds last night. continue current mgmt. advised to use TUMs for stomach pain. 06/23: took meds last night, denies side effects. spending more time outside of his room, largely in sensory room. 06/24: in room today. took meds last night. no change in presentation. 06/25: interviewed in his room. refused meds last night. no change in presentation. reports the only mental illness he has is ADHD. 06/26: hearing held, pt committed and ordered medications. return to abilify trial. orders entered for w/e. 06/27 -CTP not sure he will agree to inc dose after weekend- nor do we have IM order should he refuse PO 06/28 CTP 06/29: appears more relaxed, better related today. sat with MD in interview room rather than standing. encouraged to attend groups. agreeable to increase abilify to 15 mg, says 20 mg makes him feel uncomfortable. increase to 15 mg tonight. 06/30: spat out medication surreptitiously last night. informed he will be given abilify IM soon and was encouraged to comply with PO dosing in the meantime to be confident he will not have ADR. stable presentation. 07/01: no change in presentation. increase abilify to 20 mg QHS. 07/02: no change. continue current mgmt. CARLSON abilify saturday. 07/03: refused PO abilify last NOC mistakenly thinking he would get abilify CARLSON instead. he got zyprexa. misunderstanding worked out today, pt to continue PO abilify another week before getting CARLSON. continue current mgmt. 07/04: DC abilify as pt continues to cheek it. switch to invega, as guidelines indicate only a test dose to be given orally prior to CARLSON, as opposed to 2 weeks PO as for abilify CARLSON. 07/05: refused invega last night. try again tonight. plan for invega sustenna. 07/06: refused invega again last night, but did take a one-time dose today days. planning on CARLSON invega soon. no change in presentation. 07/07: no change in presentation. took 2 doses of PO invega, will give IM 234 mg tomorrow morning. 07/08: Continue current tx plan. 07/09: got invega sustenna 234 mg IM 07/08, will get invega sustenna 156 mg IM 07/15. stable presentation. 07/10: no s/e. feels medication makes it easier to get out and do things. continue current mgmt. 07/11 keep same treatment. 07/12 keep same treatment. 07/13: feels moving more than before, more able to do things. 07/14: no change in presentation. invega sustenna 156 mg IM tomorrow. c ontinue current mgmt. 07/15: awaiting CARLSON today. no change in presentation. sustenna 234 mg Q30 days ordered to start 08/12. 1024: got CARLSON sustenna 156 mg yesterday. no change in presentation today. discuss depressive Sx with pt and broach possibility of antidepressant medication. 07/17: depression and depression mgmt discussed. pt will consider. otherwise no change in presentation, continue current mgmt. 07/18 continue tx. Reason for continued inpatient stay Substantial Risk for: inability to function Time Spent With Patient Time: Total time managing care of this patient today ____ minutes.
[2024-07-18 19:40] VITALS: RESP 16
[2024-07-19 08:00] VITALS: RESP 16
--- NOTE | 2024-07-19 16:04 | HO.PSYCHPN ---
Subjective Subjective Date of Service: 07/19/24 Reason For Visit: Unspec anxiety d/o,atten-deficit/hyperactivity d/o Subjective Notes: Section 8 Interim History: Pt slept through the night. Pt reports he is pretty good. He denies SI/HI. poor eye contact. poverty of thought, room with books and trash around him. no behavioral concerns. Review of Systems Review of Systems Patient has no acute medical complaints at this time Yes all other systems are reviewed and are negative Mental Status Exam Mental Status Exam Narrative: adequately dressed and groomed. sat for interview. poor eye contact. superficially cooperative. speech soft, sparse. decr amount. affect constricted, mood euthymic. no SI/HI/AVH expressed. Diagnostics Vital Signs (24Hr): Vital Signs - 24 hr 07/18/24 19:40 07/19/24 08:00 Respiratory Rate 16 16 BMI result Body Mass Index 29.9 Medications Medications Current Medications Acetaminophen (Acetaminophen 325 Mg Tablet) 650 mg PO Q6H PRN PRN Reason: Headache/Pain Mild Scale (1-3) Al Hydroxide/Mg Hydroxide (Magnesium Hydrox/Alum Hydrox 30 Ml Oral.Susp) 30 ml PO Q6H PRN PRN Reason: Heartburn/Nausea Hydroxyzine HCl (Hydroxyzine Hcl 25 Mg Tablet) 25 mg PO Q6H PRN PRN Reason: Anxiety Magnesium Hydroxide (Milk Of Magnesia 30 Ml Oral.Susp) 30 ml PO DAILY PRN PRN Reason: Constipation Multi-Ingred Cream/Lotion/Oil/Oint (Mineral Oil/Petrolatum,White 106 Gm Tube) 1 appl TOPICAL BID PRN; Protocol PRN Reason: dry skin Nicotine (Nicotine 21 Mg Patch.Td24) 21 mg TRANSDERMA DAILY PRN PRN Reason: nicotine cravings Nicotine Polacrilex (Nicotine Polacrilex 2 Mg Gum) 4 mg BUCCAL Q2H PRN PRN Reason: Nicotine Cravings Olanzapine (Olanzapine 5 Mg Tablet) 5 mg PO Q4H PRN PRN Reason: agitation, aggression Paliperidone Palmitate (Paliperidone Palmitate 234 Mg/1.5 Ml Syringe) 234 mg IM Q30D JULIAN Sodium Chloride (Sodium Chloride 0.65 % Nasal 44 Ml Sprbtl) 1 spray NOSTRIL-B Q1H PRN PRN Reason: nasal congestion Trazodone HCl (Trazodone Hcl 50 Mg Tablet) 50 mg PO BEDTIME MRX1 PRN PRN Reason: Insomnia Allergies Allergies Allergy/AdvReac Type Severity Reaction Status Date / Time No Known Allergies Allergy Verified 05/22/24 17:01 Assessment & Plan Assessment & Plan (1) Depressive disorder, atypical: Status: Acute Code(s): F32.89 - Other specified depressive episodes (2) Adjustment disorder with depressed mood: Status: Acute Code(s): F43.21 - Adjustment disorder with depressed mood Plan 24 yo male transferred from [facility] ED after a suicide attempt by hanging. He has been increasingly isolated, poor self care, stopped working. He has eating disorder symptoms and NSSI. Symptoms worsened in the setting of a break up. Rule out other mood disorder Plan: - Admit to inpatient psychiatry - Section 12, rosado warning. - Collateral information from family and providers. - Milieu treatment and group therapy. - Medications: Refuses - Social work evaluation. - Disposition planning. patient eloped in the after noon from the unit and was brought back by Police. 05/24: Continue current management and treatment plan. Encourage engagement in groups and milieu. 05/25: Start Abilify 5 mg. Patient to consider. Encourage group and milieu engagement. Fasting labs in AM. Collaterals would be helpful. 05/26: encouraged to take abilify. rosado warning, legal discussion. 05/27: took abilify 5 mg this morning for first time. 12b up tomorrow. continue current mgmt. 05/28: took abilify again today. feeling better and more into things. filed for commitment. 05/29: took abilify 5 again today. willing to increase to 10 as of saturday (ordered). asking for LENA again, will allow with security present. 05/31/2024: No changes 06/01: abilify dosing increased to 10 mg as of this morning. initially too paranoid to sleep in single room, slept there last night for first time. court . 06/02: no change in presentation. declines increase in abilify dosing. stands by door throughout. 06/03 continue tx. 06/04: no change in presentation. agrees to increase abilify to 15 mg daily. hearing continued for 2 weeks. 06/05: no change. self-dialoguing. took abilify 15 today. appears with more irritable edge today. unclear if cheeking meds. order CO for 30 minutes post-medication.. 06/06 pt went to bathroom, flushed without evidence of urinating, seems like he is not taking antipsychotic. 06/07 continue tx. 06/08: no substantial change in presentation. saturday (and likely all the days before) pt appeared to have flushed his medication. pt was compliant with 30-min post-medication observation period on saturday. continue current mgmt. increase abilify to 20 mg in several days. 06/09: no change in presentation. will increase abilify to 20 mg as of tomorrow. if no change in presentation in next couple of days will switch to zyprexa zydis. 06/10: no change. T/C zydis. increased abilify to 20 today. 06/11: no change. DC abilify, start zyprexa. pt does not want to make this change, but it is made nevertheless. 06/12: no change in presentation. headphones playing loud static. vague, evasive answers. continue zydis 10 QHS. 06/13: Continue current regimen and plans 06/14: Continue current regimen and plans 06/15: appears ambivalent re taking zyprexa, has refused once and refused and then accepted once. sits for interview for the first time today, headphones are present but not turned on for the first time. pt states he prefers abilify to zyprexa but cannot say why. pt was encouraged to continue zyprexa trial. 06/16: same as yesterday except headphones perhaps on low volume. took zyprexa last night. continue current mgmt. court . 06/17: more visible on unit today, seeking out x2 re court tomorrow. asking about signing in, je MCCLENDON. refused zyprexa last NOC. continue current mgmt. denies he has mental illness, denies depressed mood. 06/18: refusing medication. hearing continued for 1 week for NABOR. pt reports won't take medication variably due to being on CO for 30 minutes after medication and because once after taking the medication he had an upset stomach. 06/19: did not take meds last night. no notable events or behaviors. continue current mgmt. hearing continued until next saturday. 06/20: Continue current treatment plan. 06/21: Continue current treatment plan. 06/22: took meds sat and sat, did not take meds last night. continue current mgmt. advised to use TUMs for stomach pain. 06/23: took meds last night, denies side effects. spending more time outside of his room, largely in sensory room. 06/24: in room today. took meds last night. no change in presentation. 06/25: interviewed in his room. refused meds last night. no change in presentation. reports the only mental illness he has is ADHD. 06/26: hearing held, pt committed and ordered medications. return to abilify trial. orders entered for w/e. 06/27 -CTP not sure he will agree to inc dose after weekend- nor do we have IM order should he refuse PO 06/28 CTP 06/29: appears more relaxed, better related today. sat with MD in interview room rather than standing. encouraged to attend groups. agreeable to increase abilify to 15 mg, says 20 mg makes him feel uncomfortable. increase to 15 mg tonight. 06/30: spat out medication surreptitiously last night. informed he will be given abilify IM soon and was encouraged to comply with PO dosing in the meantime to be confident he will not have ADR. stable presentation. 07/01: no change in presentation. increase abilify to 20 mg QHS. 07/02: no change. continue current mgmt. CARLSON abilify saturday. 07/03: refused PO abilify last NOC mistakenly thinking he would get abilify CARLSON instead. he got zyprexa. misunderstanding worked out today, pt to continue PO abilify another week before getting CARLSON. continue current mgmt. 07/04: DC abilify as pt continues to cheek it. switch to invega, as guidelines indicate only a test dose to be given orally prior to CARLSON, as opposed to 2 weeks PO as for abilify CARLSON. 07/05: refused invega last night. try again tonight. plan for invega sustenna. 07/06: refused invega again last night, but did take a one-time dose today days. planning on CARLSON invega soon. no change in presentation. 07/07: no change in presentation. took 2 doses of PO invega, will give IM 234 mg tomorrow morning. 07/08: Continue current tx plan. 07/09: got invega sustenna 234 mg IM 07/08, will get invega sustenna 156 mg IM 07/15. stable presentation. 07/10: no s/e. feels medication makes it easier to get out and do things. continue current mgmt. 07/11 keep same treatment. 07/12 keep same treatment. 07/13: feels moving more than before, more able to do things. 07/14: no change in presentation. invega sustenna 156 mg IM tomorrow. continue current mgmt. 07/15: awaiting CARLSON today. no change in presentation. sustenna 234 mg Q30 days ordered to start 08/12. 1024: got CARLSON sustenna 156 mg yesterday. no change in presentation today. discuss depressive Sx with pt and broach possibility of antidepressant medication. 07/17: depression and depression mgmt discussed. pt will consider. otherwise no change in presentation, continue current mgmt. 07/18 continue tx. 07/19 continue tx. Reason for continued inpatient stay Substantial Risk for: inability to function Time Spent With Patient Time: Total time managing care of this patient today ____ minutes.
--- NOTE | 2024-07-20 15:07 | P.PNPSI_ITS ---
Subjective Subjective Date of Service: 07/20/24 Reason For Visit: Unspec anxiety d/o,atten-deficit/hyperactivity d/o Interim History: not feeling too depressed, will consider if feels mood getting worse. says his mom had been telling him some of his behaviors at home, such as no showers, isolating, not eating are consistent with depression. feels he is out more, showering now, eating well. pt states he was not doing all that well because of psychosocial stressors. MD inquires as to what they were, and he says that his GF left him not so long ago, and she posted something on social media which he took personally. now he realizes he was in a weird place and didn't have to take it personally. denies medication s/e. Mental Status Exam Mental Status Exam Narrative: adequately dressed and groomed. sat for interview. poor eye contact. superficially cooperative. speech soft, sparse. decr amount. affect constricted, mood euthymic. no SI/HI/AVH expressed. Diagnostics Vital Signs (24Hr): BMI result Body Mass Index 29.9 Medications Medications Current Medications Acetaminophen (Acetaminophen 325 Mg Tablet) 650 mg PO Q6H PRN PRN Reason: Headache/Pain Mild Scale (1-3) Al Hydroxide/Mg Hydroxide (Magnesium Hydrox/Alum Hydrox 30 Ml Oral.Susp) 30 ml PO Q6H PRN PRN Reason: Heartburn/Nausea Hydroxyzine HCl (Hydroxyzine Hcl 25 Mg Tablet) 25 mg PO Q6H PRN PRN Reason: Anxiety Magnesium Hydroxide (Milk Of Magnesia 30 Ml Oral.Susp) 30 ml PO DAILY PRN PRN Reason: Constipation Multi-Ingred Cream/Lotion/Oil/Oint (Mineral Oil/Petrolatum,White 106 Gm Tube) 1 appl TOPICAL BID PRN; Protocol PRN Reason: dry skin Nicotine (Nicotine 21 Mg Patch.Td24) 21 mg TRANSDERMA DAILY PRN PRN Reason: nicotine cravings Nicotine Polacrilex (Nicotine Polacrilex 2 Mg Gum) 4 mg BUCCAL Q2H PRN PRN Reason: Nicotine Cravings Olanzapine (Olanzapine 5 Mg Tablet) 5 mg PO Q4H PRN PRN Reason: agitation, aggression Paliperidone Palmitate (Paliperidone Palmitate 234 Mg/1.5 Ml Syringe) 234 mg IM Q30D JULIAN Sodium Chloride (Sodium Chloride 0.65 % Nasal 44 Ml Sprbtl) 1 spray NOSTRIL-B Q1H PRN PRN Reason: nasal congestion Trazodone HCl (Trazodone Hcl 50 Mg Tablet) 50 mg PO BEDTIME MRX1 PRN PRN Reason: Insomnia Allergies Allergies Allergy/AdvReac Type Severity Reaction Status Date / Time No Known Allergies Allergy Verified 05/22/24 17:01 Assessment & Plan Assessment & Plan (1) Depressive disorder, atypical: Status: Acute Code(s): F32.89 - Other specified depressive episodes (2) Adjustment disorder with depressed mood: Status: Acute Code(s): F43.21 - Adjustment disorder with depressed mood Plan 24 yo male transferred from [facility] ED after a suicide attempt by hanging. He has been increasingly isolated, poor self care, stopped working. He has eating disorder symptoms and NSSI. Symptoms worsened in the setting of a break up. Rule out other mood disorder Plan: - Admit to inpatient psychiatry - Section 12, rosado warning. - Collateral information from family and providers. - Milieu treatment and group therapy. - Medications: Refuses - Social work evaluation. - Disposition planning. patient eloped in the after noon from the unit and was brought back by Police. 05/24: Continue current management and treatment plan. Encourage engagement in groups and milieu. 05/25: Start Abilify 5 mg. Patient to consider. Encourage group and milieu engagement. Fasting labs in AM. Collaterals would be helpful. 05/26: encouraged to take abilify. rosado warning, legal discussion. 05/27: took abilify 5 mg this morning for first time. 12b up tomorrow. continue current mgmt. 05/28: took abilify again today. feeling better and more into things. filed for commitment. 05/29: took abilify 5 again today. willing to increase to 10 as of saturday (ordered). asking for LENA again, will allow with security present. 05/31/2024: No changes 06/01: abilify dosing increased to 10 mg as of this morning. initially too paranoid to sleep in single room, slept there last night for first time. court . 06/02: no change in presentation. declines increase in abilify dosing. stands by door throughout. 06/03 continue tx. 06/04: no change in presentation. agrees to increase abilify to 15 mg daily. hearing continued for 2 weeks. 06/05: no change. self-dialoguing. took abilify 15 today. appears with more irritable edge today. unclear if cheeking meds. order CO for 30 minutes post-m edication.. 06/06 pt went to bathroom, flushed without evidence of urinating, seems like he is not taking antipsychotic. 06/07 continue tx. 06/08: no substantial change in presentation. saturday (and likely all the days before) pt appeared to have flushed his medication. pt was compliant with 30- min post-medication observation period on saturday. continue current mgmt. increase abilify to 20 mg in several days. 06/09: no change in presentation. will increase abilify to 20 mg as of tomorrow. if no change in presentation in next couple of days will switch to zyprexa zydis. 06/10: no change. T/C zydis. increased abilify to 20 today. 06/11: no change. DC abilify, start zyprexa. pt does not want to make this change, but it is made nevertheless. 06/12: no change in presentation. headphones playing loud static. vague, evasive answers. continue zydis 10 QHS. 06/13: Continue current regimen and plans 06/14: Continue current regimen and plans 06/15: appears ambivalent re taking zyprexa, has refused once and refused and then accepted once. sits for interview for the first time today, headphones are present but not turned on for the first time. pt states he prefers abilify to zyprexa but cannot say why. pt was encouraged to continue zyprexa trial. 06/16: same as yesterday except headphones perhaps on low volume. took zyprexa last night. continue current mgmt. court . 06/17: more visible on unit today, seeking out x2 re court tomorrow. asking about signing in, PHP, je. refused zyprexa last NOC. continue current mgmt. denies he has mental illness, denies depressed mood. 06/18: refusing medication. hearing continued for 1 week for NABOR. pt reports won't take medication variably due to being on CO for 30 minutes after medication and because once after taking the medication he had an upset stomach. 06/19: did not take meds last night. no notable events or behaviors. continue current mgmt. hearing continued until next saturday. 06/20: Continue current treatment plan. 06/21: Continue current treatment plan. 06/22: took meds sat and sat, did not take meds last night. continue current mgmt. advised to use TUMs for stomach pain. 06/23: took meds last night, denies side effects. spending more time outside of his room, largely in sensory room. 06/24: in room today. took meds last night. no change in presentation. 06/25: interviewed in his room. refused meds last night. no change in presentation. reports the only mental illness he has is ADHD. 06/26: hearing held, pt committed and ordered medications. return to abilify trial. orders entered for w/e. 06/27 -CTP not sure he will agree to inc dose after weekend- nor do we have IM order should he refuse PO 06/28 CTP 06/29: appears more relaxed, better related today. sat with MD in interview room rather than standing. encouraged to attend groups. agreeable to increase abilify to 15 mg, says 20 mg makes him feel uncomfortable. increase to 15 mg tonight. 06/30: spat out medication surreptitiously last night. informed he will be given abilify IM soon and was encouraged to comply with PO dosing in the meantime to be confident he will not have ADR. stable presentation. 07/01: no change in presentation. increase abilify to 20 mg QHS. 07/02: no change. continue current mgmt. CARLSON abilify saturday. 07/03: refused PO abilify last NOC mistakenly thinking he would get abilify CARLSON instead. he got zyprexa. misunderstanding worked out today, pt to continue PO abilify another week before getting CARLSON. continue current mgmt. 07/04: DC abilify as pt continues to cheek it. switch to invega, as guidelines indicate only a test dose to be given orally prior to CARLSON, as opposed to 2 weeks PO as for abilify CARLSON. 07/05: refused invega last night. try again tonight. plan for invega sustenna. 07/06: refused invega again last night, but did take a one-time dose today days. planning on CARLSON invega soon. no change in presentation. 07/07: no change in presentation. took 2 doses of PO invega, will give IM 234 mg tomorrow morning. 07/08: Continue current tx plan. 07/09: got invega sustenna 234 mg IM 07/08, will get invega sustenna 156 mg IM 07/15. stable presentation. 07/10: no s/e. feels medication makes it easier to get out and do things. continue current mgmt. 07/11 keep same treatment. 07/12 keep same treatment. 07/13: feels moving more than before, more able to do things. 07/14: no change in presentation. invega sustenna 156 mg IM tomorrow. continue current mgmt. 07/15: awaiting CARLSON today. no change in presentation. sustenna 234 mg Q30 days ordered to start 08/12. 1024: got CARLSON sustenna 156 mg yesterday. no change in presentation today. discuss depressive Sx with pt and broach possibility of antidepressant medication. 07/17: depression and depression mgmt discussed. pt will consider. otherwise no change in presentation, continue current mgmt. 07/18 continue tx. 07/19 continue tx. 07/20: more forthcoming with historical info, his thought process and mental state. denies depression, says if he starts to feel that way he will consider anti-depressant medication. denies s/e of medications. Reason for continued inpatient stay Substantial Risk for: harm to self Time Spent With Patient Time: Total time managing care of this patient today __25__ minutes.
--- NOTE | 2024-07-21 16:03 | HO.PSYCHPN ---
Subjective Subjective Date of Service: 07/21/24 Reason For Visit: Unspec anxiety d/o,atten-deficit/hyperactivity d/o Interim History: no change in presentation. per staff, no change in presentation. Mental Status Exam Mental Status Exam Narrative: adequately dressed and groomed. sat for interview. poor eye contact. superficially cooperative. speech soft, sparse. decr amount. affect constricted, mood euthymic. no SI/HI/AVH expressed. Diagnostics Vital Signs (24Hr): BMI result Body Mass Index 29.9 Medications Medications Current Medications Acetaminophen (Acetaminophen 325 Mg Tablet) 650 mg PO Q6H PRN PRN Reason: Headache/Pain Mild Scale (1-3) Al Hydroxide/Mg Hydroxide (Magnesium Hydrox/Alum Hydrox 30 Ml Oral.Susp) 30 ml PO Q6H PRN PRN Reason: Heartburn/Nausea Hydroxyzine HCl (Hydroxyzine Hcl 25 Mg Tablet) 25 mg PO Q6H PRN PRN Reason: Anxiety Magnesium Hydroxide (Milk Of Magnesia 30 Ml Oral.Susp) 30 ml PO DAILY PRN PRN Reason: Constipation Multi-Ingred Cream/Lotion/Oil/Oint (Mineral Oil/Petrolatum,White 106 Gm Tube) 1 appl TOPICAL BID PRN; Protocol PRN Reason: dry skin Nicotine (Nicotine 21 Mg Patch.Td24) 21 mg TRANSDERMA DAILY PRN PRN Reason: nicotine cravings Nicotine Polacrilex (Nicotine Polacrilex 2 Mg Gum) 4 mg BUCCAL Q2H PRN PRN Reason: Nicotine Cravings Olanzapine (Olanzapine 5 Mg Tablet) 5 mg PO Q4H PRN PRN Reason: agitation, aggression Paliperidone Palmitate (Paliperidone Palmitate 234 Mg/1.5 Ml Syringe) 234 mg IM Q30D JULIAN Sodium Chloride (Sodium Chloride 0.65 % Nasal 44 Ml Sprbtl) 1 spray NOSTRIL-B Q1H PRN PRN Reason: nasal congestion Trazodone HCl (Trazodone Hcl 50 Mg Tablet) 50 mg PO BEDTIME MRX1 PRN PRN Reason: Insomnia Allergies Allergies Allergy/AdvReac Type Severity Reaction Status Date / Time No Known Allergies Allergy Verified 05/22/24 17:01 Assessment & Plan Assessment & Plan (1) Depressive disorder, atypical: Status: Acute Code(s): F32.89 - Other specified depressive episodes (2) Adjustment disorder with depressed mood: Status: Acute Code(s): F43.21 - Adjustment disorder with depressed mood Plan 24 yo male transferred from [facility] ED after a suicide attempt by hanging. He has been increasingly isolated, poor self care, stopped working. He has eating disorder symptoms and NSSI. Symptoms worsened in the setting of a break up. Rule out other mood disorder Plan: - Admit to inpatient psychiatry - Section 12, rosado warning. - Collateral information from family and providers. - Milieu treatment and group therapy. - Medications: Refuses - Social work evaluation. - Disposition planning. patient eloped in the after noon from the unit and was brought back by Police. 05/24: Continue current management and treatment plan. Encourage engagement in groups and milieu. 05/25: Start Abilify 5 mg. Patient to consider. Encourage group and milieu engagement. Fasting labs in AM. Collaterals would be helpful. 05/26: encouraged to take abilify. rosado warning, legal discussion. 05/27: took abilify 5 mg this morning for first time. 12b up tomorrow. continue current mgmt. 05/28: took abilify again today. feeling better and more into things. filed for commitment. 05/29: took abilify 5 again today. willing to increase to 10 as of saturday (ordered). asking for LENA again, will allow with security present. 05/31/2024: No changes 06/01: abilify dosing increased to 10 mg as of this morning. initially too paranoid to sleep in single room, slept there last night for first time. court . 06/02: no change in presentation. declines increase in abilify dosing. stands by door throughout. 06/03 continue tx. 06/04: no change in presentation. agrees to increase abilify to 15 mg daily. hearing continued for 2 weeks. 06/05: no change. self-dialoguing. took abilify 15 today. appears with more irritable edge today. unclear if cheeking meds. order CO for 30 minutes post-medication.. 06/06 pt went to bathroom, flushed without evidence of urinating, seems like he is not taking antipsychotic. 06/07 continue tx. 06/08: no substantial change in presentation. saturday (and likely all the days before) pt appeared to have flushed his medication. pt was compliant with 30-min post-medication observation period on saturday. continue current mgmt. increase abilify to 20 mg in several days. 06/09: no change in presentation. will increase abilify to 20 mg as of tomorrow. if no change in presentation in next couple of days will switch to zyprexa zydis. 06/10: no change. T/C zydis. increased abilify to 20 today. 06/11: no change. DC abilify, start zyprexa. pt does not want to make this change, but it is made nevertheless. 06/12: no change in presentation. headphones playing loud static. vague, evasive answers. continue zydis 10 QHS. 06/13: Continue current regimen and plans 06/14: Continue current regimen and plans 06/15: appears ambivalent re taking zyprexa, has refused once and refused and then accepted once. sits for interview for the first time today, headphones are present but not turned on for the first time. pt states he prefers abilify to zyprexa but cannot say why. pt was encouraged to continue zyprexa trial. 06/16: same as yesterday except headphones perhaps on low volume. took zyprexa last night. continue current mgmt. court . 06/17: more visible on unit today, seeking out MD ojeda re court tomorrow. asking about signing in, PHP, guitar. refused zyprexa last NOC. continue current mgmt. denies he has mental illness, denies depressed mood. 06/18: refusing medication. hearing continued for 1 week for NABOR. pt reports won't take medication variably due to being on CO for 30 minutes after medication and because once after taking the medication he had an upset stomach. 06/19: did not take meds last night. no notable events or behaviors. continue current mgmt. hearing continued until next saturday. 06/20: Continue current treatment plan. 06/21: Continue current treatment plan. 06/22: took meds fri and sat, did not take meds last night. continue current mgmt. advised to use TUMs for stomach pain. 06/23: took meds last night, denies side effects. spending more time outside of his room, largely in sensory room. 06/24: in room today. took meds last night. no change in presentation. 06/25: interviewed in his room. refused meds last night. no change in presentation. reports the only mental illness he has is ADHD. 06/26: hearing held, pt committed and ordered medications. return to abilify trial. orders entered for w/e. 06/27 -CTP not sure he will agree to inc dose after weekend- nor do we have IM order should he refuse PO 06/28 CTP 06/29: appears more relaxed, better related today. sat with MD in interview room rather than standing. encouraged to attend groups. agreeable to increase abilify to 15 mg, says 20 mg makes him feel uncomfortable. increase to 15 mg tonight. 06/30: spat out medication surreptitiously last night. informed he will be given abilify IM soon and was encouraged to comply with PO dosing in the meantime to be confident he will not have ADR. stable presentation. 07/01: no change in presentation. increase abilify to 20 mg QHS. 07/02: no change. continue current mgmt. CARLSON abilify saturday. 07/03: refused PO abilify last NOC mistakenly thinking he would get abilify CARLSON instead. he got zyprexa. misunderstanding worked out today, pt to continue PO abilify another week before getting CARLSON. continue current mgmt. 07/04: DC abilify as pt continues to cheek it. switch to invega, as guidelines indicate only a test dose to be given orally prior to CARLSON, as opposed to 2 weeks PO as for abilify CARLSON. 07/05: refused invega last night. try again tonight. plan for invega sustenna. 07/06: refused invega again last night, but did take a one-time dose today days. planning on CARLSON invega soon. no change in presentation. 07/07: no change in presentation. took 2 doses of PO invega, will give IM 234 mg tomorrow morning. 07/08: Continue current tx plan. 07/09: got invega sustenna 234 mg IM 07/08, will get invega sustenna 156 mg IM 07/15. stable presentation. 07/10: no s/e. feels medication makes it easier to get out and do things. continue current mgmt. 07/11 keep same treatment. 07/12 keep same treatment. 07/13: feels moving more than before, more able to do things. 07/14: no change in presentation. invega sustenna 156 mg IM tomorrow. continue current mgmt. 07/15: awaiting CARLSON today. no change in presentation. sustenna 234 mg Q30 days ordered to start 08/12. 1024: got CARLSON sustenna 156 mg yesterday. no change in presentation today. discuss depressive Sx with pt and broach possibility of antidepressant medication. 07/17: depression and depression mgmt discussed. pt will consider. otherwise no change in presentation, continue current mgmt. 07/18 continue tx. 07/19 continue tx. 07/20: more forthcoming with historical info, his thought process and mental state. denies depression, says if he starts to feel that way he will consider anti-depressant medication. denies s/e of medications. 07/21: no change in presentation. continue current mgmt. Reason for continued inpatient stay Substantial Risk for: harm to self Time Spent With Patient Time: Total time managing care of this patient today ____ minutes.
[2024-07-21 20:46] VITALS: RESP 16
--- NOTE | 2024-07-22 12:55 | P.PNPSI_ITS ---
Subjective Subjective Date of Service: 07/22/24 Reason For Visit: Unspec anxiety d/o,atten-deficit/hyperactivity d/o Interim History: no change in presentation. reports that after he discharges from the hospital he plans to enter programs to help out. on being asked for more specifics on the types of programs he is thinking of, he says, a therapist. per staff, sleeping. no issues. Mental Status Exam Mental Status Exam Narrative: adequately dressed and groomed. sat for interview. poor eye contact. superficially cooperative. speech soft, sparse. decr amount. affect const ricted, mood euthymic. no SI/HI/AVH expressed. Diagnostics Vital Signs (24Hr): Vital Signs - 24 hr 07/21/24 20:46 Respiratory Rate 16 BMI result Body Mass Index 29.9 Medications Medications Current Medications Acetaminophen (Acetaminophen 325 Mg Tablet) 650 mg PO Q6H PRN PRN Reason: Headache/Pain Mild Scale (1-3) Al Hydroxide/Mg Hydroxide (Magnesium Hydrox/Alum Hydrox 30 Ml Oral.Susp) 30 ml PO Q6H PRN PRN Reason: Heartburn/Nausea Hydroxyzine HCl (Hydroxyzine Hcl 25 Mg Tablet) 25 mg PO Q6H PRN PRN Reason: Anxiety Magnesium Hydroxide (Milk Of Magnesia 30 Ml Oral.Susp) 30 ml PO DAILY PRN PRN Reason: Constipation Multi-Ingred Cream/Lotion/Oil/Oint (Mineral Oil/Petrolatum,White 106 Gm Tube) 1 appl TOPICAL BID PRN; Protocol PRN Reason: dry skin Nicotine (Nicotine 21 Mg Patch.Td24) 21 mg TRANSDERMA DAILY PRN PRN Reason: nicotine cravings Nicotine Polacrilex (Nicotine Polacrilex 2 Mg Gum) 4 mg BUCCAL Q2H PRN PRN Reason: Nicotine Cravings Olanzapine (Olanzapine 5 Mg Tablet) 5 mg PO Q4H PRN PRN Reason: agitation, aggression Paliperidone Palmitate (Paliperidone Palmitate 234 Mg/1.5 Ml Syringe) 234 mg IM Q30D JULIAN Sodium Chloride (Sodium Chloride 0.65 % Nasal 44 Ml Sprbtl) 1 spray NOSTRIL-B Q1H PRN PRN Reason: nasal congestion Trazodone HCl (Trazodone Hcl 50 Mg Tablet) 50 mg PO BEDTIME MRX1 PRN PRN Reason: Insomnia Allergies Allergies Allergy/AdvReac Type Severity Reaction Status Date / Time No Known Allergies Allergy Verified 05/22/24 17:01 Assessment & Plan Assessment & Plan (1) Depressive disorder, atypical: Status: Acute Code(s): F32.89 - Other specified depressive episodes (2) Adjustment disorder with depressed mood: Status: Acute Code(s): F43.21 - Adjustment disorder with depressed mood Plan 24 yo male transferred from [facility] ED after a suicide attempt by hanging. He has been increasingly isolated, poor self care, stopped working. He has eating disorder symptoms and NSSI. Symptoms worsened in the setting of a break up. Rule out other mood disorder Plan: - Admit to inpatient psychiatry - Section 12, rosado warning. - Collateral information from family and providers. - Milieu treatment and group therapy. - Medications: Refuses - Social work evaluation. - Disposition planning. patient eloped in the after noon from the unit and was brought back by Police. 05/24: Continue current management and treatment plan. Encourage engagement in groups and milieu. 05/25: Start Abilify 5 mg. Patient to consider. Encourage group and milieu engagement. Fasting labs in AM. Collaterals would be helpful. 05/26: encouraged to take abilify. rosado warning, legal discussion. 05/27: took abilify 5 mg this morning for first time. 12b up tomorrow. continue current mgmt. 05/28: took abilify again today. feeling better and more into things. filed for commitment. 05/29: took abilify 5 again today. willing to increase to 10 as of saturday (ordered). asking for LENA again, will allow with security present. 05/31/2024: No changes 06/01: abilify dosing increased to 10 mg as of this morning. initially too paranoid to sleep in single room, slept there last night for first time. court . 06/02: no change in presentation. declines increase in abilify dosing. stands by door throughout. 06/03 continue tx. 06/04: no change in presentation. agrees to increase abilify to 15 mg daily. hearing continued for 2 weeks. 06/05: no change. self-dialoguing. took abilify 15 today. appears with more irritable edge today. unclear if cheeking meds. order CO for 30 minutes post- medication.. 06/06 pt went to bathroom, flushed without evidence of urinating, seems like he is not taking antipsychotic. 06/07 continue tx. 06/08: no substantial change in presentation. saturday (and likely all the days before) pt appeared to have flushed his medication. pt was compliant with 30- min post-medication observation period on saturday. continue current mgmt. increase abilify to 20 mg in several days. 06/09: no change in presentation. will increase abilify to 20 mg as of tomorrow. if no change in presentation in next couple of days will switch to zyprexa zydis. 06/10: no change. T/C zydis. increased abilify to 20 today. 06/11: no change. DC abilify, start zyprexa. pt does not want to make this change, but it is made nevertheless. 06/12: no change in presentation. headphones playing loud static. vague, evasive answers. continue zydis 10 QHS. 06/13: Continue current regimen and plans 06/14: Continue current regimen and plans 06/15: appears ambivalent re taking zyprexa, has refused once and refused and then accepted once. sits for interview for the first time today, headphones are present but not turned on for the first time. pt states he prefers abilify to zyprexa but cannot say why. pt was encouraged to continue zyprexa trial. 06/16: same as yesterday except headphones perhaps on low volume. took zyprexa last night. continue current mgmt. court . 06/17: more visible on unit today, seeking out x2 re court tomorrow. asking about signing in, DANELLE, je. refused zyprexa last NOC. continue current mgmt. denies he has mental illness, denies depressed mood. 06/18: refusing medication. hearing continued for 1 week for NABOR. pt reports won't take medication variably due to being on CO for 30 minutes after medication and because once after taking the medication he had an upset stomach. 06/19: did not take meds last night. no notable events or behaviors. continue current mgmt. hearing continued until next saturday. 06/20: Continue current treatment plan. 06/21: Continue current treatment plan. 06/22: took meds fri and sat, did not take meds last night. continue current mgmt. advised to use TUMs for stomach pain. 06/23: took meds last night, denies side effects. spending more time outside of his room, largely in sensory room. 06/24: in room today. took meds last night. no change in presentation. 06/25: interviewed in his room. refused meds last night. no change in pr esentation. reports the only mental illness he has is ADHD. 06/26: hearing held, pt committed and ordered medications. return to abilify trial. orders entered for w/e. 06/27 -CTP not sure he will agree to inc dose after weekend- nor do we have IM order should he refuse PO 06/28 CTP 06/29: appears more relaxed, better related today. sat with MD in interview room rather than standing. encouraged to attend groups. agreeable to increase abilify to 15 mg, says 20 mg makes him feel uncomfortable. increase to 15 mg tonight. 06/30: spat out medication surreptitiously last night. informed he will be given abilify IM soon and was encouraged to comply with PO dosing in the meantime to be confident he will not have ADR. stable presentation. 07/01: no change in presentation. increase abilify to 20 mg QHS. 07/02: no change. continue current mgmt. CARLSON abilify saturday. 07/03: refused PO abilify last NOC mistakenly thinking he would get abilify CARLSON instead. he got zyprexa. misunderstanding worked out today, pt to continue PO abilify another week before getting CARLSON. continue current mgmt. 07/04: DC abilify as pt continues to cheek it. switch to invega, as guidelines indicate only a test dose to be given orally prior to CARLSON, as opposed to 2 weeks PO as for abilify CARLSON. 07/05: refused invega last night. try again tonight. plan for invega sustenna. 07/06: refused invega again last night, but did take a one-time dose today days. planning on CARLSON invega soon. no change in presentation. 07/07: no change in presentation. took 2 doses of PO invega, will give IM 234 mg tomorrow morning. 07/08: Continue current tx plan. 07/09: got invega sustenna 234 mg IM 07/08, will get invega sustenna 156 mg IM 07/15. stable presentation. 07/10: no s/e. feels medication makes it easier to get out and do things. continue current mgmt. 07/11 keep same treatment. 07/12 keep same treatment. 07/13: feels moving more than before, more able to do things. 07/14: no change in presentation. invega sustenna 156 mg IM tomorrow. continue current mgmt. 07/15: awaiting CARLSON today. no change in presentation. sustenna 234 mg Q30 days ordered to start 08/12. 1024: got CARLSON sustenna 156 mg yesterday. no change in presentation today. discuss depressive Sx with pt and broach possibility of antidepressant medication. 07/17: depression and depression mgmt discussed. pt will consider. otherwise no change in presentation, continue current mgmt. 07/18 continue tx. 07/19 continue tx. 07/20: more forthcoming with historical info, his thought process and mental state. denies depression, says if he starts to feel that way he will consider anti-depressant medication. denies s/e of medications. 07/21: no change in presentation. continue current mgmt. 07/22: as for yesterday. Reason for continued inpatient stay Substantial Risk for: harm to self Time Spent With Patient Time: Total time managing care of this patient today _25___ minutes.
[2024-07-22] MEDS: Sodium Chloride 0.65 % Nasal 44 ML SPRBTL 1 SPRAY NOSTRIL-B (15:53)
[2024-07-22 20:00] VITALS: RESP 18
[2024-07-23 08:00] VITALS: RESP 18
--- NOTE | 2024-07-23 10:46 | P.PNPSI_ITS ---
Subjective Subjective Date of Service: 07/23/24 Reason For Visit: Unspec anxiety d/o,atten-deficit/hyperactivity d/o Subjective Notes: Section 8 Interim History: Keeping to self. In room most of shift. Guarded during assessment. Pt stated, I'll let you know if I need anything . per nursing, slept 7 hours last night. Observed listening to music on unit headphones. Attending Groups: No Mental Status Exam Mental Status Exam Patient Appearance: Appropriate Patient Orientation: Person, Place and Situation Level of Consciousness: Awake Patient Behavior: Guarded Mood Description: Calm Affect Description: Blunted Patient Cognition Impaired: Yes Ability to Follow Directions: Good Speech Pattern: Clear Diagnostics Vital Signs (24Hr): Vital Signs - 24 hr 07/22/24 20:00 07/23/24 08:00 Respiratory Rate 18 18 BMI result Body Mass Index 29.9 Medications Medications Current Medications Acetaminophen (Acetaminophen 325 Mg Tablet) 650 mg PO Q6H PRN PRN Reason: Headache/Pain Mild Scale (1-3) Al Hydroxide/Mg Hydroxide (Magnesium Hydrox/Alum Hydrox 30 Ml Oral.Susp) 30 ml PO Q6H PRN PRN Reason: Heartburn/Nausea Hydroxyzine HCl (Hydroxyzine Hcl 25 Mg Tablet) 25 mg PO Q6H PRN PRN Reason: Anxiety Magnesium Hydroxide (Milk Of Magnesia 30 Ml Oral.Susp) 30 ml PO DAILY PRN PRN Reason: Constipation Multi-Ingred Cream/Lotion/Oil/Oint (Mineral Oil/Petrolatum,White 106 Gm Tube) 1 appl TOPICAL BID PRN; Protocol PRN Reason: dry skin Nicotine (Nicotine 21 Mg Patch.Td24) 21 mg TRANSDERMA DAILY PRN PRN Reason: nicotine cravings Nicotine Polacrilex (Nicotine Polacrilex 2 Mg Gum) 4 mg BUCCAL Q2H PRN PRN Reason: Nicotine Cravings Olanzapine (Olanzapine 5 Mg Tablet) 5 mg PO Q4H PRN PRN Reason: agitation, aggression Paliperidone Palmitate (Paliperidone Palmitate 234 Mg/1.5 Ml Syringe) 234 mg IM Q30D JULIAN Sodium Chloride (Sodium Chloride 0.65 % Nasal 44 Ml Sprbtl) 1 spray NOSTRIL-B Q1H PRN PRN Reason: nasal congestion Last Admin: 07/22/24 15:53 Dose: 1 spray Trazodone HCl (Trazodone Hcl 50 Mg Tablet) 50 mg PO BEDTIME MRX1 PRN PRN Reason: Insomnia Allergies Allergies Allergy/AdvReac Type Severity Reaction Status Date / Time No Known Allergies Allergy Verified 05/22/24 17:01 Assessment & Plan Assessment & Plan (1) Depressive disorder, atypical: Status: Acute Code(s): F32.89 - Other specified depressive episodes (2) Adjustment disorder with depressed mood: Status: Acute Code(s): F43.21 - Adjustment disorder with depressed mood Plan 24 yo male transferred from [facility] ED after a suicide attempt by hanging. He has been increasingly isolated, poor self care, stopped working. He has eating disorder symptoms and NSSI. Symptoms worsened in the setting of a break up. Rule out other mood disorder Plan: - Admit to inpatient psychiatry - Section 12, rosado warning. - Collateral information from family and providers. - Milieu treatment and group therapy. - Medications: Refuses - Social work evaluation. - Disposition planning. patient eloped in the after noon from the unit and was brought back by Police. 05/24: Continue current management and treatment plan. Encourage engagement in groups and milieu. 05/25: Start Abilify 5 mg. Patient to consider. Encourage group and milieu engagement. Fasting labs in AM. Collaterals would be helpful. 05/26: encouraged to take abilify. rosado warning, legal discussion. 05/27: took abilify 5 mg this morning for first time. 12b up tomorrow. continue current mgmt. 05/28: took abilify again today. feeling better and more into things. filed for commitment. 05/29: took abilify 5 again today. willing to increase to 10 as of saturday (ordered). asking for LENA again, will allow with security present. 05/31/2024: No changes 06/01: abilify dosing increased to 10 mg as of this morning. initially too paranoid to sleep in single room, slept there last night for first time. court . 06/02: no change in presentation. declines increase in abilify dosing. stands by door throughout. 06/03 continue tx. 06/04: no change in presentation. agrees to increase abilify to 15 mg daily. hearing continued for 2 weeks. 06/05: no change. self-dialoguing. took abilify 15 today. appears with more irritable edge today. unclear if cheeking meds. order CO for 30 minutes post- medication.. 06/06 pt went to bathroom, flushed without evidence of urinating, seems like he is not taking antipsychotic. 06/07 continue tx. 06/08: no substantial change in presentation. saturday (and likely all the days before) pt appeared to have flushed his medication. pt was compliant with 30- min post-medication observation period on saturday. continue current mgmt. increase abilify to 20 mg in several days. 06/09: no change in presentation. will increase abilify to 20 mg as of tomorrow. if no change in presentation in next couple of days will switch to zyprexa zydis. 06/10: no change. T/C zydis. increased abilify to 20 today. 06/11: no change. DC abilify, start zyprexa. pt does not want to make this change, but it is made nevertheless. 06/12: no change in presentation. headphones playing loud static. vague, evasive answers. continue zydis 10 QHS. 06/13: Continue current regimen and plans 06/14: Continue current regimen and plans 06/15: appears ambivalent re taking zyprexa, has refused once and refused and then accepted once. sits for interview for the first time today, headphones are present but not turned on for the first time. pt states he prefers abilify to zyprexa but cannot say why. pt was encouraged to continue zyprexa trial. 06/16: same as yesterday except headphones perhaps on low volume. took zyprexa last night. continue current mgmt. court . 06/17: more visible on unit today, seeking out x2 re court tomorrow. asking about signing in, je MCCLENDON. refused zyprexa last NOC. continue current mgmt. denies he has mental illness, denies depressed mood. 06/18: refusing medication. hearing continued for 1 week for NABOR. pt reports won't take medication variably due to being on CO for 30 minutes after medication and because once after taking the medication he had an upset stomach. 06/19: did not take meds last night. no notable events or behaviors. continue current mgmt. hearing continued until next saturday. 06/20: Continue current treatment plan. 06/21: Continue current treatment plan. 06/22: took meds sat and sat, did not take meds last night. continue current mgmt. advised to use TUMs for stomach pain. 06/23: took meds last night, denies side effects. spending more time outside of his room, largely in sensory room. 06/24: in room today. took meds last night. no change in presentation. 06/25: interviewed in his room. refused meds last night. no change in presentation. reports the only mental illness he has is ADHD. 06/26: hearing held, pt committed and ordered medications. return to abilify trial. orders entered for w/e. 06/27 -CTP not sure he will agree to inc dose after weekend- nor do we have IM order should he refuse PO 06/28 CTP 06/29: appears more relaxed, better related today. sat with MD in interview room rather than standing. encouraged to attend groups. agreeable to increase abilify to 15 mg, says 20 mg makes him feel uncomfortable. increase to 15 mg tonight. 06/30: spat out medication surreptitiously last night. informed he will be given abilify IM soon and was encouraged to comply with PO dosing in the meantime to be confident he will not have ADR. stable presentation. 07/01: no change in presentation. increase abilify to 20 mg QHS. 07/02: no change. continue current mgmt. CARLSON abilify saturday. 07/03: refused PO abilify last NOC mistakenly thinking he would get abilify CARLSON instead. he got zyprexa. misunderstanding worked out today, pt to continue PO abilify another week before getting CARLSON. continue current mgmt. 07/04: DC abilify as pt continues to cheek it. switch to invega, as guidelines indicate only a test dose to be given orally prior to CARLSON, as opposed to 2 weeks PO as for abilify CARLSON. 07/05: refused invega last night. try again tonight. plan for invega sustenna. 07/06: refused invega again last night, but did take a one-time dose today days. planning on CARLSON invega soon. no change in presentation. 07/07: no change in presentation. took 2 doses of PO invega, will give IM 234 mg tomorrow morning. 07/08: Continue current tx plan. 07/09: got invega sustenna 234 mg IM 07/08, will get invega sustenna 156 mg IM 07/15. stable presentation. 07/10: no s/e. feels medication makes it easier to get out and do things. continue current mgmt. 07/11 keep same treatment. 07/12 keep same treatment. 07/13: feels moving more than before, more able to do things. 07/14: no change in presentation. invega sustenna 156 mg IM tomorrow. co ntinue current mgmt. 07/15: awaiting CARLSON today. no change in presentation. sustenna 234 mg Q30 days ordered to start 08/12. 1024: got CARLSON sustenna 156 mg yesterday. no change in presentation today. discuss depressive Sx with pt and broach possibility of antidepressant medication. 07/17: depression and depression mgmt discussed. pt will consider. otherwise no change in presentation, continue current mgmt. 07/18 continue tx. 07/19 continue tx. 07/20: more forthcoming with historical info, his thought process and mental state. denies depression, says if he starts to feel that way he will consider anti-depressant medication. denies s/e of medications. 07/21: no change in presentation. continue current mgmt. 07/22: as for yesterday. 07/23: continue current tx plan. Reason for continued inpatient stay Substantial Risk for: med/psych decompensation Time Spent With Patient Time: Total time managing care of this patient today __20__ minutes.
[2024-07-23] MEDS: Sodium Chloride 0.65 % Nasal 44 ML SPRBTL 1 SPRAY NOSTRIL-B (18:17)
[2024-07-23 20:58] VITALS: RESP 16
[2024-07-24 08:00] VITALS: RESP 18
--- NOTE | 2024-07-24 09:20 | HO.PSYCHPN ---
Subjective Subjective Date of Service: 07/24/24 Reason For Visit: Unspec anxiety d/o,atten-deficit/hyperactivity d/o Subjective Notes: Section 8 Interim History: Keeping to self. In room most of shift. Guarded. Encouraged to attend groups. Observed listening to music on unit headphones. Similar to yesterday's presentation. Would not engage in conversation with T/W. Medication Compliance: Yes Side effects from medications: No Attending Groups: Intermittent Mental Status Exam Mental Status Exam Patient Appearance: Appropriate Patient Orientation: Person, Place and Situation Level of Consciousness: Awake Patient Behavior: Guarded Mood Description: Calm Affect Description: Blunted Patient Cognition Impaired: Yes Ability to Follow Directions: Good Speech Pattern: Clear Diagnostics Vital Signs (24Hr): Vital Signs - 24 hr 07/23/24 20:58 Respiratory Rate 16 BMI result Body Mass Index 30.0 Medications Medications Current Medications Acetaminophen (Acetaminophen 325 Mg Tablet) 650 mg PO Q6H PRN PRN Reason: Headache/Pain Mild Scale (1-3) Al Hydroxide/Mg Hydroxide (Magnesium Hydrox/Alum Hydrox 30 Ml Oral.Susp) 30 ml PO Q6H PRN PRN Reason: Heartburn/Nausea Hydroxyzine HCl (Hydroxyzine Hcl 25 Mg Tablet) 25 mg PO Q6H PRN PRN Reason: Anxiety Magnesium Hydroxide (Milk Of Magnesia 30 Ml Oral.Susp) 30 ml PO DAILY PRN PRN Reason: Constipation Multi-Ingred Cream/Lotion/Oil/Oint (Mineral Oil/Petrolatum,White 106 Gm Tube) 1 appl TOPICAL BID PRN; Protocol PRN Reason: dry skin Nicotine (Nicotine 21 Mg Patch.Td24) 21 mg TRANSDERMA DAILY PRN PRN Reason: nicotine cravings Nicotine Polacrilex (Nicotine Polacrilex 2 Mg Gum) 4 mg BUCCAL Q2H PRN PRN Reason: Nicotine Cravings Olanzapine (Olanzapine 5 Mg Tablet) 5 mg PO Q4H PRN PRN Reason: agitation, aggression Paliperidone Palmitate (Paliperidone Palmitate 234 Mg/1.5 Ml Syringe) 234 mg IM Q30D JULIAN Sodium Chloride (Sodium Chloride 0.65 % Nasal 44 Ml Sprbtl) 1 spray NOSTRIL-B Q1H PRN PRN Reason: nasal congestion Last Admin: 07/23/24 18:17 Dose: 1 spray Trazodone HCl (Trazodone Hcl 50 Mg Tablet) 50 mg PO BEDTIME MRX1 PRN PRN Reason: Insomnia Allergies Allergies Allergy/AdvReac Type Severity Reaction Status Date / Time No Known Allergies Allergy Verified 05/22/24 17:01 Assessment & Plan Assessment & Plan (1) Depressive disorder, atypical: Status: Acute Code(s): F32.89 - Other specified depressive episodes (2) Adjustment disorder with depressed mood: Status: Acute Code(s): F43.21 - Adjustment disorder with depressed mood Plan 24 yo male transferred from [facility] ED after a suicide attempt by hanging. He has been increasingly isolated, poor self care, stopped working. He has eating disorder symptoms and NSSI. Symptoms worsened in the setting of a break up. Rule out other mood disorder Plan: - Admit to inpatient psychiatry - Section 12, rosado warning. - Collateral information from family and providers. - Milieu treatment and group therapy. - Medications: Refuses - Social work evaluation. - Disposition planning. patient eloped in the after noon from the unit and was brought back by Police. 05/24: Continue current management and treatment plan. Encourage engagement in groups and milieu. 05/25: Start Abilify 5 mg. Patient to consider. Encourage group and milieu engagement. Fasting labs in AM. Collaterals would be helpful. 05/26: encouraged to take abilify. rosado warning, legal discussion. 05/27: took abilify 5 mg this morning for first time. 12b up tomorrow. continue current mgmt. 05/28: took abilify again today. feeling better and more into things. filed for commitment. 05/29: took abilify 5 again today. willing to increase to 10 as of saturday (ordered). asking for LENA again, will allow with security present. 05/31/2024: No changes 06/01: abilify dosing increased to 10 mg as of this morning. initially too paranoid to sleep in single room, slept there last night for first time. court . 06/02: no change in presentation. declines increase in abilify dosing. stands by door throughout. 06/03 continue tx. 06/04: no change in presentation. agrees to increase abilify to 15 mg daily. hearing continued for 2 weeks. 06/05: no change. self-dialoguing. took abilify 15 today. appears with more irritable edge today. unclear if cheeking meds. order CO for 30 minutes post-medication.. 06/06 pt went to bathroom, flushed without evidence of urinating, seems like he is not taking antipsychotic. 06/07 continue tx. 06/08: no substantial change in presentation. saturday (and likely all the days before) pt appeared to have flushed his medication. pt was compliant with 30-min post-medication observation period on saturday. continue current mgmt. increase abilify to 20 mg in several days. 06/09: no change in presentation. will increase abilify to 20 mg as of tomorrow. if no change in presentation in next couple of days will switch to zyprexa zydis. 06/10: no change. T/C zydis. increased abilify to 20 today. 06/11: no change. DC abilify, start zyprexa. pt does not want to make this change, but it is made nevertheless. 06/12: no change in presentation. headphones playing loud static. vague, evasive answers. continue zydis 10 QHS. 06/13: Continue current regimen and plans 06/14: Continue current regimen and plans 06/15: appears ambivalent re taking zyprexa, has refused once and refused and then accepted once. sits for interview for the first time today, headphones are present but not turned on for the first time. pt states he prefers abilify to zyprexa but cannot say why. pt was encouraged to continue zyprexa trial. 06/16: same as yesterday except headphones perhaps on low volume. took zyprexa last night. continue current mgmt. court . 06/17: more visible on unit today, seeking out x2 re court tomorrow. asking about signing in, je MCCLENDON. refused zyprexa last NOC. continue current mgmt. denies he has mental illness, denies depressed mood. 06/18: refusing medication. hearing continued for 1 week for NABOR. pt reports won't take medication variably due to being on CO for 30 minutes after medication and because once after taking the medication he had an upset stomach. 06/19: did not take meds last night. no notable events or behaviors. continue current mgmt. hearing continued until next saturday. 06/20: Continue current treatment plan. 06/21: Continue current treatment plan. 06/22: took meds sat and sat, did not take meds last night. continue current mgmt. advised to use TUMs for stomach pain. 06/23: took meds last night, denies side effects. spending more time outside of his room, largely in sensory room. 06/24: in room today. took meds last night. no change in presentation. 06/25: interviewed in his room. refused meds last night. no change in presentation. reports the only mental illness he has is ADHD. 06/26: hearing held, pt committed and ordered medications. return to abilify trial. orders entered for w/e. 06/27 -CTP not sure he will agree to inc dose after weekend- nor do we have IM order should he refuse PO 06/28 CTP 06/29: appears more relaxed, better related today. sat with MD in interview room rather than standing. encouraged to attend groups. agreeable to increase abilify to 15 mg, says 20 mg makes him feel uncomfortable. increase to 15 mg tonight. 06/30: spat out medication surreptitiously last night. informed he will be given abilify IM soon and was encouraged to comply with PO dosing in the meantime to be confident he will not have ADR. stable presentation. 07/01: no change in presentation. increase abilify to 20 mg QHS. 07/02: no change. continue current mgmt. CARLSON abilify saturday. 07/03: refused PO abilify last NOC mistakenly thinking he would get abilify CARLSON instead. he got zyprexa. misunderstanding worked out today, pt to continue PO abilify another week before getting CARLSON. continue current mgmt. 07/04: DC abilify as pt continues to cheek it. switch to invega, as guidelines indicate only a test dose to be given orally prior to CARLSON, as opposed to 2 weeks PO as for abilify CARLSON. 07/05: refused invega last night. try again tonight. plan for invega sustenna. 07/06: refused invega again last night, but did take a one-time dose today days. planning on CARLSON invega soon. no change in presentation. 07/07: no change in presentation. took 2 doses of PO invega, will give IM 234 mg tomorrow morning. 07/08: Continue current tx plan. 07/09: got invega sustenna 234 mg IM 07/08, will get invega sustenna 156 mg IM 07/15. stable presentation. 07/10: no s/e. feels medication makes it easier to get out and do things. continue current mgmt. 07/11 keep same treatment. 07/12 keep same treatment. 07/13: feels moving more than before, more able to do things. 07/14: no change in presentation. invega sustenna 156 mg IM tomorrow. continue current mgmt. 07/15: awaiting CARLSON today. no change in presentation. sustenna 234 mg Q30 days ordered to start 08/12. 1024: got CARLSON sustenna 156 mg yesterday. no change in presentation today. discuss depressive Sx with pt and broach possibility of antidepressant medication. 07/17: depression and depression mgmt discussed. pt will consider. otherwise no change in presentation, continue current mgmt. 07/18 continue tx. 07/19 continue tx. 07/20: more forthcoming with historical info, his thought process and mental state. denies depression, says if he starts to feel that way he will consider anti-depressant medication. denies s/e of medications. 07/21: no change in presentation. continue current mgmt. 07/22: as for yesterday. 07/23: continue current tx plan. 07/24: did not engage with T/W. continue current tx plan. presents similar to yesterday. Reason for continued inpatient stay Substantial Risk for: med/psych decompensation Time Spent With Patient Time: Total time managing care of this patient today _20___ minutes.
--- NOTE | 2024-07-25 08:01 | P.PNPSI_ITS ---
Subjective Subjective Date of Service: 07/25/24 Reason For Visit: Unspec anxiety d/o,atten-deficit/hyperactivity d/o Subjective Notes: Section 8 Interim History: Keeping to self. In room mostly. Listens to headphones. Guarded. Minimal engagement. Stated nothing to talk about. Medication Compliance: Yes Side effects from medications: No Attending Groups: No Review of Systems Acute medical concerns: No Review of Systems Review of Systems nothing of note Mental Status Exam Mental Status Exam Narrative: adequately dressed and groomed. In room. Poor eye contact. superficially cooperative. speech soft, sparse. decr amount. affect constricted, mood ok . no SI/HI/AVH expressed. Diagnostics Vital Signs (24Hr): BMI result Body Mass Index 30.0 Medications Medications Current Medications Acetaminophen (Acetaminophen 325 Mg Tablet) 650 mg PO Q6H PRN PRN Reason: Headache/Pain Mild Scale (1-3) Al Hydroxide/Mg Hydroxide (Magnesium Hydrox/Alum Hydrox 30 Ml Oral.Susp) 30 ml PO Q6H PRN PRN Reason: Heartburn/Nausea Hydroxyzine HCl (Hydroxyzine Hcl 25 Mg Tablet) 25 mg PO Q6H PRN PRN Reason: Anxiety Magnesium Hydroxide (Milk Of Magnesia 30 Ml Oral.Susp) 30 ml PO DAILY PRN PRN Reason: Constipation Multi-Ingred Cream/Lotion/Oil/Oint (Mineral Oil/Petrolatum,White 106 Gm Tube) 1 appl TOPICAL BID PRN; Protocol PRN Reason: dry skin Nicotine (Nicotine 21 Mg Patch.Td24) 21 mg TRANSDERMA DAILY PRN PRN Reason: nicotine cravings Nicotine Polacrilex (Nicotine Polacrilex 2 Mg Gum) 4 mg BUCCAL Q2H PRN PRN Reason: Nicotine Cravings Olanzapine (Olanzapine 5 Mg Tablet) 5 mg PO Q4H PRN PRN Reason: agitation, aggression Paliperidone Palmitate (Paliperidone Palmitate 234 Mg/1.5 Ml Syringe) 234 mg IM Q30D JULIAN Sodium Chloride (Sodium Chloride 0.65 % Nasal 44 Ml Sprbtl) 1 spray NOSTRIL-B Q1H PRN PRN Reason: nasal congestion Last Admin: 07/23/24 18:17 Dose: 1 spray Trazodone HCl (Trazodone Hcl 50 Mg Tablet) 50 mg PO BEDTIME MRX1 PRN PRN Reason: Insomnia Allergies Allergies Allergy/AdvReac Type Severity Reaction Status Date / Time No Known Allergies Allergy Verified 05/22/24 17:01 Assessment & Plan Assessment & Plan (1) Depressive disorder, atypical: Status: Acute Code(s): F32.89 - Other specified depressive episodes (2) Adjustment disorder with depressed mood: Status: Acute Code(s): F43.21 - Adjustment disorder with depressed mood Plan 24 yo male transferred from [facility] ED after a suicide attempt by hanging. He has been increasingly isolated, poor self care, stopped working. He has eating disorder symptoms and NSSI. Symptoms worsened in the setting of a break up. Rule out other mood disorder Plan: - Admit to inpatient psychiatry - Section 12, rosado warning. - Collateral information from family and providers. - Milieu treatment and group therapy. - Medications: Refuses - Social work evaluation. - Disposition planning. patient eloped in the after noon from the unit and was brought back by Police. 05/24: Continue current management and treatment plan. Encourage engagement in groups and milieu. 05/25: Start Abilify 5 mg. Patient to consider. Encourage group and milieu engagement. Fasting labs in AM. Collaterals would be helpful. 05/26: encouraged to take abilify. rosado warning, legal discussion. 05/27: took abilify 5 mg this morning for first time. 12b up tomorrow. continue current mgmt. 05/28: took abilify again today. feeling better and more into things. filed for commitment. 05/29: took abilify 5 again today. willing to increase to 10 as of saturday (ordered). asking for LENA again, will allow with security present. 05/31/2024: No changes 06/01: abilify dosing increased to 10 mg as of this morning. initially too paranoid to sleep in single room, slept there last night for first time. court . 06/02: no change in presentation. declines increase in abilify dosing. stands by door throughout. 06/03 continue tx. 06/04: no change in presentation. agrees to increase abilify to 15 mg daily. hearing continued for 2 weeks. 06/05: no change. self-dialoguing. took abilify 15 today. appears with more irritable edge today. unclear if cheeking meds. order CO for 30 minutes post- medication.. 9/14 pt went to bathroom, flushed without evidence of urinating, seems like he is not taking antipsychotic. 06/07 continue tx. 06/08: no substantial change in presentation. saturday (and likely all the days before) pt appeared to have flushed his medication. pt was compliant with 30- min post-medication observation period on saturday. continue current mgmt. increase abilify to 20 mg in several days. 06/09: no change in presentation. will increase abilify to 20 mg as of tomorrow. if no change in presentation in next couple of days will switch to zyprexa zydis. 06/10: no change. T/C zydis. increased abilify to 20 today. 06/11: no change. DC abilify, start zyprexa. pt does not want to make this change, but it is made nevertheless. 06/12: no change in presentation. headphones playing loud static. vague, evasive answers. continue zydis 10 QHS. 06/13: Continue current regimen and plans 06/14: Continue current regimen and plans 06/15: appears ambivalent re taking zyprexa, has refused once and refused and then accepted once. sits for interview for the first time today, headphones are present but not turned on for the first time. pt states he prefers abilify to zyprexa but cannot say why. pt was encouraged to continue zyprexa trial. 06/16: same as yesterday except headphones perhaps on low volume. took zyprexa last night. continue current mgmt. court . 06/17: more visible on unit today, seeking out x2 re court tomorrow. asking about signing in, PHP, narcisor. refused zyprexa last NOC. continue current mgmt. denies he has mental illness, denies depressed mood. 06/18: refusing medication. hearing continued for 1 week for NABOR. pt reports won't take medication variably due to being on CO for 30 minutes after medication and because once after taking the medication he had an upset stomach. 06/19: did not take meds last night. no notable events or behaviors. continue current mgmt. hearing continued until next saturday. 06/20: Continue current treatment plan. 06/21: Continue current treatment plan. 06/22: took meds fri and sat, did not take meds last night. continue current mgmt. advised to use TUMs for stomach pain. 06/23: took meds last night, denies side effects. spending more time outside of his room, largely in sensory room. 06/24: in room today. took meds last night. no change in presentation. 06/25: interviewed in his room. refused meds last night. no change in presentation. reports the only mental illness he has is ADHD. 06/26: hearing held, pt committed and ordered medications. return to abilify trial. orders entered for w/e. 06/27 -CTP not sure he will agree to inc dose after weekend- nor do we have IM order should he refuse PO 06/28 CTP 06/29: appears more relaxed, better related today. sat with MD in interview room rather than standing. encouraged to attend groups. agreeable to increase abilify to 15 mg, says 20 mg makes him feel uncomfortable. increase to 15 mg tonight. 06/30: spat out medication surreptitiously last night. informed he will be given abilify IM soon and was encouraged to comply with PO dosing in the meantime to be confident he will not have ADR. stable presentation. 07/01: no change in presentation. increase abilify to 20 mg QHS. 07/02: no change. continue current mgmt. CARLSON abilify saturday. 07/03: refused PO abilify last NOC mistakenly thinking he would get abilify CARLSON instead. he got zyprexa. misunderstanding worked out today, pt to continue PO abilify another week before getting CARLSON. continue current mgmt. 07/04: DC abilify as pt continues to cheek it. switch to invega, as guidelines indicate only a test dose to be given orally prior to CARLSON, as opposed to 2 weeks PO as for abilify CARLSON. 07/05: refused invega last night. try again tonight. plan for invega sustenna. 07/06: refused invega again last night, but did take a one-time dose today days. planning on CARLSON invega soon. no change in presentation. 07/07: no change in presentation. took 2 doses of PO invega, will give IM 234 mg tomorrow morning. 07/08: Continue current tx plan. 07/09: got invega sustenna 234 mg IM 07/08, will get invega sustenna 156 mg IM 07/15. stable presentation. 07/10: no s/e. feels medication makes it easier to get out and do things. continue current mgmt. 07/11 keep same treatment. 07/12 keep same treatment. 07/13: feels moving more than before, more able to do things. 07/14: no change in presentation. invega sustenna 156 mg IM tomorrow. continue current mgmt. 07/15: awaiting CARLSON today. no change in presentation. sustenna 234 mg Q30 days ordered to start 08/12. 1024: got CARLSON sustenna 156 mg yesterday. no change in presentation today. discuss depressive Sx with pt and broach possibility of antidepressant medication. 07/17: depression and depression mgmt discussed. pt will consider. otherwise no change in presentation, continue current mgmt. 07/18 continue tx. 07/19 continue tx. 07/20: more forthcoming with historical info, his thought process and mental state. denies depression, says if he starts to feel that way he will consider anti-depressant medication. denies s/e of medications. 07/21: no change in presentation. continue current mgmt. 07/22: as for yesterday. 07/23: continue current tx plan. 07/24: did not engage with T/W. continue current tx plan. presents similar to yesterday. 07/25: no changes Reason for continued inpatient stay Substantial Risk for: inability to function Time Spent With Patient Time: Total time managing care of this patient today ____ minutes.
[2024-07-25] MEDS: Sodium Chloride 0.65 % Nasal 44 ML SPRBTL 1 SPRAY NOSTRIL-B (13:47)
--- NOTE | 2024-07-26 10:23 | HO.PSYCHPN ---
Subjective Subjective Date of Service: 07/26/24 Reason For Visit: Unspec anxiety d/o,atten-deficit/hyperactivity d/o Interim History: Keeping to self. In room mostly. Pleasant. Listens to headphones - favorite artist is Jose Miguel. Guarded. Minimal engagement. Medication Compliance: Yes Side effects from medications: No Attending Groups: No Review of Systems Acute medical concerns: No Review of Systems Review of Systems nothing of note Mental Status Exam Mental Status Exam Narrative: adequately dressed and groomed. In room. Poor eye contact. superficially cooperative. speech soft, sparse. decr amount. affect constricted, mood ok . no SI/HI/AVH expressed. Diagnostics Vital Signs (24Hr): BMI result Body Mass Index 30.0 Medications Medications Current Medications Acetaminophen (Acetaminophen 325 Mg Tablet) 650 mg PO Q6H PRN PRN Reason: Headache/Pain Mild Scale (1-3) Al Hydroxide/Mg Hydroxide (Magnesium Hydrox/Alum Hydrox 30 Ml Oral.Susp) 30 ml PO Q6H PRN PRN Reason: Heartburn/Nausea Hydroxyzine HCl (Hydroxyzine Hcl 25 Mg Tablet) 25 mg PO Q6H PRN PRN Reason: Anxiety Magnesium Hydroxide (Milk Of Magnesia 30 Ml Oral.Susp) 30 ml PO DAILY PRN PRN Reason: Constipation Multi-Ingred Cream/Lotion/Oil/Oint (Mineral Oil/Petrolatum,White 106 Gm Tube) 1 appl TOPICAL BID PRN; Protocol PRN Reason: dry skin Nicotine (Nicotine 21 Mg Patch.Td24) 21 mg TRANSDERMA DAILY PRN PRN Reason: nicotine cravings Nicotine Polacrilex (Nicotine Polacrilex 2 Mg Gum) 4 mg BUCCAL Q2H PRN PRN Reason: Nicotine Cravings Olanzapine (Olanzapine 5 Mg Tablet) 5 mg PO Q4H PRN PRN Reason: agitation, aggression Paliperidone Palmitate (Paliperidone Palmitate 234 Mg/1.5 Ml Syringe) 234 mg IM Q30D JULIAN Sodium Chloride (Sodium Chloride 0.65 % Nasal 44 Ml Sprbtl) 1 spray NOSTRIL-B Q1H PRN PRN Reason: nasal congestion Last Admin: 07/25/24 13:47 Dose: 1 spray Trazodone HCl (Trazodone Hcl 50 Mg Tablet) 50 mg PO BEDTIME MRX1 PRN PRN Reason: Insomnia Allergies Allergies Allergy/AdvReac Type Severity Reaction Status Date / Time No Known Allergies Allergy Verified 05/22/24 17:01 Assessment & Plan Assessment & Plan (1) Depressive disorder, atypical: Status: Acute Code(s): F32.89 - Other specified depressive episodes (2) Adjustment disorder with depressed mood: Status: Acute Code(s): F43.21 - Adjustment disorder with depressed mood Plan 24 yo male transferred from [facility] ED after a suicide attempt by hanging. He has been increasingly isolated, poor self care, stopped working. He has eating disorder symptoms and NSSI. Symptoms worsened in the setting of a break up. Rule out other mood disorder Plan: - Admit to inpatient psychiatry - Section 12, rosado warning. - Collateral information from family and providers. - Milieu treatment and group therapy. - Medications: Refuses - Social work evaluation. - Disposition planning. patient eloped in the after noon from the unit and was brought back by Police. 05/24: Continue current management and treatment plan. Encourage engagement in groups and milieu. 05/25: Start Abilify 5 mg. Patient to consider. Encourage group and milieu engagement. Fasting labs in AM. Collaterals would be helpful. 05/26: encouraged to take abilify. rosado warning, legal discussion. 05/27: took abilify 5 mg this morning for first time. 12b up tomorrow. continue current mgmt. 05/28: took abilify again today. feeling better and more into things. filed for commitment. 05/29: took abilify 5 again today. willing to increase to 10 as of saturday (ordered). asking for LENA again, will allow with security present. 05/31/2024: No changes 06/01: abilify dosing increased to 10 mg as of this morning. initially too paranoid to sleep in single room, slept there last night for first time. court . 06/02: no change in presentation. declines increase in abilify dosing. stands by door throughout. 06/03 continue tx. 06/04: no change in presentation. agrees to increase abilify to 15 mg daily. hearing continued for 2 weeks. 06/05: no change. self-dialoguing. took abilify 15 today. appears with more irritable edge today. unclear if cheeking meds. order CO for 30 minutes post-medication.. 06/06 pt went to bathroom, flushed without evidence of urinating, seems like he is not taking antipsychotic. 06/07 continue tx. 06/08: no substantial change in presentation. saturday (and likely all the days before) pt appeared to have flushed his medication. pt was compliant with 30-min post-medication observation period on saturday. continue current mgmt. increase abilify to 20 mg in several days. 06/09: no change in presentation. will increase abilify to 20 mg as of tomorrow. if no change in presentation in next couple of days will switch to zyprexa zydis. 06/10: no change. T/C zydis. increased abilify to 20 today. 06/11: no change. DC abilify, start zyprexa. pt does not want to make this change, but it is made nevertheless. 06/12: no change in presentation. headphones playing loud static. vague, evasive answers. continue zydis 10 QHS. 06/13: Continue current regimen and plans 06/14: Continue current regimen and plans 06/15: appears ambivalent re taking zyprexa, has refused once and refused and then accepted once. sits for interview for the first time today, headphones are present but not turned on for the first time. pt states he prefers abilify to zyprexa but cannot say why. pt was encouraged to continue zyprexa trial. 06/16: same as yesterday except headphones perhaps on low volume. took zyprexa last night. continue current mgmt. court . 06/17: more visible on unit today, seeking out MD x2 re court tomorrow. asking about signing in, DANELLE, je. refused zyprexa last NOC. continue current mgmt. denies he has mental illness, denies depressed mood. 06/18: refusing medication. hearing continued for 1 week for NABOR. pt reports won't take medication variably due to being on CO for 30 minutes after medication and because once after taking the medication he had an upset stomach. 06/19: did not take meds last night. no notable events or behaviors. continue current mgmt. hearing continued until next saturday. 06/20: Continue current treatment plan. 06/21: Continue current treatment plan. 06/22: took meds fri and sat, did not take meds last night. continue current mgmt. advised to use TUMs for stomach pain. 06/23: took meds last night, denies side effects. spending more time outside of his room, largely in sensory room. 06/24: in room today. took meds last night. no change in presentation. 06/25: interviewed in his room. refused meds last night. no change in presentation. reports the only mental illness he has is ADHD. 06/26: hearing held, pt committed and ordered medications. return to abilify trial. orders entered for w/e. 06/27 -CTP not sure he will agree to inc dose after weekend- nor do we have IM order should he refuse PO 06/28 CTP 06/29: appears more relaxed, better related today. sat with MD in interview room rather than standing. encouraged to attend groups. agreeable to increase abilify to 15 mg, says 20 mg makes him feel uncomfortable. increase to 15 mg tonight. 06/30: spat out medication surreptitiously last night. informed he will be given abilify IM soon and was encouraged to comply with PO dosing in the meantime to be confident he will not have ADR. stable presentation. 07/01: no change in presentation. increase abilify to 20 mg QHS. 07/02: no change. continue current mgmt. CARLSON abilify saturday. 07/03: refused PO abilify last NOC mistakenly thinking he would get abilify CARLSON instead. he got zyprexa. misunderstanding worked out today, pt to continue PO abilify another week before getting CARLSON. continue current mgmt. 07/04: DC abilify as pt continues to cheek it. switch to invega, as guidelines indicate only a test dose to be given orally prior to CARLSON, as opposed to 2 weeks PO as for abilify CARLSON. 07/05: refused invega last night. try again tonight. plan for invega sustenna. 07/06: refused invega again last night, but did take a one-time dose today days. planning on CARLSON invega soon. no change in presentation. 07/07: no change in presentation. took 2 doses of PO invega, will give IM 234 mg tomorrow morning. 07/08: Continue current tx plan. 07/09: got invega sustenna 234 mg IM 07/08, will get invega sustenna 156 mg IM 07/15. stable presentation. 07/10: no s/e. feels medication makes it easier to get out and do things. continue current mgmt. 07/11 keep same treatment. 07/12 keep same treatment. 07/13: feels moving more than before, more able to do things. 07/14: no change in presentation. invega sustenna 156 mg IM tomorrow. continue current mgmt. 07/15: awaiting CARLSON today. no change in presentation. sustenna 234 mg Q30 days ordered to start 08/12. 1024: got CARLSON sustenna 156 mg yesterday. no change in presentation today. discuss depressive Sx with pt and broach possibility of antidepressant medication. 07/17: depression and depression mgmt discussed. pt will consider. otherwise no change in presentation, continue current mgmt. 07/18 continue tx. 07/19 continue tx. 07/20: more forthcoming with historical info, his thought process and mental state. denies depression, says if he starts to feel that way he will consider anti-depressant medication. denies s/e of medications. 07/21: no change in presentation. continue current mgmt. 07/22: as for yesterday. 07/23: continue current tx plan. 07/24: did not engage with T/W. continue current tx plan. presents similar to yesterday. 07/26: no changes Reason for continued inpatient stay Substantial Risk for: rapid decompensation Time Spent With Patient Time: Total time managing care of this patient today ____ minutes.
[2024-07-26 20:00] VITALS: RESP 16
--- NOTE | 2024-07-27 10:17 | P.PNPSI_ITS ---
Subjective Subjective Date of Service: 07/27/24 Reason For Visit: Unspec anxiety d/o,atten-deficit/hyperactivity d/o Subjective Notes: Section 8 Interim History: Keeping to self. In room most of shift. Guarded. responding with short responses. difficult to engage in conversation. Pt reports feeling okay ; encouraged to leave room and attend groups. per nursing, pt slept well. Medication Compliance: Yes Side effects from medications: No Mental Status Exam Mental Status Exam Patient Appearance: Appropriate Patient Orientation: Person, Place and Situation Level of Consciousness: Awake Patient Behavior: Guarded and Poor Eye Contact Mood Description: Calm Affect Description: Blunted Patient Cognition Impaired: Yes Ability to Follow Directions: Good Speech Pattern: Clear Diagnostics Vital Signs (24Hr): Vital Signs - 24 hr 07/26/24 20:00 Respiratory Rate 16 BMI result Body Mass Index 30.0 Medications Medications Current Medications Acetaminophen (Acetaminophen 325 Mg Tablet) 650 mg PO Q6H PRN PRN Reason: Headache/Pain Mild Scale (1-3) Al Hydroxide/Mg Hydroxide (Magnesium Hydrox/Alum Hydrox 30 Ml Oral.Susp) 30 ml PO Q6H PRN PRN Reason: Heartburn/Nausea Hydroxyzine HCl (Hydroxyzine Hcl 25 Mg Tablet) 25 mg PO Q6H PRN PRN Reason: Anxiety Magnesium Hydroxide (Milk Of Magnesia 30 Ml Oral.Susp) 30 ml PO DAILY PRN PRN Reason: Constipation Multi-Ingred Cream/Lotion/Oil/Oint (Mineral Oil/Petrolatum,White 106 Gm Tube) 1 appl TOPICAL BID PRN; Protocol PRN Reason: dry skin Nicotine (Nicotine 21 Mg Patch.Td24) 21 mg TRANSDERMA DAILY PRN PRN Reason: nicotine cravings Nicotine Polacrilex (Nicotine Polacrilex 2 Mg Gum) 4 mg BUCCAL Q2H PRN PRN Reason: Nicotine Cravings Olanzapine (Olanzapine 5 Mg Tablet) 5 mg PO Q4H PRN PRN Reason: agitation, aggression Paliperidone Palmitate (Paliperidone Palmitate 234 Mg/1.5 Ml Syringe) 234 mg IM Q30D JULIAN Sodium Chloride (Sodium Chloride 0.65 % Nasal 44 Ml Sprbtl) 1 spray NOSTRIL-B Q1H PRN PRN Reason: nasal congestion Last Admin: 07/25/24 13:47 Dose: 1 spray Trazodone HCl (Trazodone Hcl 50 Mg Tablet) 50 mg PO BEDTIME MRX1 PRN PRN Reason: Insomnia Allergies Allergies Allergy/AdvReac Type Severity Reaction Status Date / Time No Known Allergies Allergy Verified 05/22/24 17:01 Assessment & Plan Assessment & Plan (1) Depressive disorder, atypical: Status: Acute Code(s): F32.89 - Other specified depressive episodes (2) Adjustment disorder with depressed mood: Status: Acute Code(s): F43.21 - Adjustment disorder with depressed mood Plan 24 yo male transferred from [facility] ED after a suicide attempt by hanging. He has been increasingly isolated, poor self care, stopped working. He has eating disorder symptoms and NSSI. Symptoms worsened in the setting of a break up. Rule out other mood disorder Plan: - Admit to inpatient psychiatry - Section 12, rosado warning. - Collateral information from family and providers. - Milieu treatment and group therapy. - Medications: Refuses - Social work evaluation. - Disposition planning. patient eloped in the after noon from the unit and was brought back by Police. 05/24: Continue current management and treatment plan. Encourage engagement in groups and milieu. 05/25: Start Abilify 5 mg. Patient to consider. Encourage group and milieu engagement. Fasting labs in AM. Collaterals would be helpful. 05/26: encouraged to take abilify. rosado warning, legal discussion. 05/27: took abilify 5 mg this morning for first time. 12b up tomorrow. continue current mgmt. 05/28: took abilify again today. feeling better and more into things. filed for commitment. 05/29: took abilify 5 again today. willing to increase to 10 as of saturday (ordered). asking for LENA again, will allow with security present. 05/31/2024: No changes 06/01: abilify dosing increased to 10 mg as of this morning. initially too paranoid to sleep in single room, slept there last night for first time. court . 06/02: no change in presentation. declines increase in abilify dosing. stands by door throughout. 06/03 continue tx. 06/04: no change in presentation. agrees to increase abilify to 15 mg daily. hearing continued for 2 weeks. 06/05: no change. self-dialoguing. took abilify 15 today. appears with more irritable edge today. unclear if cheeking meds. order CO for 30 minutes post- medication.. 06/06 pt went to bathroom, flushed without evidence of urinating, seems like he is not taking antipsychotic. 06/07 continue tx. 06/08: no substantial change in presentation. saturday (and likely all the days before) pt appeared to have flushed his medication. pt was compliant with 30- min post-medication observation period on saturday. continue current mgmt. increase abilify to 20 mg in several days. 06/09: no change in presentation. will increase abilify to 20 mg as of tomorrow. if no change in presentation in next couple of days will switch to zyprexa zydis. 06/10: no change. T/C zydis. increased abilify to 20 today. 06/11: no change. DC abilify, start zyprexa. pt does not want to make this change, but it is made nevertheless. 06/12: no change in presentation. headphones playing loud static. vague, evasive answers. continue zydis 10 QHS. 06/13: Continue current regimen and plans 06/14: Continue current regimen and plans 06/15: appears ambivalent re taking zyprexa, has refused once and refused and then accepted once. sits for interview for the first time today, headphones are present but not turned on for the first time. pt states he prefers abilify to zyprexa but cannot say why. pt was encouraged to continue zyprexa trial. 06/16: same as yesterday except headphones perhaps on low volume. took zyprexa last night. continue current mgmt. court . 06/17: more visible on unit today, seeking out x2 re court tomorrow. asking about signing in, je MCCLENDON. refused zyprexa last NOC. continue current mgmt. denies he has mental illness, denies depressed mood. 06/18: refusing medication. hearing continued for 1 week for NABOR. pt reports won't take medication variably due to being on CO for 30 minutes after medication and because once after taking the medication he had an upset stomach. 06/19: did not take meds last night. no notable events or behaviors. continue current mgmt. hearing continued until next saturday. 06/20: Continue current treatment plan. 06/21: Continue current treatment plan. 06/22: took meds sat and sat, did not take meds last night. continue current mgmt. advised to use TUMs for stomach pain. 06/23: took meds last night, denies side effects. spending more time outside of his room, largely in sensory room. 06/24: in room today. took meds last night. no change in presentation. 06/25: interviewed in his room. refused meds last night. no change in presentation. reports the only mental illness he has is ADHD. 06/26: hearing held, pt committed and ordered medications. return to abilify trial. orders entered for w/e. 06/27 -CTP not sure he will agree to inc dose after weekend- nor do we have IM order should he refuse PO 06/28 CTP 06/29: appears more relaxed, better related today. sat with MD in interview room rather than standing. encouraged to attend groups. agreeable to increase abilify to 15 mg, says 20 mg makes him feel uncomfortable. increase to 15 mg tonight. 06/30: spat out medication surreptitiously last night. informed he will be given abilify IM soon and was encouraged to comply with PO dosing in the meantime to be confident he will not have ADR. stable presentation. 07/01: no change in presentation. increase abilify to 20 mg QHS. 07/02: no change. continue current mgmt. CARLSON abilify saturday. 07/03: refused PO abilify last NOC mistakenly thinking he would get abilify CARLSON instead. he got zyprexa. misunderstanding worked out today, pt to continue PO abilify another week before getting CARLSON. continue current mgmt. 07/04: DC abilify as pt continues to cheek it. switch to invega, as guidelines indicate only a test dose to be given orally prior to CARLSON, as opposed to 2 weeks PO as for abilify CARLSON. 07/05: refused invega last night. try again tonight. plan for invega sustenna. 07/06: refused invega again last night, but did take a one-time dose today days. planning on CARLSON invega soon. no change in presentation. 07/07: no change in presentation. took 2 doses of PO invega, will give IM 234 mg tomorrow morning. 07/08: Continue current tx plan. 07/09: got invega sustenna 234 mg IM 07/08, will get invega sustenna 156 mg IM 07/15. stable presentation. 07/10: no s/e. feels medication makes it easier to get out and do things. continue current mgmt. 07/11 keep same treatment. 07/12 keep same treatment. 07/13: feels moving more than before, more able to do things. 07/14: no change in presentation. invega sustenna 156 mg IM tomorrow. continue current mgmt. 07/15: awaiting CARLSON today. no change in presentation. sustenna 234 mg Q30 days ordered to start 08/12. 1024: got CARLSON sustenna 156 mg yesterday. no change in presentation today. discuss depressive Sx with pt and broach possibility of antidepressant medication. 07/17: depression and depression mgmt discussed. pt will consider. otherwise no change in presentation, continue current mgmt. 07/18 continue tx. 07/19 continue tx. 07/20: more forthcoming with historical info, his thought process and mental state. denies depression, says if he starts to feel that way he will consider anti-depressant medication. denies s/e of medications. 07/21: no change in presentation. continue current mgmt. 07/22: as for yesterday. 07/23: continue current tx plan. 07/24: did not engage with T/W. continue current tx plan. presents similar to yesterday. 07/26: no changes 07/27: Keeping to self. In room most of shift. Guarded. responding with short responses. difficult to engage in conversation. Pt reports feeling okay ; encouraged to leave room and attend groups. per nursing, pt slept well. Patient educated on: therapeutic strategies Reason for continued inpatient stay Substantial Risk for: med/psych decompensation Time Spent With Patient Time: Total time managing care of this patient today _10___ minutes.
[2024-07-27 19:53] VITALS: RESP 18
[2024-07-28 08:00] VITALS: RESP 18
--- NOTE | 2024-07-28 10:30 | P.PNPSI_ITS ---
Subjective Subjective Date of Service: 07/28/24 Reason For Visit: Unspec anxiety d/o,atten-deficit/hyperactivity d/o Subjective Notes: Section 8 Interim History: Pt slept through the night. He is taking medications as prescribed. He reports doing well. No SI/HI. He is mostly in his room, which has multiple bottle bottles and his clothes all over. He reports he is reading. No behavioral concerns. Review of Systems Review of Systems nothing of note Yes all other systems are reviewed and are negative Mental Status Exam Mental Status Exam Narrative: adequately dressed and groomed. In room. Poor eye contact. superficially cooperative. speech soft, sparse. decr amount. affect constricted, mood ok . no SI/HI/AVH expressed. Diagnostics Vital Signs (24Hr): Vital Signs - 24 hr 07/27/24 19:53 07/28/24 08:00 Respiratory Rate 18 18 BMI result Body Mass Index 30.0 Medications Medications Current Medications Acetaminophen (Acetaminophen 325 Mg Tablet) 650 mg PO Q6H PRN PRN Reason: Headache/Pain Mild Scale (1-3) Al Hydroxide/Mg Hydroxide (Magnesium Hydrox/Alum Hydrox 30 Ml Oral.Susp) 30 ml PO Q6H PRN PRN Reason: Heartburn/Nausea Hydroxyzine HCl (Hydroxyzine Hcl 25 Mg Tablet) 25 mg PO Q6H PRN PRN Reason: Anxiety Magnesium Hydroxide (Milk Of Magnesia 30 Ml Oral.Susp) 30 ml PO DAILY PRN PRN Reason: Constipation Multi-Ingred Cream/Lotion/Oil/Oint (Mineral Oil/Petrolatum,White 106 Gm Tube) 1 appl TOPICAL BID PRN; Protocol PRN Reason: dry skin Nicotine (Nicotine 21 Mg Patch.Td24) 21 mg TRANSDERMA DAILY PRN PRN Reason: nicotine cravings Nicotine Polacrilex (Nicotine Polacrilex 2 Mg Gum) 4 mg BUCCAL Q2H PRN PRN Reason: Nicotine Cravings Olanzapine (Olanzapine 5 Mg Tablet) 5 mg PO Q4H PRN PRN Reason: agitation, aggression Paliperidone Palmitate (Paliperidone Palmitate 234 Mg/1.5 Ml Syringe) 234 mg IM Q30D JULIAN Sodium Chloride (Sodium Chloride 0.65 % Nasal 44 Ml Sprbtl) 1 spray NOSTRIL-B Q1H PRN PRN Reason: nasal congestion Last Admin: 07/25/24 13:47 Dose: 1 spray Trazodone HCl (Trazodone Hcl 50 Mg Tablet) 50 mg PO BEDTIME MRX1 PRN PRN Reason: Insomnia Allergies Allergies Allergy/AdvReac Type Severity Reaction Status Date / Time No Known Allergies Allergy Verified 05/22/24 17:01 Assessment & Plan Assessment & Plan (1) Depressive disorder, atypical: Status: Acute Code(s): F32.89 - Other specified depressive episodes (2) Adjustment disorder with depressed mood: Status: Acute Code(s): F43.21 - Adjustment disorder with depressed mood Plan 24 yo male transferred from [facility] ED after a suicide attempt by hanging. He has been increasingly isolated, poor self care, stopped working. He has eating disorder symptoms and NSSI. Symptoms worsened in the setting of a break up. Rule out other mood disorder Plan: - Admit to inpatient psychiatry - Section 12, rosado warning. - Collateral information from family and providers. - Milieu treatment and group therapy. - Medications: Refuses - Social work evaluation. - Disposition planning. patient eloped in the after noon from the unit and was brought back by Police. 05/24: Continue current management and treatment plan. Encourage engagement in groups and milieu. 05/25: Start Abilify 5 mg. Patient to consider. Encourage group and milieu engagement. Fasting labs in AM. Collaterals would be helpful. 05/26: encouraged to take abilify. rosado warning, legal discussion. 05/27: took abilify 5 mg this morning for first time. 12b up tomorrow. continue current mgmt. 05/28: took abilify again today. feeling better and more into things. filed for commitment. 05/29: took abilify 5 again today. willing to increase to 10 as of saturday (ordered). asking for LENA again, will allow with security present. 05/31/2024: No changes 06/01: abilify dosing increased to 10 mg as of this morning. initially too paranoid to sleep in single room, slept there last night for first time. court . 06/02: no change in presentation. declines increase in abilify dosing. stands by door throughout. 06/03 continue tx. 06/04: no change in presentation. agrees to increase abilify to 15 mg daily. hearing continued for 2 weeks. 06/05: no change. self-dialoguing. took abilify 15 today. appears with more irritable edge today. unclear if cheeking meds. order CO for 30 minutes post- medication.. 06/06 pt went to bathroom, flushed without evidence of urinating, seems like he is not taking antipsychotic. 06/07 continue tx. 06/08: no substantial change in presentation. saturday (and likely all the days before) pt appeared to have flushed his medication. pt was compliant with 30- min post-medication observation period on saturday. continue current mgmt. increase abilify to 20 mg in several days. 06/09: no change in presentation. will increase abilify to 20 mg as of tomorrow. if no change in presentation in next couple of days will switch to zyprexa zydis. 06/10: no change. T/C zydis. increased abilify to 20 today. 06/11: no change. DC abilify, start zyprexa. pt does not want to make this change, but it is made nevertheless. 06/12: no change in presentation. headphones playing loud static. vague, evasive answers. continue zydis 10 QHS. 06/13: Continue current regimen and plans 06/14: Continue current regimen and plans 06/15: appears ambivalent re taking zyprexa, has refused once and refused and then accepted once. sits for interview for the first time today, headphones are present but not turned on for the first time. pt states he prefers abilify to zyprexa but cannot say why. pt was encouraged to continue zyprexa trial. 06/16: same as yesterday except headphones perhaps on low volume. took zyprexa last night. continue current mgmt. court . 06/17: more visible on unit today, seeking out x2 re court tomorrow. asking about signing in, je MCCLENDON. refused zyprexa last NOC. continue current mgmt. denies he has mental illness, denies depressed mood. 06/18: refusing medication. hearing continued for 1 week for NABOR. pt reports won't take medication variably due to being on CO for 30 minutes after medication and because once after taking the medication he had an upset stomach. 06/19: did not take meds last night. no notable events or behaviors. continue current mgmt. hearing continued until next saturday. 06/20: Continue current treatment plan. 06/21: Continue current treatment plan. 06/22: took meds sat and sat, did not take meds last night. continue current mgmt. advised to use TUMs for stomach pain. 06/23: took meds last night, denies side effects. spending more time outside of his room, largely in sensory room. 06/24: in room today. took meds last night. no change in presentation. 06/25: interviewed in his room. refused meds last night. no change in presentation. reports the only mental illness he has is ADHD. 06/26: hearing held, pt committed and ordered medications. return to abilify trial. orders entered for w/e. 06/27 -CTP not sure he will agree to inc dose after weekend- nor do we have IM order should he refuse PO 06/28 CTP 06/29: appears more relaxed, better related today. sat with MD in interview room rather than standing. encouraged to attend groups. agreeable to increase abilify to 15 mg, says 20 mg makes him feel uncomfortable. increase to 15 mg tonight. 06/30: spat out medication surreptitiously last night. informed he will be given abilify IM soon and was encouraged to comply with PO dosing in the meantime to be confident he will not have ADR. stable presentation. 07/01: no change in presentation. increase abilify to 20 mg QHS. 07/02: no change. continue current mgmt. CARLSON abilify saturday. 07/03: refused PO abilify last NOC mistakenly thinking he would get abilify CARLSON instead. he got zyprexa. misunderstanding worked out today, pt to continue PO abilify another week before getting CARLSON. continue current mgmt. 07/04: DC abilify as pt continues to cheek it. switch to invega, as guidelines indicate only a test dose to be given orally prior to CARLSON, as opposed to 2 weeks PO as for abilify CARLSON. 07/05: refused invega last night. try again tonight. plan for invega sustenna. 07/06: refused invega again last night, but did take a one-time dose today days. planning on CARLSON invega soon. no change in presentation. 07/07: no change in presentation. took 2 doses of PO invega, will give IM 234 mg tomorrow morning. 07/08: Continue current tx plan. 07/09: got invega sustenna 234 mg IM 07/08, will get invega sustenna 156 mg IM 07/15. stable presentation. 07/10: no s/e. feels medication makes it easier to get out and do things. continue current mgmt. 07/11 keep same treatment. 07/12 keep same treatment. 07/13: feels moving more than before, more able to do things. 07/14: no change in presentation. invega sustenna 156 mg IM tomorrow. continue current mgmt. 07/15: awaiting CARLSON today. no change in presentation. sustenna 234 mg Q30 days ordered to start 08/12. 1024: got CARLSON sustenna 156 mg yesterday. no change in presentation today. discuss depressive Sx with pt and broach possibility of antidepressant medication. 07/17: depression and depression mgmt discussed. pt will consider. otherwise no change in presentation, continue current mgmt. 07/18 continue tx. 07/19 continue tx. 07/20: more forthcoming with historical info, his thought process and mental state. denies depression, says if he starts to feel that way he will consider anti-depressant medication. denies s/e of medications. 07/21: no change in presentation. continue current mgmt. 07/22: as for yesterday. 07/23: continue current tx plan. 07/24: did not engage with T/W. continue current tx plan. presents similar to yesterday. 07/26: no changes 07/27: Keeping to self. In room most of shift. Guarded. responding with short responses. difficult to engage in conversation. Pt reports feeling okay ; encouraged to leave room and attend groups. per nursing, pt slept well. 07/[address] Dalal. not sure if presentation at this point may be more consistent with negative symptoms of schizophrenia. continue tx. Reason for continued inpatient stay Substantial Risk for: inability to function Time Spent With Patient Time: Total time managing care of this patient today ____ minutes.
[2024-07-30 07:00] VITALS: BMI 30.6
--- NOTE | 2024-07-30 12:57 | P.PNPSI_ITS ---
Subjective Subjective Date of Service: 07/30/24 Reason For Visit: Unspec anxiety d/o,atten-deficit/hyperactivity d/o Interim History: calm, cooperative. marginally better related, improved eye contact. soft- spoken, pleasant. discuss getting CARLSON late next week and discharging after. pe r staff, no notable events or behaviors. Mental Status Exam Mental Status Exam Narrative: adequately dressed and groomed. sat for interview. improved eye contact. superficially cooperative. speech soft, decr amount. affect constricted, mood euthymic. no SI/HI/AVH expressed. Diagnostics Vital Signs (24Hr): BMI result Body Mass Index 30.6 Medications Medications Current Medications Acetaminophen (Acetaminophen 325 Mg Tablet) 650 mg PO Q6H PRN PRN Reason: Headache/Pain Mild Scale (1-3) Al Hydroxide/Mg Hydroxide (Magnesium Hydrox/Alum Hydrox 30 Ml Oral.Susp) 30 ml PO Q6H PRN PRN Reason: Heartburn/Nausea Hydroxyzine HCl (Hydroxyzine Hcl 25 Mg Tablet) 25 mg PO Q6H PRN PRN Reason: Anxiety Magnesium Hydroxide (Milk Of Magnesia 30 Ml Oral.Susp) 30 ml PO DAILY PRN PRN Reason: Constipation Multi-Ingred Cream/Lotion/Oil/Oint (Mineral Oil/Petrolatum,White 106 Gm Tube) 1 appl TOPICAL BID PRN; Protocol PRN Reason: dry skin Nicotine (Nicotine 21 Mg Patch.Td24) 21 mg TRANSDERMA DAILY PRN PRN Reason: nicotine cravings Nicotine Polacrilex (Nicotine Polacrilex 2 Mg Gum) 4 mg BUCCAL Q2H PRN PRN Reason: Nicotine Cravings Olanzapine (Olanzapine 5 Mg Tablet) 5 mg PO Q4H PRN PRN Reason: agitation, aggression Paliperidone Palmitate (Paliperidone Palmitate 234 Mg/1.5 Ml Syringe) 234 mg IM Q30D JULIAN Sodium Chloride (Sodium Chloride 0.65 % Nasal 44 Ml Sprbtl) 1 spray NOSTRIL-B Q1H PRN PRN Reason: nasal congestion Last Admin: 07/25/24 13:47 Dose: 1 spray Trazodone HCl (Trazodone Hcl 50 Mg Tablet) 50 mg PO BEDTIME MRX1 PRN PRN Reason: Insomnia Allergies Allergies Allergy/AdvReac Type Severity Reaction Status Date / Time No Known Allergies Allergy Verified 05/22/24 17:01 Assessment & Plan Assessment & Plan (1) Depressive disorder, atypical: Status: Acute Code(s): F32.89 - Other specified depressive episodes (2) Adjustment disorder with depressed mood: Status: Acute Code(s): F43.21 - Adjustment disorder with depressed mood Plan 24 yo male transferred from [facility] ED after a suicide attempt by hanging. He has been increasingly isolated, poor self care, stopped working. He has eating disorder symptoms and NSSI. Symptoms worsened in the setting of a break up. Rule out other mood disorder Plan: - Admit to inpatient psychiatry - Section 12, rosado warning. - Collateral information from family and providers. - Milieu treatment and group therapy. - Medications: Refuses - Social work evaluation. - Disposition planning. patient eloped in the after noon from the unit and was brought back by Police. 05/24: Continue current management and treatment plan. Encourage engagement in groups and milieu. 05/25: Start Abilify 5 mg. Patient to consider. Encourage group and milieu engagement. Fasting labs in AM. Collaterals would be helpful. 05/26: encouraged to take abilify. rosado warning, legal discussion. 05/27: took abilify 5 mg this morning for first time. 12b up tomorrow. continue current mgmt. 05/28: took abilify again today. feeling better and more into things. filed for commitment. 05/29: took abilify 5 again today. willing to increase to 10 as of saturday ( ordered). asking for LENA again, will allow with security present. 05/31/2024: No changes 06/01: abilify dosing increased to 10 mg as of this morning. initially too paranoid to sleep in single room, slept there last night for first time. court . 06/02: no change in presentation. declines increase in abilify dosing. stands by door throughout. 06/03 continue tx. 06/04: no change in presentation. agrees to increase abilify to 15 mg daily. hearing continued for 2 weeks. 06/05: no change. self-dialoguing. took abilify 15 today. appears with more irritable edge today. unclear if cheeking meds. order CO for 30 minutes post- medication.. 06/06 pt went to bathroom, flushed without evidence of urinating, seems like he is not taking antipsychotic. 06/07 continue tx. 06/08: no substantial change in presentation. saturday (and likely all the days before) pt appeared to have flushed his medication. pt was compliant with 30- min post-medication observation period on saturday. continue current mgmt. increase abilify to 20 mg in several days. 06/09: no change in presentation. will increase abilify to 20 mg as of tomorrow. if no change in presentation in next couple of days will switch to zyprexa zydis. 06/10: no change. T/C zydis. increased abilify to 20 today. 06/11: no change. DC abilify, start zyprexa. pt does not want to make this change, but it is made nevertheless. 06/12: no change in presentation. headphones playing loud static. vague, evasive answers. continue zydis 10 QHS. 06/13: Continue current regimen and plans 06/14: Continue current regimen and plans 06/15: appears ambivalent re taking zyprexa, has refused once and refused and then accepted once. sits for interview for the first time today, headphones are present but not turned on for the first time. pt states he prefers abilify to zyprexa but cannot say why. pt was encouraged to continue zyprexa trial. 06/16: same as yesterday except headphones perhaps on low volume. took zyprexa last night. continue current mgmt. court . 06/17: more visible on unit today, seeking out MD ojeda re court tomorrow. asking about signing in, DANELLE, narcisor. refused zyprexa last NOC. continue current m gmt. denies he has mental illness, denies depressed mood. 06/18: refusing medication. hearing continued for 1 week for NABOR. pt reports won't take medication variably due to being on CO for 30 minutes after medication and because once after taking the medication he had an upset stomach. 06/19: did not take meds last night. no notable events or behaviors. continue current mgmt. hearing continued until next saturday. 06/20: Continue current treatment plan. 06/21: Continue current treatment plan. 06/22: took meds fri and sat, did not take meds last night. continue current mgmt. advised to use TUMs for stomach pain. 06/23: took meds last night, denies side effects. spending more time outside of his room, largely in sensory room. 06/24: in room today. took meds last night. no change in presentation. 06/25: interviewed in his room. refused meds last night. no change in presentation. reports the only mental illness he has is ADHD. 06/26: hearing held, pt committed and ordered medications. return to abilify trial. orders entered for w/e. 06/27 -CTP not sure he will agree to inc dose after weekend- nor do we have IM order should he refuse PO 06/28 CTP 06/29: appears more relaxed, better related today. sat with MD in interview room rather than standing. encouraged to attend groups. agreeable to increase abilify to 15 mg, says 20 mg makes him feel uncomfortable. increase to 15 mg tonight. 06/30: spat out medication surreptitiously last night. informed he will be given abilify IM soon and was encouraged to comply with PO dosing in the meantime to be confident he will not have ADR. stable presentation. 07/01: no change in presentation. increase abilify to 20 mg QHS. 07/02: no change. continue current mgmt. CARLSON abilify saturday. 07/03: refused PO abilify last NOC mistakenly thinking he would get abilify CARLSON instead. he got zyprexa. misunderstanding worked out today, pt to continue PO abilify another week before getting CARLSON. continue current mgmt. 07/04: DC abilify as pt continues to cheek it. switch to invega, as guidelines indicate only a test dose to be given orally prior to CARLSON, as opposed to 2 weeks PO as for abilify CARLSON. 07/05: refused invega last night. try again tonight. plan for invega sustenna. 07/06: refused invega again last night, but did take a one-time dose today days. planning on CARLSON invega soon. no change in presentation. 07/07: no change in presentation. took 2 doses of PO invega, will give IM 234 mg tomorrow morning. 07/08: Continue current tx plan. 07/09: got invega sustenna 234 mg IM 07/08, will get invega sustenna 156 mg IM 07/15. stable presentation. 07/10: no s/e. feels medication makes it easier to get out and do things. continue current mgmt. 07/11 keep same treatment. 07/12 keep same treatment. 07/13: feels moving more than before, more able to do things. 07/14: no change in presentation. invega sustenna 156 mg IM tomorrow. continue current mgmt. 07/15: awaiting CARLSON today. no change in presentation. sustenna 234 mg Q30 days ordered to start 08/12. 07/16: got CARLSON sustenna 156 mg yesterday. no change in presentation today. discuss depressive Sx with pt and broach possibility of antidepressant medication. 07/17: depression and depression mgmt discussed. pt will consider. otherwise no change in presentation, continue current mgmt. 07/18 continue tx. 07/19 continue tx. 07/20: more forthcoming with historical info, his thought process and mental state. denies depression, says if he starts to feel that way he will consider anti-depressant medication. denies s/e of medications. 07/21: no change in presentation. continue current mgmt. 07/22: as for yesterday. 07/23: continue current tx plan. 07/24: did not engage with T/W. continue current tx plan. presents similar to yesterday. 07/26: no changes 07/27: Keeping to self. In room most of shift. Guarded. responding with short responses. difficult to engage in conversation. Pt reports feeling okay ; encouraged to leave room and attend groups. per nursing, pt slept well. 07/[address] Dalal. not sure if presentation at this point may be more consistent with negative symptoms of schizophrenia. continue tx. 07/30: improved engageability and relatability since starting IM medication. continue current mgmt. CARLSON planned for 08/12, then discharge. Reason for continued inpatient stay Substantial Risk for: harm to self and rapid decompensation Time Spent With Patient Time: Total time managing care of this patient today __25__ minutes.
[2024-07-30 20:00] VITALS: RESP 16
[2024-07-31 07:57] VITALS: RESP 18
--- NOTE | 2024-07-31 11:58 | HO.PSYCHPN ---
Subjective Subjective Date of Service: 07/31/24 Reason For Visit: Unspec anxiety d/o,atten-deficit/hyperactivity d/o Interim History: presenting as yesterday. slightly improved from admission, but still withdrawn and taciturn. informed of plan to DC next after getting next CARLSON dose. per staff, slept well, no notable events or behaviors. Mental Status Exam Mental Status Exam Narrative: adequately dressed and groomed. sat for interview. improved eye contact. superficially cooperative. speech soft, decr amount. affect constricted, mood euthymic. no SI/HI/AVH expressed. Diagnostics Vital Signs (24Hr): Vital Signs - 24 hr 07/30/24 20:00 07/31/24 07:57 Respiratory Rate 16 18 BMI result Body Mass Index 30.6 Medications Medications Current Medications Acetaminophen (Acetaminophen 325 Mg Tablet) 650 mg PO Q6H PRN PRN Reason: Headache/Pain Mild Scale (1-3) Al Hydroxide/Mg Hydroxide (Magnesium Hydrox/Alum Hydrox 30 Ml Oral.Susp) 30 ml PO Q6H PRN PRN Reason: Heartburn/Nausea Hydroxyzine HCl (Hydroxyzine Hcl 25 Mg Tablet) 25 mg PO Q6H PRN PRN Reason: Anxiety Magnesium Hydroxide (Milk Of Magnesia 30 Ml Oral.Susp) 30 ml PO DAILY PRN PRN Reason: Constipation Multi-Ingred Cream/Lotion/Oil/Oint (Mineral Oil/Petrolatum,White 106 Gm Tube) 1 appl TOPICAL BID PRN; Protocol PRN Reason: dry skin Nicotine (Nicotine 21 Mg Patch.Td24) 21 mg TRANSDERMA DAILY PRN PRN Reason: nicotine cravings Nicotine Polacrilex (Nicotine Polacrilex 2 Mg Gum) 4 mg BUCCAL Q2H PRN PRN Reason: Nicotine Cravings Olanzapine (Olanzapine 5 Mg Tablet) 5 mg PO Q4H PRN PRN Reason: agitation, aggression Paliperidone Palmitate (Paliperidone Palmitate 234 Mg/1.5 Ml Syringe) 234 mg IM Q30D JULIAN Sodium Chloride (Sodium Chloride 0.65 % Nasal 44 Ml Sprbtl) 1 spray NOSTRIL-B Q1H PRN PRN Reason: nasal congestion Last Admin: 07/25/24 13:47 Dose: 1 spray Trazodone HCl (Trazodone Hcl 50 Mg Tablet) 50 mg PO BEDTIME MRX1 PRN PRN Reason: Insomnia Allergies Allergies Allergy/AdvReac Type Severity Reaction Status Date / Time No Known Allergies Allergy Verified 05/22/24 17:01 Assessment & Plan Assessment & Plan (1) Depressive disorder, atypical: Status: Acute Code(s): F32.89 - Other specified depressive episodes (2) Adjustment disorder with depressed mood: Status: Acute Code(s): F43.21 - Adjustment disorder with depressed mood Plan 24 yo male transferred from [facility] ED after a suicide attempt by hanging. He has been increasingly isolated, poor self care, stopped working. He has eating disorder symptoms and NSSI. Symptoms worsened in the setting of a break up. Rule out other mood disorder Plan: - Admit to inpatient psychiatry - Section 12, rosado warning. - Collateral information from family and providers. - Milieu treatment and group therapy. - Medications: Refuses - Social work evaluation. - Disposition planning. patient eloped in the after noon from the unit and was brought back by Police. 05/24: Continue current management and treatment plan. Encourage engagement in groups and milieu. 05/25: Start Abilify 5 mg. Patient to consider. Encourage group and milieu engagement. Fasting labs in AM. Collaterals would be helpful. 05/26: encouraged to take abilify. rosado warning, legal discussion. 05/27: took abilify 5 mg this morning for first time. 12b up tomorrow. continue current mgmt. 05/28: took abilify again today. feeling better and more into things. filed for commitment. 05/29: took abilify 5 again today. willing to increase to 10 as of saturday (ordered). asking for LENA again, will allow with security present. 05/31/2024: No changes 06/01: abilify dosing increased to 10 mg as of this morning. initially too paranoid to sleep in single room, slept there last night for first time. court . 06/02: no change in presentation. declines increase in abilify dosing. stands by door throughout. 06/03 continue tx. 06/04: no change in presentation. agrees to increase abilify to 15 mg daily. hearing continued for 2 weeks. 06/05: no change. self-dialoguing. took abilify 15 today. appears with more irritable edge today. unclear if cheeking meds. order CO for 30 minutes post-medication.. 06/06 pt went to bathroom, flushed without evidence of urinating, seems like he is not taking antipsychotic. 06/07 continue tx. 06/08: no substantial change in presentation. saturday (and likely all the days before) pt appeared to have flushed his medication. pt was compliant with 30-min post-medication observation period on saturday. continue current mgmt. increase abilify to 20 mg in several days. 06/09: no change in presentation. will increase abilify to 20 mg as of tomorrow. if no change in presentation in next couple of days will switch to zyprexa zydis. 06/10: no change. T/C zydis. increased abilify to 20 today. 06/11: no change. DC abilify, start zyprexa. pt does not want to make this change, but it is made nevertheless. 06/12: no change in presentation. headphones playing loud static. vague, evasive answers. continue zydis 10 QHS. 06/13: Continue current regimen and plans 06/14: Continue current regimen and plans 06/15: appears ambivalent re taking zyprexa, has refused once and refused and then accepted once. sits for interview for the first time today, headphones are present but not turned on for the first time. pt states he prefers abilify to zyprexa but cannot say why. pt was encouraged to continue zyprexa trial. 06/16: same as yesterday except headphones perhaps on low volume. took zyprexa last night. continue current mgmt. court . 06/17: more visible on unit today, seeking out MD ojeda re court tomorrow. asking about signing in, [facility], guitar. refused zyprexa last NOC. continue current mgmt. denies he has mental illness, denies depressed mood. 06/18: refusing medication. hearing continued for 1 week for NABOR. pt reports won't take medication variably due to being on CO for 30 minutes after medication and because once after taking the medication he had an upset stomach. 06/19: did not take meds last night. no notable events or behaviors. continue current mgmt. hearing continued until next saturday. 06/20: Continue current treatment plan. 06/21: Continue current treatment plan. 06/22: took meds sat and sat, did not take meds last night. continue current mgmt. advised to use TUMs for stomach pain. 06/23: took meds last night, denies side effects. spending more time outside of his room, largely in sensory room. 06/24: in room today. took meds last night. no change in presentation. 06/25: interviewed in his room. refused meds last night. no change in presentation. reports the only mental illness he has is ADHD. 06/26: hearing held, pt committed and ordered medications. return to abilify trial. orders entered for w/e. 06/27 -CTP not sure he will agree to inc dose after weekend- nor do we have IM order should he refuse PO 06/28 CTP 06/29: appears more relaxed, better related today. sat with MD in interview room rather than standing. encouraged to attend groups. agreeable to increase abilify to 15 mg, says 20 mg makes him feel uncomfortable. increase to 15 mg tonight. 06/30: spat out medication surreptitiously last night. informed he will be given abilify IM soon and was encouraged to comply with PO dosing in the meantime to be confident he will not have ADR. stable presentation. 07/01: no change in presentation. increase abilify to 20 mg QHS. 07/02: no change. continue current mgmt. CARLSON abilify saturday. 07/03: refused PO abilify last NOC mistakenly thinking he would get abilify CARLSON instead. he got zyprexa. misunderstanding worked out today, pt to continue PO abilify another week before getting CARLSON. continue current mgmt. 07/04: DC abilify as pt continues to cheek it. switch to invega, as guidelines indicate only a test dose to be given orally prior to CARLSON, as opposed to 2 weeks PO as for abilify CARLSON. 07/05: refused invega last night. try again tonight. plan for invega sustenna. 07/06: refused invega again last night, but did take a one-time dose today days. planning on CARLSON invega soon. no change in presentation. 07/07: no change in presentation. took 2 doses of PO invega, will give IM 234 mg tomorrow morning. 07/08: Continue current tx plan. 07/09: got invega sustenna 234 mg IM 07/08, will get invega sustenna 156 mg IM 07/15. stable presentation. 07/10: no s/e. feels medication makes it easier to get out and do things. continue current mgmt. 07/11 keep same treatment. 07/12 keep same treatment. 07/13: feels moving more than before, more able to do things. 07/14: no change in presentation. invega sustenna 156 mg IM tomorrow. continue current mgmt. 07/15: awaiting CARLSON today. no change in presentation. sustenna 234 mg Q30 days ordered to start 08/12. 07/16: got CARLSON sustenna 156 mg yesterday. no change in presentation today. discuss depressive Sx with pt and broach possibility of antidepressant medication. 07/17: depression and depression mgmt discussed. pt will consider. otherwise no change in presentation, continue current mgmt. 07/18 continue tx. 07/19 continue tx. 07/20: more forthcoming with historical info, his thought process and mental state. denies depression, says if he starts to feel that way he will consider anti-depressant medication. denies s/e of medications. 07/21: no change in presentation. continue current mgmt. 07/22: as for yesterday. 07/23: continue current tx plan. 07/24: did not engage with T/W. continue current tx plan. presents similar to yesterday. 07/26: no changes 07/27: Keeping to self. In room most of shift. Guarded. responding with short responses. difficult to engage in conversation. Pt reports feeling okay ; encouraged to leave room and attend groups. per nursing, pt slept well. 07/[address] Dalal. not sure if presentation at this point may be more consistent with negative symptoms of schizophrenia. continue tx. 07/30: improved engageability and relatability since starting IM medication. continue current mgmt. CARLSON planned for 08/12, then discharge. 07/31: no change in presentation. CARLSON to be given early, 08/05, and pt discharged after, same day. arrange aftercare in the meantime. continue current mgmt otherwise. Reason for continued inpatient stay Substantial Risk for: harm to self Time Spent With Patient Time: Total time managing care of this patient today __25__ minutes.
[2024-07-31 20:42] VITALS: RESP 18
--- NOTE | 2024-08-01 11:32 | HO.PSYCHPN ---
Subjective Subjective Date of Service: 08/01/24 Reason For Visit: Unspec anxiety d/o,atten-deficit/hyperactivity d/o Interim History: Unchanged presentation. He reports he is sleeping well. Reading Osei Potter. Says focus is good. Listens to music. No behavioral outbursts. Denies SI. Will receive CARLSON. Review of Systems Review of Systems nothing of note Yes all other systems are reviewed and are negative Mental Status Exam Mental Status Exam Narrative: adequately dressed and groomed. sat for interview. improved eye contact. superficially cooperative. speech soft, decr amount. affect constricted, mood euthymic. no SI/HI/AVH expressed. Patient Appearance: Appropriate Patient Orientation: Person, Place and Situation Level of Consciousness: Awake Patient Behavior: Guarded and Poor Eye Contact Mood Description: Calm Affect Description: Blunted Patient Cognition Impaired: Yes Ability to Follow Directions: Good Speech Pattern: Clear Diagnostics Vital Signs (24Hr): Vital Signs - 24 hr 07/31/24 20:42 Respiratory Rate 18 BMI result Body Mass Index 30.6 Medications Medications Current Medications Acetaminophen (Acetaminophen 325 Mg Tablet) 650 mg PO Q6H PRN PRN Reason: Headache/Pain Mild Scale (1-3) Al Hydroxide/Mg Hydroxide (Magnesium Hydrox/Alum Hydrox 30 Ml Oral.Susp) 30 ml PO Q6H PRN PRN Reason: Heartburn/Nausea Hydroxyzine HCl (Hydroxyzine Hcl 25 Mg Tablet) 25 mg PO Q6H PRN PRN Reason: Anxiety Magnesium Hydroxide (Milk Of Magnesia 30 Ml Oral.Susp) 30 ml PO DAILY PRN PRN Reason: Constipation Multi-Ingred Cream/Lotion/Oil/Oint (Mineral Oil/Petrolatum,White 106 Gm Tube) 1 appl TOPICAL BID PRN; Protocol PRN Reason: dry skin Nicotine (Nicotine 21 Mg Patch.Td24) 21 mg TRANSDERMA DAILY PRN PRN Reason: nicotine cravings Nicotine Polacrilex (Nicotine Polacrilex 2 Mg Gum) 4 mg BUCCAL Q2H PRN PRN Reason: Nicotine Cravings Olanzapine (Olanzapine 5 Mg Tablet) 5 mg PO Q4H PRN PRN Reason: agitation, aggression Paliperidone Palmitate (Paliperidone Palmitate 234 Mg/1.5 Ml Syringe) 234 mg IM Q30D JULIAN Sodium Chloride (Sodium Chloride 0.65 % Nasal 44 Ml Sprbtl) 1 spray NOSTRIL-B Q1H PRN PRN Reason: nasal congestion Last Admin: 07/25/24 13:47 Dose: 1 spray Trazodone HCl (Trazodone Hcl 50 Mg Tablet) 50 mg PO BEDTIME MRX1 PRN PRN Reason: Insomnia Allergies Allergies Allergy/AdvReac Type Severity Reaction Status Date / Time No Known Allergies Allergy Verified 05/22/24 17:01 Assessment & Plan Assessment & Plan (1) Depressive disorder, atypical: Status: Acute Code(s): F32.89 - Other specified depressive episodes (2) Adjustment disorder with depressed mood: Status: Acute Code(s): F43.21 - Adjustment disorder with depressed mood Plan 24 yo male transferred from [facility] ED after a suicide attempt by hanging. He has been increasingly isolated, poor self care, stopped working. He has eating disorder symptoms and NSSI. Symptoms worsened in the setting of a break up. Rule out other mood disorder Plan: - Admit to inpatient psychiatry - Section 12, rosado warning. - Collateral information from family and providers. - Milieu treatment and group therapy. - Medications: Refuses - Social work evaluation. - Disposition planning. patient eloped in the after noon from the unit and was brought back by Police. 05/24: Continue current management and treatment plan. Encourage engagement in groups and milieu. 05/25: Start Abilify 5 mg. Patient to consider. Encourage group and milieu engagement. Fasting labs in AM. Collaterals would be helpful. 05/26: encouraged to take abilify. rosado warning, legal discussion. 05/27: took abilify 5 mg this morning for first time. 12b up tomorrow. continue current mgmt. 05/28: took abilify again today. feeling better and more into things. filed for commitment. 05/29: took abilify 5 again today. willing to increase to 10 as of saturday (ordered). asking for LENA again, will allow with security present. 05/31/2024: No changes 06/01: abilify dosing increased to 10 mg as of this morning. initially too paranoid to sleep in single room, slept there last night for first time. court . 06/02: no change in presentation. declines increase in abilify dosing. stands by door throughout. 06/03 continue tx. 06/04: no change in presentation. agrees to increase abilify to 15 mg daily. hearing continued for 2 weeks. 06/05: no change. self-dialoguing. took abilify 15 today. appears with more irritable edge today. unclear if cheeking meds. order CO for 30 minutes post-medication.. 06/06 pt went to bathroom, flushed without evidence of urinating, seems like he is not taking antipsychotic. 06/07 continue tx. 06/08: no substantial change in presentation. saturday (and likely all the days before) pt appeared to have flushed his medication. pt was compliant with 30-min post-medication observation period on saturday. continue current mgmt. increase abilify to 20 mg in several days. 06/09: no change in presentation. will increase abilify to 20 mg as of tomorrow. if no change in presentation in next couple of days will switch to zyprexa zydis. 06/10: no change. T/C zydis. increased abilify to 20 today. 06/11: no change. DC abilify, start zyprexa. pt does not want to make this change, but it is made nevertheless. 06/12: no change in presentation. headphones playing loud static. vague, evasive answers. continue zydis 10 QHS. 06/13: Continue current regimen and plans 06/14: Continue current regimen and plans 06/15: appears ambivalent re taking zyprexa, has refused once and refused and then accepted once. sits for interview for the first time today, headphones are present but not turned on for the first time. pt states he prefers abilify to zyprexa but cannot say why. pt was encouraged to continue zyprexa trial. 06/16: same as yesterday except headphones perhaps on low volume. took zyprexa last night. continue current mgmt. court . 06/17: more visible on unit today, seeking out MD ojeda re court tomorrow. asking about signing in, [facility], je. refused zyprexa last NOC. continue current mgmt. denies he has mental illness, denies depressed mood. 06/18: refusing medication. hearing continued for 1 week for NABOR. pt reports won't take medication variably due to being on CO for 30 minutes after medication and because once after taking the medication he had an upset stomach. 06/19: did not take meds last night. no notable events or behaviors. continue current mgmt. hearing continued until next saturday. 06/20: Continue current treatment plan. 06/21: Continue current treatment plan. 06/22: took meds sat and sat, did not take meds last night. continue current mgmt. advised to use TUMs for stomach pain. 06/23: took meds last night, denies side effects. spending more time outside of his room, largely in sensory room. 06/24: in room today. took meds last night. no change in presentation. 06/25: interviewed in his room. refused meds last night. no change in presentation. reports the only mental illness he has is ADHD. 06/26: hearing held, pt committed and ordered medications. return to abilify trial. orders entered for w/e. 06/27 -CTP not sure he will agree to inc dose after weekend- nor do we have IM order should he refuse PO 06/28 CTP 06/29: appears more relaxed, better related today. sat with MD in interview room rather than standing. encouraged to attend groups. agreeable to increase abilify to 15 mg, says 20 mg makes him feel uncomfortable. increase to 15 mg tonight. 06/30: spat out medication surreptitiously last night. informed he will be given abilify IM soon and was encouraged to comply with PO dosing in the meantime to be confident he will not have ADR. stable presentation. 07/01: no change in presentation. increase abilify to 20 mg QHS. 07/02: no change. continue current mgmt. CARLSON abilify saturday. 07/03: refused PO abilify last NOC mistakenly thinking he would get abilify CARLSON instead. he got zyprexa. misunderstanding worked out today, pt to continue PO abilify another week before getting CARLSON. continue current mgmt. 07/04: DC abilify as pt continues to cheek it. switch to invega, as guidelines indicate only a test dose to be given orally prior to CARLSON, as opposed to 2 weeks PO as for abilify CARLSON. 07/05: refused invega last night. try again tonight. plan for invega sustenna. 07/06: refused invega again last night, but did take a one-time dose today days. planning on CARLSON invega soon. no change in presentation. 07/07: no change in presentation. took 2 doses of PO invega, will give IM 234 mg tomorrow morning. 07/08: Continue current tx plan. 07/09: got invega sustenna 234 mg IM 07/08, will get invega sustenna 156 mg IM 07/15. stable presentation. 07/10: no s/e. feels medication makes it easier to get out and do things. continue current mgmt. 07/11 keep same treatment. 07/12 keep same treatment. 07/13: feels moving more than before, more able to do things. 07/14: no change in presentation. invega sustenna 156 mg IM tomorrow. continue current mgmt. 07/15: awaiting CARLSON today. no change in presentation. sustenna 234 mg Q30 days ordered to start 08/12. 07/16: got CARLSON sustenna 156 mg yesterday. no change in presentation today. discuss depressive Sx with pt and broach possibility of antidepressant medication. 07/17: depression and depression mgmt discussed. pt will consider. otherwise no change in presentation, continue current mgmt. 07/18 continue tx. 07/19 continue tx. 07/20: more forthcoming with historical info, his thought process and mental state. denies depression, says if he starts to feel that way he will consider anti-depressant medication. denies s/e of medications. 07/21: no change in presentation. continue current mgmt. 07/22: as for yesterday. 07/23: continue current tx plan. 07/24: did not engage with T/W. continue current tx plan. presents similar to yesterday. 07/26: no changes 07/27: Keeping to self. In room most of shift. Guarded. responding with short responses. difficult to engage in conversation. Pt reports feeling okay ; encouraged to leave room and attend groups. per nursing, pt slept well. 07/[address] Dalal. not sure if presentation at this point may be more consistent with negative symptoms of schizophrenia. continue tx. 07/30: improved engageability and relatability since starting IM medication. continue current mgmt. CARLSON planned for 08/12, then discharge. 07/31: no change in presentation. CARLSON to be given early, 08/05, and pt discharged after, same day. arrange aftercare in the meantime. continue current mgmt otherwise. 08/01: Continue current management and treatment plan. Reason for continued inpatient stay Substantial Risk for: inability to function and rapid decompensation Time Spent With Patient Time: Total time managing care of this patient today ____ minutes.
[2024-08-01 20:31] VITALS: RESP 16
--- NOTE | 2024-08-02 11:12 | P.PNPSI_ITS ---
Subjective Subjective Date of Service: 08/02/24 Reason For Visit: Unspec anxiety d/o,atten-deficit/hyperactivity d/o Interim History: Unchanged presentation. Isolating most of the shift in room. doesn't come out for groups. Intermittently visible. He reports he is sleeping well. Reading Osei Potter. Says focus is good. Listens to music. No behavioral outbursts. Denies SI. Will receive CARLSON. Review of Systems Review of Systems nothing of note Yes all other systems are reviewed and are negative Mental Status Exam Mental Status Exam Narrative: adequately dressed and groomed. sat for interview. improved eye contact. superficially cooperative. speech soft, decr amount. affect constricted, mood euthymic. no SI/HI/AVH expressed. Patient Appearance: Appropriate Patient Orientation: Person, Place and Situation Level of Consciousness: Awake Patient Behavior: Guarded and Poor Eye Contact Mood Description: Calm Affect Description: Blunted Patient Cognition Impaired: Yes Ability to Follow Directions: Good Speech Pattern: Clear Diagnostics Vital Signs (24Hr): Vital Signs - 24 hr 08/01/24 20:31 Respiratory Rate 16 BMI result Body Mass Index 30.6 Medications Medications Current Medications Acetaminophen (Acetaminophen 325 Mg Tablet) 650 mg PO Q6H PRN PRN Reason: Headache/Pain Mild Scale (1-3) Al Hydroxide/Mg Hydroxide (Magnesium Hydrox/Alum Hydrox 30 Ml Oral.Susp) 30 ml PO Q6H PRN PRN Reason: Heartburn/Nausea Hydroxyzine HCl (Hydroxyzine Hcl 25 Mg Tablet) 25 mg PO Q6H PRN PRN Reason: Anxiety Magnesium Hydroxide (Milk Of Magnesia 30 Ml Oral.Susp) 30 ml PO DAILY PRN PRN Reason: Constipation Multi-Ingred Cream/Lotion/Oil/Oint (Mineral Oil/Petrolatum,White 106 Gm Tube) 1 appl TOPICAL BID PRN; Protocol PRN Reason: dry skin Nicotine (Nicotine 21 Mg Patch.Td24) 21 mg TRANSDERMA DAILY PRN PRN Reason: nicotine cravings Nicotine Polacrilex (Nicotine Polacrilex 2 Mg Gum) 4 mg BUCCAL Q2H PRN PRN Reason: Nicotine Cravings Olanzapine (Olanzapine 5 Mg Tablet) 5 mg PO Q4H PRN PRN Reason: agitation, aggression Paliperidone Palmitate (Paliperidone Palmitate 234 Mg/1.5 Ml Syringe) 234 mg IM Q30D JULIAN Sodium Chloride (Sodium Chloride 0.65 % Nasal 44 Ml Sprbtl) 1 spray NOSTRIL-B Q1H PRN PRN Reason: nasal congestion Last Admin: 07/25/24 13:47 Dose: 1 spray Trazodone HCl (Trazodone Hcl 50 Mg Tablet) 50 mg PO BEDTIME MRX1 PRN PRN Reason: Insomnia Allergies Allergies Allergy/AdvReac Type Severity Reaction Status Date / Time No Known Allergies Allergy Verified 05/22/24 17:01 Assessment & Plan Assessment & Plan (1) Depressive disorder, atypical: Status: Acute Code(s): F32.89 - Other specified depressive episodes (2) Adjustment disorder with depressed mood: Status: Acute Code(s): F43.21 - Adjustment disorder with depressed mood Plan 24 yo male transferred from [facility] ED after a suicide attempt by hanging. He has been increasingly isolated, poor self care, stopped working. He has eating disorder symptoms and NSSI. Symptoms worsened in the setting of a break up. Rule out other mood disorder Plan: - Admit to inpatient psychiatry - Section 12, rosado warning. - Collateral information from family and providers. - Milieu treatment and group therapy. - Medications: Refuses - Social work evaluation. - Disposition planning. patient eloped in the after noon from the unit and was brought back by Police. 05/24: Continue current management and treatment plan. Encourage engagement in groups and milieu. 05/25: Start Abilify 5 mg. Patient to consider. Encourage group and milieu engagement. Fasting labs in AM. Collaterals would be helpful. 05/26: encouraged to take abilify. rosado warning, legal discussion. 05/27: took abilify 5 mg this morning for first time. 12b up tomorrow. continue current mgmt. 05/28: took abilify again today. feeling better and more into things. filed for commitment. 05/29: took abilify 5 again today. willing to increase to 10 as of saturday (ordered). asking for LENA again, will allow with security present. 05/31/2024: No changes 06/01: abilify dosing increased to 10 mg as of this morning. initially too paranoid to sleep in single room, slept there last night for first time. court . 06/02: no change in presentation. declines increase in abilify dosing. stands by door throughout. 06/03 continue tx. 06/04: no change in presentation. agrees to increase abilify to 15 mg daily. hearing continued for 2 weeks. 06/05: no change. self-dialoguing. took abilify 15 today. appears with more irritable edge today. unclear if cheeking meds. order CO for 30 minutes post- medication.. 06/06 pt went to bathroom, flushed without evidence of urinating, seems like he is not taking antipsychotic. 06/07 continue tx. 06/08: no substantial change in presentation. saturday (and likely all the days before) pt appeared to have flushed his medication. pt was compliant with 30- min post-medication observation period on saturday. continue current mgmt. increase abilify to 20 mg in several days. 06/09: no change in presentation. will increase abilify to 20 mg as of tomorrow. if no change in presentation in next couple of days will switch to zyprexa zydis. 06/10: no change. T/C zydis. increased abilify to 20 today. 06/11: no change. DC abilify, start zyprexa. pt does not want to make this change, but it is made nevertheless. 06/12: no change in presentation. headphones playing loud static. vague, evasive answers. continue zydis 10 QHS. 06/13: Continue current regimen and plans 06/14: Continue current regimen and plans 06/15: appears ambivalent re taking zyprexa, has refused once and refused and then accepted once. sits for interview for the first time today, headphones are present but not turned on for the first time. pt states he prefers abilify to zyprexa but cannot say why. pt was encouraged to continue zyprexa trial. 06/16: same as yesterday except headphones perhaps on low volume. took zyprexa last night. continue current mgmt. court . 06/17: more visible on unit today, seeking out MD ojeda re court tomorrow. asking about signing in, PHP, je. refused zyprexa last NOC. continue current mgmt. denies he has mental illness, denies depressed mood. 06/18: refusing medication. hearing continued for 1 week for NABOR. pt reports won't take medication variably due to being on CO for 30 minutes after medication and because once after taking the medication he had an upset stomach. 06/19: did not take meds last night. no notable events or behaviors. continue current mgmt. hearing continued until next saturday. 06/20: Continue current treatment plan. 06/21: Continue current treatment plan. 06/22: took meds sat and sat, did not take meds last night. continue current mgmt. advised to use TUMs for stomach pain. 06/23: took meds last night, denies side effects. spending more time outside of his room, largely in sensory room. 06/24: in room today. took meds last night. no change in presentation. 06/25: interviewed in his room. refused meds last night. no change in presentation. reports the only mental illness he has is ADHD. 06/26: hearing held, pt committed and ordered medications. return to abilify trial. orders entered for w/e. 06/27 -CTP not sure he will agree to inc dose after weekend- nor do we have IM order should he refuse PO 06/28 CTP 06/29: appears more relaxed, better related today. sat with MD in interview room rather than standing. encouraged to attend groups. agreeable to increase abilify to 15 mg, says 20 mg makes him feel uncomfortable. increase to 15 mg tonight. 06/30: spat out medication surreptitiously last night. informed he will be given abilify IM soon and was encouraged to comply with PO dosing in the meantime to be confident he will not have ADR. stable presentation. 07/01: no change in presentation. increase abilify to 20 mg QHS. 07/02: no change. continue current mgmt. CARLSON abilify saturday. 07/03: refused PO abilify last NOC mistakenly thinking he would get abilify CARLSON instead. he got zyprexa. misunderstanding worked out today, pt to continue PO abilify another week before getting CARLSON. continue current mgmt. 07/04: DC abilify as pt continues to cheek it. switch to invega, as guidelines indicate only a test dose to be given orally prior to CARLSON, as opposed to 2 weeks PO as for abilify CARLSON. 07/05: refused invega last night. try again tonight. plan for invega sustenna. 07/06: refused invega again last night, but did take a one-time dose today days. planning on CARLSON invega soon. no change in presentation. 07/07: no change in presentation. took 2 doses of PO invega, will give IM 234 mg tomorrow morning. 07/08: Continue current tx plan. 07/09: got invega sustenna 234 mg IM 07/08, will get invega sustenna 156 mg IM 07/15. stable presentation. 07/10: no s/e. feels medication makes it easier to get out and do things. continue current mgmt. 07/11 keep same treatment. 07/12 keep same treatment. 07/13: feels moving more than before, more able to do things. 07/14: no change in presentation. invega sustenna 156 mg IM tomorrow. co ntinue current mgmt. 07/15: awaiting CARLSON today. no change in presentation. sustenna 234 mg Q30 days ordered to start 08/12. 07/16: got CARLSON sustenna 156 mg yesterday. no change in presentation today. discuss depressive Sx with pt and broach possibility of antidepressant medication. 07/17: depression and depression mgmt discussed. pt will consider. otherwise no change in presentation, continue current mgmt. 07/18 continue tx. 07/19 continue tx. 07/20: more forthcoming with historical info, his thought process and mental state. denies depression, says if he starts to feel that way he will consider anti-depressant medication. denies s/e of medications. 07/21: no change in presentation. continue current mgmt. 07/22: as for yesterday. 07/23: continue current tx plan. 07/24: did not engage with T/W. continue current tx plan. presents similar to yesterday. 07/26: no changes 07/27: Keeping to self. In room most of shift. Guarded. responding with short responses. difficult to engage in conversation. Pt reports feeling okay ; encouraged to leave room and attend groups. per nursing, pt slept well. 07/[address] Dalal. not sure if presentation at this point may be more consistent with negative symptoms of schizophrenia. continue tx. 07/30: improved engageability and relatability since starting IM medication. continue current mgmt. CARLSON planned for 08/12, then discharge. 07/31: no change in presentation. CARLSON to be given early, 08/05, and pt discharged after, same day. arrange aftercare in the meantime. continue current mgmt otherwise. 08/01: Continue current management and treatment plan. 10/02: Continue current management and treatment plan. Reason for continued inpatient stay Substantial Risk for: inability to function and rapid decompensation Time Spent With Patient Time: Total time managing care of this patient today ____ minutes.
--- NOTE | 2024-08-03 16:11 | P.PNPSI_ITS ---
Subjective Subjective Date of Service: 08/03/24 Reason For Visit: Unspec anxiety d/o,atten-deficit/hyperactivity d/o Subjective Notes: Section 8 Interim History: Pt is mostly in his room. He is pleasant on approach and affect slightly brighter. He denies SI/HI. He reports he is looking forward to be discharged, but won't believe it until he sees it as he reports discharge has been discussed before and then cancel. Review of Systems Review of Systems nothing of note Yes all other systems are reviewed and are negative Mental Status Exam Mental Status Exam Narrative: adequately dressed and groomed. sat for interview. improved eye contact. superficially cooperative. speech soft, decr amount. affect constricted, mood euthymic. no SI/HI/AVH expressed. Patient Appearance: Appropriate Patient Orientation: Person, Place and Situation Level of Consciousness: Awake Patient Behavior: Guarded and Poor Eye Contact Mood Description: Calm Affect Description: Blunted Patient Cognition Impaired: Yes Ability to Follow Directions: Good Speech Pattern: Clear Diagnostics Vital Signs (24Hr): BMI result Body Mass Index 30.6 Medications Medications Current Medications Acetaminophen (Acetaminophen 325 Mg Tablet) 650 mg PO Q6H PRN PRN Reason: Headache/Pain Mild Scale (1-3) Al Hydroxide/Mg Hydroxide (Magnesium Hydrox/Alum Hydrox 30 Ml Oral.Susp) 30 ml PO Q6H PRN PRN Reason: Heartburn/Nausea Hydroxyzine HCl (Hydroxyzine Hcl 25 Mg Tablet) 25 mg PO Q6H PRN PRN Reason: Anxiety Magnesium Hydroxide (Milk Of Magnesia 30 Ml Oral.Susp) 30 ml PO DAILY PRN PRN Reason: Constipation Multi-Ingred Cream/Lotion/Oil/Oint (Mineral Oil/Petrolatum,White 106 Gm Tube) 1 appl TOPICAL BID PRN; Protocol PRN Reason: dry skin Nicotine (Nicotine 21 Mg Patch.Td24) 21 mg TRANSDERMA DAILY PRN PRN Reason: nicotine cravings Nicotine Polacrilex (Nicotine Polacrilex 2 Mg Gum) 4 mg BUCCAL Q2H PRN PRN Reason: Nicotine Cravings Olanzapine (Olanzapine 5 Mg Tablet) 5 mg PO Q4H PRN PRN Reason: agitation, aggression Paliperidone Palmitate (Paliperidone Palmitate 234 Mg/1.5 Ml Syringe) 234 mg IM Q30D JULIAN Sodium Chloride (Sodium Chloride 0.65 % Nasal 44 Ml Sprbtl) 1 spray NOSTRIL-B Q1H PRN PRN Reason: nasal congestion Last Admin: 07/25/24 13:47 Dose: 1 spray Trazodone HCl (Trazodone Hcl 50 Mg Tablet) 50 mg PO BEDTIME MRX1 PRN PRN Reason: Insomnia Allergies Allergies Allergy/AdvReac Type Severity Reaction Status Date / Time No Known Allergies Allergy Verified 05/22/24 17:01 Assessment & Plan Assessment & Plan (1) Depressive disorder, atypical: Status: Acute Code(s): F32.89 - Other specified depressive episodes (2) Adjustment disorder with depressed mood: Status: Acute Code(s): F43.21 - Adjustment disorder with depressed mood Plan 24 yo male transferred from [facility] ED after a suicide attempt by hanging. He has been increasingly isolated, poor self care, stopped working. He has eating disorder symptoms and NSSI. Symptoms worsened in the setting of a break up. Rule out other mood disorder Plan: - Admit to inpatient psychiatry - Section 12, rosado warning. - Collateral information from family and providers. - Milieu treatment and group therapy. - Medications: Refuses - Social work evaluation. - Disposition planning. patient eloped in the after noon from the unit and was brought back by Police. 05/24: Continue current management and treatment plan. Encourage engagement in groups and milieu. 05/25: Start Abilify 5 mg. Patient to consider. Encourage group and milieu engagement. Fasting labs in AM. Collaterals would be helpful. 05/26: encouraged to take abilify. rosado warning, legal discussion. 05/27: took abilify 5 mg this morning for first time. 12b up tomorrow. continue current mgmt. 05/28: took abilify again today. feeling better and more into things. filed for commitment. 05/29: took abilify 5 again today. willing to increase to 10 as of saturday (ordered). asking for LENA again, will allow with security present. 05/31/2024: No changes 06/01: abilify dosing increased to 10 mg as of this morning. initially too paranoid to sleep in single room, slept there last night for first time. court . 06/02: no change in presentation. declines increase in abilify dosing. stands by door throughout. 06/03 continue tx. 06/04: no change in presentation. agrees to increase abilify to 15 mg daily. hearing continued for 2 weeks. 06/05: no change. self-dialoguing. took abilify 15 today. appears with more irritable edge today. unclear if cheeking meds. order CO for 30 minutes post- medication.. 06/06 pt went to bathroom, flushed without evidence of urinating, seems like he is not taking antipsychotic. 06/07 continue tx. 06/08: no substantial change in presentation. saturday (and likely all the days before) pt appeared to have flushed his medication. pt was compliant with 30- min post-medication observation period on saturday. continue current mgmt. increase abilify to 20 mg in several days. 06/09: no change in presentation. will increase abilify to 20 mg as of tomorrow. if no change in presentation in next couple of days will switch to zyprexa zydis. 06/10: no change. T/C zydis. increased abilify to 20 today. 06/11: no change. DC abilify, start zyprexa. pt does not want to make this change, but it is made nevertheless. 06/12: no change in presentation. headphones playing loud static. vague, evasive answers. continue zydis 10 QHS. 06/13: Continue current regimen and plans 06/14: Continue current regimen and plans 06/15: appears ambivalent re taking zyprexa, has refused once and refused and then accepted once. sits for interview for the first time today, headphones are present but not turned on for the first time. pt states he prefers abilify to zyprexa but cannot say why. pt was encouraged to continue zyprexa trial. 06/16: same as yesterday except headphones perhaps on low volume. took zyprexa last night. continue current mgmt. court . 06/17: more visible on unit today, seeking out x2 re court tomorrow. asking about signing in, PHP, narcisor. refused zyprexa last NOC. continue current mgmt. denies he has mental illness, denies depressed mood. 06/18: refusing medication. hearing continued for 1 week for NABOR. pt reports won't take medication variably due to being on CO for 30 minutes after medication and because once after taking the medication he had an upset stomach. 06/19: did not take meds last night. no notable events or behaviors. continue current mgmt. hearing continued until next saturday. 06/20: Continue current treatment plan. 06/21: Continue current treatment plan. 06/22: took meds sat and sat, did not take meds last night. continue current mgmt. advised to use TUMs for stomach pain. 06/23: took meds last night, denies side effects. spending more time outside of his room, largely in sensory room. 06/24: in room today. took meds last night. no change in presentation. 06/25: interviewed in his room. refused meds last night. no change in presentation. reports the only mental illness he has is ADHD. 06/26: hearing held, pt committed and ordered medications. return to abilify trial. orders entered for w/e. 06/27 -CTP not sure he will agree to inc dose after weekend- nor do we have IM order should he refuse PO 06/28 CTP 06/29: appears more relaxed, better related today. sat with MD in interview room rather than standing. encouraged to attend groups. agreeable to increase abilify to 15 mg, says 20 mg makes him feel uncomfortable. increase to 15 mg tonight. 06/30: spat out medication surreptitiously last night. informed he will be given abilify IM soon and was encouraged to comply with PO dosing in the meantime to be confident he will not have ADR. stable presentation. 07/01: no change in presentation. increase abilify to 20 mg QHS. 07/02: no change. continue current mgmt. CARLSON abilify saturday. 07/03: refused PO abilify last NOC mistakenly thinking he would get abilify CARLSON instead. he got zyprexa. misunderstanding worked out today, pt to continue PO abilify another week before getting CARLSON. continue current mgmt. 07/04: DC abilify as pt continues to cheek it. switch to invega, as guidelines indicate only a test dose to be given orally prior to CARLSON, as opposed to 2 weeks PO as for abilify CARLSON. 07/05: refused invega last night. try again tonight. plan for invega sustenna. 07/06: refused invega again last night, but did take a one-time dose today days. planning on CARLSON invega soon. no change in presentation. 07/07: no change in presentation. took 2 doses of PO invega, will give IM 234 mg tomorrow morning. 07/08: Continue current tx plan. 07/09: got invega sustenna 234 mg IM 07/08, will get invega sustenna 156 mg IM 07/15. stable presentation. 07/10: no s/e. feels medication makes it easier to get out and do things. continue current mgmt. 07/11 keep same treatment. 07/12 keep same treatment. 07/13: feels moving more than before, more able to do things. 07/14: no change in presentation. invega sustenna 156 mg IM tomorrow. continue current mgmt. 07/15: awaiting CARLSON today. no change in presentation. sustenna 234 mg Q30 days ordered to start 08/12. 07/16: got CARLSON sustenna 156 mg yesterday. no change in presentation today. discuss depressive Sx with pt and broach possibility of antidepressant medication. 07/17: depression and depression mgmt discussed. pt will consider. otherwise no change in presentation, continue current mgmt. 07/18 continue tx. 07/19 continue tx. 07/20: more forthcoming with historical info, his thought process and mental state. denies depression, says if he starts to feel that way he will consider anti-depressant medication. denies s/e of medications. 07/21: no change in presentation. continue current mgmt. 07/22: as for yesterday. 07/23: continue current tx plan. 07/24: did not engage with T/W. continue current tx plan. presents similar to yesterday. 07/26: no changes 07/27: Keeping to self. In room most of shift. Guarded. responding with short responses. difficult to engage in conversation. Pt reports feeling okay ; encouraged to leave room and attend groups. per nursing, pt slept well. 07/[address] Dalal. not sure if presentation at this point may be more consistent with negative symptoms of schizophrenia. continue tx. 07/30: improved engageability and relatability since starting IM medication. continue current mgmt. CARLSON planned for 08/12, then discharge. 07/31: no change in presentation. CARLSON to be given early, 08/05, and pt discharged after, same day. arrange aftercare in the meantime. continue current mgmt otherwise. 08/01: Continue current management and treatment plan. 10/02: Continue current management and treatment plan. 08/03 continue tx. Beka Ma scheduled for 08/05/2024 Reason for continued inpatient stay Substantial Risk for: inability to function Time Spent With Patient Time: Total time managing care of this patient today ____ minutes.
[2024-08-04 07:57] VITALS: RESP 18
--- NOTE | 2024-08-04 11:23 | P.PNPSI_ITS ---
Subjective Subjective Date of Service: 08/04/24 Reason For Visit: Unspec anxiety d/o,atten-deficit/hyperactivity d/o Subjective Notes: Section 8 Interim History: Pt is mostly in his room, listening to music on unit headphones. He is pleasant on approach and affect slightly brighter. Patient reports feeling okay today; pt stated, I want to get the injection early tomorrow so I can go home . Patient reports he plans on asking his mother to cook a certain meal that he enjoys for tomorrow. denies SI/HI/VH/AH. Pt reports he plans on following up with his outpatient providers. Attending Groups: No Review of Systems Review of Systems Yes all other systems are reviewed and are negative Mental Status Exam Mental Status Exam Narrative: Pt is alert and oriented; behavior is cooperative, calm; dressed in casual attire; mood is described as okay ; eye contact appropriate; Speech is normal rate, low volume and not pressured; focused on discharge; denies SI/HI/VH/AH. Diagnostics Vital Signs (24Hr): Vital Signs - 24 hr 08/04/24 07:57 Respiratory Rate 18 BMI result Body Mass Index 30.6 Medications Medications Current Medications Acetaminophen (Acetaminophen 325 Mg Tablet) 650 mg PO Q6H PRN PRN Reason: Headache/Pain Mild Scale (1-3) Al Hydroxide/Mg Hydroxide (Magnesium Hydrox/Alum Hydrox 30 Ml Oral.Susp) 30 ml PO Q6H PRN PRN Reason: Heartburn/Nausea Hydroxyzine HCl (Hydroxyzine Hcl 25 Mg Tablet) 25 mg PO Q6H PRN PRN Reason: Anxiety Magnesium Hydroxide (Milk Of Magnesia 30 Ml Oral.Susp) 30 ml PO DAILY PRN PRN Reason: Constipation Multi-Ingred Cream/Lotion/Oil/Oint (Mineral Oil/Petrolatum,White 106 Gm Tube) 1 appl TOPICAL BID PRN; Protocol PRN Reason: dry skin Nicotine (Nicotine 21 Mg Patch.Td24) 21 mg TRANSDERMA DAILY PRN PRN Reason: nicotine cravings Nicotine Polacrilex (Nicotine Polacrilex 2 Mg Gum) 4 mg BUCCAL Q2H PRN PRN Reason: Nicotine Cravings Olanzapine (Olanzapine 5 Mg Tablet) 5 mg PO Q4H PRN PRN Reason: agitation, aggression Paliperidone Palmitate (Paliperidone Palmitate 234 Mg/1.5 Ml Syringe) 234 mg IM Q30D JULIAN Sodium Chloride (Sodium Chloride 0.65 % Nasal 44 Ml Sprbtl) 1 spray NOSTRIL-B Q1H PRN PRN Reason: nasal congestion Last Admin: 07/25/24 13:47 Dose: 1 spray Trazodone HCl (Trazodone Hcl 50 Mg Tablet) 50 mg PO BEDTIME MRX1 PRN PRN Reason: Insomnia Allergies Allergies Allergy/AdvReac Type Severity Reaction Status Date / Time No Known Allergies Allergy Verified 05/22/24 17:01 Assessment & Plan Assessment & Plan (1) Depressive disorder, atypical: Status: Acute Code(s): F32.89 - Other specified depressive episodes (2) Adjustment disorder with depressed mood: Status: Acute Code(s): F43.21 - Adjustment disorder with depressed mood Plan 24 yo male transferred from [facility] ED after a suicide attempt by hanging. He has been increasingly isolated, poor self care, stopped working. He has eating disorder symptoms and NSSI. Symptoms worsened in the setting of a break up. Rule out other mood disorder Plan: - Admit to inpatient psychiatry - Section 12, rosado warning. - Collateral information from family and providers. - Milieu treatment and group therapy. - Medications: Refuses - Social work evaluation. - Disposition planning. patient eloped in the after noon from the unit and was brought back by Police. 05/24: Continue current management and treatment plan. Encourage engagement in groups and milieu. 05/25: Start Abilify 5 mg. Patient to consider. Encourage group and milieu engagement. Fasting labs in AM. Collaterals would be helpful. 05/26: encouraged to take abilify. rosado warning, legal discussion. 05/27: took abilify 5 mg this morning for first time. 12b up tomorrow. continue current mgmt. 05/28: took abilify again today. feeling better and more into things. filed for commitment. 05/29: took abilify 5 again today. willing to increase to 10 as of saturday (ordered). asking for LENA again, will allow with security present. 05/31/2024: No changes 06/01: abilify dosing increased to 10 mg as of this morning. initially too paranoid to sleep in single room, slept there last night for first time. court . 06/02: no change in presentation. declines increase in abilify dosing. stands by door throughout. 06/03 continue tx. 06/04: no change in presentation. agrees to increase abilify to 15 mg daily. hearing continued for 2 weeks. 06/05: no change. self-dialoguing. took abilify 15 today. appears with more irritable edge today. unclear if cheeking meds. order CO for 30 minutes post- medication.. 06/06 pt went to bathroom, flushed without evidence of urinating, seems like he is not taking antipsychotic. 06/07 continue tx. 06/08: no substantial change in presentation. saturday (and likely all the days before) pt appeared to have flushed his medication. pt was compliant with 30- min post-medication observation period on saturday. continue current mgmt. increase abilify to 20 mg in several days. 06/09: no change in presentation. will increase abilify to 20 mg as of tomorrow. if no change in presentation in next couple of days will switch to zyprexa zydis. 06/10: no change. T/C zydis. increased abilify to 20 today. 06/11: no change. DC abilify, start zyprexa. pt does not want to make this change, but it is made nevertheless. 06/12: no change in presentation. headphones playing loud static. vague, evasive answers. continue zydis 10 QHS. 06/13: Continue current regimen and plans 06/14: Continue current regimen and plans 06/15: appears ambivalent re taking zyprexa, has refused once and refused and then accepted once. sits for interview for the first time today, headphones are present but not turned on for the first time. pt states he prefers abilify to zyprexa but cannot say why. pt was encouraged to continue zyprexa trial. 06/16: same as yesterday except headphones perhaps on low volume. took zyprexa last night. continue current mgmt. court . 06/17: more visible on unit today, seeking out MD ojdea re court tomorrow. asking about signing in, DANELLE, je. refused zyprexa last NOC. continue current mgmt. denies he has mental illness, denies depressed mood. 06/18: refusing medication. hearing continued for 1 week for NABOR. pt reports won't take medication variably due to being on CO for 30 minutes after me dication and because once after taking the medication he had an upset stomach. 06/19: did not take meds last night. no notable events or behaviors. continue current mgmt. hearing continued until next saturday. 06/20: Continue current treatment plan. 06/21: Continue current treatment plan. 06/22: took meds sat and sat, did not take meds last night. continue current mgmt. advised to use TUMs for stomach pain. 06/23: took meds last night, denies side effects. spending more time outside of his room, largely in sensory room. 06/24: in room today. took meds last night. no change in presentation. 06/25: interviewed in his room. refused meds last night. no change in presentation. reports the only mental illness he has is ADHD. 06/26: hearing held, pt committed and ordered medications. return to abilify trial. orders entered for w/e. 06/27 -CTP not sure he will agree to inc dose after weekend- nor do we have IM order should he refuse PO 06/28 CTP 06/29: appears more relaxed, better related today. sat with MD in interview room rather than standing. encouraged to attend groups. agreeable to increase abilify to 15 mg, says 20 mg makes him feel uncomfortable. increase to 15 mg t onight. 06/30: spat out medication surreptitiously last night. informed he will be given abilify IM soon and was encouraged to comply with PO dosing in the meantime to be confident he will not have ADR. stable presentation. 07/01: no change in presentation. increase abilify to 20 mg QHS. 07/02: no change. continue current mgmt. CARLSON abilify saturday. 07/03: refused PO abilify last NOC mistakenly thinking he would get abilify CARLSON instead. he got zyprexa. misunderstanding worked out today, pt to continue PO abilify another week before getting CARLSON. continue current mgmt. 07/04: DC abilify as pt continues to cheek it. switch to invega, as guidelines indicate only a test dose to be given orally prior to CARLSON, as opposed to 2 weeks PO as for abilify CARLSON. 07/05: refused invega last night. try again tonight. plan for invega sustenna. 07/06: refused invega again last night, but did take a one-time dose today days. planning on CARLSON invega soon. no change in presentation. 07/07: no change in presentation. took 2 doses of PO invega, will give IM 234 mg tomorrow morning. 07/08: Continue current tx plan. 07/09: got invega sustenna 234 mg IM 07/08, will get invega sustenna 156 mg IM 07/15. stable presentation. 07/10: no s/e. feels medication makes it easier to get out and do things. continue current mgmt. 07/11 keep same treatment. 07/12 keep same treatment. 07/13: feels moving more than before, more able to do things. 07/14: no change in presentation. invega sustenna 156 mg IM tomorrow. continue current mgmt. 07/15: awaiting CARLSON today. no change in presentation. sustenna 234 mg Q30 days ordered to start 08/12. 07/16: got CARLSON sustenna 156 mg yesterday. no change in presentation today. discuss depressive Sx with pt and broach possibility of antidepressant medication. 07/17: depression and depression mgmt discussed. pt will consider. otherwise no change in presentation, continue current mgmt. 07/18 continue tx. 07/19 continue tx. 07/20: more forthcoming with historical info, his thought process and mental state. denies depression, says if he starts to feel that way he will consider anti-depressant medication. denies s/e of medications. 07/21: no change in presentation. continue current mgmt. 07/22: as for yesterday. 07/23: continue current tx plan. 07/24: did not engage with T/W. continue current tx plan. presents similar to yesterday. 07/26: no changes 07/27: Keeping to self. In room most of shift. Guarded. responding with short responses. difficult to engage in conversation. Pt reports feeling okay ; encouraged to leave room and attend groups. per nursing, pt slept well. 07/[address] Dalal. not sure if presentation at this point may be more consistent with negative symptoms of schizophrenia. continue tx. 07/30: improved engageability and relatability since starting IM medication. continue current mgmt. CARLSON planned for 08/12, then discharge. 07/31: no change in presentation. CARLSON to be given early, 08/05, and pt discharged after, same day. arrange aftercare in the meantime. continue current mgmt otherwise. 08/01: Continue current management and treatment plan. 10/02: Continue current management and treatment plan. 08/03 continue tx. Invega Sustenna scheduled for 08/05/202408/04: Pt is mostly in his room, listening to music on unit headphones. He is pleasant on approach and affect slightly brighter. Patient reports feeling okay today; pt stated, I want to get the injection early tomorrow so I can go home . Patient reports he plans on asking his mother to cook a certain meal that he enjoys for tomorrow. denies SI/HI/VH/AH. Pt reports he plans on following up with his outpatient providers. Patient educated on: therapeutic strategies Reason for continued inpatient stay Substantial Risk for: stable for discharge Time Spent With Patient Time: Total time managing care of this patient today _20___ minutes.
[2024-08-05] MEDS: Paliperidone Palmitate 234 MG/1.5 ML SYRINGE IM (08:29)
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
== END 2024-08-05 11:05 | disposition home or self-care (01) | DRG 881 ==
PROVIDERS: Clinical Nurse Specialist Psychiatric/Mental Health, Adult; Admitting Provider Psychiatry & Neurology Psychiatry; Visit Provider Psychiatry & Neurology Psychiatry
DX: F43.21 Adjustment disorder with depressed mood (principal); F20.9 Schizophrenia, unspecified; Z91.51 Personal history of suicidal behavior
CPT/HCPCS: 36415; 80061; 82607; 82746; 83036; 83735; 84439; 84443; J2359; J2426

== ENCOUNTER → 2024-05-22 16:40 | Outpatient (BNV) | payer OTHER, SELFPAY | PROVIDERS: Admitting Provider Psychiatry & Neurology Psychiatry; Visit Provider Psychiatry & Neurology Psychiatry | DX: F32.89 Other specified depressive episodes (principal); F43.21 Adjustment disorder with depressed mood | CPT/HCPCS: 90792; 99231; 99232; 99233; 99239 ==

== ENCOUNTER → 2024-05-22 16:40 | Outpatient (BNV) | payer OTHER, MEDICAID, SELFPAY | PROVIDERS: Admitting Provider Psychiatry & Neurology Psychiatry; Visit Provider Student in an Organized Health Care Education/Training Program | DX: Z02.2 Encounter for examination for admission to residential institution (principal) | CPT/HCPCS: 99429; 99499 ==

== ENCOUNTER → 2024-08-27 11:30 | Outpatient (BNV) | payer OTHER, SELFPAY | PROVIDERS: Visit Provider Psychiatry & Neurology Psychiatry | DX: F20.3 Undifferentiated schizophrenia (principal); F32.A Depression, unspecified; F89 Unspecified disorder of psychological development | CPT/HCPCS: 90792; 99499 ==

== ENCOUNTER 2024-08-31 11:30 | Outpatient (RCR) | payer OTHER, SELFPAY ==
[2024-08-26 15:00] VITALS: BP 130/84; PULSE 80; RESP 18; TEMP 37.1; BMI 31.5
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
--- NOTE | 2024-08-26 15:45 | HO.PHP ---
During the second group, PHP staff member noticed that Fahad was sitting by the time clock and was on his phone. PHP staff member explored with Fahad if he would be returning to group. Fahad stated that he could but his mother is on her way to pick him up. Fahad then started to talk about having an upcoming med appointment tomorrow or Saturday. [facility] staff member informed Fahad that if he is seeing our med provider, which he will be tomorrow, he won't be able to see his outside med provider due to conflict in billing. Fahad was receptive and stated he will make me aware of the day it is. PHP staff member assessed for safety, in which Fahad disclosed no safety concerns and stated he will be in attendance to program tomorrow.
--- NOTE | 2024-08-27 12:32 | PC.NURSE ---
Fahad was not in the third group a called was placed at 1226, Fahad picked up the phone reported that had left the program My mom came to pick me up. When asked if he had any thoughts of wanting to hurt or kill self stated No. When asked if he was going to attend the program tomorrow he stated I don't know, I'm discussing this with my mom, was asked to please call the program today or tomorrow with his decision.
--- NOTE | 2024-08-27 16:49 | HO.PHP ---
Client's case has been opened and reviewed in team.
--- NOTE | 2024-08-27 20:09 | PM.EVENT ---
Event Note Date of Service: 08/27/24 Event Note: Case discussed in weekly meeting. Initial assessment was reviewed. Reached out to patient who left program early today. His mother picked him up as he was reportedly experiencing high anxiety and was unable to tolerate staying in any of the groups. He was agreeable to initiating short script of prn lorazepam. He has ride to program. Will start 1 tablet in AM and will bring bottle with him to program and plan to meet first thing in AM. Time Spent With Patient Time: Total time managing care of this patient today ___10_ minutes.
--- NOTE | 2024-08-29 21:38 | HO.PS.ADMBH ---
[facility] Date of Service: 08/28/24 Chief Complaint: anxiety,ADHD Sources of Information: patient interviewed, chart reviewed and crisis/core team assessment reviewed HPI Narrative: Patient is a single, unemployed 24 year old male who was admitted [facility] in 04/2024 status post suicide attempt by hanging precipitated by a recent break-up which occurred on the background of worsening depression, emergence of self harming and suicidal behaviors as well as other behavioral changes, social withdrawal and overall functional decline over the past year. He was discharged from [facility] on 08/05 after an extended hospitalization for over 2.5 months with presentation concerning for prominent negative symptoms of schizophrenia - abulia, limited speech, avolition, alogia, apathy. There was no mention of grossly psychotic or delusional content, and maintained presentation as socially withdrawn with limited speech and insight for the duration of his 2.5 month stay. Aside from being isolative and minimally communicative, there were no major events mentioned nor any acute behavioral problems warranting restraint. He apparently consented to treatment and was started on CARLSON antipsychotic. Mother petitioned for guardianship, unclear where this stands at the moment. Patient was accompanied to [facility] with his mother this morning, thought I met first with [place] prior to including his mother in our meeting. Reviewing [facility] notes, patient's presentation is consistent with description throughout his inpatient stay. He resides at home at home with his family and says he is here at [facility] because of my mom. She wants me to come . Past Psychiatric History: [facility] x1: [facility] (10-week inpatient stay Apr-Jul 2024) No previous [facility], repsite, detox admissions [place]: multiple, limited to 2023, most recent attempt 04/2024 by hanging ADHD No inpatient treatment. [facility] Medical History (Updated 08/31/24 @ 08:52 by Cindy Paniagua MD) Medical clearance for psychiatric admission Family History: Patient denied. Mother reported in the crisis report positive family history of mental illness/bipolar in the uncle Social History: Lives in [place] with his family. Grew up in [place]. HS graduate. Went to [employer]. Worked at [employer] until a year and a half ago. Trauma History: Unknown Diagnostics Vital Signs (24Hr): BMI result Body Mass Index 31.5 Meds/Allergies Allergies Allergies Allergy/AdvReac Type Severity Reaction Status Date / Time No Known Allergies Allergy Verified 05/22/24 17:01 Mental Status Exam Mental Status Exam Patient Appearance: Inappropriate Level of Consciousness: Awake and Alert Patient Behavior: Guarded, Resistive to Care and Poor Eye Contact Mood Description: Depressed and Anxious Affect Description: Apathetic, Withdrawn and Flat Ability to Follow Directions: Good Speech Pattern: Clear and Impoverished Hallucinations: None Delusions: Not Present (no gross paranoid or delusional content elicited but implied) Thought Process: Intact (appropriate but brief one to 2 word responses ) Thought Content: positive for Poverty of Content Depressive Symptoms: Increased Anxiety, Diff. Making Decisions, Loss of Int. 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: Status: Acute Code(s): F20.3 - Undifferentiated schizophrenia Assessment and Plan: r/o MDD with psychotic features vs pseudodementia r/o neurocognitive disorder (2) Depressive disorder: Status: Acute Code(s): F32.A - Depression, unspecified (3) Neurodevelopmental disorder: Status: Acute Code(s): F89 - Unspecified disorder of psychological development Assessment and Plan: Hx of ADHD unspecified type, dx in antiquer Plan Admit to [facility] VS reviewed: abrefile, BP 130/84;?80 bpm start lorazepam 0.5 BID prn anxiety (target anxiety start Wellbutrin SR 100 mg qam (to target depressive sx, negative sx) start ziprasidone 20 mg BID as directed (for anxiety, presumed paranoia) continue other regular medications?- monthly injectable Invega Sustenna Routine lab work ordered as indicated EKG, routine for baseline QTc for medication considerations as indicated UDS as indicated MassPat reviewed Continue to monitor as per protocol Patient educated on: diagnosis and medication risk/benefits Informed Consent: understands Reason for continued partial hosp. stay Substantial Risk for: inability to function and med/psych decompensation Certification I certify that partial hospital treatment is medically necessary due to the symptoms and problems resulting from the patient's mental illness and the failure to treat the patient at the partial hospital level of care would likely result in the patient requiring inpatient psychiatric care which could not be prevented at a less intensive level of care. Time Spent With Patient Time: Total time managing care of this patient today _60___ minutes.
--- NOTE | 2024-08-31 10:05 | PC.NURSE ---
Fahad left group, telegraphic typewriter operator chief gave him a call he stated I'm outside waiting for my mother to pick me up. He reported he was not going to be in attendance today, when asked if he had any thoughts of wanting to hurt or kill self stated No. Reported he will be talking to mom regarding continuation of the program. Encouraged to call program with decision.
--- NOTE | 2024-08-31 20:13 | PM.EVENT ---
Event Note Date of Service: 08/31/24 Event Note: Patient continues leave [facility] within minutes of start of program. Has been unable to tolerate sitting in group. Says he doesn't want to stay in program but his mom really wants me here...we're sort of at an impasse . He suggests it may be anxiety that makes it hard to tolerate groups, but says he doesnt know exactly what is bothering him. He has picked up the medications - lorazepam, ziprasidone, bupropion - says he started on bupropion this morning. Denies any adverse effects. Has not started on ziprasidone. He agrees to give it one more chance and we will see if ziprasidone provies helpful. He was reminded to start this evening 20 mg and again in AM and to bring the bottle in with him in case we need to titrate dose and will try taking this in conjunction with lorazepam to manage social anxiety/vague paranoia. Time Spent With Patient Time: Total time managing care of this patient today __15__ minutes.
--- NOTE | 2024-09-01 22:49 | PM.EVENT ---
Event Note Date of Service: 09/01/24 Event Note: Spoke with patient who again did not come to program. He is requesting IOP, but has yet to complete a single group (leaves after 5-10 min) asks mom comes to pick him up. He has started ziprasidone 20 mg BID has not noticed any difference thus far in anxiety. Denies any adverse effects. Specifically denies any lethargy, dizziness, confusion, palpitations, pain or stiffness anywhere including in head/face/jaw/neck/shoulders. He is willing to increase dose to 40 mg BID and says he would like to try once more tomorrow. Nanette was present for conversation and we discussed having him stay until 12:30pm tomorrow (like an IOP day) and see if he can tolerate groups. I request that tomorrow he bring in his bottle of ziprasidone and lorazepam (short script which he has not been taking) to see if we can better manage his anxiety. Time Spent With Patient Time: Total time managing care of this patient today 20 ____ minutes.
--- NOTE | 2024-09-02 09:35 | PC.NURSE ---
Fahad did not show up to the program this morning. I called him and left him a message to call me back. Awaiting his phone call.
--- NOTE | 2024-09-02 09:50 | PC.NURSE ---
I spoke to Fahad and he stated he was suppose to start IOP today however he decided against it. Does not want to continue the program. He reports he has providers. I told him staff would be calling him to f/u on his discharge. He denied any safety concerns. No SI.
== END 2024-08-31 23:59 | disposition home or self-care (01) ==
LOC: HO.PHPA 11:30
PROVIDERS: Visit Provider Psychiatry & Neurology Psychiatry
DX: F20.3 Undifferentiated schizophrenia (principal); F32.A Depression, unspecified; F89 Unspecified disorder of psychological development
CPT/HCPCS: 90791; 90853